=== PATIENT | female | born 1965 | race Caucasian/White ===

== ENCOUNTER 2024-10-13 14:02 | Outpatient (CLI) | payer MEDICARE, SELFPAY ==
--- NOTE | 2024-10-13 15:31 | ECG_ITS ---
Test Date: 2024-10-13 15:43:57 Measurements Intervals [place] Rate: 62 P: -90 DE: 76 QRS: 189 QRSD: 94 T: 144 QT: 391 QTc: 398 Interpretive Statements SINUS RHYTHM LIMB LEAD REVERSAL DELAYED PRECORDIAL R/S TRANSITION BASELINE ARTIFACT- I, II, III, AVR, AVL, AVF, V1-V6 BORDERLINE ECG No previous ECG available for comparison Electronically Signed On 10-13-2024 15:47:51 CDT by Stan Hansen D.O.
[2024-10-13 15:48] LABS: Hemoglobin 13.6 g/dL (12.0-15.0); Mean Corpuscular HGB Conc 30.9 g/dl (32-36); Mean Corpuscular Volume 90.7 fl (80-100); Mean Platelet Volume 12.5 fl (7.4-10.4); Platelet Count Result 242 k/mm3 (150-375); Red Blood Count 4.85 M/mm3 (4.2-5.4); Red Cell Distribution Width 13.2 % (11.5-14.5); White Blood Count 7.7 K/mm3 (4.5-10.0)
[2024-10-13 15:51] LABS: Add Urine Microscopic? NO; Appearance Urine Clear (Clear); Bilirubin Urine Negative (Negative); Blood Urine Negative (Negative); Color Urine Yellow (Yellow); Glucose Urine UA Negative (Negative); Ketones Urine Trace mg/dL (Negative); Leukocyte Esterase Ur Negative LEU/UL (Negative); Nitrate Urine Negative (Negative); Protein Urine Negative (Negative); Specific Grav Ur 1.034 (1.001-1.035); pH Urine 5.5 (5.0-9.0)
[2024-10-13 16:00] LABS: INR 0.9; Prothrombin Time 12.4 Seconds (11.1-14.7)
[2024-10-13 16:01] LABS: Partial Thromboplastin Time 26.3 Seconds (22.3-36.8)
[2024-10-13 16:03] LABS: Anion Gap 10 mmol/L (4-12); Blood Urea Nitrogen 18 mg/dL (7-17); Calcium 9.9 mg/dL (8.4-10.2); Carbon Dioxide 25 mmol/L (22-30); Chloride 105 mmol/L (98-107); Estimated Glomerular Filt Rate > 60; Glucose 108 mg/dL (65-110); Potassium 4.4 mmol/L (3.4-5.0); Sodium 140 mmol/L (137-145)
[2024-10-13 16:05] LABS: Hemoglobin A1C 6.9 % (<5.7)
== END 2024-10-13 14:03 | disposition home or self-care (01) ==
LOC: ANHSURGERY 14:11
PROVIDERS: Visit Provider Neurological Surgery
DX: M79.606 Pain in leg, unspecified (principal); M54.9 Dorsalgia, unspecified; I10 Essential (primary) hypertension; Z01.818 Encounter for other preprocedural examination
CPT/HCPCS: 36415; 80048; 81003; 83036; 85027; 85610; 85730; 93005

== ENCOUNTER 2024-10-25 02:51 | Day surgery (SDC) | payer MEDICARE, SELFPAY ==
[2024-10-13 14:35] VITALS: BP 102/67; PULSE 74; RESP 16; TEMP 36.6; O2SAT 99; BMI 27.6
--- NOTE | 2024-10-13 14:58 | PC.NURSE ---
Addendum entered by Lucina Bourne RN 10/13/24 15:27: PATIENT TO TAKE PAROXETINE NIGHT BEFORE USUAL, INSTEAD OF MORNING OF SURGERY. PT RELAYS UNDERSTANDING. Original Note: Report to the Outpatient Waiting Room, entrance under the green pavilion located off [facility], at time __8:30AM on date ___10/25/24____. Planned Procedure Time: __10:30AM .? Time changes happen often and if your time is changed the preop area will call you the afternoon before. - You and your visitor will be asked to self-screen and do not enter if you have any COVID symptoms. Please call surgeon if you need to reschedule. - A mask is optional within the hospital at this time. Patients may have clear liquids (water, carbonated beverages, clear teas, apple juice) until 3 hours prior to surgery (7:30AM) with a maximum of 20 ounces. - No food from midnight until time of surgery and no smoking, or chewing tobacco (or any form of nicotine). No chewing gum, candy or mints. Take only the following medications with a SIP of water on the morning of surgery: ___BUPROPION, BUSPIRONE, PAROXETINE, PREGABALIN. MAY TAKE LORAZEPAM NEEDED FOR ANXIETY.____INSULIN PUMP ON BASAL RATE. DO NOT STOP ANY OF YOUR OTHER PRESCRIPTION MEDICATIONS PRIOR TO SURGERY EXCEPT THE FOLLOWING Hold all vitamins and supplements for 3 days per anesthesiologist.- LAST DOSE 10/21/24. Please no make-up, nail british, hairspray, perfume, deodorant, or body powder the day of surgery.? No jewelry (including any body piercings) or valuables the day of surgery, leave them at home.? Please take a shower or bath the night before, or the morning of, surgery with an antibacterial soap.? Wear comfortable, loose fitting clothing.? - Jewelry must be removed prior to entering the operating room.? Rings and piercings that are not removed may be cut off. - The hospital will not accept responsibility for valuables.? - Please leave all valuables, including medications, at home the day of surgery. If you are going home after surgery, a licensed tractor trailer driver must drive you home.? - NO public transportation without another adult if you receive anesthesia. - We recommend that an adult stay with you for 24 hours following discharge. - We also recommend that you do not drive, make important decision, drink alcoholic beverages, or take any drugs that were not prescribed by your health care provider for at least 24 hours after your discharge time. Follow any additional instructions given to you from your surgeon. Telephone instructions given to ___PATIENT and asked if any additional questions and then verbalized understanding. Patient advised to call surgeon office or pre surgery nurse liaison [phone] if any additional questions.
[2024-10-25] VITALS (9 sets, daily range): BP systolic 104–140; BP diastolic 58–85; PULSE 64–78; RESP 16–21; TEMP 36.4–36.9; O2SAT 98–100
--- OUTSIDE RECORDS SUMMARY | 2024-10-25 02:57 | XMS_ITS | Patient Health Record ---
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 Name Role Phone Asher CLEARY, Antonio Primary Care Provider Unavail able Everton Dia Unavailable [phone] ALLERGIES Allergen (clinical drug ingredient) Drug/Non Drug Allergy documented on EMR Reaction Allergy Type Onset Date Status Septra DS Unknown Drug Allergy Active insulin detemir Levemir Unknown Drug Allergy A ctive Ceftin Unknown Drug Allergy Active Biaxin Unknown Drug Allergy Active REASON FOR REFERRAL No Information MEDICATIONS Medication SIG (Take, Route, Frequency, Duration) Notes Start Date End Date Status Vitamin D-3 1000 UNIT 5000 units Orally Once a day Active Crestor 40 MG 1 tablet Orally Once a day Active Zantac 150 MG 1 tablet at bedtime Orally Once a day Active hydroCHLOROthiazide 25 MG 1 tablet Orall y Once a day Active Aspirin Adult Low Dose 81 MG 1 tablet Or ally Once a day Active Strang 7.5-325 MG 1 tablet as needed Orally every 6 hrs Active Lisinopril 5 MG 1 tablet Orally Once a day for 30 day(s) 01/30/2016 Active Super B Complex Acti ve Montelukast Sodium 10 MG 1 tablet in the evening Orally Once a day Active NovoLOG FlexPen 100 UNIT/ML Subcutaneous Active PARoxetine HCl ER 25 MG 1 tablet in the morning Orally Once a day Active Cetirizine HCl 5 MG 1 tablet Orally Once a day Active Levothyroxine Sodium 25 MCG 1 tablet Ora lly Once a day Active Lyrica 150 MG 1 capsule Orally Twi ce a day Active metFORMIN HCl 850 MG 1 tablet with a anibal l Orally Once a day Active Potassium Chloride ER 20 MEQ 1 tablet wi th food Orally Twice a day Active Zohydro ER 30 MG 1 capsule Orally One at Bedtime Active CeleBREX 200 MG 1 capsule Orally Onc e a day Active Victoza 18 MG/3ML 1.8 mg Subcutaneous Once a day Active Baclofen 10 MG 1 tablet with food o r milk Orally 2 times a day Active Lisinopril 5 TAKE 1 TABLET BY FAUSTINO TH EVERY DAY for 30 Active Cranberry Plus Vitamin C 4200-20-3 MG-MG-UNIT Orally Active NovoLOG 100 UNIT/ML 15 units Subcutaneous Active Diflucan 150 MG 1 tablet Orally once a week Active Flonase Allergy Relief 50 MCG/ACT 1 spray in each nostril Nasally Once a day Active Amitiza 24 MCG 1 capsule with food Orally prn Active PROBLEMS Problem Type ICD Code Onset Dates Problem Status W/U Status Risk SNOMED Code Notes Problem Essential (primary) hypertension (I10) Active confirmed Essential hypertension (03396875) Problem Chronic kidney disease, stage 3 (moderate) (N18.3) Active confirmed Chronic kidney disease stage 3 (239585419) Problem Type 2 diabetes mellitus without complications (E11.9) Active confirmed Type II diabetes mellitus without complication (963925150) Problem Type 2 diabetes mellitus with diabetic chronic kidney disease (E11.22) Active confirmed Diabetic renal disease (297306218) PLAN OF TREATMENT Pending Test Test Name Order Date Ultrasound : Kidneys, bilateral 11/28/19 16 Future Test Test Name Order Date PTH, Intact 01/09/2016 RENAL PANEL 01/09/2016 Urinalysis with Microscopic/WITH Reflex Culture 01/09/2016 CBC without Differential 01/09/2016 RENAL PANEL 05/01/2016 Vitamin D, 25-Hydroxy 05/01/2016 URINE PROTEIN W/CREAT RATIO 05/01/2016 Insurance Providers Payer Name Payer Address Payer Phone Subscriber Number Group Number Insured Name Patient Relationship to Insured Coverage Start Date Coverage End Date [facility] [address] [place], [place] [id number] Noa Campos Self - patient is the insured [facility] [place] [address] [id number] Noa Campos Self - patient is the insured MEDICAL (GENERAL) HISTORY Medical History History ICD Code CKD Stage III Hypertension Hypothyroidism Diabets Mellitus Type II Chronic Pain 12/20/2015: US Renal; Impression: Unremark able Surgical History Surgery Date(Month/Year) back surgeries x3 laparoscopy for endometriosis
--- OUTSIDE RECORDS SUMMARY | 2024-10-25 02:57 | XMS_ITS ---
Author Organization Unknown Address [address] [place] [phone] Phone Care Team Providers Care Portfolio Management Marketing Name Role Phone ROSITA ROSADO Attending Unavailable Immunization Immunization Date Status Additional Notes Code Code System pneumococcal polysaccharide PPV23 12/15/2019 Completed 33 CVX influenza, unspecified formulation 12/20/2022 Completed 88 CVX COVID-19, mRNA, LNP-S, PF, aung-sucrose, 30 mcg/0.3 mL 03/10/2024 Completed 309 CVX RSV, bivalent, protein subun it RSVpreF, diluent reconstituted, 0.5 mL, PF 02/11/2024 Completed 305 CV X COVID-19, mRNA, LNP-S, bivalent, PF, 50 mcg/0.5 mL or 25mcg/0.25 mL dose 12/21/2021 Completed 229 CVX COVID-19, mRNA, LNP-S, PF, 3 0 mcg/0.3 mL dose, aung-sucrose 09/23/2021 Completed 217 CVX COVID-19, mRNA, LNP-S, PF, 3 0 mcg/0.3 mL dose 01/18/2021 Completed 208 CVX COVID-19, mRNA, LNP-S, PF, 3 0 mcg/0.3 mL dose 07/19/2020 Completed 208 CVX COVID-19, mRNA, LNP-S, PF, 3 0 mcg/0.3 mL dose 07/03/2020 Completed 208 CVX zoster recombinant 06/21/2020 Completed 187 CVX zoster recombinant 03/09/2020 Completed 187 CVX Influenza, MDCK, quadrivalen t, preservative 04/18/2018 Completed 186 CVX Influenza, MDCK, quadrivalen t, PF 03/05/2017 Completed 171 CVX Influenza, split virus, quadrivalent, preservative 01/14/2019 Completed 158 C VX Influenza, split virus, quadrivalent, preservative 04/08/2018 Completed 158 C VX Influenza, split virus, quadrivalent, preservative 01/15/2015 Completed 158 C VX Influenza, split virus, quadrivalent, preservative 12/19/2014 Completed 158 C VX Influenza, MDCK, trivalent, PF 01/13/2024 Completed 153 CVX Influenza, split virus, quadrivalent, PF 12/19/2022 Completed 150 CVX Influenza, split virus, quadrivalent, PF 12/21/2021 Completed 150 CVX Influenza, split virus, quadrivalent, PF 12/18/2020 Completed 150 CVX Influenza, split virus, trivalent, preservative 02/15/2016 Completed 141 CVX Influenza, split virus, trivalent, preservative 12/19/2013 Completed 141 CVX Pneumococcal conjugate PCV 13 03/28/2016 Completed 133 CVX zoster live 03/28/2016 Completed 121 CVX COVID-19, mRNA, LNP-S, PF, 5 0 mcg/0.5 mL 01/28/2023 Completed 312 CVX Social History Type Status Start Date End Date Code Code Syst em Smoking History Never smoker (Never Smoked) 498204840 SNOMED CT Smoking History Unknown if ever smoked [id number] SNOMED CT Sex Female Sexual Orientation Straight or Heterosexual 66681637 SNOMED CT Gender Identity Female [id number] Medications Medication Start Date End Date Route Frequency Dose Code Code System Medication Instructions Home Meds Lyrica 150MG Oral Capsule 08/30/2018 Unknown By Mouth Twice a day 1 CAPSULE 245492 RxNorm 1 CAPSULE By Mouth Twice a day Xyzal Allergy 24HR 5MG Oral Tablet 08/30/2018 Unknown By Mouth Daily 1 TABLET 857592 RxNorm 1 TABLE T By Mouth Daily CeleBREX 100MG Oral Capsule 03/15/2019 12/31/19 23 By Mouth Twice a day 1 CAPSULE 908049 RxNorm 1 CAPSULE By Mouth Twice a day Pepcid AC 20MG Oral Tablet 03/15/2019 Unknown By Mouth Daily 1 TABLET 430983 RxNorm 1 TABLET By Mouth Daily medical marijuana 07/27/2019 04/22/19 24 By Mouth As Directed 1 edible RxNorm 1 edible By Mouth As Directed Fiasp 100U/1ML Injection Solution 02/23/2020 Unknown Subcutane ous 9124435 RxNorm Subcutaneou s VIA INSULIN PUMP Victoza 6MG/1ML Subcutaneou s Solution 02/23/2020 04/22/19 24 Subcutane ous Daily 1.8 MILLIGRAMS 881314 RxNorm 1.8 MILLIGRAMS Subcutaneou s Daily Singulair 10MG Oral Tablet 04/03/2021 10/04/19 22 By Mouth Daily 1 TABLET 735364 RxNorm TAKE 1 TABLET BY MOUTH ONCE A DAY Prinivil 5MG Oral Tablet 04/03/2021 10/04/19 22 By Mouth Daily 1 TABLET 632544 RxNorm TAKE 1 TABLET BY MOUTH ONCE A DAY Crestor 40MG Oral Tablet 04/03/2021 10/04/19 22 By Mouth Daily 1 TABLET 234383 RxNorm TAKE 1 TABLET BY MOUTH ONCE A DAY Paxil 40MG Oral Tablet 04/09/2021 10/04/19 22 By Mouth Daily 1 TABLET 950561 RxNorm TAKE 1 TABLET BY MOUTH ONCE A DAY -TAKE WITH 10MG TAB busPIRone 15MG Oral Tablet 06/27/2021 10/04/19 22 By Mouth Twice a day 1 TABLET 134904 RxNorm 1 TABLET BY MOUTH TWICE A DAY Augmentin 875MG-125MG Oral Tablet 07/11/2021 10/04/19 22 By mouth Twice a day 1 TABLET 222065 RxNorm 1 TABLET By mouth Twice a day x10 days Potassium Chloride 20MEQ Oral Tablet, Extended Release 08/01/2021 10/04/19 22 By Mouth Twice a day 2 TABLET 0758970 RxNorm TAKE 2 TABLETS BY MOUTH TWO TIMES A DAY Paxil 10MG Oral Tablet 08/22/2021 04/29/19 23 By Mouth Daily 1 TABLET 512574 RxNorm TAKE 1 TABLET BY MOUTH ONCE A DAY -TAKE WITH 40MG TAB Singulair 10MG Oral Tablet 10/03/2021 12/07/19 22 By Mouth Daily 1 TABLET 306491 RxNorm TAKE 1 TABLET BY MOUTH ONCE A DAY Prinivil 5MG Oral Tablet 10/03/2021 11/08/19 22 By Mouth Daily 1 TABLET 945794 RxNorm TAKE 1 TABLET BY MOUTH ONCE A DAY Potassium Chloride 20MEQ Oral Tablet, Extended Release 10/03/2021 11/05/19 22 By Mouth Twice a day 2 TABLET 3002977 RxNorm TAKE 2 TABLETS BY MOUTH TWO TIMES A DAY Crestor 40MG Oral Tablet 10/03/2021 01/10/20 22 By Mouth Daily 1 TABLET 122311 RxNorm TAKE 1 TABLET BY MOUTH ONCE A DAY Paxil 40MG Oral Tablet 10/03/2021 11/05/19 22 By Mouth Daily 1 TABLET 189768 RxNorm TAKE 1 TABLET BY MOUTH ONCE A DAY -TAKE WITH 10MG TAB busPIRone 15MG Oral Tablet 10/03/2021 12/07/19 22 By Mouth Twice a day 1 TABLET 438953 RxNorm 1 TABLET BY MOUTH TWICE A DAY Potassium Chloride 20MEQ Oral Tablet, Extended Release 11/04/2021 12/07/19 22 By Mouth Twice a day 2 TABLET 0338632 RxNorm TAKE 2 TABLETS BY MOUTH TWO TIMES A DAY Paxil 40MG Oral Tablet 11/04/2021 12/07/19 22 By Mouth Daily 1 TABLET 487517 RxNorm TAKE 1 TABLET BY MOUTH ONCE A DAY -TAKE WITH 10MG TAB Prinivil 5MG Oral Tablet 11/06/2021 04/29/19 23 By Mouth Daily 1 TABLET 601872 RxNorm TAKE 1 TABLET BY MOUTH ONCE A DAY Prinivil 5MG Oral Tablet 11/07/2021 04/08/20 22 By Mouth Daily 1 TABLET 009577 RxNorm TAKE 1 TABLET BY MOUTH ONCE A DAY Paxil 40MG Oral Tablet 12/06/2021 01/10/20 22 By Mouth Daily 1 TABLET 193222 RxNorm TAKE 1 TABLET BY MOUTH ONCE A DAY -TAKE WITH 10MG TAB Singulair 10MG Oral Tablet 12/06/2021 02/08/20 22 By Mouth Daily 1 TABLET 608087 RxNorm TAKE 1 TABLET BY MOUTH ONCE A DAY busPIRone 15MG Oral Tablet 12/06/2021 01/10/20 22 By Mouth Twice a day 1 TABLET 738930 RxNorm TAKE 1 TABLET BY MOUTH TWO TIMES A DAY Potassium Chloride 20MEQ Oral Tablet, Extended Release 12/06/2021 01/10/20 22 By Mouth Twice a day 2 TABLET 3743444 RxNorm TAKE 2 TABLETS BY MOUTH TWO TIMES A DAY Potassium Chloride 20MEQ Oral Tablet, Extended Release 01/09/2022 03/11/20 22 By Mouth Twice a day 2 TABLET 5163444 RxNorm TAKE 2 TABLETS BY MOUTH TWO TIMES A DAY Paxil 40MG Oral Tablet 01/09/2022 03/11/20 22 By Mouth Daily 1 TABLET 783062 RxNorm TAKE 1 TABLET BY MOUTH ONCE A DAY -TAKE WITH 10MG TAB Crestor 40MG Oral Tablet 01/09/2022 03/11/20 22 By Mouth Daily 1 TABLET 840253 RxNorm TAKE 1 TABLET BY MOUTH ONCE A DAY busPIRone 15MG Oral Tablet 01/09/2022 03/11/20 22 By Mouth Twice a day 1 TABLET 424665 RxNorm TAKE 1 TABLET BY MOUTH TWO TIMES A DAY Singulair 10MG Oral Tablet 02/07/2022 04/29/19 23 By Mouth Daily 1 TABLET 912886 RxNorm TAKE 1 TABLET BY MOUTH ONCE A DAY Singulair 10MG Oral Tablet 02/07/2022 04/29/19 23 By Mouth Daily 1 TABLET 819639 RxNorm TAKE 1 TABLET BY MOUTH ONCE A DAY Crestor 40MG Oral Tablet 03/11/2022 04/08/20 22 By Mouth Daily 1 TABLET 029611 RxNorm TAKE 1 TABLET BY MOUTH ONCE A DAY busPIRone 15MG Oral Tablet 03/11/2022 04/08/20 22 By Mouth Twice a day 1 TABLET 637931 RxNorm TAKE 1 TABLET BY MOUTH TWO TIMES A DAY Paxil 40MG Oral Tablet 03/11/2022 04/08/20 22 By Mouth Daily 1 TABLET 262996 RxNorm TAKE 1 TABLET BY MOUTH ONCE A DAY -TAKE WITH 10MG TAB Potassium Chloride 20MEQ Oral Tablet, Extended Release 03/11/2022 04/08/20 22 By Mouth Twice a day 2 TABLET 9961294 RxNorm TAKE 2 TABLETS BY MOUTH TWO TIMES A DAY Doxycycline 100MG Oral Capsule 03/20/2022 04/29/19 23 By Mouth Twice a day 1 CAPSULE 7919084 RxNorm 1 CAPSULE By Mouth Twice a day x10 days Paxil 40MG Oral Tablet 04/08/2022 04/29/19 23 By Mouth Daily 1 TABLET 336608 RxNorm TAKE 1 TABLET BY MOUTH ONCE A DAY -TAKE WITH 10MG TAB busPIRone 15MG Oral Tablet 04/08/2022 04/29/19 23 By Mouth Twice a day 1 TABLET 186379 RxNorm TAKE 1 TABLET BY MOUTH TWO TIMES A DAY Prinivil 5MG Oral Tablet 04/08/2022 04/29/19 23 By Mouth Daily 1 TABLET 729606 RxNorm TAKE 1 TABLET BY MOUTH ONCE A DAY Crestor 40MG Oral Tablet 04/08/2022 06/05/19 23 By Mouth Daily 1 TABLET 563690 RxNorm TAKE 1 TABLET BY MOUTH ONCE A DAY Potassium Chloride 20MEQ Oral Tablet, Extended Release 04/08/2022 04/29/19 23 By Mouth Twice a day 2 TABLET 5601021 RxNorm TAKE 2 TABLETS BY MOUTH TWO TIMES A DAY Naltrexone HCl Powder 04/29/2022 06/06/19 25 By Mouth At bedtime 3 MILLIGRAMS RxNorm 3 MILLIGRAMS By Mouth At bedtime Paxil 40MG Oral Tablet 04/29/2022 02/05/20 23 By Mouth Daily 1 TABLET 893496 RxNorm TAKE 1 TABLET BY MOUTH ONCE A DAY busPIRone 15MG Oral Tablet 04/29/2022 02/05/20 23 By Mouth Twice a day 1 TABLET 197477 RxNorm TAKE 1 TABLET BY MOUTH TWO TIMES A DAY Prinivil 5MG Oral Tablet 04/29/2022 06/19/19 24 By Mouth Daily 1 TABLET 801836 RxNorm TAKE 1 TABLET BY MOUTH ONCE A DAY Potassium Chloride 20MEQ Oral Tablet, Extended Release 04/29/2022 12/31/19 23 By Mouth Twice a day 2 TABLET 5497838 RxNorm TAKE 2 TABLETS BY MOUTH TWO TIMES A DAY Singulair 10MG Oral Tablet 04/29/2022 05/07/19 24 By Mouth Daily 1 TABLET 799818 RxNorm TAKE 1 TABLET BY MOUTH ONCE A DAY Crestor 40MG Oral Tablet 06/05/2022 08/20/19 23 By Mouth Daily 1 TABLET 504388 RxNorm TAKE 1 TABLET BY MOUTH ONCE A DAY Crestor 40MG Oral Tablet 08/19/2022 12/20/19 23 By Mouth Daily 1 TABLET 971362 RxNorm TAKE 1 TABLET BY MOUTH ONCE A DAY Crestor 40MG Oral Tablet 12/19/2022 12/31/19 23 By Mouth Daily 1 TABLET 495033 RxNorm TAKE 1 TABLET BY MOUTH ONCE A DAY Ozempic 0.25 MG or 0.5 MG Doses 2 MG/3 ML Subcutaneou s Solution 12/30/2022 01/05/20 24 Subcutane ous Once a week 0.25 UNIT 9308761 RxNorm 0.25 UNIT Subcutaneou s Once a week Crestor 40MG Oral Tablet 12/30/2022 12/31/19 23 By Mouth Daily 1 TABLET 393652 RxNorm TAKE 1 TABLET BY MOUTH ONCE A DAY Crestor 40MG Oral Tablet 12/30/2022 01/05/20 24 By Mouth Daily 1 TABLET 353364 RxNorm TAKE 1 TABLET BY MOUTH ONCE A DAY Paxil 40MG Oral Tablet 02/04/2023 07/07/19 24 By Mouth Daily 1 TABLET 094661 RxNorm TAKE 1 TABLET BY MOUTH ONCE A DAY busPIRone 15MG Oral Tablet 02/04/2023 07/07/19 24 By Mouth Twice a day 1 TABLET 369044 RxNorm TAKE 1 TABLET BY MOUTH TWO TIMES A DAY Levothyroxi ne 50MCG Oral Tablet 02/20/2023 Unknown By Mouth 1 TABLET 924713 RxNorm 1 TABLE T By Mouth in the morning on an empty stomach- PRESCRIBED BY DR DURAN Victoza 6MG/1ML Subcutaneou s Solution 02/20/2023 06/21/19 25 Subcutane ous Daily 1.8 UNIT 842532 RxNorm 1.8 UNIT Subcutaneou s Daily- *PRESCRIBED BY DR DURAN NovoLOG FlexPen 100U/1ML Subcutaneou s Solution 02/20/2023 04/07/20 23 Subcutane ous 3020599 RxNorm Inject up to 100 Units SUBQ daily in DMDED doses--- * PRESCRIBED BY DR DURAN Baclofen 10MG Oral Tablet 02/20/2023 Unknown By Mouth Three times a day 1 TABLET 131035 RxNorm 1 TABLET By Mouth Three times a day With food Aspirin 81MG Oral Tablet, Enteric Coated 02/20/2023 04/07/20 23 By Mouth Daily 1 TABLET 889403 RxNorm 1 TABLET By Mouth Daily Vitamin D 1000IU Oral Tablet 02/20/2023 04/07/20 23 By Mouth Daily 1 TABLET 135092 RxNorm 1 TABLET By Mouth Daily Augmentin 875MG-125MG Oral Tablet 04/22/2023 05/28/19 24 By Mouth Every 12 hours 1 TABLET 365920 RxNorm 1 TABLET By Mouth Every 12 hours x 10 days. Take with food. Diflucan 150MG Oral Tablet 04/22/2023 05/28/19 24 By Mouth x1 NOW 1 TABLET 190837 RxNorm 1 TABLET By Mouth x1 NOW. May repeat in 72 hours as needed. Singulair 10MG Oral Tablet 05/07/2023 07/07/19 24 By Mouth Daily 1 TABLET 288194 RxNorm TAKE 1 TABLET BY MOUTH ONCE A DAY Prinivil 5MG Oral Tablet 06/19/2023 06/22/19 24 By Mouth Daily 1 TABLET 257840 RxNorm TAKE 1 TABLET BY MOUTH ONCE A DAY Prinivil 5MG Oral Tablet 06/22/2023 07/07/19 24 By Mouth Daily 1 TABLET 722462 RxNorm TAKE 1 TABLET BY MOUTH ONCE A DAY Prinivil 5MG Oral Tablet 07/07/2023 01/05/20 24 By Mouth Daily 1 TABLET 704349 RxNorm TAKE 1 TABLET BY MOUTH ONCE A DAY Singulair 10MG Oral Tablet 07/07/2023 01/05/20 24 By Mouth Daily 1 TABLET 563627 RxNorm TAKE 1 TABLET BY MOUTH ONCE A DAY Paxil 40MG Oral Tablet 07/07/2023 10/02/19 24 By Mouth Daily 1 TABLET 176598 RxNorm TAKE 1 TABLET BY MOUTH ONCE A DAY busPIRone 15MG Oral Tablet 07/07/2023 01/05/20 24 By Mouth Twice a day 1 TABLET 821654 RxNorm TAKE 1 TABLET BY MOUTH TWO TIMES A DAY Ativan 0.5MG Oral Tablet 09/02/2023 09/28/19 25 By Mouth Twice a day 1 TABLET 476081 RxNorm 1 TABLET By Mouth Twice a day PRN Paxil 30MG Oral Tablet 10/02/2023 10/30/19 24 By Mouth Daily 2 TABLET 340235 RxNorm 2 TABLET By Mouth Daily Paxil 30MG Oral Tablet 10/30/2023 08/17/19 25 By Mouth Daily 2 TABLET 680448 RxNorm 2 TABLET By Mouth Daily Ambien 5MG Oral Tablet 12/11/2023 01/05/20 24 By Mouth At bedtime 245131 RxNorm 1-2 TABLET By Mouth At bedtime As needed Ozempic 0.25 MG or 0.5 MG Doses 2 MG/3 ML Subcutaneou s Solution 01/05/2024 06/21/19 25 Subcutane ous Once a week 0.5 UNIT 8311773 RxNorm 0.5 UNIT Subcutaneou s Once a week Crestor 40MG Oral Tablet 01/05/2024 09/27/19 25 By Mouth Daily 1 TABLET 778272 RxNorm TAKE 1 TABLET BY MOUTH ONCE A DAY busPIRone 15MG Oral Tablet 01/05/2024 08/06/19 25 By Mouth Twice a day 1 TABLET 537806 RxNorm TAKE 1 TABLET BY MOUTH TWO TIMES A DAY Singulair 10MG Oral Tablet 01/05/2024 09/27/19 25 By Mouth Daily 1 TABLET 161389 RxNorm TAKE 1 TABLET BY MOUTH ONCE A DAY Ambien 5MG Oral Tablet 01/05/2024 09/28/19 25 By Mouth At bedtime 496105 RxNorm 1-2 TABLET By Mouth At bedtime As needed Prinivil 5MG Oral Tablet 01/05/2024 07/06/19 25 By Mouth Daily 1 TABLET 800902 RxNorm TAKE 1 TABLET BY MOUTH ONCE A DAY Promethazin e DM 6.25MG/5ML- 15MG/5ML Oral Syrup 01/25/2024 06/06/19 25 ORAL As needed every 4 hr 5 mL 432565 RxNorm 5 mL ORAL As needed every 4 hr-do not take within 2 hours of Paxil or Buspirone Augmentin 875MG-125MG Oral Tablet 01/25/2024 06/06/19 25 By Mouth Twice a day 1 TABLET 389875 RxNorm 1 TABLET By Mouth Twice a day x 10 days Airsupra 90 MCG/1 Actuation-8 0 MCG/1 Actuation Inhalation Aerosol Powder 01/25/2024 06/06/19 25 Inhale As needed every 4 hr 2 Puff 1449622 RxNorm 2 Puff Inhale As needed every 4 hr Victoza 6MG/1ML Subcutaneou s Solution 06/20/2024 Unknown Subcutane ous Daily 1.8 MILLIGRAMS 026350 RxNorm 1.8 MILLIGRAMS Subcutaneou s Daily Ozempic 0.25 MG or 0.5 MG Doses 2 MG/3 ML Subcutaneou s Solution 06/20/2024 Unknown Subcutane ous Once a week 1.5 MILLILITER 4798193 RxNorm 1.5 MILLILITER Subcutaneou s Once a week Lisinopril 5MG Oral Tablet 07/05/2024 09/27/19 25 By Mouth Daily 1 TABLET 040915 RxNorm 1 TABLET By Mouth Daily busPIRone 15MG Oral Tablet 08/05/2024 Unknown By Mouth Twice a day 1 TABLET 351695 RxNorm TAKE 1 TABLET BY MOUTH TWO TIMES A DAY Paxil 20MG Oral Tablet 08/16/2024 09/27/19 25 By Mouth Daily 1 TABLET 831048 RxNorm 1 TABLET By Mouth Daily Wellbutrin XL 150MG Oral Tablet, Extended Release, 24 HR 08/16/2024 09/27/19 25 By Mouth Daily 1 TABLET 534970 RxNorm 1 TABLET By Mouth Daily. Wellbutrin XL 150MG Oral Tablet, Extended Release, 24 HR 09/26/2024 Unknown By Mouth Daily 1 TABLET 568419 RxNorm 1 TABLET By Mouth Daily. Paxil 20MG Oral Tablet 09/26/2024 Unknown By Mouth Daily 1 TABLET 852223 RxNorm 1 TABLE T By Mouth Daily Lisinopril 5MG Oral Tablet 09/26/2024 Unknown By Mouth Daily 1 TABLET 989340 RxNorm 1 TABLET By Mouth Daily Singulair 10MG Oral Tablet 09/26/2024 Unknown By Mouth Daily 1 TABLET 561774 RxNorm TAKE 1 TABLET BY MOUTH ONCE A DAY Crestor 40MG Oral Tablet 09/26/2024 Unknown By Mouth Daily 1 TABLET 623119 RxNorm TAKE 1 TABLET BY MOUTH ONCE A DAY Ativan 0.5MG Oral Tablet 09/27/2024 Unknown By Mouth As needed daily 1 TABLET 099022 RxNorm 1 TABLET By Mouth As needed daily Ambien 5MG Oral Tablet 09/27/2024 10/05/19 25 By Mouth At bedtime 483951 RxNorm 1-2 TABLET By Mouth At bedtime As needed Ambien 5MG Oral Tablet 10/04/2024 Unknown By Mouth At bedtime 1 TABLET 350096 RxNorm 1 TABLET By Mouth At bedtime As needed Assessment You had the following problems:TYPE I DIABETES MELLITUS WITH HYPERGLYCEMIAHYPERTENSIONHYPERCHOLESTEROLEMIAHYPOTHYROIDISMLUMBAR RADICULOPATHYLOW POTASSIUMGERDALLERGIC RHINITISDEPRESSIONANXIETYASTHMACHRONIC KIDNEY DISEASE STAGE 3OBESITYENDOMETRIOSISSLEEP APNEANEOPLASM OF UNCERTAIN BEHAVIOR OF RIGHT ADRENAL GLANDDEFICIENCY OF OTHER SPECIFIED B GROUP VITAMINSHYPERCALCEMIAENCOUNTER FOR FITTING AND ADJUSTMENT OF INSULIN PUMPABNORMAL LEVELS OF OTHER SERUM ENZYMES Hospital Discharge Instructions Should you have any questions prior to discharge, please contact a member of your healthcare team. If you have left the hospital and have any questions, please contact your primary care physician. Reason For Referral No Data Found Problems Problem Start Date Resolved Date Status Code Code System TYPE I DIABETES MELLITUS WITH HYPERGLYCEMIA active [id number] SNOMED -CT HYPERTENSION active 60366962 SNOMED- CT HYPERCHOLESTEROLEMIA active 37615378 SNOMED-CT HYPOTHYROIDISM active 83959323 SNOME D-CT LUMBAR RADICULOPATHY active 921701739 SNOMED-CT LOW POTASSIUM active 25082038 SNOMED -CT GERD active 503575084 SNOMED-CT ALLERGIC RHINITIS active 98369362 SN OMED-CT DEPRESSION active 05820783 SNOMED-CT ANXIETY active 02064829 SNOMED-CT ASTHMA active 207412335 SNOMED-CT CHRONIC KIDNEY DISEASE STAGE 3 active 400693605 SNOMED-CT OBESITY active 937426946 SNOMED-CT ENDOMETRIOSIS active 579129742 SNOMED -CT SLEEP APNEA active 74601870 SNOMED-C 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 158669360591615 SNOMED-CT 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 64156947 S NOMED-CT HYPERCALCEMIA active 73398597 SNOMED -CT ENCOUNTER FOR FITTING AND ADJUSTMENT OF INSULIN PUMP active 858632252 S NOMED-CT ABNORMAL LEVELS OF OTHER SERUM ENZYMES active 175318784 SNOMED-CT HISTORY OF GASTRIC BYPASS 06/26/2022 05/30/2024 resolved 69 0031443 SNOMED-CT SINUSITIS 04/30/2022 resolved 66783706 SNOMED-CT DIABETES 2 01/19/2024 resolved 91334500 SNOMED-C T Allergies and Adverse Reactions Allergy Substance Reaction Severity Start Date Concern Status Co de Code System CEFUROXIME Rash (SNOMED-CT: 290912942) Mild Active 2194 RxNorm KETOROLAC Hives (SNOMED-CT: 367310161) Mild Active 72245 RxNorm BIAXIN Hives (SNOMED-CT: 049993879) Severe Active LANTUS Hives (SNOMED-CT: 315054803) Mild Active 940069 RxNorm TAMIFLU Rash (SNOMED-CT: 471372485) Active 561357 RxNorm SEPTRA Rash (SNOMED-CT: 429476712) Mild Active LEVEMIR Hives (SNOMED-CT: 463785807) Mild Active 946166 RxNorm Plan of Treatment MA Screening Bilateral 07/25/2025 Established Patient 30 01/03/2025 Description Due Date Details Instructions Pap 08/18/2025 Performed 09/06 20 normal, repeat in 5 yrs per [place] - RR 5.20.21 Sdoh 01/04/2025 Annual Labs 11/10/2024 cbc, cmp, tsh, free t4, lipids Mammogram 08/12/2025 08/12/24- WNL Depression 06/06/2025 Anxiety 06/06/2025 Personal Care Team Section Performer Name Performer Role Active Date Inactive Da te
--- OUTSIDE RECORDS SUMMARY | 2024-10-25 02:57 | XMS_ITS ---
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 Name Role Phone ROSITA ROSADO Attending Unavailable [...] em Smoking History Never smoker (Never Smoked) [id number] SNOMED CT Smoking History Unknown if ever smoked [id number] SNOMED CT Sex Female Sexual Orientation Straight or Heterosexual 11340682 SNOMED CT Gender Identity Female [id number] Medications Medication Start Date End Date Route Frequency Dose Code Code System Medication Instructions Home Meds Lyrica 150MG Oral Capsule 08/30/2018 Unknown By Mouth Twice a day 1 CAPSULE 468095 RxNorm 1 CAPSULE By Mouth Twice a day Xyzal Allergy 24HR 5MG Oral Tablet 08/30/2018 Unknown By Mouth Daily 1 TABLET 950030 RxNorm 1 TABLE T By Mouth Daily CeleBREX 100MG Oral Capsule 03/15/2019 12/31/19 23 By Mouth Twice a day 1 CAPSULE 743814 RxNorm 1 CAPSULE By Mouth Twice a day Pepcid AC 20MG Oral Tablet 03/15/2019 Unknown By Mouth Daily 1 TABLET 997143 RxNorm 1 TABLET By Mouth Daily medical marijuana 07/27/2019 04/22/19 24 By Mouth As Directed 1 edible RxNorm 1 edible By Mouth As Directed Fiasp 100U/1ML Injection Solution 02/23/2020 Unknown Subcutane ous 6623857 RxNorm Subcutaneou s VIA INSULIN PUMP Victoza 6MG/1ML Subcutaneou s Solution 02/23/2020 04/22/19 24 Subcutane ous Daily 1.8 MILLIGRAMS 438750 RxNorm 1.8 MILLIGRAMS Subcutaneou s Daily Paxil 10MG Oral Tablet 08/22/2021 04/29/19 23 By Mouth Daily 1 TABLET 507143 RxNorm TAKE 1 TABLET BY MOUTH ONCE A DAY -TAKE WITH 40MG TAB Singulair 10MG Oral Tablet 10/03/2021 12/07/19 22 By Mouth Daily 1 TABLET 556995 RxNorm TAKE 1 TABLET BY MOUTH ONCE A DAY Prinivil 5MG Oral Tablet 10/03/2021 11/08/19 22 By Mouth Daily 1 TABLET 714406 RxNorm TAKE 1 TABLET BY MOUTH ONCE A DAY Crestor 40MG Oral Tablet 10/03/2021 01/10/20 22 By Mouth Daily 1 TABLET 049927 RxNorm TAKE 1 TABLET BY MOUTH ONCE A DAY busPIRone 15MG Oral Tablet 10/03/2021 12/07/19 22 By Mouth Twice a day 1 TABLET 663850 RxNorm 1 TABLET BY MOUTH TWICE A DAY Potassium Chloride 20MEQ Oral Tablet, Extended Release 11/04/2021 12/07/19 22 By Mouth Twice a day 2 TABLET 5854977 RxNorm TAKE 2 TABLETS BY MOUTH TWO TIMES A DAY Paxil 40MG Oral Tablet 11/04/2021 12/07/19 22 By Mouth Daily 1 TABLET 019878 RxNorm TAKE 1 TABLET BY MOUTH ONCE A DAY -TAKE WITH 10MG TAB Prinivil 5MG Oral Tablet 11/06/2021 04/29/19 23 By Mouth Daily 1 TABLET 544533 RxNorm TAKE 1 TABLET BY MOUTH ONCE A DAY Prinivil 5MG Oral Tablet 11/07/2021 04/08/20 22 By Mouth Daily 1 TABLET 751298 RxNorm TAKE 1 TABLET BY MOUTH ONCE A DAY Paxil 40MG Oral Tablet 12/06/2021 01/10/20 22 By Mouth Daily 1 TABLET 105235 RxNorm TAKE 1 TABLET BY MOUTH ONCE A DAY -TAKE WITH 10MG TAB Singulair 10MG Oral Tablet 12/06/2021 02/08/20 22 By Mouth Daily 1 TABLET 844606 RxNorm TAKE 1 TABLET BY MOUTH ONCE A DAY busPIRone 15MG Oral Tablet 12/06/2021 01/10/20 22 By Mouth Twice a day 1 TABLET 820408 RxNorm TAKE 1 TABLET BY MOUTH TWO TIMES A DAY Potassium Chloride 20MEQ Oral Tablet, Extended Release 12/06/2021 01/10/20 22 By Mouth Twice a day 2 TABLET 5833923 RxNorm TAKE 2 TABLETS BY MOUTH TWO TIMES A DAY Potassium Chloride 20MEQ Oral Tablet, Extended Release 01/09/2022 03/11/20 22 By Mouth Twice a day 2 TABLET 7690208 RxNorm TAKE 2 TABLETS BY MOUTH TWO TIMES A DAY Paxil 40MG Oral Tablet 01/09/2022 03/11/20 By Mouth Daily 1 TABLET 333297 RxNorm TAKE 1 TABLET BY MOUTH ONCE A DAY -TAKE WITH 10MG TAB Crestor 40MG Oral Tablet 01/09/2022 03/11/20 22 By Mouth Daily 1 TABLET 585993 RxNorm TAKE 1 TABLET BY MOUTH ONCE A DAY busPIRone 15MG Oral Tablet 01/09/2022 03/11/20 22 By Mouth Twice a day 1 TABLET 133511 RxNorm TAKE 1 TABLET BY MOUTH TWO TIMES A DAY Singulair 10MG Oral Tablet 02/07/2022 04/29/19 23 By Mouth Daily 1 TABLET 136942 RxNorm TAKE 1 TABLET BY MOUTH ONCE A DAY Singulair 10MG Oral Tablet 02/07/2022 04/29/19 23 By Mouth Daily 1 TABLET 401319 RxNorm TAKE 1 TABLET BY MOUTH ONCE A DAY Crestor 40MG Oral Tablet 03/11/2022 04/08/20 22 By Mouth Daily 1 TABLET 491276 RxNorm TAKE 1 TABLET BY MOUTH ONCE A DAY busPIRone 15MG Oral Tablet 03/11/2022 04/08/20 22 By Mouth Twice a day 1 TABLET 836858 RxNorm TAKE 1 TABLET BY MOUTH TWO TIMES A DAY Paxil 40MG Oral Tablet 03/11/2022 04/08/20 22 By Mouth Daily 1 TABLET 355415 RxNorm TAKE 1 TABLET BY MOUTH ONCE A DAY -TAKE WITH 10MG TAB Potassium Chloride 20MEQ Oral Tablet, Extended Release 03/11/2022 04/08/20 22 By Mouth Twice a day 2 TABLET 4458272 RxNorm TAKE 2 TABLETS BY MOUTH TWO TIMES A DAY Doxycycline 100MG Oral Capsule 03/20/2022 04/29/19 23 By Mouth Twice a day 1 CAPSULE 7258398 RxNorm 1 CAPSULE By Mouth Twice a day x10 days Paxil 40MG Oral Tablet 04/08/2022 04/29/19 23 By Mouth Daily 1 TABLET 596848 RxNorm TAKE 1 TABLET BY MOUTH ONCE A DAY -TAKE WITH 10MG TAB busPIRone 15MG Oral Tablet 04/08/2022 04/29/19 23 By Mouth Twice a day 1 TABLET 349756 RxNorm TAKE 1 TABLET BY MOUTH TWO TIMES A DAY Prinivil 5MG Oral Tablet 04/08/2022 04/29/19 23 By Mouth Daily 1 TABLET 734828 RxNorm TAKE 1 TABLET BY MOUTH ONCE A DAY Crestor 40MG Oral Tablet 04/08/2022 06/05/19 23 By Mouth Daily 1 TABLET 675729 RxNorm TAKE 1 TABLET BY MOUTH ONCE A DAY Potassium Chloride 20MEQ Oral Tablet, Extended Release 04/08/2022 04/29/19 23 By Mouth Twice a day 2 TABLET 8806641 RxNorm TAKE 2 TABLETS BY MOUTH TWO TIMES A DAY Naltrexone HCl Powder 04/29/2022 06/06/19 25 By Mouth At bedtime 3 MILLIGRAMS RxNorm 3 MILLIGRAMS By Mouth At bedtime Paxil 40MG Oral Tablet 04/29/2022 02/05/20 23 By Mouth Daily 1 TABLET 201893 RxNorm TAKE 1 TABLET BY MOUTH ONCE A DAY busPIRone 15MG Oral Tablet 04/29/2022 02/05/20 23 By Mouth Twice a day 1 TABLET 867120 RxNorm TAKE 1 TABLET BY MOUTH TWO TIMES A DAY Prinivil 5MG Oral Tablet 04/29/2022 06/19/19 24 By Mouth Daily 1 TABLET 774970 RxNorm TAKE 1 TABLET BY MOUTH ONCE A DAY Potassium Chloride 20MEQ Oral Tablet, Extended Release 04/29/2022 12/31/19 23 By Mouth Twice a day 2 TABLET 4447456 RxNorm TAKE 2 TABLETS BY MOUTH TWO TIMES A DAY Singulair 10MG Oral Tablet 04/29/2022 05/07/19 24 By Mouth Daily 1 TABLET 475405 RxNorm TAKE 1 TABLET BY MOUTH ONCE A DAY Crestor 40MG Oral Tablet 06/05/2022 08/20/19 23 By Mouth Daily 1 TABLET 809949 RxNorm TAKE 1 TABLET BY MOUTH ONCE A DAY Crestor 40MG Oral Tablet 08/19/2022 12/20/19 23 By Mouth Daily 1 TABLET 658944 RxNorm TAKE 1 TABLET BY MOUTH ONCE A DAY Crestor 40MG Oral Tablet 12/19/2022 12/31/19 23 By Mouth Daily 1 TABLET 702838 RxNorm TAKE 1 TABLET BY MOUTH ONCE A DAY Ozempic 0.25 MG or 0.5 MG Doses 2 MG/3 ML Subcutaneou s Solution 12/30/2022 01/05/20 24 Subcutane ous Once a week 0.25 UNIT 9246102 RxNorm 0.25 UNIT Subcutaneou s Once a week Crestor 40MG Oral Tablet 12/30/2022 12/31/19 23 By Mouth Daily 1 TABLET 049151 RxNorm TAKE 1 TABLET BY MOUTH ONCE A DAY Crestor 40MG Oral Tablet 12/30/2022 01/05/20 24 By Mouth Daily 1 TABLET 653272 RxNorm TAKE 1 TABLET BY MOUTH ONCE A DAY Paxil 40MG Oral Tablet 02/04/2023 07/07/19 24 By Mouth Daily 1 TABLET 707796 RxNorm TAKE 1 TABLET BY MOUTH ONCE A DAY busPIRone 15MG Oral Tablet 02/04/2023 07/07/19 24 By Mouth Twice a day 1 TABLET 236827 RxNorm TAKE 1 TABLET BY MOUTH TWO TIMES A DAY Levothyroxi ne 50MCG Oral Tablet 02/20/2023 Unknown By Mouth 1 TABLET 291729 RxNorm 1 TABLE T By Mouth in the morning on an empty stomach- PRESCRIBED BY DR DURAN Victoza 6MG/1ML Subcutaneou s Solution 02/20/2023 06/21/19 25 Subcutane ous Daily 1.8 UNIT 248340 RxNorm 1.8 UNIT Subcutaneou s Daily- *PRESCRIBED BY DR DURAN NovoLOG FlexPen 100U/1ML Subcutaneou s Solution 02/20/2023 04/07/20 23 Subcutane ous 7968609 RxNorm Inject up to 100 Units SUBQ daily in DMDED doses--- * PRESCRIBED BY DR DURAN Baclofen 10MG Oral Tablet 02/20/2023 Unknown By Mouth Three times a day 1 TABLET 247809 RxNorm 1 TABLET By Mouth Three times a day With food Aspirin 81MG Oral Tablet, Enteric Coated 02/20/2023 04/07/20 23 By Mouth Daily 1 TABLET 466590 RxNorm 1 TABLET By Mouth Daily Vitamin D 1000IU Oral Tablet 02/20/2023 04/07/20 23 By Mouth Daily 1 TABLET 742854 RxNorm 1 TABLET By Mouth Daily Augmentin 875MG-125MG Oral Tablet 04/22/2023 05/28/19 24 By Mouth Every 12 hours 1 TABLET 991706 RxNorm 1 TABLET By Mouth Every 12 hours x 10 days. Take with food. Diflucan 150MG Oral Tablet 04/22/2023 05/28/19 24 By Mouth x1 NOW 1 TABLET 143860 RxNorm 1 TABLET By Mouth x1 NOW. May repeat in 72 hours as needed. Singulair 10MG Oral Tablet 05/07/2023 07/07/19 24 By Mouth Daily 1 TABLET 506938 RxNorm TAKE 1 TABLET BY MOUTH ONCE A DAY Prinivil 5MG Oral Tablet 06/19/2023 06/22/19 24 By Mouth Daily 1 TABLET 847952 RxNorm TAKE 1 TABLET BY MOUTH ONCE A DAY Prinivil 5MG Oral Tablet 06/22/2023 07/07/19 24 By Mouth Daily 1 TABLET 109700 RxNorm TAKE 1 TABLET BY MOUTH ONCE A DAY Prinivil 5MG Oral Tablet 07/07/2023 01/05/20 24 By Mouth Daily 1 TABLET 718170 RxNorm TAKE 1 TABLET BY MOUTH ONCE A DAY Singulair 10MG Oral Tablet 07/07/2023 01/05/20 24 By Mouth Daily 1 TABLET 887300 RxNorm TAKE 1 TABLET BY MOUTH ONCE A DAY Paxil 40MG Oral Tablet 07/07/2023 10/02/19 24 By Mouth Daily 1 TABLET 569193 RxNorm TAKE 1 TABLET BY MOUTH ONCE A DAY busPIRone 15MG Oral Tablet 07/07/2023 01/05/20 24 By Mouth Twice a day 1 TABLET 724460 RxNorm TAKE 1 TABLET BY MOUTH TWO TIMES A DAY Ativan 0.5MG Oral Tablet 09/02/2023 09/28/19 25 By Mouth Twice a day 1 TABLET 168220 RxNorm 1 TABLET By Mouth Twice a day PRN Paxil 30MG Oral Tablet 10/02/2023 10/30/19 24 By Mouth Daily 2 TABLET 132051 RxNorm 2 TABLET By Mouth Daily Paxil 30MG Oral Tablet 10/30/2023 08/17/19 25 By Mouth Daily 2 TABLET 114398 RxNorm 2 TABLET By Mouth Daily Ambien 5MG Oral Tablet 12/11/2023 01/05/20 24 By Mouth At bedtime 750251 RxNorm 1-2 TABLET By Mouth At bedtime As needed Ozempic 0.25 MG or 0.5 MG Doses 2 MG/3 ML Subcutaneou s Solution 01/05/2024 06/21/19 25 Subcutane ous Once a week 0.5 UNIT 6623125 RxNorm 0.5 UNIT Subcutaneou s Once a week Crestor 40MG Oral Tablet 01/05/2024 09/27/19 25 By Mouth Daily 1 TABLET 834551 RxNorm TAKE 1 TABLET BY MOUTH ONCE A DAY busPIRone 15MG Oral Tablet 01/05/2024 08/06/19 25 By Mouth Twice a day 1 TABLET 574956 RxNorm TAKE 1 TABLET BY MOUTH TWO TIMES A DAY Singulair 10MG Oral Tablet 01/05/2024 09/27/19 25 By Mouth Daily 1 TABLET 517990 RxNorm TAKE 1 TABLET BY MOUTH ONCE A DAY Ambien 5MG Oral Tablet 01/05/2024 09/28/19 25 By Mouth At bedtime 412867 RxNorm 1-2 TABLET By Mouth At bedtime As needed Prinivil 5MG Oral Tablet 01/05/2024 07/06/19 25 By Mouth Daily 1 TABLET 475691 RxNorm TAKE 1 TABLET BY MOUTH ONCE A DAY Promethazin e DM 6.25MG/5ML- 15MG/5ML Oral Syrup 01/25/2024 06/06/19 25 ORAL As needed every 4 hr 5 mL 802610 RxNorm 5 mL ORAL As needed every 4 hr-do not take within 2 hours of Paxil or Buspirone Augmentin 875MG-125MG Oral Tablet 01/25/2024 06/06/19 25 By Mouth Twice a day 1 TABLET 958753 RxNorm 1 TABLET By Mouth Twice a day x 10 days Airsupra 90 MCG/1 Actuation-8 0 MCG/1 Actuation Inhalation Aerosol Powder 01/25/2024 06/06/19 25 Inhale As needed every 4 hr 2 Puff 5035194 RxNorm 2 Puff Inhale As needed every 4 hr Victoza 6MG/1ML Subcutaneou s Solution 06/20/2024 Unknown Subcutane ous Daily 1.8 MILLIGRAMS 956670 RxNorm 1.8 MILLIGRAMS Subcutaneou s Daily Ozempic 0.25 MG or 0.5 MG Doses 2 MG/3 ML Subcutaneou s Solution 06/20/2024 Unknown Subcutane ous Once a week 1.5 MILLILITER 5453200 RxNorm 1.5 MILLILITER Subcutaneou s Once a week Lisinopril 5MG Oral Tablet 07/05/2024 09/27/19 25 By Mouth Daily 1 TABLET 583085 RxNorm 1 TABLET By Mouth Daily busPIRone 15MG Oral Tablet 08/05/2024 Unknown By Mouth Twice a day 1 TABLET 303575 RxNorm TAKE 1 TABLET BY MOUTH TWO TIMES A DAY Paxil 20MG Oral Tablet 08/16/2024 09/27/19 25 By Mouth Daily 1 TABLET 649577 RxNorm 1 TABLET By Mouth Daily Wellbutrin XL 150MG Oral Tablet, Extended Release, 24 HR 08/16/2024 09/27/19 25 By Mouth Daily 1 TABLET 514340 RxNorm 1 TABLET By Mouth Daily. Wellbutrin XL 150MG Oral Tablet, Extended Release, 24 HR 09/26/2024 Unknown By Mouth Daily 1 TABLET 569498 RxNorm 1 TABLET By Mouth Daily. Paxil 20MG Oral Tablet 09/26/2024 Unknown By Mouth Daily 1 TABLET 983327 RxNorm 1 TABLE T By Mouth Daily Lisinopril 5MG Oral Tablet 09/26/2024 Unknown By Mouth Daily 1 TABLET 649022 RxNorm 1 TABLET By Mouth Daily Singulair 10MG Oral Tablet 09/26/2024 Unknown By Mouth Daily 1 TABLET 919584 RxNorm TAKE 1 TABLET BY MOUTH ONCE A DAY Crestor 40MG Oral Tablet 09/26/2024 Unknown By Mouth Daily 1 TABLET 622595 RxNorm TAKE 1 TABLET BY MOUTH ONCE A DAY Ativan 0.5MG Oral Tablet 09/27/2024 Unknown By Mouth As needed daily 1 TABLET 012199 RxNorm 1 TABLET By Mouth As needed daily Ambien 5MG Oral Tablet 09/27/2024 10/05/19 25 By Mouth At bedtime 333745 RxNorm 1-2 TABLET By Mouth At bedtime As needed Ambien 5MG Oral Tablet 10/04/2024 Unknown By Mouth At bedtime 1 TABLET 518836 RxNorm 1 TABLET By Mouth At bedtime [...] TYPE I DIABETES MELLITUS WITH HYPERGLYCEMIA active [id number] SNOMED -CT HYPERTENSION active 17335682 SNOMED- CT HYPERCHOLESTEROLEMIA active 89300275 SNOMED-CT HYPOTHYROIDISM active 85044126 SNOME D-CT LUMBAR RADICULOPATHY active 058618167 SNOMED-CT LOW POTASSIUM active 08995339 SNOMED -CT GERD active 402142356 SNOMED-CT ALLERGIC RHINITIS active 89972819 SN OMED-CT DEPRESSION active 11477454 SNOMED-CT ANXIETY active 24560334 SNOMED-CT ASTHMA active 504624335 SNOMED-CT CHRONIC KIDNEY DISEASE STAGE 3 active 096474344 SNOMED-CT OBESITY active 079265917 SNOMED-CT ENDOMETRIOSIS active 949634742 SNOMED -CT SLEEP APNEA active 92441036 SNOMED-C 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 070315194883790 SNOMED-CT 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 08704290 S NOMED-CT HYPERCALCEMIA active 14996789 SNOMED -CT ENCOUNTER FOR FITTING AND ADJUSTMENT OF INSULIN PUMP active 425435154 S NOMED-CT ABNORMAL LEVELS OF OTHER SERUM ENZYMES active 334860406 SNOMED-CT HISTORY OF GASTRIC BYPASS 06/26/2022 05/30/2024 resolved 69 4448825 SNOMED-CT SINUSITIS 04/30/2022 resolved 87456235 SNOMED-CT DIABETES 2 01/19/2024 resolved 22240102 SNOMED-C T Allergies and Adverse Reactions Allergy Substance Reaction Severity Start Date Concern Status Co de Code System CEFUROXIME Rash (SNOMED-CT: 524507091) Mild Active 2194 RxNorm KETOROLAC Hives (SNOMED-CT: 875540379) Mild Active 60209 RxNorm BIAXIN Hives (SNOMED-CT: 447132322) Severe Active LANTUS Hives (SNOMED-CT: 787650720) Mild Active 964558 RxNorm TAMIFLU Rash (SNOMED-CT: 376280646) Active 116211 RxNorm SEPTRA Rash (SNOMED-CT: 234921253) Mild Active LEVEMIR Hives (SNOMED-CT: 795099218) Mild Active 857943 RxNorm Plan of Treatment MA Screening Bilateral 07/25/2025 Established Patient 30 01/03/2025 Description Due Date Details Instructions Pap 08/18/2025 Performed 09/06 20 normal, repeat in 5 yrs per [place] - RR 5.20.21 Sdoh 01/04/2025 Annual Labs 11/10/2024 cbc, cmp, tsh, free t4, lipids Mammogram 08/12/2025 08/12/24- WNL Depression 06/06/2025 Anxiety 06/06/2025 Encounters Encounter Diagnosis Start Date Code Code Sys tem Type 2 diabetes mellitus without complication 11/08/19 22 [id number] SNOMED-CT Personal Care Team Section Performer Name Performer Role Active Date Inactive Da te
--- OUTSIDE RECORDS SUMMARY | 2024-10-25 02:57 | XMS_ITS ---
Author Organization Unknown Address [address] [place] [address] [phone] Phone Care Team Providers Care Business Support Professional Name Role Phone ROSITA ROSADO Attending Unavailable [...] 0 mcg/0.5 mL 01/28/2023 Completed 312 CVX Results HEMOGLOBIN A1C PERFORMED AT OUTSIDE LAB - Collect Date/Time: 04/29/2021 11:47 [facility] ID: [id number] [address] [place] [address], [phone] LOINC: 4548-4 Test Value Unit Reference Range Code Code System Flag HEMOGLO A1C 7.6 % L=4.8 H=5.9 H DATE TEST PERFORMED: 04/29/2021 PERFORMING LAB: Jason Duran MD Social History Type Status Start Date End Date Code Code Syst em Smoking History Never smoker (Never Smoked) 359010679 SNOMED CT Smoking History Unknown if ever smoked 511025280 SNOMED CT Sex Female Sexual Orientation Straight or Heterosexual 41487713 SNOMED CT Gender Identity Female [id number] Vital Signs Vital Sign Value Unit Christoval Value Christoval Unit Date/Time Recent/Initial? Code Code System Body Mass Index 36.06 kg/m2 10/10/2021 11:33 Initial 57759 -5 LO[facility] Systolic Blood Pressure 112 mm[Hg] 10/10/2021 11:33 Initial 8480- 6 [facility] Diastolic Blood Pressure 82 mm[Hg] 10/10/2021 11:33 Initial 8462- 4 LOINC Body Surface Area 2.17 m2 10/10/2021 11:33 Initial 3140- 1 LOINC Height 167.640 0 cm 66.00 in 10/10/2021 11:33 Initial 8302- 2 [facility] O2 Saturation 98 % 2021 11:33 Initial 54466 -5 [facility] Pulse 94.0 /min 10/10/2021 11:33 Initial 8867- 4 [facility] Temperature 37.0 Lisa 98.6 F 10/11/19 11:33 Initial 8310- 5 [facility] Weight 101.33 kg 223.40 lbs 10/10/2021 11:33 Initial 37081 -7 [facility] Medications Medication Start Date End Date Route Frequency Dose Code Code System Medication Instructions Home Meds Lyrica 150MG Oral Capsule 08/30/2018 Unknown By Mouth Twice a day 1 CAPSULE 496654 RxNorm 1 CAPSULE By Mouth Twice a day Xyzal Allergy 24HR 5MG Oral Tablet 08/30/2018 Unknown By Mouth Daily 1 TABLET 054364 RxNorm 1 TABLE T By Mouth Daily CeleBREX 100MG Oral Capsule 03/15/2019 12/31/19 23 By Mouth Twice a day 1 CAPSULE 324065 RxNorm 1 CAPSULE By Mouth Twice a day Pepcid AC 20MG Oral Tablet 03/15/2019 Unknown By Mouth Daily 1 TABLET 809178 RxNorm 1 TABLET By Mouth Daily medical marijuana 07/27/2019 04/22/19 24 By Mouth As Directed 1 edible RxNorm 1 edible By Mouth As Directed Fiasp 100U/1ML Injection Solution 02/23/2020 Unknown Subcutane ous 2394472 RxNorm Subcutaneou s VIA INSULIN PUMP Victoza 6MG/1ML Subcutaneou s Solution 02/23/2020 04/22/19 24 Subcutane ous Daily 1.8 MILLIGRAMS 993879 RxNorm 1.8 MILLIGRAMS Subcutaneou s Daily Paxil 10MG Oral Tablet 08/22/2021 04/29/19 23 By Mouth Daily 1 TABLET 254974 RxNorm TAKE 1 TABLET BY MOUTH ONCE A DAY -TAKE WITH 40MG TAB Singulair 10MG Oral Tablet 10/03/2021 12/07/19 22 By Mouth Daily 1 TABLET 083021 RxNorm TAKE 1 TABLET BY MOUTH ONCE A DAY Prinivil 5MG Oral Tablet 10/03/2021 11/08/19 22 By Mouth Daily 1 TABLET 926068 RxNorm TAKE 1 TABLET BY MOUTH ONCE A DAY Potassium Chloride 20MEQ Oral Tablet, Extended Release 10/03/2021 11/05/19 22 By Mouth Twice a day 2 TABLET 0400232 RxNorm TAKE 2 TABLETS BY MOUTH TWO TIMES A DAY Crestor 40MG Oral Tablet 10/03/2021 01/10/20 22 By Mouth Daily 1 TABLET 366868 RxNorm TAKE 1 TABLET BY MOUTH ONCE A DAY Paxil 40MG Oral Tablet 10/03/2021 11/05/19 22 By Mouth Daily 1 TABLET 285273 RxNorm TAKE 1 TABLET BY MOUTH ONCE A DAY -TAKE WITH 10MG TAB busPIRone 15MG Oral Tablet 10/03/2021 12/07/19 22 By Mouth Twice a day 1 TABLET 841230 RxNorm 1 TABLET BY MOUTH TWICE A DAY Potassium Chloride 20MEQ Oral Tablet, Extended Release 11/04/2021 12/07/19 22 By Mouth Twice a day 2 TABLET 6645268 RxNorm TAKE 2 TABLETS BY MOUTH TWO TIMES A DAY Paxil 40MG Oral Tablet 11/04/2021 12/07/19 22 By Mouth Daily 1 TABLET 482213 RxNorm TAKE 1 TABLET BY MOUTH ONCE A DAY -TAKE WITH 10MG TAB Prinivil 5MG Oral Tablet 11/06/2021 04/29/19 23 By Mouth Daily 1 TABLET 615715 RxNorm TAKE 1 TABLET BY MOUTH ONCE A DAY Prinivil 5MG Oral Tablet 11/07/2021 04/08/20 22 By Mouth Daily 1 TABLET 373664 RxNorm TAKE 1 TABLET BY MOUTH ONCE A DAY Paxil 40MG Oral Tablet 12/06/2021 01/10/20 22 By Mouth Daily 1 TABLET 434077 RxNorm TAKE 1 TABLET BY MOUTH ONCE A DAY -TAKE WITH 10MG TAB Singulair 10MG Oral Tablet 12/06/2021 02/08/20 22 By Mouth Daily 1 TABLET 339621 RxNorm TAKE 1 TABLET BY MOUTH ONCE A DAY busPIRone 15MG Oral Tablet 12/06/2021 01/10/20 22 By Mouth Twice a day 1 TABLET 275566 RxNorm TAKE 1 TABLET BY MOUTH TWO TIMES A DAY Potassium Chloride 20MEQ Oral Tablet, Extended Release 12/06/2021 01/10/20 By Mouth Twice a day 2 TABLET 5856785 RxNorm TAKE 2 TABLETS BY MOUTH TWO TIMES A DAY Potassium Chloride 20MEQ Oral Tablet, Extended Release 01/09/2022 03/11/20 22 By Mouth Twice a day 2 TABLET 2697619 RxNorm TAKE 2 TABLETS BY MOUTH TWO TIMES A DAY Paxil 40MG Oral Tablet 01/09/2022 03/11/20 22 By Mouth Daily 1 TABLET 521532 RxNorm TAKE 1 TABLET BY MOUTH ONCE A DAY -TAKE WITH 10MG TAB Crestor 40MG Oral Tablet 01/09/2022 03/11/20 By Mouth Daily 1 TABLET 168195 RxNorm TAKE 1 TABLET BY MOUTH ONCE A DAY busPIRone 15MG Oral Tablet 01/09/2022 03/11/20 22 By Mouth Twice a day 1 TABLET 049837 RxNorm TAKE 1 TABLET BY MOUTH TWO TIMES A DAY Singulair 10MG Oral Tablet 02/07/2022 04/29/19 23 By Mouth Daily 1 TABLET 097110 RxNorm TAKE 1 TABLET BY MOUTH ONCE A DAY Singulair 10MG Oral Tablet 02/07/2022 04/29/19 23 By Mouth Daily 1 TABLET 216968 RxNorm TAKE 1 TABLET BY MOUTH ONCE A DAY Crestor 40MG Oral Tablet 03/11/2022 04/08/20 22 By Mouth Daily 1 TABLET 780031 RxNorm TAKE 1 TABLET BY MOUTH ONCE A DAY busPIRone 15MG Oral Tablet 03/11/2022 04/08/20 22 By Mouth Twice a day 1 TABLET 821747 RxNorm TAKE 1 TABLET BY MOUTH TWO TIMES A DAY Paxil 40MG Oral Tablet 03/11/2022 04/08/20 22 By Mouth Daily 1 TABLET 594568 RxNorm TAKE 1 TABLET BY MOUTH ONCE A DAY -TAKE WITH 10MG TAB Potassium Chloride 20MEQ Oral Tablet, Extended Release 03/11/2022 04/08/20 22 By Mouth Twice a day 2 TABLET 4219378 RxNorm TAKE 2 TABLETS BY MOUTH TWO TIMES A DAY Doxycycline 100MG Oral Capsule 03/20/2022 04/29/19 23 By Mouth Twice a day 1 CAPSULE 5128414 RxNorm 1 CAPSULE By Mouth Twice a day x10 days Paxil 40MG Oral Tablet 04/08/2022 04/29/19 23 By Mouth Daily 1 TABLET 962774 RxNorm TAKE 1 TABLET BY MOUTH ONCE A DAY -TAKE WITH 10MG TAB busPIRone 15MG Oral Tablet 04/08/2022 04/29/19 23 By Mouth Twice a day 1 TABLET 176986 RxNorm TAKE 1 TABLET BY MOUTH TWO TIMES A DAY Prinivil 5MG Oral Tablet 04/08/2022 04/29/19 23 By Mouth Daily 1 TABLET 678057 RxNorm TAKE 1 TABLET BY MOUTH ONCE A DAY Crestor 40MG Oral Tablet 04/08/2022 06/05/19 23 By Mouth Daily 1 TABLET 071668 RxNorm TAKE 1 TABLET BY MOUTH ONCE A DAY Potassium Chloride 20MEQ Oral Tablet, Extended Release 04/08/2022 04/29/19 23 By Mouth Twice a day 2 TABLET 2637674 RxNorm TAKE 2 TABLETS BY MOUTH TWO TIMES A DAY Naltrexone HCl Powder 04/29/2022 06/06/19 25 By Mouth At bedtime 3 MILLIGRAMS RxNorm 3 MILLIGRAMS By Mouth At bedtime Paxil 40MG Oral Tablet 04/29/2022 02/05/20 23 By Mouth Daily 1 TABLET 213927 RxNorm TAKE 1 TABLET BY MOUTH ONCE A DAY busPIRone 15MG Oral Tablet 04/29/2022 02/05/20 23 By Mouth Twice a day 1 TABLET 602413 RxNorm TAKE 1 TABLET BY MOUTH TWO TIMES A DAY Prinivil 5MG Oral Tablet 04/29/2022 06/19/19 24 By Mouth Daily 1 TABLET 530111 RxNorm TAKE 1 TABLET BY MOUTH ONCE A DAY Potassium Chloride 20MEQ Oral Tablet, Extended Release 04/29/2022 12/31/19 23 By Mouth Twice a day 2 TABLET 1094275 RxNorm TAKE 2 TABLETS BY MOUTH TWO TIMES A DAY Singulair 10MG Oral Tablet 04/29/2022 05/07/19 24 By Mouth Daily 1 TABLET 184764 RxNorm TAKE 1 TABLET BY MOUTH ONCE A DAY Crestor 40MG Oral Tablet 06/05/2022 08/20/19 23 By Mouth Daily 1 TABLET 155975 RxNorm TAKE 1 TABLET BY MOUTH ONCE A DAY Crestor 40MG Oral Tablet 08/19/2022 12/20/19 23 By Mouth Daily 1 TABLET 208129 RxNorm TAKE 1 TABLET BY MOUTH ONCE A DAY Crestor 40MG Oral Tablet 12/19/2022 12/31/19 23 By Mouth Daily 1 TABLET 388899 RxNorm TAKE 1 TABLET BY MOUTH ONCE A DAY Ozempic 0.25 MG or 0.5 MG Doses 2 MG/3 ML Subcutaneou s Solution 12/30/2022 01/05/20 24 Subcutane ous Once a week 0.25 UNIT 3965771 RxNorm 0.25 UNIT Subcutaneou s Once a week Crestor 40MG Oral Tablet 12/30/2022 12/31/19 23 By Mouth Daily 1 TABLET 876080 RxNorm TAKE 1 TABLET BY MOUTH ONCE A DAY Crestor 40MG Oral Tablet 12/30/2022 01/05/20 24 By Mouth Daily 1 TABLET 038602 RxNorm TAKE 1 TABLET BY MOUTH ONCE A DAY Paxil 40MG Oral Tablet 02/04/2023 07/07/19 24 By Mouth Daily 1 TABLET 248890 RxNorm TAKE 1 TABLET BY MOUTH ONCE A DAY busPIRone 15MG Oral Tablet 02/04/2023 07/07/19 24 By Mouth Twice a day 1 TABLET 529411 RxNorm TAKE 1 TABLET BY MOUTH TWO TIMES A DAY Levothyroxi ne 50MCG Oral Tablet 02/20/2023 Unknown By Mouth 1 TABLET 017654 RxNorm 1 TABLE T By Mouth in the morning on an empty stomach- PRESCRIBED BY DR DURAN Victoza 6MG/1ML Subcutaneou s Solution 02/20/2023 06/21/19 25 Subcutane ous Daily 1.8 UNIT 916054 RxNorm 1.8 UNIT Subcutaneou s Daily- *PRESCRIBED BY DR DURAN NovoLOG FlexPen 100U/1ML Subcutaneou s Solution 02/20/2023 04/07/20 23 Subcutane ous 0111838 RxNorm Inject up to 100 Units SUBQ daily in DMDED doses--- * PRESCRIBED BY DR DURAN Baclofen 10MG Oral Tablet 02/20/2023 Unknown By Mouth Three times a day 1 TABLET 874568 RxNorm 1 TABLET By Mouth Three times a day With food Aspirin 81MG Oral Tablet, Enteric Coated 02/20/2023 04/07/20 23 By Mouth Daily 1 TABLET 666454 RxNorm 1 TABLET By Mouth Daily Vitamin D 1000IU Oral Tablet 02/20/2023 04/07/20 23 By Mouth Daily 1 TABLET 142182 RxNorm 1 TABLET By Mouth Daily Augmentin 875MG-125MG Oral Tablet 04/22/2023 05/28/19 24 By Mouth Every 12 hours 1 TABLET 727612 RxNorm 1 TABLET By Mouth Every 12 hours x 10 days. Take with food. Diflucan 150MG Oral Tablet 04/22/2023 05/28/19 24 By Mouth x1 NOW 1 TABLET 465502 RxNorm 1 TABLET By Mouth x1 NOW. May repeat in 72 hours as needed. Singulair 10MG Oral Tablet 05/07/2023 07/07/19 24 By Mouth Daily 1 TABLET 079072 RxNorm TAKE 1 TABLET BY MOUTH ONCE A DAY Prinivil 5MG Oral Tablet 06/19/2023 06/22/19 24 By Mouth Daily 1 TABLET 155880 RxNorm TAKE 1 TABLET BY MOUTH ONCE A DAY Prinivil 5MG Oral Tablet 06/22/2023 07/07/19 24 By Mouth Daily 1 TABLET 748911 RxNorm TAKE 1 TABLET BY MOUTH ONCE A DAY Prinivil 5MG Oral Tablet 07/07/2023 01/05/20 24 By Mouth Daily 1 TABLET 120502 RxNorm TAKE 1 TABLET BY MOUTH ONCE A DAY Singulair 10MG Oral Tablet 07/07/2023 01/05/20 24 By Mouth Daily 1 TABLET 499753 RxNorm TAKE 1 TABLET BY MOUTH ONCE A DAY Paxil 40MG Oral Tablet 07/07/2023 10/02/19 24 By Mouth Daily 1 TABLET 448931 RxNorm TAKE 1 TABLET BY MOUTH ONCE A DAY busPIRone 15MG Oral Tablet 07/07/2023 01/05/20 24 By Mouth Twice a day 1 TABLET 855662 RxNorm TAKE 1 TABLET BY MOUTH TWO TIMES A DAY Ativan 0.5MG Oral Tablet 09/02/2023 09/28/19 25 By Mouth Twice a day 1 TABLET 913577 RxNorm 1 TABLET By Mouth Twice a day PRN Paxil 30MG Oral Tablet 10/02/2023 10/30/19 24 By Mouth Daily 2 TABLET 171080 RxNorm 2 TABLET By Mouth Daily Paxil 30MG Oral Tablet 10/30/2023 08/17/19 25 By Mouth Daily 2 TABLET 865521 RxNorm 2 TABLET By Mouth Daily Ambien 5MG Oral Tablet 12/11/2023 01/05/20 24 By Mouth At bedtime 863950 RxNorm 1-2 TABLET By Mouth At bedtime As needed Ozempic 0.25 MG or 0.5 MG Doses 2 MG/3 ML Subcutaneou s Solution 01/05/2024 06/21/19 25 Subcutane ous Once a week 0.5 UNIT 9049752 RxNorm 0.5 UNIT Subcutaneou s Once a week Crestor 40MG Oral Tablet 01/05/2024 09/27/19 25 By Mouth Daily 1 TABLET 674462 RxNorm TAKE 1 TABLET BY MOUTH ONCE A DAY busPIRone 15MG Oral Tablet 01/05/2024 08/06/19 25 By Mouth Twice a day 1 TABLET 147551 RxNorm TAKE 1 TABLET BY MOUTH TWO TIMES A DAY Singulair 10MG Oral Tablet 01/05/2024 09/27/19 25 By Mouth Daily 1 TABLET 173071 RxNorm TAKE 1 TABLET BY MOUTH ONCE A DAY Ambien 5MG Oral Tablet 01/05/2024 09/28/19 25 By Mouth At bedtime 210443 RxNorm 1-2 TABLET By Mouth At bedtime As needed Prinivil 5MG Oral Tablet 01/05/2024 07/06/19 25 By Mouth Daily 1 TABLET 159453 RxNorm TAKE 1 TABLET BY MOUTH ONCE A DAY Promethazin e DM 6.25MG/5ML- 15MG/5ML Oral Syrup 01/25/2024 06/06/19 25 ORAL As needed every 4 hr 5 mL 325484 RxNorm 5 mL ORAL As needed every 4 hr-do not take within 2 hours of Paxil or Buspirone Augmentin 875MG-125MG Oral Tablet 01/25/2024 06/06/19 25 By Mouth Twice a day 1 TABLET 005998 RxNorm 1 TABLET By Mouth Twice a day x 10 days Airsupra 90 MCG/1 Actuation-8 0 MCG/1 Actuation Inhalation Aerosol Powder 01/25/2024 06/06/19 25 Inhale As needed every 4 hr 2 Puff 6029490 RxNorm 2 Puff Inhale As needed every 4 hr Victoza 6MG/1ML Subcutaneou s Solution 06/20/2024 Unknown Subcutane ous Daily 1.8 MILLIGRAMS 981397 RxNorm 1.8 MILLIGRAMS Subcutaneou s Daily Ozempic 0.25 MG or 0.5 MG Doses 2 MG/3 ML Subcutaneou s Solution 06/20/2024 Unknown Subcutane ous Once a week 1.5 MILLILITER 1327053 RxNorm 1.5 MILLILITER Subcutaneou s Once a week Lisinopril 5MG Oral Tablet 07/05/2024 09/27/19 25 By Mouth Daily 1 TABLET 666571 RxNorm 1 TABLET By Mouth Daily busPIRone 15MG Oral Tablet 08/05/2024 Unknown By Mouth Twice a day 1 TABLET 424826 RxNorm TAKE 1 TABLET BY MOUTH TWO TIMES A DAY Paxil 20MG Oral Tablet 08/16/2024 09/27/19 25 By Mouth Daily 1 TABLET 032962 RxNorm 1 TABLET By Mouth Daily Wellbutrin XL 150MG Oral Tablet, Extended Release, 24 HR 08/16/2024 09/27/19 25 By Mouth Daily 1 TABLET 788917 RxNorm 1 TABLET By Mouth Daily. Wellbutrin XL 150MG Oral Tablet, Extended Release, 24 HR 09/26/2024 Unknown By Mouth Daily 1 TABLET 324777 RxNorm 1 TABLET By Mouth Daily. Paxil 20MG Oral Tablet 09/26/2024 Unknown By Mouth Daily 1 TABLET 654526 RxNorm 1 TABLE T By Mouth Daily Lisinopril 5MG Oral Tablet 09/26/2024 Unknown By Mouth Daily 1 TABLET 529342 RxNorm 1 TABLET By Mouth Daily Singulair 10MG Oral Tablet 09/26/2024 Unknown By Mouth Daily 1 TABLET 335399 RxNorm TAKE 1 TABLET BY MOUTH ONCE A DAY Crestor 40MG Oral Tablet 09/26/2024 Unknown By Mouth Daily 1 TABLET 672823 RxNorm TAKE 1 TABLET BY MOUTH ONCE A DAY Ativan 0.5MG Oral Tablet 09/27/2024 Unknown By Mouth As needed daily 1 TABLET 796847 RxNorm 1 TABLET By Mouth As needed daily Ambien 5MG Oral Tablet 09/27/2024 10/05/19 25 By Mouth At bedtime 494541 RxNorm 1-2 TABLET By Mouth At bedtime As needed Ambien 5MG Oral Tablet 10/04/2024 Unknown By Mouth At bedtime 1 TABLET 880821 RxNorm 1 TABLET By Mouth At bedtime As needed Assessment You had the following problems:TYPE I DIABETES MELLITUS WITH HYPERGLYCEMIAHYPERTENSIONHYPERCHOLESTEROLEMIAHYPOTHYROIDISMLUMBAR RADICULOPATHYLOW POTASSIUMGERDALLERGIC RHINITISDEPRESSIONANXIETYASTHMACHRONIC KIDNEY DISEASE STAGE 3OBESITYENDOMETRIOSISSLEEP APNEANEOPLASM OF UNCERTAIN BEHAVIOR OF RIGHT ADRENAL GLANDDEFICIENCY OF OTHER SPECIFIED B GROUP VITAMINSHYPERCALCEMIAENCOUNTER FOR FITTING AND ADJUSTMENT OF INSULIN PUMPABNORMAL LEVELS OF OTHER SERUM ENZYMES Assessment/Plan: 1. MDD/ERIKA- Cont. current meds 2. Hyperlipidemia- Cont. Crestor 3. HTN- Cont. Prinvil 4. Right breast mass- Order given for diagnostic mammogram of the right breast, and US of right breast to patient. Order faxed to [facility] as well. Return to clinic in 6 months or sooner if symptoms worsen or persist. Hospital Discharge Instructions Should you have any questions prior to discharge, please contact a member of your healthcare team. If you have left the hospital and have any questions, please contact your primary care physician. Reason For Referral No Data Found Problems Problem Start Date Resolved Date Status Code Code System TYPE I DIABETES MELLITUS WITH HYPERGLYCEMIA active [id number] SNOMED -CT HYPERTENSION active 56991266 SNOMED- CT HYPERCHOLESTEROLEMIA active 97192084 SNOMED-CT HYPOTHYROIDISM active 88831808 SNOME D-CT LUMBAR RADICULOPATHY active 421438718 SNOMED-CT LOW POTASSIUM active 51381981 SNOMED -CT GERD active 115814456 SNOMED-CT ALLERGIC RHINITIS active 45949251 SN OMED-CT DEPRESSION active 37824861 SNOMED-CT ANXIETY active 45781755 SNOMED-CT ASTHMA active 698903333 SNOMED-CT CHRONIC KIDNEY DISEASE STAGE 3 active 557677303 SNOMED-CT OBESITY active 908030252 SNOMED-CT ENDOMETRIOSIS active 188293433 SNOMED -CT SLEEP APNEA active 11453101 SNOMED-C 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 877635346410643 SNOMED-CT 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 82820429 S NOMED-CT HYPERCALCEMIA active 78078402 SNOMED -CT ENCOUNTER FOR FITTING AND ADJUSTMENT OF INSULIN PUMP active 825052747 S NOMED-CT ABNORMAL LEVELS OF OTHER SERUM ENZYMES active 359428478 SNOMED-CT HISTORY OF GASTRIC BYPASS 06/26/2022 05/30/2024 resolved 69 8433823 SNOMED-CT SINUSITIS 04/30/2022 resolved 08505812 SNOMED-CT DIABETES 2 01/19/2024 resolved 77763948 SNOMED-C T Allergies and Adverse Reactions Allergy Substance Reaction Severity Start Date Concern Status Co de Code System CEFUROXIME Rash (SNOMED-CT: 883177280) Mild Active 2194 RxNorm KETOROLAC Hives (SNOMED-CT: 538254289) Mild Active 33103 RxNorm BIAXIN Hives (SNOMED-CT: 170220753) Severe Active LANTUS Hives (SNOMED-CT: 414717483) Mild Active 198411 RxNorm TAMIFLU Rash (SNOMED-CT: 383647500) Active 576360 RxNorm SEPTRA Rash (SNOMED-CT: 507138067) Mild Active LEVEMIR Hives (SNOMED-CT: 669842890) Mild Active 220015 RxNorm Plan of Treatment MA Screening Bilateral 07/25/2025 Established Patient 30 01/03/2025 Description Due Date Details Instructions Pap 08/18/2025 Performed 09/06 20 normal, repeat in 5 yrs per [place] [facility] 5.20.21 Sdoh 01/04/2025 Annual Labs 11/10/2024 cbc, cmp, tsh, free t4, lipids Mammogram 08/12/2025 08/12/24- WNL Depression 06/06/2025 Anxiety 06/06/2025 Encounters Encounter Diagnosis Start Date Code Code Sys tem Anxiety 10/10/2021 37000424 SNOMED-CT Personal Care Team Section Performer Name Performer Role Active Date Inactive Da te Progress Notes [facility] 10/10/2021 14:06 Admission Date/Time: 10/10/2021 11:52 ANA [facility] Visit Note Chief Complaint: 6 MONTH F/U Has the patient received a COVID Vaccine? yes History of Present Illness: Patient is a 56 year old female who presents in office today for a 6 month follow up DM II, HTN, hyperlipidemia, and MDD/ERIKA. She takes medications as prescribed without ASE. 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 Patient states that she is needing an order to have her mammogram and ultrasound of one breast redone. Patient states they found a spot in January and they wanted to repeat in 6 months. Patient states that she would like to have that completed at [facility] again. Patient states that she is not wanting any changes at this time to her Paxil 50mg or Buspar 15mg BID as she reports a stable mood without SI/HI. Patient states that she is feeling good and losing weight so she is feeling healthy as well. Patient states no other concerns at this time. HABITS Does Not Current Use History of Quantity Duration Smoking x Marijuana x occasional ( edibles) Alcohol x Narcotics x Illicit Drugs x Allergy Table Allergen Type Reaction CEFUROXIME medication KETOROLAC medication Hives BIAXIN medication TAMIFLU medication SEPTRA medication LEVEMIR medication Hives Vital Signs: This Visit HtWt Date/Time BP (mm/Hg) BP Position/Site Heart Rate Resp Temp (?F) SPO2% Pain Score Height (in) Weight (lbs/ozs) BMI Head Cir (cm) 10/10/2021 11:33 112/82 Sitting/Left Arm 94 98.6 Temporal Scanning 98 % 5 66 in 223.4 lbs 36.06 PHYSICAL EXAM: GENERAL: Alert, well-appearing in no acute distress HEENT: Atraumatic. Eyes - pupils round, reactive to light. Ears - ear canals normal bilaterally. TMs normal bilaterally. Nose - Nares normal. No sinus tenderness. Oropharynx normal. NECK: Supple, no adenopathy/mass. RESPIRATORY: Lungs were clear to auscultation. Normal respiratory effort. Normal respiratory rate. CARDIOVASCULAR: Normal cardiac exam. Heart regular rate and rhythm. SKIN: Normal color/turgor. MUSCULOSKELETAL: Normal gait for age. PSYCHIATRIC: Alert, oriented and cooperative. Conversant, normal affect. Lab Results: This Visit Test Results Units Reference Range Ordered Collected Status HEMOGLO A1C 7.6 H % L=4.8 H=5.9 10/10/2021 11:46 04/29/2021 11:47 final DATE TEST PERFORMED: 04/29/2021 10/10/2021 11:46 04/29/2021 11:47 final PERFORMING LAB: Jason Duran MD 10/10/2021 11:46 04/29/2021 11:47 final Assessment/Plan: 1. MDD/ERIKA- Cont. current meds 2. Hyperlipidemia- Cont. Crestor 3. HTN- Cont. Prinvil 4. Right breast mass- Order given for diagnostic mammogram of the right breast, and US of right breast to patient. Order faxed to [facility] as well. Return to clinic in 6 months or sooner if symptoms worsen or persist. Ordered & Completed Meds Table: No Current Medications Available Discharge Med List: Discharge Medications Medication Special Instructions Start Date Prescribing busPIRone 15MG Oral Tablet 1 TABLET BY MOUTH TWICE A DAY 10/03/2021 ROSITA ROSAOD Paxil 40MG Oral Tablet TAKE 1 TABLET BY MOUTH ONCE A DAY -TAKE WITH 10MG TAB 10/03/2021 ROSITA ROSADO Crestor 40MG Oral Tablet TAKE 1 TABLET BY MOUTH ONCE A DAY 10/03/2021 ROSITA ROSADO Potassium Chloride 20MEQ Oral Tablet, Extended Release TAKE 2 TABLETS BY MOUTH TWO TIMES A DAY 10/03/2021 ROSITA ROSADO Prinivil 5MG Oral Tablet TAKE 1 TABLET BY MOUTH ONCE A DAY 10/03/2021 ROSITA ROSADO Singulair 10MG Oral Tablet TAKE 1 TABLET BY MOUTH ONCE A DAY 10/03/2021 ROSITA ROSADO Paxil 10MG Oral Tablet TAKE 1 TABLET BY MOUTH ONCE A DAY -TAKE WITH 40MG TAB 08/22/2021 ROSITA ROSADO Victoza 6MG/1ML Subcutaneous Solution 1.8 MILLIGRAMS Subcutaneous Daily 02/23/2020 Fiasp 100U/1ML Injection Solution Subcutaneous VIA INSULIN PUMP 02/23/2020 medical marijuana 1 edible By Mouth As Directed 07/27/2019 Pepcid AC 20MG Oral Tablet 1 TABLET By Mouth Daily 03/15/2019 CeleBREX 100MG Oral Capsule 1 CAPSULE By Mouth Twice a day 03/15/2019 Xyzal Allergy 24HR 5MG Oral Tablet 1 TABLET By Mouth Daily 08/30/2018 Lyrica 150MG Oral Capsule 1 CAPSULE By Mouth Twice a day 08/30/2018
--- OUTSIDE RECORDS SUMMARY | 2024-10-25 02:58 | XMS_ITS ---
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 Name Role Phone ROSITA ROSADO Attending Unavailable [...] em Smoking History Never smoker (Never Smoked) [id number] SNOMED CT Smoking History Unknown if ever smoked [id number] SNOMED CT Sex Female Sexual Orientation Straight or Heterosexual [id number] SNOMED CT Gender Identity Female [id number] Medications Medication Start Date End Date Route Frequency Dose Code Code System Medication Instructions Home Meds Lyrica 150MG Oral Capsule 08/30/2018 Unknown By Mouth Twice a day 1 CAPSULE 176427 RxNorm 1 CAPSULE By Mouth Twice a day Xyzal Allergy 24HR 5MG Oral Tablet 08/30/2018 Unknown By Mouth Daily 1 TABLET 958812 RxNorm 1 TABLE T By Mouth Daily CeleBREX 100MG Oral Capsule 03/15/2019 12/31/19 23 By Mouth Twice a day 1 CAPSULE 902955 RxNorm 1 CAPSULE By Mouth Twice a day Pepcid AC 20MG Oral Tablet 03/15/2019 Unknown By Mouth Daily 1 TABLET 270376 RxNorm 1 TABLET By Mouth Daily medical marijuana 07/27/2019 04/22/19 24 By Mouth As Directed 1 edible RxNorm 1 edible By Mouth As Directed Fiasp 100U/1ML Injection Solution 02/23/2020 Unknown Subcutane ous 2526938 RxNorm Subcutaneou s VIA INSULIN PUMP Victoza 6MG/1ML Subcutaneou s Solution 02/23/2020 04/22/19 24 Subcutane ous Daily 1.8 MILLIGRAMS 660002 RxNorm 1.8 MILLIGRAMS Subcutaneou s Daily Paxil 10MG Oral Tablet 08/22/2021 04/29/19 23 By Mouth Daily 1 TABLET 889115 RxNorm TAKE 1 TABLET BY MOUTH ONCE A DAY -TAKE WITH 40MG TAB Prinivil 5MG Oral Tablet 11/06/2021 04/29/19 23 By Mouth Daily 1 TABLET 946581 RxNorm TAKE 1 TABLET BY MOUTH ONCE A DAY Prinivil 5MG Oral Tablet 11/07/2021 04/08/20 22 By Mouth Daily 1 TABLET 149676 RxNorm TAKE 1 TABLET BY MOUTH ONCE A DAY Potassium Chloride 20MEQ Oral Tablet, Extended Release 01/09/2022 03/11/20 22 By Mouth Twice a day 2 TABLET 3405861 RxNorm TAKE 2 TABLETS BY MOUTH TWO TIMES A DAY Paxil 40MG Oral Tablet 01/09/2022 03/11/20 22 By Mouth Daily 1 TABLET 674556 RxNorm TAKE 1 TABLET BY MOUTH ONCE A DAY -TAKE WITH 10MG TAB Crestor 40MG Oral Tablet 01/09/2022 03/11/20 22 By Mouth Daily 1 TABLET 131854 RxNorm TAKE 1 TABLET BY MOUTH ONCE A DAY busPIRone 15MG Oral Tablet 01/09/2022 03/11/20 22 By Mouth Twice a day 1 TABLET 268944 RxNorm TAKE 1 TABLET BY MOUTH TWO TIMES A DAY Singulair 10MG Oral Tablet 02/07/2022 04/29/19 23 By Mouth Daily 1 TABLET 552286 RxNorm TAKE 1 TABLET BY MOUTH ONCE A DAY Singulair 10MG Oral Tablet 02/07/2022 04/29/19 23 By Mouth Daily 1 TABLET 024656 RxNorm TAKE 1 TABLET BY MOUTH ONCE A DAY Crestor 40MG Oral Tablet 03/11/2022 04/08/20 22 By Mouth Daily 1 TABLET 751522 RxNorm TAKE 1 TABLET BY MOUTH ONCE A DAY busPIRone 15MG Oral Tablet 03/11/2022 04/08/20 22 By Mouth Twice a day 1 TABLET 660530 RxNorm TAKE 1 TABLET BY MOUTH TWO TIMES A DAY Paxil 40MG Oral Tablet 03/11/2022 04/08/20 22 By Mouth Daily 1 TABLET 066546 RxNorm TAKE 1 TABLET BY MOUTH ONCE A DAY -TAKE WITH 10MG TAB Potassium Chloride 20MEQ Oral Tablet, Extended Release 03/11/2022 04/08/20 22 By Mouth Twice a day 2 TABLET 9808126 RxNorm TAKE 2 TABLETS BY MOUTH TWO TIMES A DAY Doxycycline 100MG Oral Capsule 03/20/2022 04/29/19 23 By Mouth Twice a day 1 CAPSULE 5198594 RxNorm 1 CAPSULE By Mouth Twice a day x10 days Paxil 40MG Oral Tablet 04/08/2022 04/29/19 23 By Mouth Daily 1 TABLET 665330 RxNorm TAKE 1 TABLET BY MOUTH ONCE A DAY -TAKE WITH 10MG TAB busPIRone 15MG Oral Tablet 04/08/2022 04/29/19 23 By Mouth Twice a day 1 TABLET 491803 RxNorm TAKE 1 TABLET BY MOUTH TWO TIMES A DAY Prinivil 5MG Oral Tablet 04/08/2022 04/29/19 23 By Mouth Daily 1 TABLET 816746 RxNorm TAKE 1 TABLET BY MOUTH ONCE A DAY Crestor 40MG Oral Tablet 04/08/2022 06/05/19 23 By Mouth Daily 1 TABLET 901040 RxNorm TAKE 1 TABLET BY MOUTH ONCE A DAY Potassium Chloride 20MEQ Oral Tablet, Extended Release 04/08/2022 04/29/19 23 By Mouth Twice a day 2 TABLET 9712193 RxNorm TAKE 2 TABLETS BY MOUTH TWO TIMES A DAY Naltrexone HCl Powder 04/29/2022 06/06/19 25 By Mouth At bedtime 3 MILLIGRAMS RxNorm 3 MILLIGRAMS By Mouth At bedtime Paxil 40MG Oral Tablet 04/29/2022 02/05/20 23 By Mouth Daily 1 TABLET 165127 RxNorm TAKE 1 TABLET BY MOUTH ONCE A DAY busPIRone 15MG Oral Tablet 04/29/2022 02/05/20 23 By Mouth Twice a day 1 TABLET 196805 RxNorm TAKE 1 TABLET BY MOUTH TWO TIMES A DAY Prinivil 5MG Oral Tablet 04/29/2022 06/19/19 24 By Mouth Daily 1 TABLET 672218 RxNorm TAKE 1 TABLET BY MOUTH ONCE A DAY Potassium Chloride 20MEQ Oral Tablet, Extended Release 04/29/2022 12/31/19 23 By Mouth Twice a day 2 TABLET 3479836 RxNorm TAKE 2 TABLETS BY MOUTH TWO TIMES A DAY Singulair 10MG Oral Tablet 04/29/2022 05/07/19 24 By Mouth Daily 1 TABLET 840967 RxNorm TAKE 1 TABLET BY MOUTH ONCE A DAY Crestor 40MG Oral Tablet 06/05/2022 08/20/19 23 By Mouth Daily 1 TABLET 885981 RxNorm TAKE 1 TABLET BY MOUTH ONCE A DAY Crestor 40MG Oral Tablet 08/19/2022 12/20/19 23 By Mouth Daily 1 TABLET 475459 RxNorm TAKE 1 TABLET BY MOUTH ONCE A DAY Crestor 40MG Oral Tablet 12/19/2022 12/31/19 23 By Mouth Daily 1 TABLET 538657 RxNorm TAKE 1 TABLET BY MOUTH ONCE A DAY Ozempic 0.25 MG or 0.5 MG Doses 2 MG/3 ML Subcutaneou s Solution 12/30/2022 01/05/20 24 Subcutane ous Once a week 0.25 UNIT 4479444 RxNorm 0.25 UNIT Subcutaneou s Once a week Crestor 40MG Oral Tablet 12/30/2022 12/31/19 23 By Mouth Daily 1 TABLET 887656 RxNorm TAKE 1 TABLET BY MOUTH ONCE A DAY Crestor 40MG Oral Tablet 12/30/2022 01/05/20 24 By Mouth Daily 1 TABLET 242189 RxNorm TAKE 1 TABLET BY MOUTH ONCE A DAY Paxil 40MG Oral Tablet 02/04/2023 07/07/19 24 By Mouth Daily 1 TABLET 428149 RxNorm TAKE 1 TABLET BY MOUTH ONCE A DAY busPIRone 15MG Oral Tablet 02/04/2023 07/07/19 24 By Mouth Twice a day 1 TABLET 254859 RxNorm TAKE 1 TABLET BY MOUTH TWO TIMES A DAY Levothyroxi ne 50MCG Oral Tablet 02/20/2023 Unknown By Mouth 1 TABLET 861733 RxNorm 1 TABLE T By Mouth in the morning on an empty stomach- PRESCRIBED BY DR ROGER Whitfield 6MG/1ML Subcutaneou s Solution 02/20/2023 06/21/19 25 Subcutane ous Daily 1.8 UNIT 217746 RxNorm 1.8 UNIT Subcutaneou s Daily- *PRESCRIBED BY DR DURAN NovoLOG FlexPen 100U/1ML Subcutaneou s Solution 02/20/2023 04/07/20 23 Subcutane ous 5182726 RxNorm Inject up to 100 Units SUBQ daily in DMDED doses--- * PRESCRIBED BY DR DURAN Baclofen 10MG Oral Tablet 02/20/2023 Unknown By Mouth Three times a day 1 TABLET 706792 RxNorm 1 TABLET By Mouth Three times a day With food Aspirin 81MG Oral Tablet, Enteric Coated 02/20/2023 04/07/20 23 By Mouth Daily 1 TABLET 393934 RxNorm 1 TABLET By Mouth Daily Vitamin D 1000IU Oral Tablet 02/20/2023 04/07/20 23 By Mouth Daily 1 TABLET 051948 RxNorm 1 TABLET By Mouth Daily Augmentin 875MG-125MG Oral Tablet 04/22/2023 05/28/19 24 By Mouth Every 12 hours 1 TABLET 114982 RxNorm 1 TABLET By Mouth Every 12 hours x 10 days. Take with food. Diflucan 150MG Oral Tablet 04/22/2023 05/28/19 24 By Mouth x1 NOW 1 TABLET 159227 RxNorm 1 TABLET By Mouth x1 NOW. May repeat in 72 hours as needed. Singulair 10MG Oral Tablet 05/07/2023 07/07/19 24 By Mouth Daily 1 TABLET 066733 RxNorm TAKE 1 TABLET BY MOUTH ONCE A DAY Prinivil 5MG Oral Tablet 06/19/2023 06/22/19 24 By Mouth Daily 1 TABLET 759869 RxNorm TAKE 1 TABLET BY MOUTH ONCE A DAY Prinivil 5MG Oral Tablet 06/22/2023 07/07/19 24 By Mouth Daily 1 TABLET 087715 RxNorm TAKE 1 TABLET BY MOUTH ONCE A DAY Prinivil 5MG Oral Tablet 07/07/2023 01/05/20 24 By Mouth Daily 1 TABLET 842441 RxNorm TAKE 1 TABLET BY MOUTH ONCE A DAY Singulair 10MG Oral Tablet 07/07/2023 01/05/20 24 By Mouth Daily 1 TABLET 939827 RxNorm TAKE 1 TABLET BY MOUTH ONCE A DAY Paxil 40MG Oral Tablet 07/07/2023 10/02/19 24 By Mouth Daily 1 TABLET 641540 RxNorm TAKE 1 TABLET BY MOUTH ONCE A DAY busPIRone 15MG Oral Tablet 07/07/2023 01/05/20 24 By Mouth Twice a day 1 TABLET 845332 RxNorm TAKE 1 TABLET BY MOUTH TWO TIMES A DAY Ativan 0.5MG Oral Tablet 09/02/2023 09/28/19 25 By Mouth Twice a day 1 TABLET 296405 RxNorm 1 TABLET By Mouth Twice a day PRN Paxil 30MG Oral Tablet 10/02/2023 10/30/19 24 By Mouth Daily 2 TABLET 835779 RxNorm 2 TABLET By Mouth Daily Paxil 30MG Oral Tablet 10/30/2023 08/17/19 25 By Mouth Daily 2 TABLET 911922 RxNorm 2 TABLET By Mouth Daily Ambien 5MG Oral Tablet 12/11/2023 01/05/20 24 By Mouth At bedtime 864294 RxNorm 1-2 TABLET By Mouth At bedtime As needed Ozempic 0.25 MG or 0.5 MG Doses 2 MG/3 ML Subcutaneou s Solution 01/05/2024 06/21/19 25 Subcutane ous Once a week 0.5 UNIT 6275081 RxNorm 0.5 UNIT Subcutaneou s Once a week Crestor 40MG Oral Tablet 01/05/2024 09/27/19 25 By Mouth Daily 1 TABLET 808640 RxNorm TAKE 1 TABLET BY MOUTH ONCE A DAY busPIRone 15MG Oral Tablet 01/05/2024 08/06/19 25 By Mouth Twice a day 1 TABLET 004881 RxNorm TAKE 1 TABLET BY MOUTH TWO TIMES A DAY Singulair 10MG Oral Tablet 01/05/2024 09/27/19 25 By Mouth Daily 1 TABLET 923030 RxNorm TAKE 1 TABLET BY MOUTH ONCE A DAY Ambien 5MG Oral Tablet 01/05/2024 09/28/19 25 By Mouth At bedtime 790140 RxNorm 1-2 TABLET By Mouth At bedtime As needed Prinivil 5MG Oral Tablet 01/05/2024 07/06/19 25 By Mouth Daily 1 TABLET 074510 RxNorm TAKE 1 TABLET BY MOUTH ONCE A DAY Promethazin e DM 6.25MG/5ML- 15MG/5ML Oral Syrup 01/25/2024 06/06/19 25 ORAL As needed every 4 hr 5 mL 087403 RxNorm 5 mL ORAL As needed every 4 hr-do not take within 2 hours of Paxil or Buspirone Augmentin 875MG-125MG Oral Tablet 01/25/2024 06/06/19 25 By Mouth Twice a day 1 TABLET 942437 RxNorm 1 TABLET By Mouth Twice a day x 10 days Airsupra 90 MCG/1 Actuation-8 0 MCG/1 Actuation Inhalation Aerosol Powder 01/25/2024 06/06/19 25 Inhale As needed every 4 hr 2 Puff 3036706 RxNorm 2 Puff Inhale As needed every 4 hr Victoza 6MG/1ML Subcutaneou s Solution 06/20/2024 Unknown Subcutane ous Daily 1.8 MILLIGRAMS 029974 RxNorm 1.8 MILLIGRAMS Subcutaneou s Daily Ozempic 0.25 MG or 0.5 MG Doses 2 MG/3 ML Subcutaneou s Solution 06/20/2024 Unknown Subcutane ous Once a week 1.5 MILLILITER 7706859 RxNorm 1.5 MILLILITER Subcutaneou s Once a week Lisinopril 5MG Oral Tablet 07/05/2024 09/27/19 25 By Mouth Daily 1 TABLET 204394 RxNorm 1 TABLET By Mouth Daily busPIRone 15MG Oral Tablet 08/05/2024 Unknown By Mouth Twice a day 1 TABLET 213154 RxNorm TAKE 1 TABLET BY MOUTH TWO TIMES A DAY Paxil 20MG Oral Tablet 08/16/2024 09/27/19 25 By Mouth Daily 1 TABLET 787950 RxNorm 1 TABLET By Mouth Daily Wellbutrin XL 150MG Oral Tablet, Extended Release, 24 HR 08/16/2024 09/27/19 25 By Mouth Daily 1 TABLET 124407 RxNorm 1 TABLET By Mouth Daily. Wellbutrin XL 150MG Oral Tablet, Extended Release, 24 HR 09/26/2024 Unknown By Mouth Daily 1 TABLET 817799 RxNorm 1 TABLET By Mouth Daily. Paxil 20MG Oral Tablet 09/26/2024 Unknown By Mouth Daily 1 TABLET 871568 RxNorm 1 TABLE T By Mouth Daily Lisinopril 5MG Oral Tablet 09/26/2024 Unknown By Mouth Daily 1 TABLET 020452 RxNorm 1 TABLET By Mouth Daily Singulair 10MG Oral Tablet 09/26/2024 Unknown By Mouth Daily 1 TABLET 209670 RxNorm TAKE 1 TABLET BY MOUTH ONCE A DAY Crestor 40MG Oral Tablet 09/26/2024 Unknown By Mouth Daily 1 TABLET 312858 RxNorm TAKE 1 TABLET BY MOUTH ONCE A DAY Ativan 0.5MG Oral Tablet 09/27/2024 Unknown By Mouth As needed daily 1 TABLET 655159 RxNorm 1 TABLET By Mouth As needed daily Ambien 5MG Oral Tablet 09/27/2024 10/05/19 25 By Mouth At bedtime 938200 RxNorm 1-2 TABLET By Mouth At bedtime As needed Ambien 5MG Oral Tablet 10/04/2024 Unknown By Mouth At bedtime 1 TABLET 270098 RxNorm 1 TABLET By Mouth At bedtime [...] TYPE I DIABETES MELLITUS WITH HYPERGLYCEMIA active [id number] SNOMED -CT HYPERTENSION active 37825780 SNOMED- CT HYPERCHOLESTEROLEMIA active 47206891 SNOMED-CT HYPOTHYROIDISM active 48939175 SNOME D-CT LUMBAR RADICULOPATHY active 959205964 SNOMED-CT LOW POTASSIUM active 90614200 SNOMED -CT GERD active 225131499 SNOMED-CT ALLERGIC RHINITIS active 11996453 SN OMED-CT DEPRESSION active 74848270 SNOMED-CT ANXIETY active 06168770 SNOMED-CT ASTHMA active 956673616 SNOMED-CT CHRONIC KIDNEY DISEASE STAGE 3 active 789580490 SNOMED-CT OBESITY active 505579170 SNOMED-CT ENDOMETRIOSIS active 920714877 SNOMED -CT SLEEP APNEA active 76162501 SNOMED-C 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 662879849249731 SNOMED-CT 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 57207950 S NOMED-CT HYPERCALCEMIA active 00211819 SNOMED -CT ENCOUNTER FOR FITTING AND ADJUSTMENT OF INSULIN PUMP active 203380061 S NOMED-CT ABNORMAL LEVELS OF OTHER SERUM ENZYMES active 539876798 SNOMED-CT HISTORY OF GASTRIC BYPASS 06/26/2022 05/30/2024 resolved 69 9527739 SNOMED-CT SINUSITIS 04/30/2022 resolved 90976724 SNOMED-CT DIABETES 2 01/19/2024 resolved 42922396 SNOMED-C T Allergies and Adverse Reactions Allergy Substance Reaction Severity Start Date Concern Status Co de Code System CEFUROXIME Rash (SNOMED-CT: 298627074) Mild Active 2194 RxNorm KETOROLAC Hives (SNOMED-CT: 859221750) Mild Active 53000 RxNorm BIAXIN Hives (SNOMED-CT: 440583017) Severe Active LANTUS Hives (SNOMED-CT: 223856670) Mild Active 413924 RxNorm TAMIFLU Rash (SNOMED-CT: 166921588) Active 681968 RxNorm SEPTRA Rash (SNOMED-CT: 270059508) Mild Active LEVEMIR Hives (SNOMED-CT: 145963590) Mild Active 262561 RxNorm Plan of Treatment MA Screening Bilateral 07/25/2025 Established Patient 30 01/03/2025 Description Due Date Details Instructions Pap 08/18/2025 Performed 09/06 21 normal, repeat in 5 yrs per [place] - RR 5.20.21 Sdoh 01/04/2025 Annual Labs 11/10/2024 cbc, cmp, tsh, free t4, lipids Mammogram 08/12/2025 08/12/24- WNL Depression 06/06/2025 Anxiety 06/06/2025 Encounters Encounter Diagnosis Start Date Code Code Sys tem Type 2 diabetes mellitus without complication 03/04/20 22 [id number] SNOMED-CT Personal Care Team Section Performer Name Performer Role Active Date Inactive Da te
--- OUTSIDE RECORDS SUMMARY | 2024-10-25 02:58 | XMS_ITS | Clinical Summary ---
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 Gender Identity Not on file Sexual Orientation Not on file Plan of Treatment Health Maintenance Due Date Last Done Comments Cervical Cancer Screening Pa p Smear (Age 30 to 64) Every 3 Years 1964 Colorectal Cancer Screening Colonoscopy (10 Years) 1964 Annual Physical 01/31/1967 Hepatitis C 01/31/1982 DTaP, Tdap and Td Vaccines ( 1 - Tdap) 01/31/1983 Cervical Cancer Screening Pa p with HPV Testing (Age 30 to 64) Every 5 Years 01/31/1994 Cervical Cancer Screening with HPV 01/31/1994 Mammogram Screening 2004 Pneumococcal Vaccine: 50+ Ye ars (1 of 1 - PCV) 01/31/2014 Zoster Vaccines (1 of 2) 01/31/2014 COVID-19 Vaccine (2023-2 5 season) 2023 RSV Immunization or 60+ Years (1 - 1-dose 75+ series) 01/31/2039 Meningococcal B Vaccine Aged Out No l onger eligible based on patient's age to complete this topic Meningococcal Vaccine Aged Out No arslan noble eligible based on patient's age to complete this topic RSV Immunizations Under 20 Months Aged Out No longer eligible based on patient's age to complete this topic Insurance [employer] Care Teams Model Maker Scale Relationship Specialty Start Date End Date None, Provider, MD PCP - General UNKNOWN PHYSICIAN SPECIALTY 02/02/24
--- OUTSIDE RECORDS SUMMARY | 2024-10-25 02:58 | XMS_ITS ---
Author Organization Unknown Address [address] [place] [address] [phone] Phone Care Team Providers Care Combat Control Name Role Phone DM VAZQUEZ Attending Unavailable ROSITA ROSADO Primary Unavailable Immunization Immunization Date Status Additional Notes [...] em Smoking History Never smoker (Never Smoked) [id number] SNOMED CT Smoking History Unknown if ever smoked [id number] SNOMED CT Sex Female Sexual Orientation Straight or Heterosexual 77600727 SNOMED CT Gender Identity Female [id number] Vital Signs Vital Sign Value Unit [place] [facility] [place] [facility] Date/Time Recent/Initial? Code Code System Body Mass Index 37.93 kg/m2 02/26/2021 11:41 Initial 77803 -5 [facility] Systolic Blood Pressure 116 mm[Hg] 02/26/2021 11:41 Initial 8480- 6 [facility] Diastolic Blood Pressure 84 mm[Hg] 02/26/2021 11:41 Initial 8462- 4 [facility] Body Surface Area 2.23 m2 02/26/2021 11:41 Initial 3140- 1 [facility] Height 167.640 0 cm 66.00 in 02/26/2021 11:41 Initial 8302- 2 [facility] O2 Saturation 98 % 2020 11:41 Initial 39260 -5 [facility] Pulse 113.0 /min 02/26/2021 11:41 Initial 8867- 4 [facility] Respiration 18 /min 02/27/20 11:41 Initial 9279- 1 [facility] Temperature 36.3 Lisa 97.3 F 02/27/20 11:41 Initial 8310- 5 [facility] Weight 106.59 kg 235.00 lbs 02/26/2021 11:41 Initial 79151 -7 [facility] Medications Medication Start Date End Date Route Frequency Dose Code Code System Medication Instructions Home Meds Lyrica 150MG Oral Capsule 08/30/2018 Unknown By Mouth Twice a day 1 CAPSULE 148151 RxNorm 1 CAPSULE By Mouth Twice a day Xyzal Allergy 24HR 5MG Oral Tablet 08/30/2018 Unknown By Mouth Daily 1 TABLET 489742 RxNorm 1 TABLE T By Mouth Daily CeleBREX 100MG Oral Capsule 03/15/2019 12/31/19 23 By Mouth Twice a day 1 CAPSULE 255563 RxNorm 1 CAPSULE By Mouth Twice a day Pepcid AC 20MG Oral Tablet 03/15/2019 Unknown By Mouth Daily 1 TABLET 698479 RxNorm 1 TABLET By Mouth Daily medical marijuana 07/27/2019 04/22/19 24 By Mouth As Directed 1 edible RxNorm 1 edible By Mouth As Directed Fiasp 100U/1ML Injection Solution 02/23/2020 Unknown Subcutane ous 1104108 RxNorm Subcutaneou s VIA INSULIN PUMP Victoza 6MG/1ML Subcutaneou s Solution 02/23/2020 04/22/19 24 Subcutane ous Daily 1.8 MILLIGRAMS 803435 RxNorm 1.8 MILLIGRAMS Subcutaneou s Daily Prinivil 5MG Oral Tablet 09/06/2020 04/03/20 21 By Mouth Daily 1 TABLET 352654 RxNorm TAKE 1 TABLET BY MOUTH ONCE A DAY Potassium Chloride 20MEQ Oral Tablet, Extended Release 09/06/2020 04/22/19 22 By Mouth Twice a day 2 TABLET 4189587 RxNorm TAKE 2 TABLETS BY MOUTH TWO TIMES A DAY Crestor 40MG Oral Tablet 09/06/2020 04/03/20 21 By Mouth Daily 1 TABLET 602160 RxNorm TAKE 1 TABLET BY MOUTH ONCE A DAY Paxil 40MG Oral Tablet 09/06/2020 04/09/20 21 By Mouth Daily 1 TABLET 136857 RxNorm TAKE 1 TABLET BY MOUTH ONCE A DAY -TAKE WITH 10MG TAB Singulair 10MG Oral Tablet 09/06/2020 04/03/20 21 By Mouth Daily 1 TABLET 509387 RxNorm TAKE 1 TABLET BY MOUTH ONCE A DAY Paxil 10MG Oral Tablet 10/09/2020 04/03/20 21 By Mouth Daily 1 TABLET 665981 RxNorm TAKE 1 TABLET BY MOUTH ONCE A DAY -TAKE WITH 40MG TAB busPIRone 15MG Oral Tablet 01/11/2021 04/11/20 21 By Mouth Twice a day 1 TABLET 259625 RxNorm 1 TABLET BY MOUTH TWICE A DAY Augmentin 875MG-125MG Oral Tablet 02/26/2021 03/07/20 21 By Mouth Twice a day 1 TABLET 617470 RxNorm 1 TABLET By Mouth Twice a day x10 days Promethazin e DM 6.25MG/5ML- 15MG/5ML Oral Syrup 02/26/2021 03/07/20 21 By Mouth As needed every 4-6 hrs 5 mL 701332 RxNorm 5 mL By Mouth As needed every 4-6 hrs As needed Singulair 10MG Oral Tablet 04/03/2021 10/04/19 22 By Mouth Daily 1 TABLET 131845 RxNorm TAKE 1 TABLET BY MOUTH ONCE A DAY Paxil 10MG Oral Tablet 04/03/2021 04/09/20 21 By Mouth Daily 1 TABLET 332885 RxNorm TAKE 1 TABLET BY MOUTH ONCE A DAY -TAKE WITH 40MG TAB Prinivil 5MG Oral Tablet 04/03/2021 10/04/19 22 By Mouth Daily 1 TABLET 722799 RxNorm TAKE 1 TABLET BY MOUTH ONCE A DAY Crestor 40MG Oral Tablet 04/03/2021 10/04/19 22 By Mouth Daily 1 TABLET 345078 RxNorm TAKE 1 TABLET BY MOUTH ONCE A DAY Paxil 10MG Oral Tablet 04/09/2021 08/23/19 22 By Mouth Daily 1 TABLET 032441 RxNorm TAKE 1 TABLET BY MOUTH ONCE A DAY -TAKE WITH 40MG TAB Paxil 40MG Oral Tablet 04/09/2021 10/04/19 22 By Mouth Daily 1 TABLET 309117 RxNorm TAKE 1 TABLET BY MOUTH ONCE A DAY -TAKE WITH 10MG TAB busPIRone 15MG Oral Tablet 04/11/2021 05/02/19 22 By Mouth Twice a day 1 TABLET 288191 RxNorm 1 TABLET BY MOUTH TWICE A DAY Potassium Chloride 20MEQ Oral Tablet, Extended Release 04/22/2021 06/28/19 22 By Mouth Twice a day 2 TABLET 2001626 RxNorm TAKE 2 TABLETS BY MOUTH TWO TIMES A DAY busPIRone 15MG Oral Tablet 05/02/2021 06/28/19 22 By Mouth Twice a day 1 TABLET 866868 RxNorm 1 TABLET BY MOUTH TWICE A DAY Potassium Chloride 20MEQ Oral Tablet, Extended Release 06/27/2021 08/02/19 22 By Mouth Twice a day 2 TABLET 6659276 RxNorm TAKE 2 TABLETS BY MOUTH TWO TIMES A DAY busPIRone 15MG Oral Tablet 06/27/2021 10/04/19 22 By Mouth Twice a day 1 TABLET 887243 RxNorm 1 TABLET BY MOUTH TWICE A DAY Augmentin 875MG-125MG Oral Tablet 07/11/2021 10/04/19 22 By mouth Twice a day 1 TABLET 304182 RxNorm 1 TABLET By mouth Twice a day x10 days Potassium Chloride 20MEQ Oral Tablet, Extended Release 08/01/2021 10/04/19 22 By Mouth Twice a day 2 TABLET 8095464 RxNorm TAKE 2 TABLETS BY MOUTH TWO TIMES A DAY Paxil 10MG Oral Tablet 08/22/2021 04/29/19 23 By Mouth Daily 1 TABLET 653257 RxNorm TAKE 1 TABLET BY MOUTH ONCE A DAY -TAKE WITH 40MG TAB Singulair 10MG Oral Tablet 10/03/2021 12/07/19 22 By Mouth Daily 1 TABLET 529756 RxNorm TAKE 1 TABLET BY MOUTH ONCE A DAY Prinivil 5MG Oral Tablet 10/03/2021 11/08/19 22 By Mouth Daily 1 TABLET 666021 RxNorm TAKE 1 TABLET BY MOUTH ONCE A DAY Potassium Chloride 20MEQ Oral Tablet, Extended Release 10/03/2021 11/05/19 22 By Mouth Twice a day 2 TABLET 7469118 RxNorm TAKE 2 TABLETS BY MOUTH TWO TIMES A DAY Crestor 40MG Oral Tablet 10/03/2021 01/10/20 22 By Mouth Daily 1 TABLET 202498 RxNorm TAKE 1 TABLET BY MOUTH ONCE A DAY Paxil 40MG Oral Tablet 10/03/2021 11/05/19 22 By Mouth Daily 1 TABLET 459801 RxNorm TAKE 1 TABLET BY MOUTH ONCE A DAY -TAKE WITH 10MG TAB busPIRone 15MG Oral Tablet 10/03/2021 12/07/19 22 By Mouth Twice a day 1 TABLET 303621 RxNorm 1 TABLET BY MOUTH TWICE A DAY Potassium Chloride 20MEQ Oral Tablet, Extended Release 11/04/2021 12/07/19 22 By Mouth Twice a day 2 TABLET 5679804 RxNorm TAKE 2 TABLETS BY MOUTH TWO TIMES A DAY Paxil 40MG Oral Tablet 11/04/2021 12/07/19 22 By Mouth Daily 1 TABLET 392132 RxNorm TAKE 1 TABLET BY MOUTH ONCE A DAY -TAKE WITH 10MG TAB Prinivil 5MG Oral Tablet 11/06/2021 04/29/19 23 By Mouth Daily 1 TABLET 324595 RxNorm TAKE 1 TABLET BY MOUTH ONCE A DAY Prinivil 5MG Oral Tablet 11/07/2021 04/08/20 22 By Mouth Daily 1 TABLET 261141 RxNorm TAKE 1 TABLET BY MOUTH ONCE A DAY Paxil 40MG Oral Tablet 12/06/2021 01/10/20 22 By Mouth Daily 1 TABLET 105934 RxNorm TAKE 1 TABLET BY MOUTH ONCE A DAY -TAKE WITH 10MG TAB Singulair 10MG Oral Tablet 12/06/2021 02/08/20 By Mouth Daily 1 TABLET 791502 RxNorm TAKE 1 TABLET BY MOUTH ONCE A DAY busPIRone 15MG Oral Tablet 12/06/2021 01/10/20 22 By Mouth Twice a day 1 TABLET 849553 RxNorm TAKE 1 TABLET BY MOUTH TWO TIMES A DAY Potassium Chloride 20MEQ Oral Tablet, Extended Release 12/06/2021 01/10/20 22 By Mouth Twice a day 2 TABLET 2253048 RxNorm TAKE 2 TABLETS BY MOUTH TWO TIMES A DAY Potassium Chloride 20MEQ Oral Tablet, Extended Release 01/09/2022 03/11/20 22 By Mouth Twice a day 2 TABLET 5839515 RxNorm TAKE 2 TABLETS BY MOUTH TWO TIMES A DAY Paxil 40MG Oral Tablet 01/09/2022 03/11/20 22 By Mouth Daily 1 TABLET 677132 RxNorm TAKE 1 TABLET BY MOUTH ONCE A DAY -TAKE WITH 10MG TAB Crestor 40MG Oral Tablet 01/09/2022 11/22/20 22 By Mouth Daily 1 TABLET 045065 RxNorm TAKE 1 TABLET BY MOUTH ONCE A DAY busPIRone 15MG Oral Tablet 01/09/2022 03/11/20 22 By Mouth Twice a day 1 TABLET 618746 RxNorm TAKE 1 TABLET BY MOUTH TWO TIMES A DAY Singulair 10MG Oral Tablet 02/07/2022 04/29/19 23 By Mouth Daily 1 TABLET 509391 RxNorm TAKE 1 TABLET BY MOUTH ONCE A DAY Singulair 10MG Oral Tablet 02/07/2022 04/29/19 23 By Mouth Daily 1 TABLET 528398 RxNorm TAKE 1 TABLET BY MOUTH ONCE A DAY Crestor 40MG Oral Tablet 03/11/2022 04/08/20 22 By Mouth Daily 1 TABLET 945922 RxNorm TAKE 1 TABLET BY MOUTH ONCE A DAY busPIRone 15MG Oral Tablet 03/11/2022 04/08/20 22 By Mouth Twice a day 1 TABLET 492774 RxNorm TAKE 1 TABLET BY MOUTH TWO TIMES A DAY Paxil 40MG Oral Tablet 03/11/2022 04/08/20 22 By Mouth Daily 1 TABLET 233103 RxNorm TAKE 1 TABLET BY MOUTH ONCE A DAY -TAKE WITH 10MG TAB Potassium Chloride 20MEQ Oral Tablet, Extended Release 03/11/2022 04/08/20 22 By Mouth Twice a day 2 TABLET 5618022 RxNorm TAKE 2 TABLETS BY MOUTH TWO TIMES A DAY Doxycycline 100MG Oral Capsule 03/20/2022 04/29/19 23 By Mouth Twice a day 1 CAPSULE 5365986 RxNorm 1 CAPSULE By Mouth Twice a day x10 days Paxil 40MG Oral Tablet 04/08/2022 04/29/19 23 By Mouth Daily 1 TABLET 488331 RxNorm TAKE 1 TABLET BY MOUTH ONCE A DAY -TAKE WITH 10MG TAB busPIRone 15MG Oral Tablet 04/08/2022 04/29/19 23 By Mouth Twice a day 1 TABLET 964027 RxNorm TAKE 1 TABLET BY MOUTH TWO TIMES A DAY Prinivil 5MG Oral Tablet 04/08/2022 04/29/19 23 By Mouth Daily 1 TABLET 775675 RxNorm TAKE 1 TABLET BY MOUTH ONCE A DAY Crestor 40MG Oral Tablet 04/08/2022 06/05/19 23 By Mouth Daily 1 TABLET 887423 RxNorm TAKE 1 TABLET BY MOUTH ONCE A DAY Potassium Chloride 20MEQ Oral Tablet, Extended Release 04/08/2022 04/29/19 23 By Mouth Twice a day 2 TABLET 1652820 RxNorm TAKE 2 TABLETS BY MOUTH TWO TIMES A DAY Naltrexone HCl Powder 04/29/2022 06/06/19 25 By Mouth At bedtime 3 MILLIGRAMS RxNorm 3 MILLIGRAMS By Mouth At bedtime Paxil 40MG Oral Tablet 04/29/2022 02/05/20 23 By Mouth Daily 1 TABLET 869332 RxNorm TAKE 1 TABLET BY MOUTH ONCE A DAY busPIRone 15MG Oral Tablet 04/29/2022 02/05/20 23 By Mouth Twice a day 1 TABLET 114900 RxNorm TAKE 1 TABLET BY MOUTH TWO TIMES A DAY Prinivil 5MG Oral Tablet 04/29/2022 06/19/19 24 By Mouth Daily 1 TABLET 055773 RxNorm TAKE 1 TABLET BY MOUTH ONCE A DAY Potassium Chloride 20MEQ Oral Tablet, Extended Release 04/29/2022 12/31/19 23 By Mouth Twice a day 2 TABLET 1808126 RxNorm TAKE 2 TABLETS BY MOUTH TWO TIMES A DAY Singulair 10MG Oral Tablet 04/29/2022 05/07/19 24 By Mouth Daily 1 TABLET 909747 RxNorm TAKE 1 TABLET BY MOUTH ONCE A DAY Crestor 40MG Oral Tablet 06/05/2022 08/20/19 23 By Mouth Daily 1 TABLET 897759 RxNorm TAKE 1 TABLET BY MOUTH ONCE A DAY Crestor 40MG Oral Tablet 08/19/2022 12/20/19 23 By Mouth Daily 1 TABLET 210626 RxNorm TAKE 1 TABLET BY MOUTH ONCE A DAY Crestor 40MG Oral Tablet 12/19/2022 12/31/19 23 By Mouth Daily 1 TABLET 015587 RxNorm TAKE 1 TABLET BY MOUTH ONCE A DAY Ozempic 0.25 MG or 0.5 MG Doses 2 MG/3 ML Subcutaneou s Solution 12/30/2022 01/05/20 24 Subcutane ous Once a week 0.25 UNIT 9448746 RxNorm 0.25 UNIT Subcutaneou s Once a week Crestor 40MG Oral Tablet 12/30/2022 12/31/19 23 By Mouth Daily 1 TABLET 550056 RxNorm TAKE 1 TABLET BY MOUTH ONCE A DAY Crestor 40MG Oral Tablet 12/30/2022 01/05/20 24 By Mouth Daily 1 TABLET 336659 RxNorm TAKE 1 TABLET BY MOUTH ONCE A DAY Paxil 40MG Oral Tablet 02/04/2023 07/07/19 24 By Mouth Daily 1 TABLET 716622 RxNorm TAKE 1 TABLET BY MOUTH ONCE A DAY busPIRone 15MG Oral Tablet 02/04/2023 07/07/19 24 By Mouth Twice a day 1 TABLET 518448 RxNorm TAKE 1 TABLET BY MOUTH TWO TIMES A DAY Levothyroxi ne 50MCG Oral Tablet 02/20/2023 Unknown By Mouth 1 TABLET 008486 RxNorm 1 TABLE T By Mouth in the morning on an empty stomach- PRESCRIBED BY DR DURAN Victoza 6MG/1ML Subcutaneou s Solution 02/20/2023 06/21/19 25 Subcutane ous Daily 1.8 UNIT 034193 RxNorm 1.8 UNIT Subcutaneou s Daily- *PRESCRIBED BY DR DURAN NovoLOG FlexPen 100U/1ML Subcutaneou s Solution 02/20/2023 04/07/20 23 Subcutane ous 0301182 RxNorm Inject up to 100 Units SUBQ daily in DMDED doses--- * PRESCRIBED BY DR DURAN Baclofen 10MG Oral Tablet 02/20/2023 Unknown By Mouth Three times a day 1 TABLET 295339 RxNorm 1 TABLET By Mouth Three times a day With food Aspirin 81MG Oral Tablet, Enteric Coated 02/20/2023 04/07/20 23 By Mouth Daily 1 TABLET 433339 RxNorm 1 TABLET By Mouth Daily Vitamin D 1000IU Oral Tablet 02/20/2023 04/07/20 23 By Mouth Daily 1 TABLET 812539 RxNorm 1 TABLET By Mouth Daily Augmentin 875MG-125MG Oral Tablet 04/22/2023 05/28/19 24 By Mouth Every 12 hours 1 TABLET 678767 RxNorm 1 TABLET By Mouth Every 12 hours x 10 days. Take with food. Diflucan 150MG Oral Tablet 04/22/2023 05/28/19 24 By Mouth x1 NOW 1 TABLET 077397 RxNorm 1 TABLET By Mouth x1 NOW. May repeat in 72 hours as needed. Singulair 10MG Oral Tablet 05/07/2023 07/07/19 24 By Mouth Daily 1 TABLET 971555 RxNorm TAKE 1 TABLET BY MOUTH ONCE A DAY Prinivil 5MG Oral Tablet 06/19/2023 06/22/19 24 By Mouth Daily 1 TABLET 053041 RxNorm TAKE 1 TABLET BY MOUTH ONCE A DAY Prinivil 5MG Oral Tablet 06/22/2023 07/07/19 24 By Mouth Daily 1 TABLET 542083 RxNorm TAKE 1 TABLET BY MOUTH ONCE A DAY Prinivil 5MG Oral Tablet 07/07/2023 01/05/20 24 By Mouth Daily 1 TABLET 146251 RxNorm TAKE 1 TABLET BY MOUTH ONCE A DAY Singulair 10MG Oral Tablet 07/07/2023 01/05/20 24 By Mouth Daily 1 TABLET 069084 RxNorm TAKE 1 TABLET BY MOUTH ONCE A DAY Paxil 40MG Oral Tablet 07/07/2023 10/02/19 24 By Mouth Daily 1 TABLET 149882 RxNorm TAKE 1 TABLET BY MOUTH ONCE A DAY busPIRone 15MG Oral Tablet 07/07/2023 01/05/20 24 By Mouth Twice a day 1 TABLET 226255 RxNorm TAKE 1 TABLET BY MOUTH TWO TIMES A DAY Ativan 0.5MG Oral Tablet 09/02/2023 09/28/19 25 By Mouth Twice a day 1 TABLET 586594 RxNorm 1 TABLET By Mouth Twice a day PRN Paxil 30MG Oral Tablet 10/02/2023 10/30/19 24 By Mouth Daily 2 TABLET 178255 RxNorm 2 TABLET By Mouth Daily Paxil 30MG Oral Tablet 10/30/2023 08/17/19 25 By Mouth Daily 2 TABLET 802108 RxNorm 2 TABLET By Mouth Daily Ambien 5MG Oral Tablet 12/11/2023 01/05/20 24 By Mouth At bedtime 167140 RxNorm 1-2 TABLET By Mouth At bedtime As needed Ozempic 0.25 MG or 0.5 MG Doses 2 MG/3 ML Subcutaneou s Solution 01/05/2024 06/21/19 25 Subcutane ous Once a week 0.5 UNIT 5345574 RxNorm 0.5 UNIT Subcutaneou s Once a week Crestor 40MG Oral Tablet 01/05/2024 09/27/19 25 By Mouth Daily 1 TABLET 965834 RxNorm TAKE 1 TABLET BY MOUTH ONCE A DAY busPIRone 15MG Oral Tablet 01/05/2024 08/06/19 25 By Mouth Twice a day 1 TABLET 368543 RxNorm TAKE 1 TABLET BY MOUTH TWO TIMES A DAY Singulair 10MG Oral Tablet 01/05/2024 09/27/19 25 By Mouth Daily 1 TABLET 131041 RxNorm TAKE 1 TABLET BY MOUTH ONCE A DAY Ambien 5MG Oral Tablet 01/05/2024 09/28/19 25 By Mouth At bedtime 513906 RxNorm 1-2 TABLET By Mouth At bedtime As needed Prinivil 5MG Oral Tablet 01/05/2024 07/06/19 25 By Mouth Daily 1 TABLET 618919 RxNorm TAKE 1 TABLET BY MOUTH ONCE A DAY Promethazin e DM 6.25MG/5ML- 15MG/5ML Oral Syrup 01/25/2024 06/06/19 25 ORAL As needed every 4 hr 5 mL 620615 RxNorm 5 mL ORAL As needed every 4 hr-do not take within 2 hours of Paxil or Buspirone Augmentin 875MG-125MG Oral Tablet 01/25/2024 06/06/19 25 By Mouth Twice a day 1 TABLET 547635 RxNorm 1 TABLET By Mouth Twice a day x 10 days Airsupra 90 MCG/1 Actuation-8 0 MCG/1 Actuation Inhalation Aerosol Powder 01/25/2024 06/06/19 25 Inhale As needed every 4 hr 2 Puff 0112581 RxNorm 2 Puff Inhale As needed every 4 hr Victoza 6MG/1ML Subcutaneou s Solution 06/20/2024 Unknown Subcutane ous Daily 1.8 MILLIGRAMS 042419 RxNorm 1.8 MILLIGRAMS Subcutaneou s Daily Ozempic 0.25 MG or 0.5 MG Doses 2 MG/3 ML Subcutaneou s Solution 06/20/2024 Unknown Subcutane ous Once a week 1.5 MILLILITER 8681749 RxNorm 1.5 MILLILITER Subcutaneou s Once a week Lisinopril 5MG Oral Tablet 07/05/2024 09/27/19 25 By Mouth Daily 1 TABLET 975321 RxNorm 1 TABLET By Mouth Daily busPIRone 15MG Oral Tablet 08/05/2024 Unknown By Mouth Twice a day 1 TABLET 042848 RxNorm TAKE 1 TABLET BY MOUTH TWO TIMES A DAY Paxil 20MG Oral Tablet 08/16/2024 09/27/19 25 By Mouth Daily 1 TABLET 306017 RxNorm 1 TABLET By Mouth Daily Wellbutrin XL 150MG Oral Tablet, Extended Release, 24 HR 08/16/2024 09/27/19 25 By Mouth Daily 1 TABLET 479331 RxNorm 1 TABLET By Mouth Daily. Wellbutrin XL 150MG Oral Tablet, Extended Release, 24 HR 09/26/2024 Unknown By Mouth Daily 1 TABLET 507225 RxNorm 1 TABLET By Mouth Daily. Paxil 20MG Oral Tablet 09/26/2024 Unknown By Mouth Daily 1 TABLET 217009 RxNorm 1 TABLE T By Mouth Daily Lisinopril 5MG Oral Tablet 09/26/2024 Unknown By Mouth Daily 1 TABLET 844873 RxNorm 1 TABLET By Mouth Daily Singulair 10MG Oral Tablet 09/26/2024 Unknown By Mouth Daily 1 TABLET 317374 RxNorm TAKE 1 TABLET BY MOUTH ONCE A DAY Crestor 40MG Oral Tablet 09/26/2024 Unknown By Mouth Daily 1 TABLET 204019 RxNorm TAKE 1 TABLET BY MOUTH ONCE A DAY Ativan 0.5MG Oral Tablet 09/27/2024 Unknown By Mouth As needed daily 1 TABLET 464316 RxNorm 1 TABLET By Mouth As needed daily Ambien 5MG Oral Tablet 09/27/2024 10/05/19 25 By Mouth At bedtime 747736 RxNorm 1-2 TABLET By Mouth At bedtime As needed Ambien 5MG Oral Tablet 10/04/2024 Unknown By Mouth At bedtime 1 TABLET 299145 RxNorm 1 TABLET By Mouth At bedtime As needed Assessment You had the following problems:TYPE I DIABETES MELLITUS WITH HYPERGLYCEMIAHYPERTENSIONHYPERCHOLESTEROLEMIAHYPOTHYROIDISMLUMBAR RADICULOPATHYLOW POTASSIUMGERDALLERGIC RHINITISDEPRESSIONANXIETYASTHMACHRONIC KIDNEY DISEASE STAGE 3OBESITYENDOMETRIOSISSLEEP APNEANEOPLASM OF UNCERTAIN BEHAVIOR OF RIGHT ADRENAL GLANDDEFICIENCY OF OTHER SPECIFIED B GROUP VITAMINSHYPERCALCEMIAENCOUNTER FOR FITTING AND ADJUSTMENT OF INSULIN PUMPABNORMAL LEVELS OF OTHER SERUM ENZYMES Assessment/Plan: 1. Otitis Media / Sinusinits- Augmentin 875 mg BID x 10 days with food, increase oral fluids/ juice. Promethazine DM 5 mL every 4-6 hours as needed. Dispense 8 ounces. Return to clinic if symptoms worsen or persist and PRN. Hospital Discharge Instructions Should you have any questions prior to discharge, please contact a member of your healthcare team. If you have left the hospital and have any questions, please contact your primary care physician. Reason For Referral No Data Found Problems Problem Start Date Resolved Date Status Code Code System TYPE I DIABETES MELLITUS WITH HYPERGLYCEMIA active 468377272052099 SNOMED -CT HYPERTENSION active 60629464 SNOMED- CT HYPERCHOLESTEROLEMIA active 61348068 SNOMED-CT HYPOTHYROIDISM active 47575467 SNOME D-CT LUMBAR RADICULOPATHY active 546735284 SNOMED-CT LOW POTASSIUM active 10767186 SNOMED -CT GERD active 931472415 SNOMED-CT ALLERGIC RHINITIS active 41887651 SN OMED-CT DEPRESSION active 88302104 SNOMED-CT ANXIETY active 57273856 SNOMED-CT ASTHMA active 351065553 SNOMED-CT CHRONIC KIDNEY DISEASE STAGE 3 active 639093828 SNOMED-CT OBESITY active 246112077 SNOMED-CT ENDOMETRIOSIS active 456627753 SNOMED -CT SLEEP APNEA active 81517835 SNOMED-C 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 558352288731982 SNOMED-CT 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 71369728 S NOMED-CT HYPERCALCEMIA active 44275764 SNOMED -CT ENCOUNTER FOR FITTING AND ADJUSTMENT OF INSULIN PUMP active 012342400 S NOMED-CT ABNORMAL LEVELS OF OTHER SERUM ENZYMES active 926830206 SNOMED-CT HISTORY OF GASTRIC BYPASS 06/26/2022 05/30/2024 resolved 69 1075933 SNOMED-CT SINUSITIS 04/30/2022 resolved 59722043 SNOMED-CT DIABETES 2 01/19/2024 resolved 03922243 SNOMED-C T Allergies and Adverse Reactions Allergy Substance Reaction Severity Start Date Concern Status Co de Code System CEFUROXIME Rash (SNOMED-CT: 857111388) Mild Active 2194 RxNorm KETOROLAC Hives (SNOMED-CT: 901794942) Mild Active 45943 RxNorm BIAXIN Hives (SNOMED-CT: 862356115) Severe Active LANTUS Hives (SNOMED-CT: 413322281) Mild Active 617464 RxNorm TAMIFLU Rash (SNOMED-CT: 252430794) Active 202538 RxNorm SEPTRA Rash (SNOMED-CT: 457828883) Mild Active LEVEMIR Hives (SNOMED-CT: 844498371) Mild Active 649306 RxNorm Plan of Treatment MA Screening Bilateral 07/25/2025 Established Patient 30 01/03/2025 Description Due Date Details Instructions Pap 08/18/2025 Performed 09/06 20 normal, repeat in 5 yrs per [place] - RR 5.20.21 Sdoh 01/04/2025 Annual Labs 11/10/2024 cbc, cmp, tsh, free t4, lipids Mammogram 08/12/2025 08/12/24- WNL Depression 06/06/2025 Anxiety 06/06/2025 Encounters Encounter Diagnosis Start Date Code Code Sys tem Otitis media 02/26/2021 [id number] Stealz[facility]ED-CT Personal Care Team Section Performer Name Performer Role Active Date Inactive Da te Progress Notes
--- OUTSIDE RECORDS SUMMARY | 2024-10-25 02:58 | XMS_ITS ---
Author Organization Unknown Address [address] [place] [phone] Phone Care Team Providers Care Call Center Associate Name Role Phone ROSITA ROSADO Attending Unavailable [...] em Smoking History Never smoker (Never Smoked) [id number] SNOMED CT Smoking History Unknown if ever smoked [id number] SNOMED CT Sex Female Sexual Orientation Straight or Heterosexual [id number] SNOMED CT Gender Identity Female [id number] Medications Medication Start Date End Date Route Frequency Dose Code Code System Medication Instructions Home Meds Lyrica 150MG Oral Capsule 08/30/2018 Unknown By Mouth Twice a day 1 CAPSULE 065909 RxNorm 1 CAPSULE By Mouth Twice a day Xyzal Allergy 24HR 5MG Oral Tablet 08/30/2018 Unknown By Mouth Daily 1 TABLET 035762 RxNorm 1 TABLE T By Mouth Daily CeleBREX 100MG Oral Capsule 03/15/2019 12/31/19 23 By Mouth Twice a day 1 CAPSULE 058361 RxNorm 1 CAPSULE By Mouth Twice a day Pepcid AC 20MG Oral Tablet 03/15/2019 Unknown By Mouth Daily 1 TABLET 022087 RxNorm 1 TABLET By Mouth Daily medical marijuana 07/27/2019 04/22/19 24 By Mouth As Directed 1 edible RxNorm 1 edible By Mouth As Directed Fiasp 100U/1ML Injection Solution 02/23/2020 Unknown Subcutane ous 5636269 RxNorm Subcutaneou s VIA INSULIN PUMP Victoza 6MG/1ML Subcutaneou s Solution 02/23/2020 04/22/19 24 Subcutane ous Daily 1.8 MILLIGRAMS 437085 RxNorm 1.8 MILLIGRAMS Subcutaneou s Daily Paxil 10MG Oral Tablet 08/22/2021 04/29/19 23 By Mouth Daily 1 TABLET 590540 RxNorm TAKE 1 TABLET BY MOUTH ONCE A DAY -TAKE WITH 40MG TAB Prinivil 5MG Oral Tablet 11/06/2021 04/29/19 23 By Mouth Daily 1 TABLET 480690 RxNorm TAKE 1 TABLET BY MOUTH ONCE A DAY Prinivil 5MG Oral Tablet 11/07/2021 04/08/20 22 By Mouth Daily 1 TABLET 913044 RxNorm TAKE 1 TABLET BY MOUTH ONCE A DAY Singulair 10MG Oral Tablet 12/06/2021 02/08/20 22 By Mouth Daily 1 TABLET 941197 RxNorm TAKE 1 TABLET BY MOUTH ONCE A DAY Potassium Chloride 20MEQ Oral Tablet, Extended Release 01/09/2022 03/11/20 22 By Mouth Twice a day 2 TABLET 0388661 RxNorm TAKE 2 TABLETS BY MOUTH TWO TIMES A DAY Paxil 40MG Oral Tablet 01/09/2022 03/11/20 22 By Mouth Daily 1 TABLET 271071 RxNorm TAKE 1 TABLET BY MOUTH ONCE A DAY -TAKE WITH 10MG TAB Crestor 40MG Oral Tablet 01/09/2022 03/11/20 22 By Mouth Daily 1 TABLET 097255 RxNorm TAKE 1 TABLET BY MOUTH ONCE A DAY busPIRone 15MG Oral Tablet 01/09/2022 03/11/20 22 By Mouth Twice a day 1 TABLET 178908 RxNorm TAKE 1 TABLET BY MOUTH TWO TIMES A DAY Singulair 10MG Oral Tablet 02/07/2022 04/29/19 23 By Mouth Daily 1 TABLET 842266 RxNorm TAKE 1 TABLET BY MOUTH ONCE A DAY Singulair 10MG Oral Tablet 02/07/2022 04/29/19 23 By Mouth Daily 1 TABLET 376078 RxNorm TAKE 1 TABLET BY MOUTH ONCE A DAY Crestor 40MG Oral Tablet 03/11/2022 04/08/20 22 By Mouth Daily 1 TABLET 330778 RxNorm TAKE 1 TABLET BY MOUTH ONCE A DAY busPIRone 15MG Oral Tablet 03/11/2022 04/08/20 22 By Mouth Twice a day 1 TABLET 504769 RxNorm TAKE 1 TABLET BY MOUTH TWO TIMES A DAY Paxil 40MG Oral Tablet 03/11/2022 04/08/20 22 By Mouth Daily 1 TABLET 060674 RxNorm TAKE 1 TABLET BY MOUTH ONCE A DAY -TAKE WITH 10MG TAB Potassium Chloride 20MEQ Oral Tablet, Extended Release 03/11/2022 04/08/20 22 By Mouth Twice a day 2 TABLET 0124314 RxNorm TAKE 2 TABLETS BY MOUTH TWO TIMES A DAY Doxycycline 100MG Oral Capsule 03/20/2022 04/29/19 23 By Mouth Twice a day 1 CAPSULE 2415639 RxNorm 1 CAPSULE By Mouth Twice a day x10 days Paxil 40MG Oral Tablet 04/08/2022 04/29/19 23 By Mouth Daily 1 TABLET 467821 RxNorm TAKE 1 TABLET BY MOUTH ONCE A DAY -TAKE WITH 10MG TAB busPIRone 15MG Oral Tablet 04/08/2022 04/29/19 23 By Mouth Twice a day 1 TABLET 734492 RxNorm TAKE 1 TABLET BY MOUTH TWO TIMES A DAY Prinivil 5MG Oral Tablet 04/08/2022 04/29/19 23 By Mouth Daily 1 TABLET 789365 RxNorm TAKE 1 TABLET BY MOUTH ONCE A DAY Crestor 40MG Oral Tablet 04/08/2022 06/05/19 23 By Mouth Daily 1 TABLET 637000 RxNorm TAKE 1 TABLET BY MOUTH ONCE A DAY Potassium Chloride 20MEQ Oral Tablet, Extended Release 04/08/2022 04/29/19 23 By Mouth Twice a day 2 TABLET 0603371 RxNorm TAKE 2 TABLETS BY MOUTH TWO TIMES A DAY Naltrexone HCl Powder 04/29/2022 06/06/19 25 By Mouth At bedtime 3 MILLIGRAMS RxNorm 3 MILLIGRAMS By Mouth At bedtime Paxil 40MG Oral Tablet 04/29/2022 02/05/20 23 By Mouth Daily 1 TABLET 290414 RxNorm TAKE 1 TABLET BY MOUTH ONCE A DAY busPIRone 15MG Oral Tablet 04/29/2022 02/05/20 23 By Mouth Twice a day 1 TABLET 962893 RxNorm TAKE 1 TABLET BY MOUTH TWO TIMES A DAY Prinivil 5MG Oral Tablet 04/29/2022 06/19/19 24 By Mouth Daily 1 TABLET 479577 RxNorm TAKE 1 TABLET BY MOUTH ONCE A DAY Potassium Chloride 20MEQ Oral Tablet, Extended Release 04/29/2022 12/31/19 23 By Mouth Twice a day 2 TABLET 9952975 RxNorm TAKE 2 TABLETS BY MOUTH TWO TIMES A DAY Singulair 10MG Oral Tablet 04/29/2022 05/07/19 24 By Mouth Daily 1 TABLET 886604 RxNorm TAKE 1 TABLET BY MOUTH ONCE A DAY Crestor 40MG Oral Tablet 06/05/2022 08/20/19 23 By Mouth Daily 1 TABLET 653700 RxNorm TAKE 1 TABLET BY MOUTH ONCE A DAY Crestor 40MG Oral Tablet 08/19/2022 12/20/19 23 By Mouth Daily 1 TABLET 719322 RxNorm TAKE 1 TABLET BY MOUTH ONCE A DAY Crestor 40MG Oral Tablet 12/19/2022 12/31/19 23 By Mouth Daily 1 TABLET 707889 RxNorm TAKE 1 TABLET BY MOUTH ONCE A DAY Ozempic 0.25 MG or 0.5 MG Doses 2 MG/3 ML Subcutaneou s Solution 12/30/2022 01/05/20 24 Subcutane ous Once a week 0.25 UNIT 0353610 RxNorm 0.25 UNIT Subcutaneou s Once a week Crestor 40MG Oral Tablet 12/30/2022 12/31/19 23 By Mouth Daily 1 TABLET 726468 RxNorm TAKE 1 TABLET BY MOUTH ONCE A DAY Crestor 40MG Oral Tablet 12/30/2022 01/05/20 24 By Mouth Daily 1 TABLET 937301 RxNorm TAKE 1 TABLET BY MOUTH ONCE A DAY Paxil 40MG Oral Tablet 02/04/2023 07/07/19 24 By Mouth Daily 1 TABLET 375392 RxNorm TAKE 1 TABLET BY MOUTH ONCE A DAY busPIRone 15MG Oral Tablet 02/04/2023 07/07/19 24 By Mouth Twice a day 1 TABLET 865403 RxNorm TAKE 1 TABLET BY MOUTH TWO TIMES A DAY Levothyroxi ne 50MCG Oral Tablet 02/20/2023 Unknown By Mouth 1 TABLET 712837 RxNorm 1 TABLE T By Mouth in the morning on an empty stomach- PRESCRIBED BY DR DURAN Victoza 6MG/1ML Subcutaneou s Solution 02/20/2023 06/21/19 25 Subcutane ous Daily 1.8 UNIT 804065 RxNorm 1.8 UNIT Subcutaneou s Daily- *PRESCRIBED BY DR DURAN NovoLOG FlexPen 100U/1ML Subcutaneou s Solution 02/20/2023 04/07/20 23 Subcutane ous 9185232 RxNorm Inject up to 100 Units SUBQ daily in DMDED doses--- * PRESCRIBED BY DR DURAN Baclofen 10MG Oral Tablet 02/20/2023 Unknown By Mouth Three times a day 1 TABLET 442152 RxNorm 1 TABLET By Mouth Three times a day With food Aspirin 81MG Oral Tablet, Enteric Coated 02/20/2023 04/07/20 23 By Mouth Daily 1 TABLET 706511 RxNorm 1 TABLET By Mouth Daily Vitamin D 1000IU Oral Tablet 02/20/2023 04/07/20 23 By Mouth Daily 1 TABLET 326488 RxNorm 1 TABLET By Mouth Daily Augmentin 875MG-125MG Oral Tablet 04/22/2023 05/28/19 24 By Mouth Every 12 hours 1 TABLET 488587 RxNorm 1 TABLET By Mouth Every 12 hours x 10 days. Take with food. Diflucan 150MG Oral Tablet 04/22/2023 05/28/19 24 By Mouth x1 NOW 1 TABLET 916292 RxNorm 1 TABLET By Mouth x1 NOW. May repeat in 72 hours as needed. Singulair 10MG Oral Tablet 05/07/2023 07/07/19 24 By Mouth Daily 1 TABLET 542867 RxNorm TAKE 1 TABLET BY MOUTH ONCE A DAY Prinivil 5MG Oral Tablet 06/19/2023 06/22/19 24 By Mouth Daily 1 TABLET 592803 RxNorm TAKE 1 TABLET BY MOUTH ONCE A DAY Prinivil 5MG Oral Tablet 06/22/2023 07/07/19 24 By Mouth Daily 1 TABLET 567430 RxNorm TAKE 1 TABLET BY MOUTH ONCE A DAY Prinivil 5MG Oral Tablet 07/07/2023 01/05/20 24 By Mouth Daily 1 TABLET 522292 RxNorm TAKE 1 TABLET BY MOUTH ONCE A DAY Singulair 10MG Oral Tablet 07/07/2023 01/05/20 24 By Mouth Daily 1 TABLET 519476 RxNorm TAKE 1 TABLET BY MOUTH ONCE A DAY Paxil 40MG Oral Tablet 07/07/2023 10/02/19 24 By Mouth Daily 1 TABLET 598039 RxNorm TAKE 1 TABLET BY MOUTH ONCE A DAY busPIRone 15MG Oral Tablet 07/07/2023 01/05/20 24 By Mouth Twice a day 1 TABLET 137443 RxNorm TAKE 1 TABLET BY MOUTH TWO TIMES A DAY Ativan 0.5MG Oral Tablet 09/02/2023 09/28/19 25 By Mouth Twice a day 1 TABLET 535195 RxNorm 1 TABLET By Mouth Twice a day PRN Paxil 30MG Oral Tablet 10/02/2023 10/30/19 24 By Mouth Daily 2 TABLET 984840 RxNorm 2 TABLET By Mouth Daily Paxil 30MG Oral Tablet 10/30/2023 08/17/19 25 By Mouth Daily 2 TABLET 729774 RxNorm 2 TABLET By Mouth Daily Ambien 5MG Oral Tablet 12/11/2023 01/05/20 24 By Mouth At bedtime 765730 RxNorm 1-2 TABLET By Mouth At bedtime As needed Ozempic 0.25 MG or 0.5 MG Doses 2 MG/3 ML Subcutaneou s Solution 01/05/2024 06/21/19 25 Subcutane ous Once a week 0.5 UNIT 0391948 RxNorm 0.5 UNIT Subcutaneou s Once a week Crestor 40MG Oral Tablet 01/05/2024 09/27/19 25 By Mouth Daily 1 TABLET 412479 RxNorm TAKE 1 TABLET BY MOUTH ONCE A DAY busPIRone 15MG Oral Tablet 01/05/2024 08/06/19 25 By Mouth Twice a day 1 TABLET 230933 RxNorm TAKE 1 TABLET BY MOUTH TWO TIMES A DAY Singulair 10MG Oral Tablet 01/05/2024 09/27/19 25 By Mouth Daily 1 TABLET 504317 RxNorm TAKE 1 TABLET BY MOUTH ONCE A DAY Ambien 5MG Oral Tablet 01/05/2024 09/28/19 25 By Mouth At bedtime 820481 RxNorm 1-2 TABLET By Mouth At bedtime As needed Prinivil 5MG Oral Tablet 01/05/2024 07/06/19 25 By Mouth Daily 1 TABLET 642053 RxNorm TAKE 1 TABLET BY MOUTH ONCE A DAY Promethazin e DM 6.25MG/5ML- 15MG/5ML Oral Syrup 01/25/2024 06/06/19 25 ORAL As needed every 4 hr 5 mL 564440 RxNorm 5 mL ORAL As needed every 4 hr-do not take within 2 hours of Paxil or Buspirone Augmentin 875MG-125MG Oral Tablet 01/25/2024 06/06/19 25 By Mouth Twice a day 1 TABLET 274872 RxNorm 1 TABLET By Mouth Twice a day x 10 days Airsupra 90 MCG/1 Actuation-8 0 MCG/1 Actuation Inhalation Aerosol Powder 01/25/2024 06/06/19 25 Inhale As needed every 4 hr 2 Puff 1580619 RxNorm 2 Puff Inhale As needed every 4 hr Victoza 6MG/1ML Subcutaneou s Solution 06/20/2024 Unknown Subcutane ous Daily 1.8 MILLIGRAMS 015715 RxNorm 1.8 MILLIGRAMS Subcutaneou s Daily Ozempic 0.25 MG or 0.5 MG Doses 2 MG/3 ML Subcutaneou s Solution 06/20/2024 Unknown Subcutane ous Once a week 1.5 MILLILITER 3586405 RxNorm 1.5 MILLILITER Subcutaneou s Once a week Lisinopril 5MG Oral Tablet 07/05/2024 09/27/19 25 By Mouth Daily 1 TABLET 117842 RxNorm 1 TABLET By Mouth Daily busPIRone 15MG Oral Tablet 08/05/2024 Unknown By Mouth Twice a day 1 TABLET 778993 RxNorm TAKE 1 TABLET BY MOUTH TWO TIMES A DAY Paxil 20MG Oral Tablet 08/16/2024 09/27/19 25 By Mouth Daily 1 TABLET 599451 RxNorm 1 TABLET By Mouth Daily Wellbutrin XL 150MG Oral Tablet, Extended Release, 24 HR 08/16/2024 09/27/19 25 By Mouth Daily 1 TABLET 337797 RxNorm 1 TABLET By Mouth Daily. Wellbutrin XL 150MG Oral Tablet, Extended Release, 24 HR 09/26/2024 Unknown By Mouth Daily 1 TABLET 949662 RxNorm 1 TABLET By Mouth Daily. Paxil 20MG Oral Tablet 09/26/2024 Unknown By Mouth Daily 1 TABLET 850131 RxNorm 1 TABLE T By Mouth Daily Lisinopril 5MG Oral Tablet 09/26/2024 Unknown By Mouth Daily 1 TABLET 212545 RxNorm 1 TABLET By Mouth Daily Singulair 10MG Oral Tablet 09/26/2024 Unknown By Mouth Daily 1 TABLET 026014 RxNorm TAKE 1 TABLET BY MOUTH ONCE A DAY Crestor 40MG Oral Tablet 09/26/2024 Unknown By Mouth Daily 1 TABLET 222267 RxNorm TAKE 1 TABLET BY MOUTH ONCE A DAY Ativan 0.5MG Oral Tablet 09/27/2024 Unknown By Mouth As needed daily 1 TABLET 280793 RxNorm 1 TABLET By Mouth As needed daily Ambien 5MG Oral Tablet 09/27/2024 10/05/19 25 By Mouth At bedtime 777430 RxNorm 1-2 TABLET By Mouth At bedtime As needed Ambien 5MG Oral Tablet 10/04/2024 Unknown By Mouth At bedtime 1 TABLET 749184 RxNorm 1 TABLET By Mouth At bedtime [...] TYPE I DIABETES MELLITUS WITH HYPERGLYCEMIA active [id number] SNOMED -CT HYPERTENSION active 44948557 SNOMED- CT HYPERCHOLESTEROLEMIA active 28080638 SNOMED-CT HYPOTHYROIDISM active 48609352 SNOME D-CT LUMBAR RADICULOPATHY active 489487017 SNOMED-CT LOW POTASSIUM active 98632334 SNOMED -CT GERD active 935093859 SNOMED-CT ALLERGIC RHINITIS active 73545164 SN OMED-CT DEPRESSION active 11427823 SNOMED-CT ANXIETY active 36066721 SNOMED-CT ASTHMA active 440953047 SNOMED-CT CHRONIC KIDNEY DISEASE STAGE 3 active 857516941 SNOMED-CT OBESITY active 172310160 SNOMED-CT ENDOMETRIOSIS active 942936554 SNOMED -CT SLEEP APNEA active 11613278 SNOMED-C 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 [id number] SNOMED-CT 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 62226027 S NOMED-CT HYPERCALCEMIA active 13634062 SNOMED -CT ENCOUNTER FOR FITTING AND ADJUSTMENT OF INSULIN PUMP active 725049985 S NOMED-CT ABNORMAL LEVELS OF OTHER SERUM ENZYMES active 309726938 SNOMED-CT HISTORY OF GASTRIC BYPASS 06/26/2022 05/30/2024 resolved 69 9629136 SNOMED-CT SINUSITIS 04/30/2022 resolved 14464971 SNOMED-CT DIABETES 2 01/19/2024 resolved 16661551 SNOMED-C T Allergies and Adverse Reactions Allergy Substance Reaction Severity Start Date Concern Status Co de Code System CEFUROXIME Rash (SNOMED-CT: 060396540) Mild Active 2194 RxNorm KETOROLAC Hives (SNOMED-CT: 966073480) Mild Active 53987 RxNorm BIAXIN Hives (SNOMED-CT: 085553406) Severe Active LANTUS Hives (SNOMED-CT: 087169274) Mild Active 351554 RxNorm TAMIFLU Rash (SNOMED-CT: 927516648) Active 987501 RxNorm SEPTRA Rash (SNOMED-CT: 029473807) Mild Active LEVEMIR Hives (SNOMED-CT: 510075165) Mild Active 557752 RxNorm Plan of Treatment [place] Screening Bilateral [...] tem Type 2 diabetes mellitus without complication 01/16/20 22 [id number] SNOMED-CT Personal Care Team Section Performer Name Performer Role Active Date Inactive Da te
--- OUTSIDE RECORDS SUMMARY | 2024-10-25 02:58 | XMS_ITS ---
Author Organization Unknown Address [address], [place] [id number] Phone Care Team Providers Care Right Of Way Manager Name Role Phone KYATISHA CHANA MAI Attending Unavailab le Results SCREENING DIGITAL BREAST ISIDRA O *BI* - Completed: 05/12/2022 10:23 LOINC: Procedure(s): SCREENING DIGI LUIGI BREAST ERIC *BI*Date of service: 05/12/2022 9:24 AMProvided clinical information: 57 years, Female, screening.Procedure and materials: Standard bilateral full-field mammograms were obtained. Images were analyzed by a CAD system. Digital tomosynthesis images were also acquired and reviewed.Comparison studies: October 2021, January 2021, December 2020, December 2017.Observations:Breast composition: b. There are scattered areas of fibroglandular density.Mass: No suspicious masses.Calcifications: No suspicious calcifications.Architectural Distortion: No significant architectural distortion.Asymmetries: No suspicious asymmetries.Other pertinent findings: None.IMPRESSION: Negative. No significant interval change.BI-RADS Assessment: Category 1: Negative. No mammographic evidence of malignancy.Management Recommendation: Routine annual screening mammography. Created and Electronically Signed by:Tomasz Blair MD05/13/2022 15:13 Social History Type Status Start Date End Date Code Code Syst em Smoking History Unknown if ever smoked [id number] SNOMED CT Smoking History Never smoker (Never Smoked) 040659886 SNOMED CT Sex Female Sexual Orientation Straight or Heterosexual 85566581 SNOMED CT Gender Identity Female [id number] Medications Medication Start Date End Date Route Frequency Dose Code Code System Medication Instructions Home Meds Lyrica 150MG Oral Capsule 08/30/2018 Unknown By Mouth Twice a day 1 CAPSULE 603694 RxNorm 1 CAPSULE By Mouth Twice a day Xyzal Allergy 24HR 5MG Oral Tablet 08/30/2018 Unknown By Mouth Daily 1 TABLET 682652 RxNorm 1 TABLE T By Mouth Daily CeleBREX 100MG Oral Capsule 03/15/2019 12/31/19 23 By Mouth Twice a day 1 CAPSULE 333289 RxNorm 1 CAPSULE By Mouth Twice a day Pepcid AC 20MG Oral Tablet 03/15/2019 Unknown By Mouth Daily 1 TABLET 852830 RxNorm 1 TABLET By Mouth Daily medical marijuana 07/27/2019 04/22/19 24 By Mouth As Directed 1 edible RxNorm 1 edible By Mouth As Directed Fiasp 100U/1ML Injection Solution 02/23/2020 Unknown Subcutane ous 5662432 RxNorm Subcutaneou s VIA INSULIN PUMP Victoza 6MG/1ML Subcutaneou s Solution 02/23/2020 04/22/19 24 Subcutane ous Daily 1.8 MILLIGRAMS 765453 RxNorm 1.8 MILLIGRAMS Subcutaneou s Daily Crestor 40MG Oral Tablet 04/08/2022 06/05/19 23 By Mouth Daily 1 TABLET 720030 RxNorm TAKE 1 TABLET BY MOUTH ONCE A DAY Naltrexone HCl Powder 04/29/2022 06/06/19 25 By Mouth At bedtime 3 MILLIGRAMS RxNorm 3 MILLIGRAMS By Mouth At bedtime Paxil 40MG Oral Tablet 04/29/2022 02/05/20 23 By Mouth Daily 1 TABLET 623174 RxNorm TAKE 1 TABLET BY MOUTH ONCE A DAY busPIRone 15MG Oral Tablet 04/29/2022 02/05/20 23 By Mouth Twice a day 1 TABLET 889418 RxNorm TAKE 1 TABLET BY MOUTH TWO TIMES A DAY Prinivil 5MG Oral Tablet 04/29/2022 06/19/19 24 By Mouth Daily 1 TABLET 784629 RxNorm TAKE 1 TABLET BY MOUTH ONCE A DAY Potassium Chloride 20MEQ Oral Tablet, Extended Release 04/29/2022 12/31/19 23 By Mouth Twice a day 2 TABLET 0695019 RxNorm TAKE 2 TABLETS BY MOUTH TWO TIMES A DAY Singulair 10MG Oral Tablet 04/29/2022 05/07/19 24 By Mouth Daily 1 TABLET 737362 RxNorm TAKE 1 TABLET BY MOUTH ONCE A DAY Crestor 40MG Oral Tablet 06/05/2022 08/20/19 23 By Mouth Daily 1 TABLET 897281 RxNorm TAKE 1 TABLET BY MOUTH ONCE A DAY Crestor 40MG Oral Tablet 08/19/2022 12/20/19 23 By Mouth Daily 1 TABLET 103418 RxNorm TAKE 1 TABLET BY MOUTH ONCE A DAY Crestor 40MG Oral Tablet 12/19/2022 12/31/19 23 By Mouth Daily 1 TABLET 860859 RxNorm TAKE 1 TABLET BY MOUTH ONCE A DAY Ozempic 0.25 MG or 0.5 MG Doses 2 MG/3 ML Subcutaneou s Solution 12/30/2022 01/05/20 24 Subcutane ous Once a week 0.25 UNIT 1140732 RxNorm 0.25 UNIT Subcutaneou s Once a week Crestor 40MG Oral Tablet 12/30/2022 12/31/19 23 By Mouth Daily 1 TABLET 424180 RxNorm TAKE 1 TABLET BY MOUTH ONCE A DAY Crestor 40MG Oral Tablet 12/30/2022 01/05/20 24 By Mouth Daily 1 TABLET 468903 RxNorm TAKE 1 TABLET BY MOUTH ONCE A DAY Paxil 40MG Oral Tablet 02/04/2023 07/07/19 24 By Mouth Daily 1 TABLET 226439 RxNorm TAKE 1 TABLET BY MOUTH ONCE A DAY busPIRone 15MG Oral Tablet 02/04/2023 07/07/19 24 By Mouth Twice a day 1 TABLET 413869 RxNorm TAKE 1 TABLET BY MOUTH TWO TIMES A DAY Levothyroxi ne 50MCG Oral Tablet 02/20/2023 Unknown By Mouth 1 TABLET 097390 RxNorm 1 TABLE T By Mouth in the morning on an empty stomach- PRESCRIBED BY DR DURAN Victoza 6MG/1ML Subcutaneou s Solution 02/20/2023 06/21/19 25 Subcutane ous Daily 1.8 UNIT 661865 RxNorm 1.8 UNIT Subcutaneou s Daily- *PRESCRIBED BY DR DURAN NovoLOG FlexPen 100U/1ML Subcutaneou s Solution 02/20/2023 04/07/20 23 Subcutane ous 6020162 RxNorm Inject up to 100 Units SUBQ daily in DMDED doses--- * PRESCRIBED BY DR DURAN Baclofen 10MG Oral Tablet 02/20/2023 Unknown By Mouth Three times a day 1 TABLET 370092 RxNorm 1 TABLET By Mouth Three times a day With food Aspirin 81MG Oral Tablet, Enteric Coated 02/20/2023 04/07/20 23 By Mouth Daily 1 TABLET 378685 RxNorm 1 TABLET By Mouth Daily Vitamin D 1000IU Oral Tablet 02/20/2023 04/07/20 23 By Mouth Daily 1 TABLET 768335 RxNorm 1 TABLET By Mouth Daily Augmentin 875MG-125MG Oral Tablet 04/22/2023 05/28/19 24 By Mouth Every 12 hours 1 TABLET 393068 RxNorm 1 TABLET By Mouth Every 12 hours x 10 days. Take with food. Diflucan 150MG Oral Tablet 04/22/2023 05/28/19 24 By Mouth x1 NOW 1 TABLET 527197 RxNorm 1 TABLET By Mouth x1 NOW. May repeat in 72 hours as needed. Singulair 10MG Oral Tablet 05/07/2023 07/07/19 24 By Mouth Daily 1 TABLET 799093 RxNorm TAKE 1 TABLET BY MOUTH ONCE A DAY Prinivil 5MG Oral Tablet 06/19/2023 06/22/19 24 By Mouth Daily 1 TABLET 774760 RxNorm TAKE 1 TABLET BY MOUTH ONCE A DAY Prinivil 5MG Oral Tablet 06/22/2023 07/07/19 24 By Mouth Daily 1 TABLET 085351 RxNorm TAKE 1 TABLET BY MOUTH ONCE A DAY Prinivil 5MG Oral Tablet 07/07/2023 01/05/20 24 By Mouth Daily 1 TABLET 764094 RxNorm TAKE 1 TABLET BY MOUTH ONCE A DAY Singulair 10MG Oral Tablet 07/07/2023 01/05/20 24 By Mouth Daily 1 TABLET 975700 RxNorm TAKE 1 TABLET BY MOUTH ONCE A DAY Paxil 40MG Oral Tablet 07/07/2023 10/02/19 24 By Mouth Daily 1 TABLET 475062 RxNorm TAKE 1 TABLET BY MOUTH ONCE A DAY busPIRone 15MG Oral Tablet 07/07/2023 01/05/20 24 By Mouth Twice a day 1 TABLET 613849 RxNorm TAKE 1 TABLET BY MOUTH TWO TIMES A DAY Ativan 0.5MG Oral Tablet 09/02/2023 09/28/19 25 By Mouth Twice a day 1 TABLET 260164 RxNorm 1 TABLET By Mouth Twice a day PRN Paxil 30MG Oral Tablet 10/02/2023 10/30/19 24 By Mouth Daily 2 TABLET 566689 RxNorm 2 TABLET By Mouth Daily Paxil 30MG Oral Tablet 10/30/2023 08/17/19 25 By Mouth Daily 2 TABLET 332111 RxNorm 2 TABLET By Mouth Daily Ambien 5MG Oral Tablet 12/11/2023 01/05/20 24 By Mouth At bedtime 242072 RxNorm 1-2 TABLET By Mouth At bedtime As needed Ozempic 0.25 MG or 0.5 MG Doses 2 MG/3 ML Subcutaneou s Solution 01/05/2024 06/21/19 25 Subcutane ous Once a week 0.5 UNIT 1072240 RxNorm 0.5 UNIT Subcutaneou s Once a week Crestor 40MG Oral Tablet 01/05/2024 09/27/19 25 By Mouth Daily 1 TABLET 072659 RxNorm TAKE 1 TABLET BY MOUTH ONCE A DAY busPIRone 15MG Oral Tablet 01/05/2024 08/06/19 25 By Mouth Twice a day 1 TABLET 701715 RxNorm TAKE 1 TABLET BY MOUTH TWO TIMES A DAY Singulair 10MG Oral Tablet 01/05/2024 09/27/19 25 By Mouth Daily 1 TABLET 391203 RxNorm TAKE 1 TABLET BY MOUTH ONCE A DAY Ambien 5MG Oral Tablet 01/05/2024 09/28/19 25 By Mouth At bedtime 825774 RxNorm 1-2 TABLET By Mouth At bedtime As needed Prinivil 5MG Oral Tablet 01/05/2024 07/06/19 25 By Mouth Daily 1 TABLET 457008 RxNorm TAKE 1 TABLET BY MOUTH ONCE A DAY Promethazin e DM 6.25MG/5ML- 15MG/5ML Oral Syrup 01/25/2024 06/06/19 25 ORAL As needed every 4 hr 5 mL 788463 RxNorm 5 mL ORAL As needed every 4 hr-do not take within 2 hours of Paxil or Buspirone Augmentin 875MG-125MG Oral Tablet 01/25/2024 06/06/19 25 By Mouth Twice a day 1 TABLET 592962 RxNorm 1 TABLET By Mouth Twice a day x 10 days Airsupra 90 MCG/1 Actuation-8 0 MCG/1 Actuation Inhalation Aerosol Powder 01/25/2024 06/06/19 25 Inhale As needed every 4 hr 2 Puff 1494162 RxNorm 2 Puff Inhale As needed every 4 hr Victoza 6MG/1ML Subcutaneou s Solution 06/20/2024 Unknown Subcutane ous Daily 1.8 MILLIGRAMS 085238 RxNorm 1.8 MILLIGRAMS Subcutaneou s Daily Ozempic 0.25 MG or 0.5 MG Doses 2 MG/3 ML Subcutaneou s Solution 06/20/2024 Unknown Subcutane ous Once a week 1.5 MILLILITER 9267791 RxNorm 1.5 MILLILITER Subcutaneou s Once a week Lisinopril 5MG Oral Tablet 07/05/2024 09/27/19 25 By Mouth Daily 1 TABLET 397266 RxNorm 1 TABLET By Mouth Daily busPIRone 15MG Oral Tablet 08/05/2024 Unknown By Mouth Twice a day 1 TABLET 652752 RxNorm TAKE 1 TABLET BY MOUTH TWO TIMES A DAY Paxil 20MG Oral Tablet 08/16/2024 09/27/19 25 By Mouth Daily 1 TABLET 328715 RxNorm 1 TABLET By Mouth Daily Wellbutrin XL 150MG Oral Tablet, Extended Release, 24 HR 08/16/2024 09/27/19 25 By Mouth Daily 1 TABLET 491249 RxNorm 1 TABLET By Mouth Daily. Wellbutrin XL 150MG Oral Tablet, Extended Release, 24 HR 09/26/2024 Unknown By Mouth Daily 1 TABLET 769027 RxNorm 1 TABLET By Mouth Daily. Paxil 20MG Oral Tablet 09/26/2024 Unknown By Mouth Daily 1 TABLET 550251 RxNorm 1 TABLE T By Mouth Daily Lisinopril 5MG Oral Tablet 09/26/2024 Unknown By Mouth Daily 1 TABLET 505338 RxNorm 1 TABLET By Mouth Daily Singulair 10MG Oral Tablet 09/26/2024 Unknown By Mouth Daily 1 TABLET 325856 RxNorm TAKE 1 TABLET BY MOUTH ONCE A DAY Crestor 40MG Oral Tablet 09/26/2024 Unknown By Mouth Daily 1 TABLET 775997 RxNorm TAKE 1 TABLET BY MOUTH ONCE A DAY Ativan 0.5MG Oral Tablet 09/27/2024 Unknown By Mouth As needed daily 1 TABLET 216280 RxNorm 1 TABLET By Mouth As needed daily Ambien 5MG Oral Tablet 09/27/2024 10/05/19 25 By Mouth At bedtime 214638 RxNorm 1-2 TABLET By Mouth At bedtime As needed Ambien 5MG Oral Tablet 10/04/2024 Unknown By Mouth At bedtime 1 TABLET 190106 RxNorm 1 TABLET By Mouth At bedtime [...] TYPE I DIABETES MELLITUS WITH HYPERGLYCEMIA active [id number] SNOMED -CT HYPERTENSION active 03834961 SNOMED- CT HYPERCHOLESTEROLEMIA active 74366313 SNOMED-CT HYPOTHYROIDISM active 49204771 SNOME D-CT LUMBAR RADICULOPATHY active 938595617 SNOMED-CT LOW POTASSIUM active 76710651 SNOMED -CT GERD active 035228412 SNOMED-CT ALLERGIC RHINITIS active 32824065 SN OMED-CT DEPRESSION active 54116840 SNOMED-CT ANXIETY active 02818226 SNOMED-CT ASTHMA active 435261605 SNOMED-CT CHRONIC KIDNEY DISEASE STAGE 3 active 273010815 SNOMED-CT OBESITY active 046686998 SNOMED-CT ENDOMETRIOSIS active 635378126 SNOMED -CT SLEEP APNEA active 18342916 SNOMED-C 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 416348525384897 SNOMED-CT 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 13320721 S NOMED-CT HYPERCALCEMIA active 26560607 SNOMED -CT ENCOUNTER FOR FITTING AND ADJUSTMENT OF INSULIN PUMP active 847639646 S NOMED-CT ABNORMAL LEVELS OF OTHER SERUM ENZYMES active 775718886 SNOMED-CT HISTORY OF GASTRIC BYPASS 06/26/2022 05/30/2024 resolved 69 5339387 SNOMED-CT SINUSITIS 04/30/2022 resolved 66048938 SNOMED-CT DIABETES 2 01/19/2024 resolved 35375178 SNOMED-C T Allergies and Adverse Reactions Allergy Substance Reaction Severity Start Date Concern Status Co de Code System CEFUROXIME Rash (SNOMED-CT: 205804967) Mild Active 2194 RxNorm KETOROLAC Hives (SNOMED-CT: 649955327) Mild Active 51534 RxNorm BIAXIN Hives (SNOMED-CT: 846273125) Severe Active LANTUS Hives (SNOMED-CT: 665130170) Mild Active 941379 RxNorm TAMIFLU Rash (SNOMED-CT: 121270562) Active 009340 RxNorm SEPTRA Rash (SNOMED-CT: 273583560) Mild Active LEVEMIR Hives (SNOMED-CT: 837982788) Mild Active 978874 RxNorm Plan of Treatment MA Screening Bilateral 07/25/2025 Established Patient 30 01/03/2025 Description Due Date Details Instructions Pap 08/18/2025 Performed 09/06 20 normal, repeat in 5 yrs per [place] - RR 5.20.21 Sdoh 01/04/2025 Annual Labs 11/10/2024 cbc, cmp, tsh, free t4, lipids Mammogram 08/12/2025 08/12/24- WNL Depression 06/06/2025 Anxiety 06/06/2025 Encounters Encounter Diagnosis Start Date Code Code Sys tem Screening mammography 05/12/2022 [id number] SNOMED -CT Personal Care Team Section Performer Name Performer Role Active Date Inactive Da te Imaging Narrative Notes
--- OUTSIDE RECORDS SUMMARY | 2024-10-25 02:58 | XMS_ITS ---
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 Name Role Phone ROSITA ROSADO Attending Unavailable [...] em Smoking History Never smoker (Never Smoked) [id number] SNOMED CT Smoking History Unknown if ever smoked [id number] SNOMED CT Sex Female Sexual Orientation Straight or Heterosexual [id number] SNOMED CT Gender Identity Female [id number] Medications Medication Start Date End Date Route Frequency Dose Code Code System Medication Instructions Home Meds Lyrica 150MG Oral Capsule 08/30/2018 Unknown By Mouth Twice a day 1 CAPSULE 573934 RxNorm 1 CAPSULE By Mouth Twice a day Xyzal Allergy 24HR 5MG Oral Tablet 08/30/2018 Unknown By Mouth Daily 1 TABLET 092064 RxNorm 1 TABLE T By Mouth Daily CeleBREX 100MG Oral Capsule 03/15/2019 12/31/19 23 By Mouth Twice a day 1 CAPSULE 071930 RxNorm 1 CAPSULE By Mouth Twice a day Pepcid AC 20MG Oral Tablet 03/15/2019 Unknown By Mouth Daily 1 TABLET 659935 RxNorm 1 TABLET By Mouth Daily medical marijuana 07/27/2019 04/22/19 24 By Mouth As Directed 1 edible RxNorm 1 edible By Mouth As Directed Fiasp 100U/1ML Injection Solution 02/23/2020 Unknown Subcutane ous 2475456 RxNorm Subcutaneou s VIA INSULIN PUMP Victoza 6MG/1ML Subcutaneou s Solution 02/23/2020 04/22/19 24 Subcutane ous Daily 1.8 MILLIGRAMS 935915 RxNorm 1.8 MILLIGRAMS Subcutaneou s Daily Paxil 10MG Oral Tablet 08/22/2021 04/29/19 23 By Mouth Daily 1 TABLET 973397 RxNorm TAKE 1 TABLET BY MOUTH ONCE A DAY -TAKE WITH 40MG TAB Prinivil 5MG Oral Tablet 11/06/2021 04/29/19 23 By Mouth Daily 1 TABLET 176810 RxNorm TAKE 1 TABLET BY MOUTH ONCE A DAY Prinivil 5MG Oral Tablet 11/07/2021 04/08/20 22 By Mouth Daily 1 TABLET 873481 RxNorm TAKE 1 TABLET BY MOUTH ONCE A DAY Singulair 10MG Oral Tablet 12/06/2021 02/08/20 22 By Mouth Daily 1 TABLET 222567 RxNorm TAKE 1 TABLET BY MOUTH ONCE A DAY Potassium Chloride 20MEQ Oral Tablet, Extended Release 01/09/2022 03/11/20 22 By Mouth Twice a day 2 TABLET 5787856 RxNorm TAKE 2 TABLETS BY MOUTH TWO TIMES A DAY Paxil 40MG Oral Tablet 01/09/2022 03/11/20 22 By Mouth Daily 1 TABLET 465104 RxNorm TAKE 1 TABLET BY MOUTH ONCE A DAY -TAKE WITH 10MG TAB Crestor 40MG Oral Tablet 01/09/2022 03/11/20 22 By Mouth Daily 1 TABLET 466620 RxNorm TAKE 1 TABLET BY MOUTH ONCE A DAY busPIRone 15MG Oral Tablet 01/09/2022 03/11/20 22 By Mouth Twice a day 1 TABLET 987243 RxNorm TAKE 1 TABLET BY MOUTH TWO TIMES A DAY Singulair 10MG Oral Tablet 02/07/2022 04/29/19 23 By Mouth Daily 1 TABLET 844200 RxNorm TAKE 1 TABLET BY MOUTH ONCE A DAY Singulair 10MG Oral Tablet 02/07/2022 04/29/19 23 By Mouth Daily 1 TABLET 761981 RxNorm TAKE 1 TABLET BY MOUTH ONCE A DAY Crestor 40MG Oral Tablet 03/11/2022 04/08/20 22 By Mouth Daily 1 TABLET 589612 RxNorm TAKE 1 TABLET BY MOUTH ONCE A DAY busPIRone 15MG Oral Tablet 03/11/2022 04/08/20 22 By Mouth Twice a day 1 TABLET 238921 RxNorm TAKE 1 TABLET BY MOUTH TWO TIMES A DAY Paxil 40MG Oral Tablet 03/11/2022 04/08/20 22 By Mouth Daily 1 TABLET 351177 RxNorm TAKE 1 TABLET BY MOUTH ONCE A DAY -TAKE WITH 10MG TAB Potassium Chloride 20MEQ Oral Tablet, Extended Release 03/11/2022 04/08/20 22 By Mouth Twice a day 2 TABLET 3827752 RxNorm TAKE 2 TABLETS BY MOUTH TWO TIMES A DAY Doxycycline 100MG Oral Capsule 03/20/2022 04/29/19 23 By Mouth Twice a day 1 CAPSULE 4580453 RxNorm 1 CAPSULE By Mouth Twice a day x10 days Paxil 40MG Oral Tablet 04/08/2022 04/29/19 23 By Mouth Daily 1 TABLET 035714 RxNorm TAKE 1 TABLET BY MOUTH ONCE A DAY -TAKE WITH 10MG TAB busPIRone 15MG Oral Tablet 04/08/2022 04/29/19 23 By Mouth Twice a day 1 TABLET 993896 RxNorm TAKE 1 TABLET BY MOUTH TWO TIMES A DAY Prinivil 5MG Oral Tablet 04/08/2022 04/29/19 23 By Mouth Daily 1 TABLET 514546 RxNorm TAKE 1 TABLET BY MOUTH ONCE A DAY Crestor 40MG Oral Tablet 04/08/2022 06/05/19 23 By Mouth Daily 1 TABLET 322210 RxNorm TAKE 1 TABLET BY MOUTH ONCE A DAY Potassium Chloride 20MEQ Oral Tablet, Extended Release 04/08/2022 04/29/19 23 By Mouth Twice a day 2 TABLET 0458820 RxNorm TAKE 2 TABLETS BY MOUTH TWO TIMES A DAY Naltrexone HCl Powder 04/29/2022 06/06/19 25 By Mouth At bedtime 3 MILLIGRAMS RxNorm 3 MILLIGRAMS By Mouth At bedtime Paxil 40MG Oral Tablet 04/29/2022 02/05/20 23 By Mouth Daily 1 TABLET 823417 RxNorm TAKE 1 TABLET BY MOUTH ONCE A DAY busPIRone 15MG Oral Tablet 04/29/2022 02/05/20 23 By Mouth Twice a day 1 TABLET 762798 RxNorm TAKE 1 TABLET BY MOUTH TWO TIMES A DAY Prinivil 5MG Oral Tablet 04/29/2022 06/19/19 24 By Mouth Daily 1 TABLET 404974 RxNorm TAKE 1 TABLET BY MOUTH ONCE A DAY Potassium Chloride 20MEQ Oral Tablet, Extended Release 04/29/2022 12/31/19 23 By Mouth Twice a day 2 TABLET 9108341 RxNorm TAKE 2 TABLETS BY MOUTH TWO TIMES A DAY Singulair 10MG Oral Tablet 04/29/2022 05/07/19 24 By Mouth Daily 1 TABLET 336180 RxNorm TAKE 1 TABLET BY MOUTH ONCE A DAY Crestor 40MG Oral Tablet 06/05/2022 08/20/19 23 By Mouth Daily 1 TABLET 287106 RxNorm TAKE 1 TABLET BY MOUTH ONCE A DAY Crestor 40MG Oral Tablet 08/19/2022 12/20/19 23 By Mouth Daily 1 TABLET 368144 RxNorm TAKE 1 TABLET BY MOUTH ONCE A DAY Crestor 40MG Oral Tablet 12/19/2022 12/31/19 23 By Mouth Daily 1 TABLET 894477 RxNorm TAKE 1 TABLET BY MOUTH ONCE A DAY Ozempic 0.25 MG or 0.5 MG Doses 2 MG/3 ML Subcutaneou s Solution 12/30/2022 01/05/20 24 Subcutane ous Once a week 0.25 UNIT 1649307 RxNorm 0.25 UNIT Subcutaneou s Once a week Crestor 40MG Oral Tablet 12/30/2022 12/31/19 23 By Mouth Daily 1 TABLET 964973 RxNorm TAKE 1 TABLET BY MOUTH ONCE A DAY Crestor 40MG Oral Tablet 12/30/2022 01/05/20 24 By Mouth Daily 1 TABLET 588814 RxNorm TAKE 1 TABLET BY MOUTH ONCE A DAY Paxil 40MG Oral Tablet 02/04/2023 07/07/19 24 By Mouth Daily 1 TABLET 123675 RxNorm TAKE 1 TABLET BY MOUTH ONCE A DAY busPIRone 15MG Oral Tablet 02/04/2023 07/07/19 24 By Mouth Twice a day 1 TABLET 622755 RxNorm TAKE 1 TABLET BY MOUTH TWO TIMES A DAY Levothyroxi ne 50MCG Oral Tablet 02/20/2023 Unknown By Mouth 1 TABLET 988959 RxNorm 1 TABLE T By Mouth in the morning on an empty stomach- PRESCRIBED BY DR DURAN Victoza 6MG/1ML Subcutaneou s Solution 02/20/2023 06/21/19 25 Subcutane ous Daily 1.8 UNIT 459250 RxNorm 1.8 UNIT Subcutaneou s Daily- *PRESCRIBED BY DR DURAN NovoLOG FlexPen 100U/1ML Subcutaneou s Solution 02/20/2023 04/07/20 23 Subcutane ous 9667732 RxNorm Inject up to 100 Units SUBQ daily in DMDED doses--- * PRESCRIBED BY DR DURAN Baclofen 10MG Oral Tablet 02/20/2023 Unknown By Mouth Three times a day 1 TABLET 161515 RxNorm 1 TABLET By Mouth Three times a day With food Aspirin 81MG Oral Tablet, Enteric Coated 02/20/2023 04/07/20 23 By Mouth Daily 1 TABLET 568305 RxNorm 1 TABLET By Mouth Daily Vitamin D 1000IU Oral Tablet 02/20/2023 04/07/20 23 By Mouth Daily 1 TABLET 734666 RxNorm 1 TABLET By Mouth Daily Augmentin 875MG-125MG Oral Tablet 04/22/2023 05/28/19 24 By Mouth Every 12 hours 1 TABLET 382351 RxNorm 1 TABLET By Mouth Every 12 hours x 10 days. Take with food. Diflucan 150MG Oral Tablet 04/22/2023 05/28/19 24 By Mouth x1 NOW 1 TABLET 392551 RxNorm 1 TABLET By Mouth x1 NOW. May repeat in 72 hours as needed. Singulair 10MG Oral Tablet 05/07/2023 07/07/19 24 By Mouth Daily 1 TABLET 265119 RxNorm TAKE 1 TABLET BY MOUTH ONCE A DAY Prinivil 5MG Oral Tablet 06/19/2023 06/22/19 24 By Mouth Daily 1 TABLET 038944 RxNorm TAKE 1 TABLET BY MOUTH ONCE A DAY Prinivil 5MG Oral Tablet 06/22/2023 07/07/19 24 By Mouth Daily 1 TABLET 354399 RxNorm TAKE 1 TABLET BY MOUTH ONCE A DAY Prinivil 5MG Oral Tablet 07/07/2023 01/05/20 24 By Mouth Daily 1 TABLET 675372 RxNorm TAKE 1 TABLET BY MOUTH ONCE A DAY Singulair 10MG Oral Tablet 07/07/2023 01/05/20 24 By Mouth Daily 1 TABLET 246286 RxNorm TAKE 1 TABLET BY MOUTH ONCE A DAY Paxil 40MG Oral Tablet 07/07/2023 10/02/19 24 By Mouth Daily 1 TABLET 272409 RxNorm TAKE 1 TABLET BY MOUTH ONCE A DAY busPIRone 15MG Oral Tablet 07/07/2023 01/05/20 24 By Mouth Twice a day 1 TABLET 713741 RxNorm TAKE 1 TABLET BY MOUTH TWO TIMES A DAY Ativan 0.5MG Oral Tablet 09/02/2023 09/28/19 25 By Mouth Twice a day 1 TABLET 953032 RxNorm 1 TABLET By Mouth Twice a day PRN Paxil 30MG Oral Tablet 10/02/2023 10/30/19 24 By Mouth Daily 2 TABLET 846984 RxNorm 2 TABLET By Mouth Daily Paxil 30MG Oral Tablet 10/30/2023 08/17/19 25 By Mouth Daily 2 TABLET 898616 RxNorm 2 TABLET By Mouth Daily Ambien 5MG Oral Tablet 12/11/2023 01/05/20 24 By Mouth At bedtime 828558 RxNorm 1-2 TABLET By Mouth At bedtime As needed Ozempic 0.25 MG or 0.5 MG Doses 2 MG/3 ML Subcutaneou s Solution 01/05/2024 06/21/19 25 Subcutane ous Once a week 0.5 UNIT 0777129 RxNorm 0.5 UNIT Subcutaneou s Once a week Crestor 40MG Oral Tablet 01/05/2024 09/27/19 25 By Mouth Daily 1 TABLET 192649 RxNorm TAKE 1 TABLET BY MOUTH ONCE A DAY busPIRone 15MG Oral Tablet 01/05/2024 08/06/19 25 By Mouth Twice a day 1 TABLET 501650 RxNorm TAKE 1 TABLET BY MOUTH TWO TIMES A DAY Singulair 10MG Oral Tablet 01/05/2024 09/27/19 25 By Mouth Daily 1 TABLET 449447 RxNorm TAKE 1 TABLET BY MOUTH ONCE A DAY Ambien 5MG Oral Tablet 01/05/2024 09/28/19 25 By Mouth At bedtime 834809 RxNorm 1-2 TABLET By Mouth At bedtime As needed Prinivil 5MG Oral Tablet 01/05/2024 07/06/19 25 By Mouth Daily 1 TABLET 791598 RxNorm TAKE 1 TABLET BY MOUTH ONCE A DAY Promethazin e DM 6.25MG/5ML- 15MG/5ML Oral Syrup 01/25/2024 06/06/19 25 ORAL As needed every 4 hr 5 mL 442025 RxNorm 5 mL ORAL As needed every 4 hr-do not take within 2 hours of Paxil or Buspirone Augmentin 875MG-125MG Oral Tablet 01/25/2024 06/06/19 25 By Mouth Twice a day 1 TABLET 024811 RxNorm 1 TABLET By Mouth Twice a day x 10 days Airsupra 90 MCG/1 Actuation-8 0 MCG/1 Actuation Inhalation Aerosol Powder 01/25/2024 06/06/19 25 Inhale As needed every 4 hr 2 Puff 3897815 RxNorm 2 Puff Inhale As needed every 4 hr Victoza 6MG/1ML Subcutaneou s Solution 06/20/2024 Unknown Subcutane ous Daily 1.8 MILLIGRAMS 707999 RxNorm 1.8 MILLIGRAMS Subcutaneou s Daily Ozempic 0.25 MG or 0.5 MG Doses 2 MG/3 ML Subcutaneou s Solution 06/20/2024 Unknown Subcutane ous Once a week 1.5 MILLILITER 7762495 RxNorm 1.5 MILLILITER Subcutaneou s Once a week Lisinopril 5MG Oral Tablet 07/05/2024 09/27/19 25 By Mouth Daily 1 TABLET 735672 RxNorm 1 TABLET By Mouth Daily busPIRone 15MG Oral Tablet 08/05/2024 Unknown By Mouth Twice a day 1 TABLET 791004 RxNorm TAKE 1 TABLET BY MOUTH TWO TIMES A DAY Paxil 20MG Oral Tablet 08/16/2024 09/27/19 25 By Mouth Daily 1 TABLET 851897 RxNorm 1 TABLET By Mouth Daily Wellbutrin XL 150MG Oral Tablet, Extended Release, 24 HR 08/16/2024 09/27/19 25 By Mouth Daily 1 TABLET 445279 RxNorm 1 TABLET By Mouth Daily. Wellbutrin XL 150MG Oral Tablet, Extended Release, 24 HR 09/26/2024 Unknown By Mouth Daily 1 TABLET 492734 RxNorm 1 TABLET By Mouth Daily. Paxil 20MG Oral Tablet 09/26/2024 Unknown By Mouth Daily 1 TABLET 404871 RxNorm 1 TABLE T By Mouth Daily Lisinopril 5MG Oral Tablet 09/26/2024 Unknown By Mouth Daily 1 TABLET 191348 RxNorm 1 TABLET By Mouth Daily Singulair 10MG Oral Tablet 09/26/2024 Unknown By Mouth Daily 1 TABLET 545006 RxNorm TAKE 1 TABLET BY MOUTH ONCE A DAY Crestor 40MG Oral Tablet 09/26/2024 Unknown By Mouth Daily 1 TABLET 308816 RxNorm TAKE 1 TABLET BY MOUTH ONCE A DAY Ativan 0.5MG Oral Tablet 09/27/2024 Unknown By Mouth As needed daily 1 TABLET 127211 RxNorm 1 TABLET By Mouth As needed daily Ambien 5MG Oral Tablet 09/27/2024 10/05/19 25 By Mouth At bedtime 535010 RxNorm 1-2 TABLET By Mouth At bedtime As needed Ambien 5MG Oral Tablet 10/04/2024 Unknown By Mouth At bedtime 1 TABLET 730744 RxNorm 1 TABLET By Mouth At bedtime [...] TYPE I DIABETES MELLITUS WITH HYPERGLYCEMIA active [id number] SNOMED -CT HYPERTENSION active 68005388 SNOMED- CT HYPERCHOLESTEROLEMIA active 91549414 SNOMED-CT HYPOTHYROIDISM active 25732400 SNOME D-CT LUMBAR RADICULOPATHY active 053575892 SNOMED-CT LOW POTASSIUM active 58153484 SNOMED -CT GERD active 803107509 SNOMED-CT ALLERGIC RHINITIS active 74239342 SN OMED-CT DEPRESSION active 39527016 SNOMED-CT ANXIETY active 33683779 SNOMED-CT ASTHMA active 090753480 SNOMED-CT CHRONIC KIDNEY DISEASE STAGE 3 active 335481455 SNOMED-CT OBESITY active 321470970 SNOMED-CT ENDOMETRIOSIS active 648234466 SNOMED -CT SLEEP APNEA active 46457065 SNOMED-C 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 620409201986783 SNOMED-CT 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 57383701 S NOMED-CT HYPERCALCEMIA active 05618890 SNOMED -CT ENCOUNTER FOR FITTING AND ADJUSTMENT OF INSULIN PUMP active 240833865 S NOMED-CT ABNORMAL LEVELS OF OTHER SERUM ENZYMES active 159031589 SNOMED-CT HISTORY OF GASTRIC BYPASS 06/26/2022 05/30/2024 resolved 69 5729491 SNOMED-CT SINUSITIS 04/30/2022 resolved 53678942 SNOMED-CT DIABETES 2 01/19/2024 resolved 70349183 SNOMED-C T Allergies and Adverse Reactions Allergy Substance Reaction Severity Start Date Concern Status Co de Code System CEFUROXIME Rash (SNOMED-CT: 533118720) Mild Active 2194 RxNorm KETOROLAC Hives (SNOMED-CT: 642286864) Mild Active 54578 RxNorm BIAXIN Hives (SNOMED-CT: 599651302) Severe Active LANTUS Hives (SNOMED-CT: 467535259) Mild Active 997061 RxNorm TAMIFLU Rash (SNOMED-CT: 539063879) Active 670876 RxNorm SEPTRA Rash (SNOMED-CT: 284549192) Mild Active LEVEMIR Hives (SNOMED-CT: 361871809) Mild Active 189418 RxNorm Plan of Treatment MA Screening Bilateral 07/25/2025 Established Patient 30 01/03/2025 Description Due Date Details Instructions Pap 08/18/2025 Performed 09/06 20 normal, repeat in 5 yrs per [place] - RR 5.20.21 Sdoh 01/04/2025 Annual Labs 11/10/2024 cbc, cmp, tsh, free t4, lipids Mammogram 08/12/2025 08/12/24- WNL Depression 06/06/2025 Anxiety 06/06/2025 Encounters Encounter Diagnosis Start Date Code Code Sys tem Hyperlipidemia 02/05/2022 [id number] SNOMED-CT Personal Care Team Section Performer Name Performer Role Active Date Inactive Da te
--- OUTSIDE RECORDS SUMMARY | 2024-10-25 02:58 | XMS_ITS ---
Author Organization Unknown Address [address] [place] [address] [phone] Phone Care Team Providers Care Director Of Compensation Name Role Phone SCARLET ZAYAS Attending Unavailable Immunization Immunization Date Status Additional [...] em Smoking History Never smoker (Never Smoked) [id number] SNOMED CT Smoking History Unknown if ever smoked [id number] SNOMED CT Sex Female Sexual Orientation Straight or Heterosexual [id number] SNOMED CT Gender Identity Female [id number] Medications Medication Start Date End Date Route Frequency Dose Code Code System Medication Instructions Home Meds Lyrica 150MG Oral Capsule 08/30/2018 Unknown By Mouth Twice a day 1 CAPSULE 307687 RxNorm 1 CAPSULE By Mouth Twice a day Xyzal Allergy 24HR 5MG Oral Tablet 08/30/2018 Unknown By Mouth Daily 1 TABLET 262087 RxNorm 1 TABLE T By Mouth Daily CeleBREX 100MG Oral Capsule 03/15/2019 12/31/19 23 By Mouth Twice a day 1 CAPSULE 618797 RxNorm 1 CAPSULE By Mouth Twice a day Pepcid AC 20MG Oral Tablet 03/15/2019 Unknown By Mouth Daily 1 TABLET 944435 RxNorm 1 TABLET By Mouth Daily medical marijuana 07/27/2019 04/22/19 24 By Mouth As Directed 1 edible RxNorm 1 edible By Mouth As Directed Fiasp 100U/1ML Injection Solution 02/23/2020 Unknown Subcutane ous 4849118 RxNorm Subcutaneou s VIA INSULIN PUMP Victoza 6MG/1ML Subcutaneou s Solution 02/23/2020 04/22/19 24 Subcutane ous Daily 1.8 MILLIGRAMS 704115 RxNorm 1.8 MILLIGRAMS Subcutaneou s Daily Naltrexone HCl Powder 04/29/2022 06/06/19 25 By Mouth At bedtime 3 MILLIGRAMS RxNorm 3 MILLIGRAMS By Mouth At bedtime Paxil 40MG Oral Tablet 04/29/2022 02/05/20 23 By Mouth Daily 1 TABLET 345885 RxNorm TAKE 1 TABLET BY MOUTH ONCE A DAY busPIRone 15MG Oral Tablet 04/29/2022 02/05/20 23 By Mouth Twice a day 1 TABLET 681685 RxNorm TAKE 1 TABLET BY MOUTH TWO TIMES A DAY Prinivil 5MG Oral Tablet 04/29/2022 06/19/19 24 By Mouth Daily 1 TABLET 649735 RxNorm TAKE 1 TABLET BY MOUTH ONCE A DAY Potassium Chloride 20MEQ Oral Tablet, Extended Release 04/29/2022 12/31/19 23 By Mouth Twice a day 2 TABLET 7025921 RxNorm TAKE 2 TABLETS BY MOUTH TWO TIMES A DAY Singulair 10MG Oral Tablet 04/29/2022 05/07/19 24 By Mouth Daily 1 TABLET 688731 RxNorm TAKE 1 TABLET BY MOUTH ONCE A DAY Crestor 40MG Oral Tablet 08/19/2022 12/20/19 23 By Mouth Daily 1 TABLET 533243 RxNorm TAKE 1 TABLET BY MOUTH ONCE A DAY Crestor 40MG Oral Tablet 12/19/2022 12/31/19 23 By Mouth Daily 1 TABLET 837232 RxNorm TAKE 1 TABLET BY MOUTH ONCE A DAY Ozempic 0.25 MG or 0.5 MG Doses 2 MG/3 ML Subcutaneou s Solution 12/30/2022 01/05/20 24 Subcutane ous Once a week 0.25 UNIT 7469888 RxNorm 0.25 UNIT Subcutaneou s Once a week Crestor 40MG Oral Tablet 12/30/2022 12/31/19 23 By Mouth Daily 1 TABLET 768863 RxNorm TAKE 1 TABLET BY MOUTH ONCE A DAY Crestor 40MG Oral Tablet 12/30/2022 01/05/20 24 By Mouth Daily 1 TABLET 171580 RxNorm TAKE 1 TABLET BY MOUTH ONCE A DAY Paxil 40MG Oral Tablet 02/04/2023 07/07/19 24 By Mouth Daily 1 TABLET 210838 RxNorm TAKE 1 TABLET BY MOUTH ONCE A DAY busPIRone 15MG Oral Tablet 02/04/2023 07/07/19 24 By Mouth Twice a day 1 TABLET 418760 RxNorm TAKE 1 TABLET BY MOUTH TWO TIMES A DAY Levothyroxi ne 50MCG Oral Tablet 02/20/2023 Unknown By Mouth 1 TABLET 198444 RxNorm 1 TABLE T By Mouth in the morning on an empty stomach- PRESCRIBED BY DR DURAN Victoza 6MG/1ML Subcutaneou s Solution 02/20/2023 06/21/19 25 Subcutane ous Daily 1.8 UNIT 973834 RxNorm 1.8 UNIT Subcutaneou s Daily- *PRESCRIBED BY DR DURAN NovoLOG FlexPen 100U/1ML Subcutaneou s Solution 02/20/2023 04/07/20 23 Subcutane ous 1856826 RxNorm Inject up to 100 Units SUBQ daily in DMDED doses--- * PRESCRIBED BY DR DURAN Baclofen 10MG Oral Tablet 02/20/2023 Unknown By Mouth Three times a day 1 TABLET 989120 RxNorm 1 TABLET By Mouth Three times a day With food Aspirin 81MG Oral Tablet, Enteric Coated 02/20/2023 04/07/20 23 By Mouth Daily 1 TABLET 583761 RxNorm 1 TABLET By Mouth Daily Vitamin D 1000IU Oral Tablet 02/20/2023 04/07/20 23 By Mouth Daily 1 TABLET 907762 RxNorm 1 TABLET By Mouth Daily Augmentin 875MG-125MG Oral Tablet 04/22/2023 05/28/19 24 By Mouth Every 12 hours 1 TABLET 369775 RxNorm 1 TABLET By Mouth Every 12 hours x 10 days. Take with food. Diflucan 150MG Oral Tablet 04/22/2023 05/28/19 24 By Mouth x1 NOW 1 TABLET 873712 RxNorm 1 TABLET By Mouth x1 NOW. May repeat in 72 hours as needed. Singulair 10MG Oral Tablet 05/07/2023 07/07/19 24 By Mouth Daily 1 TABLET 812774 RxNorm TAKE 1 TABLET BY MOUTH ONCE A DAY Prinivil 5MG Oral Tablet 06/19/2023 06/22/19 24 By Mouth Daily 1 TABLET 428313 RxNorm TAKE 1 TABLET BY MOUTH ONCE A DAY Prinivil 5MG Oral Tablet 06/22/2023 07/07/19 24 By Mouth Daily 1 TABLET 449874 RxNorm TAKE 1 TABLET BY MOUTH ONCE A DAY Prinivil 5MG Oral Tablet 07/07/2023 01/05/20 24 By Mouth Daily 1 TABLET 500164 RxNorm TAKE 1 TABLET BY MOUTH ONCE A DAY Singulair 10MG Oral Tablet 07/07/2023 01/05/20 24 By Mouth Daily 1 TABLET 768047 RxNorm TAKE 1 TABLET BY MOUTH ONCE A DAY Paxil 40MG Oral Tablet 07/07/2023 10/02/19 24 By Mouth Daily 1 TABLET 992494 RxNorm TAKE 1 TABLET BY MOUTH ONCE A DAY busPIRone 15MG Oral Tablet 07/07/2023 01/05/20 24 By Mouth Twice a day 1 TABLET 858173 RxNorm TAKE 1 TABLET BY MOUTH TWO TIMES A DAY Ativan 0.5MG Oral Tablet 09/02/2023 09/28/19 25 By Mouth Twice a day 1 TABLET 355404 RxNorm 1 TABLET By Mouth Twice a day PRN Paxil 30MG Oral Tablet 10/02/2023 10/30/19 24 By Mouth Daily 2 TABLET 832319 RxNorm 2 TABLET By Mouth Daily Paxil 30MG Oral Tablet 10/30/2023 08/17/19 25 By Mouth Daily 2 TABLET 803614 RxNorm 2 TABLET By Mouth Daily Ambien 5MG Oral Tablet 12/11/2023 01/05/20 24 By Mouth At bedtime 190513 RxNorm 1-2 TABLET By Mouth At bedtime As needed Ozempic 0.25 MG or 0.5 MG Doses 2 MG/3 ML Subcutaneou s Solution 01/05/2024 06/21/19 25 Subcutane ous Once a week 0.5 UNIT 3927137 RxNorm 0.5 UNIT Subcutaneou s Once a week Crestor 40MG Oral Tablet 01/05/2024 09/27/19 25 By Mouth Daily 1 TABLET 591315 RxNorm TAKE 1 TABLET BY MOUTH ONCE A DAY busPIRone 15MG Oral Tablet 01/05/2024 08/06/19 25 By Mouth Twice a day 1 TABLET 414608 RxNorm TAKE 1 TABLET BY MOUTH TWO TIMES A DAY Singulair 10MG Oral Tablet 01/05/2024 09/27/19 25 By Mouth Daily 1 TABLET 614035 RxNorm TAKE 1 TABLET BY MOUTH ONCE A DAY Ambien 5MG Oral Tablet 01/05/2024 09/28/19 25 By Mouth At bedtime 531683 RxNorm 1-2 TABLET By Mouth At bedtime As needed Prinivil 5MG Oral Tablet 01/05/2024 07/06/19 25 By Mouth Daily 1 TABLET 404641 RxNorm TAKE 1 TABLET BY MOUTH ONCE A DAY Promethazin e DM 6.25MG/5ML- 15MG/5ML Oral Syrup 01/25/2024 06/06/19 25 ORAL As needed every 4 hr 5 mL 651941 RxNorm 5 mL ORAL As needed every 4 hr-do not take within 2 hours of Paxil or Buspirone Augmentin 875MG-125MG Oral Tablet 01/25/2024 06/06/19 25 By Mouth Twice a day 1 TABLET 267161 RxNorm 1 TABLET By Mouth Twice a day x 10 days Airsupra 90 MCG/1 Actuation-8 0 MCG/1 Actuation Inhalation Aerosol Powder 01/25/2024 06/06/19 25 Inhale As needed every 4 hr 2 Puff 5948162 RxNorm 2 Puff Inhale As needed every 4 hr Victoza 6MG/1ML Subcutaneou s Solution 06/20/2024 Unknown Subcutane ous Daily 1.8 MILLIGRAMS 674276 RxNorm 1.8 MILLIGRAMS Subcutaneou s Daily Ozempic 0.25 MG or 0.5 MG Doses 2 MG/3 ML Subcutaneou s Solution 06/20/2024 Unknown Subcutane ous Once a week 1.5 MILLILITER 0325440 RxNorm 1.5 MILLILITER Subcutaneou s Once a week Lisinopril 5MG Oral Tablet 07/05/2024 09/27/19 25 By Mouth Daily 1 TABLET 782750 RxNorm 1 TABLET By Mouth Daily busPIRone 15MG Oral Tablet 08/05/2024 Unknown By Mouth Twice a day 1 TABLET 932517 RxNorm TAKE 1 TABLET BY MOUTH TWO TIMES A DAY Paxil 20MG Oral Tablet 08/16/2024 09/27/19 25 By Mouth Daily 1 TABLET 656019 RxNorm 1 TABLET By Mouth Daily Wellbutrin XL 150MG Oral Tablet, Extended Release, 24 HR 08/16/2024 09/27/19 25 By Mouth Daily 1 TABLET 108352 RxNorm 1 TABLET By Mouth Daily. Wellbutrin XL 150MG Oral Tablet, Extended Release, 24 HR 09/26/2024 Unknown By Mouth Daily 1 TABLET 559909 RxNorm 1 TABLET By Mouth Daily. Paxil 20MG Oral Tablet 09/26/2024 Unknown By Mouth Daily 1 TABLET 019654 RxNorm 1 TABLE T By Mouth Daily Lisinopril 5MG Oral Tablet 09/26/2024 Unknown By Mouth Daily 1 TABLET 489345 RxNorm 1 TABLET By Mouth Daily Singulair 10MG Oral Tablet 09/26/2024 Unknown By Mouth Daily 1 TABLET 634067 RxNorm TAKE 1 TABLET BY MOUTH ONCE A DAY Crestor 40MG Oral Tablet 09/26/2024 Unknown By Mouth Daily 1 TABLET 334926 RxNorm TAKE 1 TABLET BY MOUTH ONCE A DAY Ativan 0.5MG Oral Tablet 09/27/2024 Unknown By Mouth As needed daily 1 TABLET 552878 RxNorm 1 TABLET By Mouth As needed daily Ambien 5MG Oral Tablet 09/27/2024 10/05/19 25 By Mouth At bedtime 363416 RxNorm 1-2 TABLET By Mouth At bedtime As needed Ambien 5MG Oral Tablet 10/04/2024 Unknown By Mouth At bedtime 1 TABLET 863581 RxNorm 1 TABLET By Mouth At bedtime [...] TYPE I DIABETES MELLITUS WITH HYPERGLYCEMIA active [id number] SNOMED -CT HYPERTENSION active 38171269 SNOMED- CT HYPERCHOLESTEROLEMIA active 21500235 SNOMED-CT HYPOTHYROIDISM active 80439107 SNOME D-CT LUMBAR RADICULOPATHY active 289281786 SNOMED-CT LOW POTASSIUM active 25121157 SNOMED -CT GERD active 372634706 SNOMED-CT ALLERGIC RHINITIS active 94298024 SN OMED-CT DEPRESSION active 56024329 SNOMED-CT ANXIETY active 94354772 SNOMED-CT ASTHMA active 993685123 SNOMED-CT CHRONIC KIDNEY DISEASE STAGE 3 active 057503238 SNOMED-CT OBESITY active 451963480 SNOMED-CT ENDOMETRIOSIS active 827052102 SNOMED -CT SLEEP APNEA active 55438678 SNOMED-C 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 835828220038070 SNOMED-CT 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 73018815 S NOMED-CT HYPERCALCEMIA active 11655947 SNOMED -CT ENCOUNTER FOR FITTING AND ADJUSTMENT OF INSULIN PUMP active 960377920 S NOMED-CT ABNORMAL LEVELS OF OTHER SERUM ENZYMES active 661542289 SNOMED-CT HISTORY OF GASTRIC BYPASS 06/26/2022 05/30/2024 resolved 69 2164495 SNOMED-CT SINUSITIS 04/30/2022 resolved 91072794 SNOMED-CT DIABETES 2 01/19/2024 resolved 81081078 SNOMED-C T Allergies and Adverse Reactions Allergy Substance Reaction Severity Start Date Concern Status Co de Code System CEFUROXIME Rash (SNOMED-CT: 103877458) Mild Active 2194 RxNorm KETOROLAC Hives (SNOMED-CT: 490942306) Mild Active 58216 RxNorm BIAXIN Hives (SNOMED-CT: 476988127) Severe Active LANTUS Hives (SNOMED-CT: 637543453) Mild Active 878915 RxNorm TAMIFLU Rash (SNOMED-CT: 106378013) Active 356972 RxNorm SEPTRA Rash (SNOMED-CT: 946048727) Mild Active LEVEMIR Hives (SNOMED-CT: 948176764) Mild Active 107174 RxNorm Plan of Treatment MA Screening Bilateral [...] tem Type 2 diabetes mellitus without complication 10/15/19 23 [id number] SNOMED-CT Personal Care Team Section Performer Name Performer Role Active Date Inactive Da te Progress Notes [facility] 11/05/2022 12:57 Date of Service: 10/14/2022 Primary Care Physician: CHANA NOVAK Chronic Care Management Visit Note Med Reconciliation & Dissemination Encounter (Phone Communication) September Monthly Update The Primary Care Management visit had a cumulative time of 00:21:17 involving: review of patient information, phone call to the patient, documentation, practice information review, and mailing to the patient. The review of patient information included the patient's medical history, active problem list, allergies, current medications, all pertinent lab results, surgical history, social history, upcoming appointments, and last provider note. Medical necessity determined by chronic conditions of: E11.9 ; which place the patient at significant risk of , acute exacerbation/decompensation, or functional decline. Patient has consented to PCM services on September 17, 2021 prior to this encounter, acknowledging that service may be terminated at-will, only one provider may deliver services during a calendar month, and that cost-sharing applies. Heather Ashraf LPN, Nurse Care Manager THE PATIENT REPORTS THAT THE FOLLOWING MEDICATIONS NEED TO BE ADDED TO THEIR MEDICATION LIST IN YOUR EMR: Ozempic 0.25mg dose, one injection subcutaneous once weekly - Added per patient No immediate concerns for provider. Patient Call Summary: Reviewed medications and allergies with patient. She reports she was taken off of lisinopril, potassium, and Celebrex. She also reports she was placed on Ozempic 0.25mg dose once weekly. No new issues or concerns. The nurse collaborated with the patient to update the patient's medication and allergy list during the Chronic Care Management call this month. The patient was provided additional medication education, if requested, during the Chronic Care Management call. An updated medication list has been provided to the caregiver. Included here are any changes that need to occur in your EHR and requested action items from the patient: Updated Allergy List: Biaxin - hives Ceftin - rash - Added per patient ketorolac - hives Levemir - hives septra- rash Tamiflu - rash - Updated Medication List: buspirone 15mg tablet, one tablet by mouth twice daily Crestor 40mg tablet, one tablet by mouth daily Fiasp 100U/1mL injection, subcutaneous via insulin pump Lyrica 150mg cap, one capsule by mouth twice daily Medical marijuana, one edible by mouth as directed Naltrexone 3mg tablet; one at bedtime Ozempic 0.25mg dose, one injection subcutaneous once weekly - Added per patient Paxil 40mg tablet, one tablet by mouth daily Pepcid AC 20mg tablet, one tablet by mouth daily Prinivil 5mg tablet, one tablet daily Singulair 10mg tablet, one tablet by mouth daily Victoza subcutaneous solution 6mg/1mL, 1.8mg subcutaneous daily Xyzal Allergy 24hr 5mg tablet, one tablet by mouth daily The following communication was mailed to the patient after the phone visit this month: Thank you for taking the time to update your medications and allergies with the nurse on your Chronic Care Management call this month. Having an accurate and up-to-date medication list is important. We recommend taking this updated list to all your upcoming medical appointments. Below you will find your updated medication list and any medication assistance resources that were requested by you on the phone: Updated Allergy List: Biaxin - hives Ceftin - rash - Added per patient ketorolac - hives Levemir - hives septra- rash Tamiflu - rash Updated Medication List: buspirone 15mg tablet, one tablet by mouth twice daily Crestor 40mg tablet, one tablet by mouth daily Fiasp 100U/1mL injection, subcutaneous via insulin pump Lyrica 150mg cap, one capsule by mouth twice daily Medical marijuana, one edible by mouth as directed Naltrexone 3mg tablet; one at bedtime Ozempic 0.25mg dose, one injection subcutaneous once weekly - Added per patient Paxil 40mg tablet, one tablet by mouth daily Pepcid AC 20mg tablet, one tablet by mouth daily Prinivil 5mg tablet, one tablet daily Singulair 10mg tablet, one tablet by mouth daily Victoza subcutaneous solution 6mg/1mL, 1.8mg subcutaneous daily Xyzal Allergy 24hr 5mg tablet, one tablet by mouth daily If you have a medication question or concern, please contact your pharmacist or the provider who prescribed the medication. Upcoming Appointments: Your chart indicates that you have the following appointments: 10/28/22 at 11 am with ANA LILIA Mack I hope all is well! Heather Ashraf LPN [phone] ICD10 Description E11.9 Type 2 diabetes mellitus without complications
--- OUTSIDE RECORDS SUMMARY | 2024-10-25 02:59 | XMS_ITS ---
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 Comparison: NoneFindings: No acute fracture or dislocation. Small marginal osteophytes diffusely. No significant joint space narrowing. Chondrocalcinosis primarily within the meniscal tissues. Ossicle along the superior margin of the patella may represent an old spur fracture or loose body. No joint effusion. Small ossicles at the fibular head may represent loose bodies within the popliteus tendon sheath. Question tiny loose body near the tibial eminence. No suspicious sclerotic or lytic bone lesions. Patellofemoral alignment is normal.=====IMPRESSION:===== 1. Mild tricompartmental osteoarthritis.2. Chondrocalcinosis compatible with CPPD deposition disease.3. Suspected multiple small loose bodies. Created and Electronically Signed by:Vince Mann MD05/28/2023 17:24 Social History Type Status Start Date End Date Code Code Syst em Smoking History Unknown if ever smoked [id number] SNOMED CT Smoking History Never smoker (Never Smoked) 709985264 SNOMED CT Sex Female Sexual Orientation Straight or Heterosexual 25544057 SNOMED CT Gender Identity Female [id number] [address] Medications Medication Start Date End Date Route Frequency Dose Code Code System Medication Instructions Home Meds Lyrica 150MG Oral Capsule 08/30/2018 Unknown By Mouth Twice a day 1 CAPSULE 624862 RxNorm 1 CAPSULE By Mouth Twice a day Xyzal Allergy 24HR 5MG Oral Tablet 08/30/2018 Unknown By Mouth Daily 1 TABLET 932724 RxNorm 1 TABLET By Mouth Daily Pepcid AC 20MG Oral Tablet 03/15/2019 Unknown By Mouth Daily 1 TABLET 569793 RxNorm 1 TABLET By Mouth Daily Fiasp 100U/1ML Injection Solution 02/23/2020 Unknown Subcutane ous 8937674 RxNorm Subcutaneou s VIA INSULIN PUMP Naltrexone HCl Powder 04/29/2022 06/06/19 25 By Mouth At bedtime 3 MILLIGRAMS RxNorm 3 MILLIGRAMS By Mouth At bedtime Prinivil 5MG Oral Tablet 04/29/2022 06/19/19 24 By Mouth Daily 1 TABLET 949107 RxNorm TAKE 1 TABLET BY MOUTH ONCE A DAY Ozempic 0.25 MG or 0.5 MG Doses 2 MG/3 ML Subcutaneous Solution 12/30/2022 01/05/20 24 Subcutane ous Once a week 0.25 UNIT 3278228 RxNorm 0.25 UNIT Subcutaneou s Once a week Crestor 40MG Oral Tablet 12/30/2022 01/05/20 24 By Mouth Daily 1 TABLET 260213 RxNorm TAKE 1 TABLET BY MOUTH ONCE A DAY Paxil 40MG Oral Tablet 02/04/2023 07/07/19 24 By Mouth Daily 1 TABLET 427475 RxNorm TAKE 1 TABLET BY MOUTH ONCE A DAY busPIRone 15MG Oral Tablet 02/04/2023 07/07/19 24 By Mouth Twice a day 1 TABLET 606707 RxNorm TAKE 1 TABLET BY MOUTH TWO TIMES A DAY Levothyroxin e 50MCG Oral Tablet 02/20/2023 Unknown By Mouth 1 TABLET 233391 RxNorm 1 TABLET By Mouth in the morning on an empty stomach- PRESCRIBED BY DR DURAN Vicyenny 6MG/1ML Subcutaneous Solution 02/20/2023 06/21/19 25 Subcutane ous Daily 1.8 UNIT 097732 RxNorm 1.8 UNIT Subcutaneou s Daily- *PRESCRIBED BY DR DURAN Baclofen 10MG Oral Tablet 02/20/2023 Unknown By Mouth Three times a day 1 TABLET 827744 RxNorm 1 TABLET By Mouth Three times a day With food Singulair 10MG Oral Tablet 05/07/2023 07/07/19 24 By Mouth Daily 1 TABLET 034224 RxNorm TAKE 1 TABLET BY MOUTH ONCE A DAY Prinivil 5MG Oral Tablet 06/19/2023 06/22/19 24 By Mouth Daily 1 TABLET 697781 RxNorm TAKE 1 TABLET BY MOUTH ONCE A DAY Prinivil 5MG Oral Tablet 06/22/2023 07/07/19 24 By Mouth Daily 1 TABLET 723342 RxNorm TAKE 1 TABLET BY MOUTH ONCE A DAY Prinivil 5MG Oral Tablet 07/07/2023 01/05/20 24 By Mouth Daily 1 TABLET 200013 RxNorm TAKE 1 TABLET BY MOUTH ONCE A DAY Singulair 10MG Oral Tablet 07/07/2023 01/05/20 24 By Mouth Daily 1 TABLET 205624 RxNorm TAKE 1 TABLET BY MOUTH ONCE A DAY Paxil 40MG Oral Tablet 07/07/2023 10/02/19 24 By Mouth Daily 1 TABLET 227799 RxNorm TAKE 1 TABLET BY MOUTH ONCE A DAY busPIRone 15MG Oral Tablet 07/07/2023 01/05/20 24 By Mouth Twice a day 1 TABLET 490379 RxNorm TAKE 1 TABLET BY MOUTH TWO TIMES A DAY Ativan 0.5MG Oral Tablet 09/02/2023 09/28/19 25 By Mouth Twice a day 1 TABLET 537589 RxNorm 1 TABLET By Mouth Twice a day PRN Paxil 30MG Oral Tablet 10/02/2023 10/30/19 24 By Mouth Daily 2 TABLET 302248 RxNorm 2 TABLET By Mouth Daily Paxil 30MG Oral Tablet 10/30/2023 08/17/19 25 By Mouth Daily 2 TABLET 799878 RxNorm 2 TABLET By Mouth Daily Ambien 5MG Oral Tablet 12/11/2023 01/05/20 24 By Mouth At bedtime 876247 RxNorm 1-2 TABLET By Mouth At bedtime As needed Ozempic 0.25 MG or 0.5 MG Doses 2 MG/3 ML Subcutaneous Solution 01/05/2024 06/21/19 25 Subcutane ous Once a week 0.5 UNIT 1004363 RxNorm 0.5 UNIT Subcutaneou s Once a week Crestor 40MG Oral Tablet 01/05/2024 09/27/19 25 By Mouth Daily 1 TABLET 452010 RxNorm TAKE 1 TABLET BY MOUTH ONCE A DAY busPIRone 15MG Oral Tablet 01/05/2024 08/06/19 25 By Mouth Twice a day 1 TABLET 115826 RxNorm TAKE 1 TABLET BY MOUTH TWO TIMES A DAY Singulair 10MG Oral Tablet 01/05/2024 09/27/19 25 By Mouth Daily 1 TABLET 279793 RxNorm TAKE 1 TABLET BY MOUTH ONCE A DAY Ambien 5MG Oral Tablet 01/05/2024 09/28/19 25 By Mouth At bedtime 282183 RxNorm 1-2 TABLET By Mouth At bedtime As needed Prinivil 5MG Oral Tablet 01/05/2024 07/06/19 25 By Mouth Daily 1 TABLET 981615 RxNorm TAKE 1 TABLET BY MOUTH ONCE A DAY Promethazine DM 6.25MG/5ML-1 5MG/5ML Oral Syrup 01/25/2024 06/06/19 25 ORAL As needed every 4 hr 5 mL 477311 RxNorm 5 mL ORAL As needed every 4 hr-do not take within 2 hours of Paxil or Buspirone Augmentin 875MG-125MG Oral Tablet 01/25/2024 06/06/19 25 By Mouth Twice a day 1 TABLET 261306 RxNorm 1 TABLET By Mouth Twice a day x 10 days Airsupra 90 MCG/1 Actuation-80 MCG/1 Actuation Inhalation Aerosol Powder 01/25/2024 06/06/19 25 Inhale As needed every 4 hr 2 Puff 5157649 RxNorm 2 Puff Inhale As needed every 4 hr Victoza 6MG/1ML Subcutaneous Solution 06/20/2024 Unknown Subcutane ous Daily 1.8 MILLIGRAMS 021630 RxNorm 1.8 MILLIGRAMS Subcutaneou s Daily Ozempic 0.25 MG or 0.5 MG Doses 2 MG/3 ML Subcutaneous Solution 06/20/2024 Unknown Subcutane ous Once a week 1.5 MILLILITER 5336746 RxNorm 1.5 MILLILITER Subcutaneou s Once a week Lisinopril 5MG Oral Tablet 07/05/2024 09/27/19 25 By Mouth Daily 1 TABLET 826955 RxNorm 1 TABLET By Mouth Daily busPIRone 15MG Oral Tablet 08/05/2024 Unknown By Mouth Twice a day 1 TABLET 198548 RxNorm TAKE 1 TABLET BY MOUTH TWO TIMES A DAY Paxil 20MG Oral Tablet 08/16/2024 09/27/19 25 By Mouth Daily 1 TABLET 469691 RxNorm 1 TABLET By Mouth Daily Wellbutrin XL 150MG Oral Tablet, Extended Release, 24 HR 08/16/2024 09/27/19 25 By Mouth Daily 1 TABLET 224107 RxNorm 1 TABLET By Mouth Daily. Wellbutrin XL 150MG Oral Tablet, Extended Release, 24 HR 09/26/2024 Unknown By Mouth Daily 1 TABLET 309115 RxNorm 1 TABLET By Mouth Daily. Paxil 20MG Oral Tablet 09/26/2024 Unknown By Mouth Daily 1 TABLET 989925 RxNorm 1 TABLE T By Mouth Daily Lisinopril 5MG Oral Tablet 09/26/2024 Unknown By Mouth Daily 1 TABLET 834868 RxNorm 1 TABLET By Mouth Daily Singulair 10MG Oral Tablet 09/26/2024 Unknown By Mouth Daily 1 TABLET 720046 RxNorm TAKE 1 TABLET BY MOUTH ONCE A DAY Crestor 40MG Oral Tablet 09/26/2024 Unknown By Mouth Daily 1 TABLET 144794 RxNorm TAKE 1 TABLET BY MOUTH ONCE A DAY Ativan 0.5MG Oral Tablet 09/27/2024 Unknown By Mouth As needed daily 1 TABLET 730159 RxNorm 1 TABLET By Mouth As needed daily Ambien 5MG Oral Tablet 09/27/2024 10/05/19 25 By Mouth At bedtime 303794 RxNorm 1-2 TABLET By Mouth At bedtime As needed Ambien 5MG Oral Tablet 10/04/2024 Unknown By Mouth At bedtime 1 TABLET 610497 RxNorm 1 TABLET By Mouth At bedtime [...] your primary care physician. Reason For Referral Reason for Referral: Left Knee Pain Receiving Provider: Yury Esparza MD ([facility]) [place] [address] Appointment Date: 07/08/2023 Additional Information: TDF Problems Problem Start Date Resolved Date Status Code Code System TYPE I DIABETES MELLITUS WITH HYPERGLYCEMIA active 109458061369435 SNOMED -CT HYPERTENSION active 04851460 SNOMED- CT HYPERCHOLESTEROLEMIA active 50302693 SNOMED-CT HYPOTHYROIDISM active 14967732 SNOME D-CT LUMBAR RADICULOPATHY active 110729085 SNOMED-CT LOW POTASSIUM active 68263479 SNOMED -CT GERD active 846693510 SNOMED-CT ALLERGIC RHINITIS active 14136779 SN OMED-CT DEPRESSION active 60934480 SNOMED-CT ANXIETY active 88197264 SNOMED-CT ASTHMA active 026962417 SNOMED-CT CHRONIC KIDNEY DISEASE STAGE 3 active 988000516 SNOMED-CT OBESITY active 284873233 SNOMED-CT ENDOMETRIOSIS active 462539467 SNOMED -CT SLEEP APNEA active 31909043 SNOMED-C 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 660977570656813 SNOMED-CT 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 20861929 S NOMED-CT HYPERCALCEMIA active 15390382 SNOMED -CT ENCOUNTER FOR FITTING AND ADJUSTMENT OF INSULIN PUMP active 579557348 S NOMED-CT ABNORMAL LEVELS OF OTHER SERUM ENZYMES active 739664937 SNOMED-CT HISTORY OF GASTRIC BYPASS 06/26/2022 05/30/2024 resolved 69 3573488 SNOMED-CT SINUSITIS 04/30/2022 resolved 12159981 SNOMED-CT DIABETES 2 01/19/2024 resolved 93059578 SNOMED-C T Allergies and Adverse Reactions Allergy Substance Reaction Severity Start Date Concern Status Co de Code System CEFUROXIME Rash (SNOMED-CT: 248276868) Mild Active 2194 RxNorm KETOROLAC Hives (SNOMED-CT: 404057300) Mild Active 92287 RxNorm BIAXIN Hives (SNOMED-CT: 888561228) Severe Active LANTUS Hives (SNOMED-CT: 692237065) Mild Active 431942 RxNorm TAMIFLU Rash (SNOMED-CT: 647228421) Active 996789 RxNorm SEPTRA Rash (SNOMED-CT: 980711530) Mild Active LEVEMIR Hives (SNOMED-CT: 420195153) Mild Active 687288 RxNorm Plan of Treatment MA Screening Bilateral 07/25/2025 Established Patient 30 01/03/2025 Yury Esparza MD ([facility]) 07/08/2023 Description Due Date Details Instructions Pap 08/18/2025 Performed 09/06 20 normal, repeat in 5 yrs per [place] - RR 5.20.21 Sdoh 01/04/2025 Annual Labs 11/10/2024 cbc, cmp, tsh, free t4, lipids Mammogram 08/12/2025 08/12/24- WNL Depression 06/06/2025 Anxiety 06/06/2025 Encounters Encounter Diagnosis Start Date Code Code Sys tem 05/28/2023 [id number] SNOMED-CT Personal Care Team Section Performer Name Performer Role Active Date Inactive Da te Imaging Narrative Notes
--- OUTSIDE RECORDS SUMMARY | 2024-10-25 02:59 | XMS_ITS | Encounter Summary ---
Author Organization [facility] Address [address] [place] [address] Care Team Providers Care High Speed Operator Name Role Phone Unavailable Primary Care Provider Unavailabl e Prior Encounters Date Type Department Care Team Description 04/07/2022 11:00 AM FINANCIAL REPORTING ANALYST Office Visit [facility] [address] [phone] Gustavo Arredondo DDS 03/26/2022 2:00 PM FINANCIAL REPORTING ANALYST Consult [facility] [address] [phone] Gustavo Arredondo DDS Plan of Treatment Not on file Procedures Procedure Name Priority Date/Time Associated Diagnosis Comments UL PRIMARY CLOSURE OF A SINUS PERFORATION Routine 04/07/2022 11:00 AM FINANCIAL REPORTING ANALYST 14 GUIDED TISSUE REGENERATION, NATURAL TEETH - RESORBABLE BARRIER, PER SITE Routine 04/07/2022 11:00 AM FINANCIAL REPORTING ANALYST 14 (PERIO) BIOLOGIC MATERIAL TO AID IN SOFT AND OSSEOUS TISSUE REGENERATION Routine 04/07/2022 11:00 AM FINANCIAL REPORTING ANALYST 14 EXTRACTION, ERUPTED TOOTH REQUIRING REMOVAL OF BONE AND/OR SECTIONING OF TOOTH Routine 04/07/2022 11:00 AM FINANCIAL REPORTING ANALYST 14 BONE REPLACEMENT GRAFT FOR RIDGE PRESERVATION - PER SITE - MAXILLARY Routine 04/07/2022 11:00 AM FINANCIAL REPORTING ANALYST PERIO CONSULT Routine 03/26/2022 2:00 PM FINANCIAL REPORTING ANALYST Visit Diagnoses Not on file [place] [address] [id number] [facility] PPO [facility] PPO
--- OUTSIDE RECORDS SUMMARY | 2024-10-25 02:59 | XMS_ITS ---
Author Organization Unknown Address [address], [place] [id number] Phone Care Team Providers Care Tannery Worker Name Role Phone JERRODMIRNA VAZQUEZ SERGEI Attending Unavailable Results COVID, FLU A AND B & RSV NICCI - Collect Date/Time: 01/25/2024 18:06 [facility] ID: [id number] [address], [place], [id number] LOINC: 46367-9 Test Value Unit Reference Range Code Code System Flag SARS CoV-2 NOT DETECTED INFLUENZA A PCR NOT DETECTED 69009-0 LOINC INFLUENZA B PCR NOT DETECTED 41329-3 LOINC RSV PCR NOT DETECTED NORMAL: NOT DETECTED 82018-6 LOINC COMPREHENSIVE METABOLIC PANE L - Collect Date/Time: 01/25/2024 15:59 [facility] ID: [id number] [address], [place], [phone] LOINC: 03659-5 Test Value Unit Reference Range Code Code System Flag IS PATIENT FASTING? GLUCOSE 148 mg/dl L=70 H=100 2345-7 LOINC H BUN 19 mg/dl L=6 H=20 50367-8 LOINC CREATININE 0.89 mg/dl L=0.60 H=1.10 61219-7 LOINC AGE 58 yrs eGFR 65 09499-4 LOINC SODIUM 142 mmol/L L=133 H=145 2951-2 LOINC POTASSIUM 3.9 mmol/L L=3.3 H=5.1 2823-3 LOINC CHLORIDE 103 mmol/L L=96 H=108 97367-3 LOINC ALK PHOS 92 U/L L=39 H=117 SGOT 128 U/L L=5 H=37 H TOTAL BILI 0.7 mg/dl L=0.1 H=1.0 TOTAL PROTEIN 7.1 g/dl L=6.0 H=8.0 ALBUMIN 4.6 g/dl L=3.2 H=5.2 CALCIUM 9.7 mg/dl L=8.4 H=10.2 96168-2 LOINC CO2 28.0 mmol/L L=20.0 H=33.0 95156-3 LOINC ANION GAP 15 mmol/L L=8 H=16 SGPT 236 U/L L=5 H=30 H CBC W DIFF - Collect Date/Ti me: 01/25/2024 15:59 [facility] ID: [id number] [address] [place], [place], [id number] LOINC: 10572-3 Test Value Unit Reference Range Code Code System Flag WBC 7.8 10^3/uL L=3.7 H=10.9 6690-2 LOINC RBC 5.04 10^6/uL L=3.50 H=5.30 789-8 LOINC HEMOGLOBIN 14.5 g/dL L=10.8 H=15.8 718-7 LOINC HEMATOCRIT 45.3 % L=31.5 H=46.1 4544-3 LOINC MCV 90 fl L=81 H=95 787-2 LOINC MCH 28.8 pg L=28.5 H=32.5 785-6 LOINC MCHC 32.0 g/dl L=28.0 H=40.0 786-4 LOINC RDW 45 fl L=36 H=52 PLT COUNT 242 10^3/uL L=140 H=450 LY% 24 % L=12 H=42 MO% 8 % L=1 H=13 NE% 67 % L=48 H=75 IG% 0 % L=0 H=1 EO% 1 % L=0 H=5 BA% 1 % L=0 H=2 LY# 1.83 10^3/uL L=0.40 H=3.40 MO# 0.63 10^3/uL L=0.15 H=1.20 NE# 5.18 10^3/ul L=1.10 H=7.90 IG# 0.01 10^3/uL L=0.00 H=0.10 EO# 0.08 10^3/uL L=0.00 H=0.50 BA# 0.05 10^3/uL L=0.00 H=0.10 MANUAL DIFF NOT INDICATED MORPHOLOGY IRON, TIBC,FERRITIN PROFILE - Collect Date/Time: 01/25/2024 15:59 [facility] ID: [id number] [address] [place], [place], [phone] LOINC: 2498-4 Test Value Unit Reference Range Code Code System Flag IRON, TOTAL 80 45-160 IRON BINDING CAPACITY 478 250-450 H % SATURATION 17 16-45 FERRITIN 9 ng/mL 16-232 L VITAMIN D 25 HYDROXYVITAMIN D2 D3 - Collect Date/Time: 01/25/2024 15:59 [facility] ID: [id number] [address], [place], [phone] LOINC: 68019-9 Test Value Unit Reference Range Code Code System Flag VITAMIN D, 25-OH, TOTAL 37 30-100 VITAMIN D, 25-OH, D3 37 ng/mL VITAMIN D, 25-OH, D2 < 4.0 ng/mL CHEST 2 ROUTINE - Completed: 01/25/2024 16:33 LOINC: CLINICAL INDICATION:58-year- old female.Reason for examination: Bronchitis.01/25/2024 4:31 PM, Jules Ac : COUGH, CHEST TIGHTNESS, SOB X 6 DAYSTECHNIQUE:Upright PA and lateral views of the chest COMPARISON:There is no previous chest imagingFINDINGS:Normal heart size and pulmonary vascular distribution.Perihilar regions unremarkable. The lungs are clear of parenchymal opacities that would suggest pneumonia. No consolidation or pleural effusionBony thorax unremarkable.Superior most electrode of spinal stimulator at the T8-9 interspace.Minimal degenerative change in the mid and lower thoracic spine.IMPRESSION:1. No radiographic evidence of active disease in the chest.2. No radiographic findings that would suggest bronchitis or viral or reactive airway disease.3. Normal expected position of spinal similar electrodes. Created and Electronically Signed by:Aissatou Pollack DO01/25/2024 22:10 Social History Type Status Start Date End Date Code Code Syst em Smoking History Unknown if ever smoked 568428433 SNOMED CT Smoking History Never smoker (Never Smoked) 530787370 SNOMED CT Sex Female Sexual Orientation Straight or Heterosexual 65203664 SNOMED CT Gender Identity Female 08920416119807 [address] Medications Medication Start Date End Date Route Frequency Dose Code Code System Medication Instructions Home Meds Lyrica 150MG Oral Capsule 08/30/2018 Unknown By Mouth Twice a day 1 CAPSULE 476889 RxNorm 1 CAPSULE By Mouth Twice a day Xyzal Allergy 24HR 5MG Oral Tablet 08/30/2018 Unknown By Mouth Daily 1 TABLET 845015 RxNorm 1 TABLET By Mouth Daily Pepcid AC 20MG Oral Tablet 03/15/2019 Unknown By Mouth Daily 1 TABLET 313052 RxNorm 1 TABLET By Mouth Daily Fiasp 100U/1ML Injection Solution 02/23/2020 Unknown Subcutane ous 5156071 RxNorm Subcutaneou s VIA INSULIN PUMP Naltrexone HCl Powder 04/29/2022 06/06/19 25 By Mouth At bedtime 3 MILLIGRAMS RxNorm 3 MILLIGRAMS By Mouth At bedtime Levothyroxin e 50MCG Oral Tablet 02/20/2023 Unknown By Mouth 1 TABLET 396635 RxNorm 1 TABLET By Mouth in the morning on an empty stomach- PRESCRIBED BY DR DURAN Victoza 6MG/1ML Subcutaneous Solution 02/20/2023 06/21/19 25 Subcutane ous Daily 1.8 UNIT 005376 RxNorm 1.8 UNIT Subcutaneou s Daily- *PRESCRIBED BY DR DURAN Baclofen 10MG Oral Tablet 02/20/2023 Unknown By Mouth Three times a day 1 TABLET 642946 RxNorm 1 TABLET By Mouth Three times a day With food Ativan 0.5MG Oral Tablet 09/02/2023 09/28/19 25 By Mouth Twice a day 1 TABLET 287823 RxNorm 1 TABLET By Mouth Twice a day PRN Paxil 30MG Oral Tablet 10/30/2023 08/17/19 25 By Mouth Daily 2 TABLET 283540 RxNorm 2 TABLET By Mouth Daily Ozempic 0.25 MG or 0.5 MG Doses 2 MG/3 ML Subcutaneous Solution 01/05/2024 06/21/19 25 Subcutane ous Once a week 0.5 UNIT 3104886 RxNorm 0.5 UNIT Subcutaneou s Once a week Crestor 40MG Oral Tablet 01/05/2024 09/27/19 25 By Mouth Daily 1 TABLET 454507 RxNorm TAKE 1 TABLET BY MOUTH ONCE A DAY busPIRone 15MG Oral Tablet 01/05/2024 08/06/19 25 By Mouth Twice a day 1 TABLET 291160 RxNorm TAKE 1 TABLET BY MOUTH TWO TIMES A DAY Singulair 10MG Oral Tablet 01/05/2024 09/27/19 25 By Mouth Daily 1 TABLET 150380 RxNorm TAKE 1 TABLET BY MOUTH ONCE A DAY Ambien 5MG Oral Tablet 01/05/2024 09/28/19 25 By Mouth At bedtime 047163 RxNorm 1-2 TABLET By Mouth At bedtime As needed Prinivil 5MG Oral Tablet 01/05/2024 07/06/19 25 By Mouth Daily 1 TABLET 830021 RxNorm TAKE 1 TABLET BY MOUTH ONCE A DAY Promethazine DM 6.25MG/5ML-1 5MG/5ML Oral Syrup 01/25/2024 06/06/19 25 ORAL As needed every 4 hr 5 mL 553898 RxNorm 5 mL ORAL As needed every 4 hr-do not take within 2 hours of Paxil or Buspirone Augmentin 875MG-125MG Oral Tablet 01/25/2024 06/06/19 25 By Mouth Twice a day 1 TABLET 092711 RxNorm 1 TABLET By Mouth Twice a day x 10 days Airsupra 90 MCG/1 Actuation-80 MCG/1 Actuation Inhalation Aerosol Powder 01/25/2024 06/06/19 25 Inhale As needed every 4 hr 2 Puff 4319331 RxNorm 2 Puff Inhale As needed every 4 hr Victoza 6MG/1ML Subcutaneous Solution 06/20/2024 Unknown Subcutane ous Daily 1.8 MILLIGRAMS 855662 RxNorm 1.8 MILLIGRAMS Subcutaneou s Daily Ozempic 0.25 MG or 0.5 MG Doses 2 MG/3 ML Subcutaneous Solution 06/20/2024 Unknown Subcutane ous Once a week 1.5 MILLILITER 3646192 RxNorm 1.5 MILLILITER Subcutaneou s Once a week Lisinopril 5MG Oral Tablet 07/05/2024 09/27/19 25 By Mouth Daily 1 TABLET 703315 RxNorm 1 TABLET By Mouth Daily busPIRone 15MG Oral Tablet 08/05/2024 Unknown By Mouth Twice a day 1 TABLET 374683 RxNorm TAKE 1 TABLET BY MOUTH TWO TIMES A DAY Paxil 20MG Oral Tablet 08/16/2024 09/27/19 25 By Mouth Daily 1 TABLET 910012 RxNorm 1 TABLET By Mouth Daily Wellbutrin XL 150MG Oral Tablet, Extended Release, 24 HR 08/16/2024 09/27/19 25 By Mouth Daily 1 TABLET 573539 RxNorm 1 TABLET By Mouth Daily. Wellbutrin XL 150MG Oral Tablet, Extended Release, 24 HR 09/26/2024 Unknown By Mouth Daily 1 TABLET 919006 RxNorm 1 TABLET By Mouth Daily. Paxil 20MG Oral Tablet 09/26/2024 Unknown By Mouth Daily 1 TABLET 407258 RxNorm 1 TABLE T By Mouth Daily Lisinopril 5MG Oral Tablet 09/26/2024 Unknown By Mouth Daily 1 TABLET 675142 RxNorm 1 TABLET By Mouth Daily Singulair 10MG Oral Tablet 09/26/2024 Unknown By Mouth Daily 1 TABLET 190110 RxNorm TAKE 1 TABLET BY MOUTH ONCE A DAY Crestor 40MG Oral Tablet 09/26/2024 Unknown By Mouth Daily 1 TABLET 565323 RxNorm TAKE 1 TABLET BY MOUTH ONCE A DAY Ativan 0.5MG Oral Tablet 09/27/2024 Unknown By Mouth As needed daily 1 TABLET 143296 RxNorm 1 TABLET By Mouth As needed daily Ambien 5MG Oral Tablet 09/27/2024 10/05/19 25 By Mouth At bedtime 571126 RxNorm 1-2 TABLET By Mouth At bedtime As needed Ambien 5MG Oral Tablet 10/04/2024 Unknown By Mouth At bedtime 1 TABLET 546737 RxNorm 1 TABLET By Mouth At bedtime [...] TYPE I DIABETES MELLITUS WITH HYPERGLYCEMIA active 215576605098582 SNOMED -CT HYPERTENSION active 22166265 SNOMED- CT HYPERCHOLESTEROLEMIA active 69890352 SNOMED-CT HYPOTHYROIDISM active 66888726 SNOME D-CT LUMBAR RADICULOPATHY active 223699050 SNOMED-CT LOW POTASSIUM active 22050001 SNOMED -CT GERD active 606333585 SNOMED-CT ALLERGIC RHINITIS active 58336653 SN OMED-CT DEPRESSION active 43665365 SNOMED-CT ANXIETY active 52253953 SNOMED-CT ASTHMA active 781186792 SNOMED-CT CHRONIC KIDNEY DISEASE STAGE 3 active 075091177 SNOMED-CT OBESITY active 373130024 SNOMED-CT ENDOMETRIOSIS active 696589668 SNOMED -CT SLEEP APNEA active 72735672 SNOMED-C 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 171571156943269 SNOMED-CT 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 25889825 S NOMED-CT HYPERCALCEMIA active 72386473 SNOMED -CT ENCOUNTER FOR FITTING AND ADJUSTMENT OF INSULIN PUMP active 964379105 S NOMED-CT ABNORMAL LEVELS OF OTHER SERUM ENZYMES active 569609796 SNOMED-CT HISTORY OF GASTRIC BYPASS 06/26/2022 05/30/2024 resolved 69 5788906 SNOMED-CT SINUSITIS 04/30/2022 resolved 42485333 SNOMED-CT DIABETES 2 01/19/2024 resolved 78012044 SNOMED-C T Allergies and Adverse Reactions Allergy Substance Reaction Severity Start Date Concern Status Co de Code System CEFUROXIME Rash (SNOMED-CT: 492949640) Mild Active 2194 RxNorm KETOROLAC Hives (SNOMED-CT: 375553680) Mild Active 66056 RxNorm BIAXIN Hives (SNOMED-CT: 491743231) Severe Active LANTUS Hives (SNOMED-CT: 999848444) Mild Active 549209 RxNorm TAMIFLU Rash (SNOMED-CT: 293808156) Active 763974 RxNorm SEPTRA Rash (SNOMED-CT: 123797290) Mild Active LEVEMIR Hives (SNOMED-CT: 231488883) Mild Active 203777 RxNorm Plan of Treatment MA Screening Bilateral 07/25/2025 Established Patient 30 01/03/2025 Description Due Date Details Instructions Pap 08/18/2025 Performed 09/06 20 normal, repeat in 5 yrs per [place] - RR 5.20.21 Sdoh 01/04/2025 Annual Labs 11/10/2024 cbc, cmp, tsh, free t4, lipids Mammogram 08/12/2025 08/12/24- WNL Depression 06/06/2025 Anxiety 06/06/2025 Encounters Encounter Diagnosis Start Date Code Code Sys tem Bronchitis 01/25/2024 71888939 SNOMED-CT Personal Care Team Section Performer Name Performer Role Active Date Inactive Da te Imaging Narrative Notes Laboratory Narrative Notes [facility] ORDER RESULTS EKG Final Scanned image
--- OUTSIDE RECORDS SUMMARY | 2024-10-25 02:59 | XMS_ITS | Clinical Summary ---
Author Organization [facility] Health Address [address] [place] [address] Care Team Providers Care Concrete Grinder Operator Name Role Phone Unavailable Primary Care Provider Unavailabl e Medications amoxicillin-pot clavulanate (AUGMENTIN) 875-125 mg tablet Take 1 tablet by mouth in the morning and 1 tablet in the evening. 14 tablet 04/07/2022 Active chlorhexidine (PERIDEX) 0.12 % solution Swish 15 mL for one minute twice daily. Spit out. 480 mL 04/07/2022 Active HYDROcodone-acet aminophen (NORCO) 5-325 mg tablet Take 1 tablet by mouth every 4 (four) hours if needed for severe pain. 16 tablet 04/07/2022 Active Social History Tobacco Use Types Packs/Day Years Used Date Smoking Tobacco: Never Assessed Comments Unknown Sex and Gender Information Value Date Recorded Sex Assigned at Not on file Legal Sex Female 1:41 PM PDT Gender Identity Not on file Sexual Orientation Not on file Plan of Treatment Health Maintenance Due Date Last Done Comments Dental Oral Exam 1964 Dental Prophylaxis 1964 Dental X-Ray: Bitewings 1964 Dental X-Ray: Full Mouth 1964 Dental X-Ray: Panoramic 03/28/2025 03/27/[address] [place] [id number] [facility]
--- OUTSIDE RECORDS SUMMARY | 2024-10-25 02:59 | XMS_ITS | Data Portability ---
Author Organization [place] - [facility] [employer], [facility] Address [address] [place] [address] Care Team Providers Care Mice Raiser Name Role Phone CHANA RIOS Primary Care Provider YAMILA SANDERSON Glass Or Mirror Inspector Assessment Encounter Date Assessment Date Assessment LastModified by Organization Details LastModified Time 03/20/2023 03/20/2023 patient is a 58-year-old female with obesity. my differential diagnosis include fat redistribution versus lipoma. I will order ultrasound to Rule out organized adipose tissue which may suggest lipoma kalie Not available 03/20/2023 15:42:47 03/11/2024 03/11/2024 59-year-old female with soft tissue mass in the left hip area clinically consistent with lipoma. I offered excisional biopsy the patient explained risks and benefits alternatives including but not limited to bleeding, infection, need for additional procedures and informed consent was obtained. Patient voiced understanding and wished to proceed. All questions were answered. kalie Not available 03/11/2024 13:37:47 Plan of Treatment Reminders Order Date Submit Date Provider Last Modified By Organization Details Last Modified Time Details Appointments None record ed. Lab None record ed. Referral None record ed. Procedures None record ed. Surgeries None record ed. Imaging None record ed. Medication Orders None record ed. Patient TargetsNo targets recorded. Patient InstructionsNo instructions recorded. Reason for Referral None Reported. Results Created Date Observation Date Name Description Value Unit Range Abnormal Flag Note LastModifiedBy Organization Detail LastModifiedTime 08/28/19 17 08/27/2016 rapid strep group A, throa t strep A positi ve negati ve Not Available In-House Results For Internal Use Only, Do Not Delete/merge, [id number] 08/27/2016 14:43:12 09/08/19 19 09/07/2018 XR, thora cic spine , 3 view [facility] [address] [address] IMAGIN G REPORT ____ NAME: NOA DURON ROOM #: : 1964 ACCOUN T #: [id number] BED #: AGE: 53 PATIEN T TYPE: RAD ORDER Date/T mayo: 019 12:02: 00 PM SEX: F ORDER #: ACCESS ION #: EXAM DESCRI PTION: [id number] SP-THO RACIC SPINE 3V Dictat ed By: Lico Shields Orderi ng Physic roger: HIDALG O, HARDIK Attend ing Physic roger: HIDALG O HARDIK Primar y Care Physic roger: HIDALG O, HARDIK ____ EXAMIN ATION: Thorac ic Spine 3 views ACCESS ION: [id number] EXAM DATE/T MAYO: 019 12:41 PM REASON FOR EXAM: acute pain due to injury COMPAR MARITO: 09/26/19 16 TECHNI QUE: AP, latera l, and swimme r's views of the thorac ic spine were obtain ed. FINDIN GS: Spinal stimul ator seen in place. The superi or margin is seen at the T8 level. Spurri ng in the thorac ic spine is noted. No defini te compre ssion deform ity is seen. No spondy lolist hesis is seen. Incide ntal note of severe osteoa rthrit is of cervic al spine is mainta ined. ===== IMPRES JOSE JUAN:= ==== 1. Spinal stimul ator seen with wires termin ating in the thorac ic spine. 2. Osteoa rthrit is of the thorac ic spine is noted. Electr onical ly Signed By: Lico Shields MD on 019 2:18 PM Page 1 of 1 [id number] [facility] [address] [place] [address], [address], 08/06/2022 00:36:25 09/08/19 19 09/07/2018 XR, lumbo sacra l spine , 2 or 3 view [facility] [address] [facility] [place] [address] IMAGIN G REPORT ____ NAME: NOA DURON ROOM #: : 1964 ACCOUN T #: [id number] BED #: AGE: 53 PATIEN T TYPE: RAD ORDER Date/T mayo: 019 12:02: 00 PM SEX: F ORDER #: ACCESS ION #: EXAM DESCRI PTION: [id number] SP-LS SPINE 2/3V Dictat ed By: Lico Shields ng Physic roger: HIDALG O, HARDIK Attend ing Physic roger: HIDALG O HARDIK Primar y Care Physic roger: HIDALG O, HARDIK ____ EXAMIN ATION: 3 views lumbar spine ACCESS ION: [id number] EXAM DATE/T MAYO: 019 12:41 PM REASON FOR EXAM: acute pain due to injury COMPAR MARITO: 2017 TECHNI QUE: AP, latera l, and spot lumbos acral latera l views of the lumbar spine are obtain ed. FINDIN GS: Postop erativ e change s lumbar spine is seen. Anteri or fixati on plate is seen spanni ng the L5 L6 level. Trabec ular bony fusion in this area is suspec tommy. Fusion of L6 and S1 is also suspec tommy with likely interb nancy fusion device . Spurri ng in the lumbar spine is seen partic ularly at the L2-3 level. There is no spondy lolist hesis presen t. Neuros timula tor wires are seen enteri ng the spinal canal at the L1-2 level. ===== IMPRES JOSE JUAN:= ==== 1. Postop erativ e change s in the spine, grossl y stable in appear ance to prior study. 6 nonrib bearin g lumbar verteb ral bodies are seen. 2. Osteoa rthrit is of spine is also noted. Electr onical ly Signed By: Lico Shields MD on 019 2:17 PM Page 1 of 1 [id number] [facility] [address] [place] [address], [address], 08/06/2022 00:36:25 09/08/19 19 09/07/2018 XR, lumbo sacra l spine , 2 or 3 view [facility] [address] [place] [address] IMAGIN G REPORT ____ NAME: NOA DURON ROOM #: : 1964 ACCOUN T #: [id number] BED #: AGE: 53 PATIEN T TYPE: RAD ORDER Date/T mayo: 019 12:02: 00 PM SEX: F ORDER #: ACCESS ION #: EXAM DESCRI PTION: [id number] SP-LS SPINE 2/3V Dictat ed By: Lico Shields Physic roger: HIDALG O, HARDIK Attend ing Physic roger: HIDALG O HARDIK Primar y Care Physic roger: HIDALG O, HARDIK ____ EXAMIN ATION: 3 views lumbar spine ACCESS ION: [id number] EXAM DATE/T MAYO: 019 12:41 PM REASON FOR EXAM: acute pain due to injury COMPAR MARITO: 2017 TECHNI QUE: AP, latera l, and spot lumbos acral latera l views of the lumbar spine are obtain ed. FINDIN GS: Postop erativ e change s lumbar spine is seen. Anteri or fixati on plate is seen spanni ng the L5 L6 level. Trabec ular bony fusion in this area is suspec tommy. Fusion of L6 and S1 is also suspec tommy with likely interb nancy fusion device . Spurri ng in the lumbar spine is seen partic ularly at the L2-3 level. There is no spondy lolist hesis presen t. Neuros timula tor wires are seen enteri ng the spinal canal at the L1-2 level. ===== IMPRES JOSE JUAN:= ==== 1. Postop erativ e change s in the spine, grossl y stable in appear ance to prior study. 6 nonrib bearin g lumbar verteb ral bodies are seen. 2. Osteoa rthrit is of spine is also noted. Electr onical ly Signed By: Lico Shields MD on 019 2:17 PM Page 1 of 1 [id number] [facility] [address] [place] [address], [address], 08/06/2022 00:36:25 09/08/19 19 09/07/2018 XR, thora cic spine , 3 view [facility] [address] [place] [address] ALEJANDRA Jung REPORT ____ NAME: NOA DURON ROOM #: : 1964 ACCOUN T #: [id number] BED #: AGE: 53 PATIEN T TYPE: RAD ORDER Date/T mayo: 019 12:02: 00 PM SEX: F ORDER #: ACCESS ION #: EXAM DESCRI PTION: [id number] SP-THO RACIC SPINE 3V Dictat ed By: Lico Shields Orderi ng Physic roger: HIDALG O, HARDIK Attend ing Physic roger: HIDALG O HARDIK Primar y Care Physic roger: HIDALG O, HARDIK ____ EXAMIN ATION: Thorac ic Spine 3 views ACCESS ION: [id number] EXAM DATE/T MAYO: 019 12:41 PM REASON FOR EXAM: acute pain due to injury COMPAR MARITO: 09/26/19 16 TECHNI QUE: AP, latera l, and swimme r's views of the thorac ic spine were obtain ed. FINDIN GS: Spinal stimul ator seen in place. The superi or margin is seen at the T8 level. Spurri ng in the thorac ic spine is noted. No defini te compre ssion deform ity is seen. No spondy lolist hesis is seen. Incide ntal note of severe osteoa rthrit is of cervic al spine is mainta ined. ===== IMPRES JOSE JUAN:= ==== 1. Spinal stimul ator seen with wires termin ating in the thorac ic spine. 2. Osteoa rthrit is of the thorac ic spine is noted. Electr onical ly Signed By: Lico Shields MD on 2:18 PM Page 1 of 1 [id number] [facility] [address] [place] [address], [address], 08/06/2022 00:36:25 09/08/19 19 09/07/2018 XR, cervi gerald spine , 2 or 3 view [facility] [address] [place] [address]. 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 Compar marito: None Techni que: AP, latera l, and odonto id views of the cervic al spine are obtain ed. Findin gs: Spurri ng of the cervic al spine at C4-5 C5-6 levels . The inferi or portio n of C6 and C7 in additi on to T1 is not well-v isuali zed on presen t study. Compar marito with swimme r's view shows better visual izatio n of this region . Some spurri ng at C6-7 is also seen on that image. No spondy lolist hesis is noted. ===== Impres jose juan: ===== 1. Osteoa rthrit is of the cervic al spine noted. Degene rative disc diseas e is suspec tommy. ====== ====== ====== == Electr onical ly Signed By: Lico Shields MD on 019 2:20 PM Page 1 of 1 MIGRATION.[id number] [facility] [address] [place] [address], [address], 08/06/2022 00:36:25 09/08/19 19 09/07/2018 XR, cervi gerald spine , 2 or 3 view [facility] [address] [place] [address]. 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 Compar marito: None Techni que: AP, latera l, and odonto id views of the cervic al spine are obtain ed. Findin gs: Spurri ng of the cervic al spine at C4-5 C5-6 levels . The inferi or portio n of C6 and C7 in additi on to T1 is not well-v isuali zed on presen t study. Compar marito with swimme r's view shows better visual izatio n of this region . Some spurri ng at C6-7 is also seen on that image. No spondy lolist hesis is noted. ===== Impres jose juan: ===== 1. Osteoa rthrit is of the cervic al spine noted. Degene rative disc diseas e is suspec tommy. ====== ====== ====== == Electr onical ly Signed By: Lico Shields MD on 019 2:20 PM Page 1 of 1 MIGRATION.[id number] [facility] [address] [place] [address], [address], 08/06/2022 00:36:25 10/01/19 19 09/30/2018 CT L-spi ne wo [facility] [address] [place] [address]. [place] [address] IMAGIN G REPORT ____ NAME: NOA DURON ROOM #: : 1964 ACCOUN T #: [id number] BED #: AGE: 53 PATIEN T TYPE: RAD ORDER Date/T mayo: 019 12:13: 00 PM SEX: F ORDER #: ACCESS ION #: EXAM DESCRI PTION: [id number]-LUM BAR SPINE Dictat ed By: Kamari Diasi ng Physic roger: HIDALG O, HARDIK Attend ing Physic roger: HIDALG O HARDIK Primar y Care Physic rgoer: HIDALG O, HARDIK ____ EXAMIN ATION: CT LUMBAR SPINE WITHOU T CONTRA ST ACCESS ION: [id number] EXAM DATE: 019 12:17 PM REASON FOR EXAM: M54.5 low back pain Lower back pain COMPAR MARITO: None TECHNI QUE: Axial images throug h the lumbar spine withou t intrav enous contra st. Dose loweri ng techni que was used for this study which may includ e, but is not limite d to, dose reduct ion techni ques, automa tommy exposu re contro l, use of iterat sabra recons tructi on and ALARA (As low As Reason ably Achiev able)/ Image Gently techni ques. FINDIN GS: Limite d evalua tion of the parave rtebra l soft tissue s is unrema rkable . 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 5 lumbar -type verteb lloyd are identi fied. Verteb ral body height and alignm ent normal at all levels . No eviden ce of fractu re. Anteri or fusion of L4-L5. Patishala t is status post right hemila minect armida at L4, L5, S1. No eviden ce of fractu re. Page 1 of 2 IMAGIN G REPORT ____ NAME: NOA DURON ROOM #: : 1964 ACCOUN T #: [id number] BED #: AGE: 53 PATISHALA Rodríguez TYPE: RAD ORDER Date/T mayo: 019 12:13: 00 PM SEX: F ORDER #: ACCESS ION #: EXAM DESCRI PTION: [id number]-LUM BAR SPINE ____ Scatte red degene rative disc diseas e, facet arthro gabriela, ligame ntous thicke gabriel. L1-L2: No canal or forami nal stenos is. L2-L3: No canal or forami nal stenos is. L3-L4: Disc bulge with facet arthro gabriela and ligame ntous thicke gabriel. Modera te bilate ral latera l recess stenos is. No canal or forami nal stenos is. L4-L5: There has been remova l of the interv ertebr al disc. Bone spurs cause mild bilate ral latera l recess stenos is. No forami nal stenos is. L5-S1: No canal or forami nal stenos is. IMPRES JOSE JUAN: 1. For the purpos es of this examin ation, the fused disc level is referr ed to as L4-L5. There is sacral izatio n of L5 verteb ra. 2. 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 3. No CT eviden ce of canal or forami nal stenos is, althou gh CT is not optima l for canal/ forami nal soft tissue s evalua tion. Scatte red degene rative diseas e withou t malali gnment . 4. Modera te bilate ral latera l recess stenos is at L3-L4, mild bilate ral latera l recess stenos is at L4-L5. This affect s descen ding nerve roots. Electr onical ly Signed By: Kamari Dias MD on 019 1:40 PM Page 2 of 2 MIGRATION.[id number] [facility] [address] [place] [address], [address], 08/06/2022 00:36:25 04/09/20 23 04/09/2023 US, ray walden r, limit ed [facility] al [address] [place] [address] [phone] TOMASZIN G REPORT Name: NOA DURON Room #: : 1964 Accoun t #: [id number] Bed #: Age: 58 Years Patien t Type: Outpat ient Order Date/T mayo: 2022 10:09: 16 AM Sex: F Access ion#: Exam Descri ption: Exam Reason : [id number] US EXT NON-VA SC LIMITE [id number] Dictat ed By: Artur Bansal Physic roger: JESU DONIS Attend ing Physic roger: JESU DONIS Primnadressa y Care Physic roger: TOLUDOLYLCHANA EDWARDS EXAMIN ATION: Focuse d sonogr aphic evalua tion of the left hip CLINIC AL HISTOR Y: 58 years Female ,palpa ble left hip mass COMPAR MARITO: There is no prior simila r study availa ble for correl ation. TECHNI QUE: Focuse d high-r esolut ion real-t mayo sonogr aphic evalua tion of the left hip was perfor med with wilhelm scale and color Dopple r interr ogated techni que FINDIN GS: Below the palpab le abnorm ality, there is a 5.8 x 3.0 x 10.8 cm isoech oic avascu lar fatty mass. IMPRES JOSE JUAN: 10.8 cm lipoma . Given this size, contra st enhanc ed MRI is recomm ended Electr onical ly signed by: Artur Goodwin [facility] 2022 02:41 PM [employer] Workst ation: [id number] PAGE 1 OF [address] [facility] [address] [place] [address], [address], 05/01/2023 14:24:12 03/01/20 24 03/01/2024 US, ray walden r, limit ed [address] [id number] [phone] IMAGIN G REPORT Name: NOA DURON Room #: : 1964 Accoun t #: [id number] Bed #: Age: 59 Years Patien t Type: Outpat ient Order Date/T mayo: 2023 03:15: 00 PM Sex: F Access ion#: Exam Descri ption: Exam Reason : [id number] US EXT NON-VA SC LIMITE [id number] Dictat ed By: Artur Bansal Physic roger: DAVID TAVERAS Attend ing Physic roger: DAVID TAVERAS S Primar y Care Physic roger: CHANA HERRERA EXAMIN ATION: Focuse d sonogr aphic evalua tion of the left hip CLINIC AL HISTOR Y: 59 years Female ,palpa ble lump of the left hip, histor y of lipoma COMPAR MARITO: Decemb er 2022 TECHNI QUE: Focuse d high-r esolut ion real-t mayo sonogr aphic evalua tion of the left probab le hip mass was perfor med with wilhelm scale and color Dopple r interr ogated techni que FINDIN GS: Patien t has lost consid erable weight since the previo us examin ation. The previo usly descri bed ill-de fined hypere choic nodule demons trates no intrin sic hypere heath and appear s simila r to lobula tommy fat in the surrou nding area. This area measur es 5.3 x 2.2 x 3.3 cm IMPRES JOSE JUAN: 5.3 x 2.2 x 3.3 cm ill-de fined lipoma versus asymme tric fatty PAGE 1 OF 2 IMAGIN G REPORT Name: NOA DURON Room #: : 1964 Accoun t #: [id number] Bed #: Age: 59 Years Patien t Type: Outpat ient Order Date/T mayo: 2023 03:15: 00 PM Sex: F deposi tion which appear s to have decrea sed in size since the previo us exam. Contra st-enh anced MRI is recomm ended for furthe r evalua tion to evalua te for any subtle contra st enhanc ed solid transf ormati on. Electr onical ly signed by: Artur Goodwin [facility] DO 2023 04:22 PM [employer] RP Workst ation: [id number] PAGE 2 OF [address] [facility] [address] [place] [address], [address], 03/03/2024 15:30:25 03/01/20 24 03/01/2024 US, lower extre ray bazzi r No observ ation record ed. [address] - Lab [address] [place] [address], [address], 03/03/2024 15:30:26 03/02/20 24 03/02/[address] US [address] needl e place ment [address] [phone] ALEJANDRA Jung REPORT Name: NOA DURON Room #: : 1964 Accoun t #: [id number] Bed #: Age: 59 Years Patien t Type: Outpat ient Order Date/T mayo: 2023 10:02: 07 AM Sex: F Access ion#: Exam Descri ption: Exam Reason : [id number] US GUIDE NEEDLE PLACEM [id number] Dictat ed By: Demar Doyle Physic roger: DAVID TAVERAS Attend ing Physic roger: DAVID TAVERAS S Primar y Care Physic roger: CHANA HERRERA CLINIC AL HISTOR Y: r2242. 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 TECHNI QUE: Real-t mayo graysc elsa arnav elizondo was utiliz ed, 3 images of the left hip were obtain ed. DISCUS JOSE JUAN: This dictat ion is to docume nt that arnav adam was provid ed to Dr. Korina sainz for left hip core biopsy x3. Images are availa ble for review . IMPRES JOSE JUAN: Arnav adam was provid ed for left hip core biopsy x3. Electr onical ly signed by: Demar Doyle MD 2023 11:59 AM [employer] RP Workst ation: [id number] PAGE 1 OF 1 [email or web address] [facility] [address] [place] [address], [address], 03/03/2024 14:38:36 03/02/20 24 03/02/2024 US, lower extre mity, nonva scula r No observ ation record ed. [email or web address] [facility] [address] [place], [address], 03/03/2024 15:30:26 03/07/20 24 US, hip No observ ation record ed. [email or web address] [facility] ([facility]) [address] [place], [address], 03/14/2024 09:30:01 Result Notes None recorded. Problems Name Problem SNOMED Code Status Onset Date Resolution Date Notes Provider Name and Address Organization Details Recorded Time Lumbar radiculop athy 047438826 Active Adelita nunez, [facility] 3 09:25:58 Hypokalem ia 64827682 Active Adelita nunez, [facility] 3 09:26:12 Gastroeso phageal reflux disease 837813646 Active Adelita nunez, [facility] 3 09:26:22 Depressiv e disorder 00194395 Active Adelita nunez, [facility] 3 09:26:31 Allergic rhinitis 03967381 Active Adelita nunez, [facility] 3 09:26:45 Endometri osis of uterus 43726343 Active Adelita nunez, [facility] 3 09:29:04 History of bypass of stomach 553622173 Active 2022 Adelita nunez, [facility] 3 09:29:30 Mass of hip region 69140892629 50083 Active 2022 Adelita nunez, [facility] 3 12:41:35 Mass of lower limb 351953403 Active 2023 Adelita nunez, [facility] 4 11:24:38 Lipoma 13535010 Active 2023 Nayana Bob MD [address] [place], [address] , [place] [facility] 4 11:19:15 Localized swelling of left lower leg 11785531139 359328 Active 2023 Allison Virk mayra, [facility] 4 15:15:09 Lumbar disc prolapse with radiculop athy 604162897 Active Not Available [facility] 3 15:57:02 Type 2 diabetes mellitus without complicat ion 008889160 Active Not Available [facility] 3 15:57:02 Chronic back pain 795411820 Active Not Available [facility] 3 21:25:03 Asthma 130723327 Active Not Available [facility] 3 21:25:03 Steatotic liver disease 457005974 Active 2018 Not Available [facility] 3 21:25:03 Generaliz ed anxiety disorder 91025249 Active Not Available [facility] 3 21:25:03 Adrenal adenoma 589168416 Active Not Available [facility] 3 21:25:03 Acute asthma 964664824 Completed Not Available [facility] 3 21:25:04 Chronic sinusitis 29411090 Completed Not Available [facility] 3 21:25:04 Hypothyro idism 97163421 Active Not Available [facility] 3 21:25:04 Obesity 779709264 Active Not Available [facility] 3 21:25:04 Upper respirato ry infection 44316347 Completed Not Available [facility] 3 21:25:04 Hyperlipi demia 87346528 Active Not Available [facility] 3 21:25:04 Essential hypertens ion 14855663 Active Not Available [facility] 3 21:25:04 Chronic kidney disease 242393538 Active 2016 Stage 3 Adelita nunez, [facility] 3 09:24:23 Obstructi ve sleep apnea syndrome 14485379 Active Not Available [facility] 3 21:25:05 Chronic pain 04610832 Active Not Available [facility] 3 21:25:05 Notes:03/04: Left adrenal ad enoma, stable on repeat CT abd 12/16 MÓNICA, CPAP 10cm H2O Problem Notes None recorded. Procedures Surgical History Date Name Laterality Status Provider Name and Address Organization Details Recorded Time 03/02/20 24 BIOPSY, SUPERFICIAL, SOFT TISSUE, THIGH OR KNEE (SURG) completed Allison Bakero [facility] 03/03/2024 14:39:54 06/27/19 23 laparoscopic sleeve gastrectomy completed Adelita [facility] 03/19/2023 09:17:08 10/28/19 19 Other completed Not Available [facility] 3 21:26:32 02/04/20 18 colonoscopy completed Adelita [facility] 03/19/2023 09:20:02 12/20/19 15 Other completed Not Available [facility] 3 21:26:32 07/11/19 14 Other completed Not Available [facility] 3 21:26:32 primary lumbar discectomy completed Adelita [facility] 03/19/2023 09:20:58 lumbar spinal fusion completed [facility] 03/19/2023 09:21:21 Imaging Results None recorded. Procedure Notes None recorded. Medical Equipment None Reported. Allergies Allergen ID Allergen Name Allergen Category Reaction Reaction Severity Criticality Documentation Date Start Date Code Code System Note Provider Name and Address Organization Details Recorded Time 386173 sulfameth oxazole / trimethop rim medicatio n Not available Not available Not available 04/27/2022 61434 RxNorm Not Available [facility] 3 15:59:01 176622 Lantus medicatio n other Not available Not available 04/27/2022 20919 1 RxNorm swell ing Not Available [facility] 3 15:59:02 036814 Ceftin medicatio n Not available Not available Not available 04/27/2022 13935 6 RxNorm Not Available [facility] 3 15:59:02 [id number] Biaxin medicatio n Not available Not available Not available 04/27/2022 68096 9 RxNorm Not Available [facility] 3 15:59:02 [id number] Toradol medicatio n hives Not available Not available 04/27/20222015 78909 RxNorm Not Available [facility] 3 21:26:32 [id number] Tamiflu medicatio n Not available Not available Not available 04/27/2022 [id number] 7 RxNorm Not Available [facility] 3 21:26:32 [id number] Levemir medicatio n rash Not available Not available 04/27/2022 24169 0 RxNorm Not Available [facility] 3 21:26:32 Medications Name Sig Start Date Stop Date Status Note LastModified by Organization Details LastModified Time healthwis e micron pen needles/3 2g x 5/32 32g x 4 mm misc 03/19 completed Not Available Not Available Not Available celecoxib 200 mg capsule TAKE 1 CAPSULE BY MOUTH TWO TIMES A DAY 03/19 completed Not Available Not Available Not Available amoxicill in 500 mg capsule TK 1 C PO TID TAT 03/19 completed Not Available Not Available Not Available desonide 0.05 % topical cream 03/19 completed Not Available Not Available Not Available metformin 500 mg tablet Take 1 tablet twice a day by oral route. 2012 active Not Available Not Available Not Avai lable prednison e 10 mg tablet 03/19 completed Not Available Not Available Not Available doxycycli ne hyclate 100 mg capsule Take 1 capsule twice a day by oral route for 10 days. 03/19 completed Not Available Not Available Not Available paroxetin e 10 mg tablet 03/19 completed Not Available Not Available Not Available clindamyc in HCl 300 mg capsule active Not Available Not Available Not Available pravastat in 40 mg tablet TAKE ONE TABLET BY MOUTH EVERY EVENING active Not Available Not Available No t Available fluconazo le 150 mg tablet TK 1 T PO D FOR 1 DOSE. MAY REPEAT DOSE IN 72 H IF STILL SYMPTOMA TIC 03/19 completed Not Available Not Available Not Available benzonata te 200 mg capsule active Not Available Not Available Not Available hydrocodo ne 5 mg-acetam inophen 325 mg tablet 03/19 completed Not Available Not Available Not Available glipizide ER 10 mg tablet, extended release 24 hr Take 1 tablet every day by oral route. active Not Available Not Available No t Available lisinopri l 20 mg tablet Take 1 tablet every day by oral route. active Not Available Not Available No t Available prednison e 20 mg tablet Take 2 tabs po daily x 5 days 08/27 completed Not Available Not Available Not Available alclometa sone 0.05 % topical cream 03/19 completed Not Available Not Available Not Available metformin 850 mg tablet TK 1 T PO D 03/19 completed Not Available Not Available Not Available naproxen 250 mg tablet Take 1 tablet twice a day by oral route. 01/15 completed Not Available Not Available Not Available Accu-Chek Softclix Lancets USE TO TEST BLOOD SUGAR DAILY 03/19 completed Not Available Not Available Not Available Zyrtec 10 mg tablet Take 1 tablet every day by oral route. 09/17 completed Not Available Not Available Not Available morphine ER 30 mg tablet,ex tended release TAKE 1 TABLET BY MOUTH EVERY 12 HOURS 03/19 completed Not Available Not Available Not Available hydrocodo ne 10 mg-acetam inophen 325 mg tablet Take 1 tablet 3 times a day by oral route. 03/19 completed rx given by pain manageme nt Not Available Not Available Not Available doxycycli ne monohydra te 100 mg tablet 03/19 completed Not Available Not Available Not Available tramadol 50 mg tablet Take 1 tablet every 6 hours by oral route. active Not Available Not Available No t Available levothyro xine 25 mcg tablet Take 1 tablet every day by oral route in the morning. 03/19 completed Not Available Not Available Not Available baclofen 20 mg tablet 03/19 completed Not Available Not Available Not Available Kenalog 40 mg/mL suspensio n for injection Take 1 mL by injectio n route. 08/18 completed Not Available Not Available Not Available Guaiatuss in AC 10 mg-100 mg/5 mL oral liquid TAKE 10 TO 1 5 ML BY MOUTH EVERY 8 HOURS NEEDED FOR COUGH 03/19 completed Not Available Not Available Not Available amoxicill in 875 mg tablet TK 1 T PO Q 12 H FOR 7 DAYS 03/19 completed Not Available Not Available Not Available potassium chloride ER 20 mEq tablet,ex tended release(p art/cryst ) TAKE 2 TABLETS BY MOUTH TWO TIMES A DAY 03/19 completed Not Available Not Available Not Available imiquimod 5 % topical cream packet Apply 1 packet every other day by topical route at bedtime. active Not Available Not Available No t Available Klor-Con 8 mEq tablet,ex tended release TAKE ONE TABLET BY MOUTH TWICE A DAY active Not Available Not Available No t Available baclofen 10 mg tablet TAKE 1 TABLET BY MOUTH EVERY MORNING THEN TAKE 2 TABLETS BY MOUTH EVERY EVENING active Not Available Not Available No t Available amlodipin e 10 mg tablet Take 1 tablet every day by oral route. active Not Available Not Available No t Available levothyro xine 50 mcg tablet TAKES ONCE DAILY active Not Available Not Available No t Available hydrocodo ne 7.5 mg-acetam inophen 325 mg tablet TK 1 T PO Q 12 H 03/19 completed Not Available Not Available Not Available paroxetin e 30 mg tablet take one daily 11/18 completed Not Available Not Available Not Available paroxetin e 20 mg tablet take one tablet daily 11/18 completed Not Available Not Available Not Available oseltamiv ir 75 mg capsule TK 1 C PO QD FOR 10 DAYS 03/19 completed Not Available Not Available Not Available triamcino lone acetonide 0.1 % topical ointment active Not Available Not Available Not Available ranitidin e 150 mg tablet Take 1 tablet twice a day by oral route. 2012 active Not Available Not Available Not Avai labtierra clotrimaz ole-betam ethasone 1 %-0.05 % topical cream Apply 0.5 g 3 times a day by topical route as needed. 03/19 completed Not Available Not Available Not Available olopatadi ne 0.1 % eye drops 03/19 completed Not Available Not Available Not Available lisinopri l 10 mg tablet 03/19 completed Not Available Not Available Not Available gabapenti n 300 mg capsule Take 1 capsule 3 times a day by oral route. active Not Available Not Available No t Available aspirin 81 mg chewable tablet Chew 1 tablet every day by oral route. 10/29 completed Not Available Not Available Not Available monteluka st 10 mg tablet TAKE 1 TABLET BY MOUTH ONCE DAILY active Not Available Not Available No t Available hydroxyzi ne HCl 25 mg tablet 03/19 completed Not Available Not Available Not Available hydrocodo ne 5 mg-acetam inophen 500 mg tablet Take 2 tablets as needed by oral route. 2012 active Not Available Not Available Not Avai lable lisinopri l 5 mg tablet TAKE 1 TABLET BY MOUTH ONCE A DAY active Not Available Not Available No t Available hydrochlo rothiazid e 25 mg tablet TAKE ONE TABLET BY MOUTH DAILY 03/19 completed Not Available Not Available Not Available mupirocin 2 % topical ointment active Not Available Not Available Not Available Levaquin 500 mg tablet Take 1 tablet every 24 hours by oral route. active Not Available Not Available No t Available Nasonex 50 mcg/actua tion [place] INHALE 2 SPRAYS IN EACH NOSTRIL EVERY DAY 01/01 completed Not Available Not Available Not Available scopolami ne 1 mg over 3 days transderm al patch 03/19 completed Not Available Not Available Not Available methylpre dnisolone 4 mg tablets in a dose pack use as directed 03/19 completed Not Available Not Available Not Available paroxetin e 40 mg tablet TAKE ONE TABLET DAILY active Not Available Not Available No t Available celecoxib 100 mg capsule 03/19 completed Not Available Not Available Not Available ondansetr on 4 mg disintegr ating tablet 03/19 completed Not Available Not Available Not Available fluticaso ne propionat e 50 mcg/actua tion nasal spray,tobin [place] 1 spray twice a day by intranas al route. 01/01 completed Not Available Not Available Not Available metformin ER 500 mg tablet,ex tended release 24 hr TAKE 2 TABLETS BY MOUTH TWICE DAILY 03/19 completed Not Available Not Available Not Available doxycycli ne hyclate 100 mg tablet Take 1 tablet twice a day by oral route for 7 days. 03/19 completed Not Available Not Available Not Available glipizide 5 mg tablet active Not Available Not Available Not Available amoxicill in 875 mg-potass ium clavulana te 125 mg tablet Take 1 tablet every 12 hours by oral route for 10 days. 03/19 completed Not Available Not Available Not Available amoxicill in 500 mg-[place] ium clavulana te 125 mg tablet active Not Available Not Available Not Available buspirone 15 mg tablet TAKE TWICE DAILY active Not Available Not Available No t Available paroxetin e ER 25 mg tablet,ex tended release 24 hr TAKE 2 TABLETS BY MOUTH ONCE A DAY 03/19 completed Not Available Not Available Not Available Novolog FlexPen U-100 Insulin aspart 100 unit/mL (3 mL) subcutane ous INJECT UP TO 100 UNITS UNDER THE SKIN PER DAY IN DIVIDED DOSES UTD 03/19 completed Not Available Not Available Not Available rosuvasta tin 40 mg tablet TAKE 1 TABLET BY MOUTH AT BEDTIME active Not Available Not Available No t Available Pepcid AC 20 mg tablet Take 1 tablet every day by oral route. active Not Available Not Available No t Available pregabali n 150 mg capsule ONE CAPSULE EVERY 12 HOURS active Not Available Not Available No t Available Lyrica 100 mg capsule Take 1 capsule 3 times a day by oral route. 03/19 completed Not Available Not Available Not Available chlorhexi dine gluconate 0.12 % mouthwash 03/19 completed Not Available Not Available Not Available Amitiza 24 mcg capsule 03/19 completed Not Available Not Available Not Available ProAir HFA 90 mcg/actua tion aerosol inhaler Inhale 2 puff(s) every 4 hours by inhalati on route as needed for shortnes s of breath 03/19 completed Not Available Not Available Not Available Januvia 50 mg tablet active Not Available Not Available Not Available Januvia 100 mg tablet active Not Available Not Available Not Available Pataday 0.2 % eye drops 03/19 completed Not Available Not Available Not Available Lantus Solostar U-100 Insulin 100 unit/mL (3 mL) subcutane ous pen Inject 100 units twice a day by subcutan eous route for 30 days. 03/19 completed Not Available Not Available Not Available levocetir izine 5 mg tablet TK 1 T PO D 03/20 completed Not Available Not Available Not Available Humalog KwikPen (U-100) Insulin 100 unit/mL subcutane ous 03/19 completed Not Available Not Available Not Available naltrexon e HCl (bulk) 100 % powder 3 mg at bedtime 03/20 completed Not Available Not Available Not Available levothyro xine 25 mcg capsule Take 1 capsule every day by oral route. 2012 active Not Available Not Available Not Avai lable Suprep Bowel Prep Kit 17.5 gram-3.13 gram-1.6 gram oral solution 03/19 completed Not Available Not Available Not Available Kombiglyz e XR 2.5 mg-1,000 mg tablet,ex tended release Take 1 tab po BID active Not Available Not Available No t Available loratadin e 10 mg capsule 2012 active Not Available Not Available Not Avai lable Vitamin D3 50 mcg (2,000 unit) capsule Take 1 capsule every day by oral route. 03/19 completed Not Available Not Available Not Available Gralise 600 mg tablet,ex tended release active Not Available Not Available Not Available Accu-Chek FastClix Lancing Device kit 03/19 completed Not Available Not Available Not Available Accu-Chek FastClix Lancing Device TEST QID UTD 03/19 completed Not Available Not Available Not Available Contour Next Test Strips USE 1 STRIP TO CHECK GLUCOSE 5 TIMES DAILY 03/19 completed Not Available Not Available Not Available Victoza 3-Aubrey 0.6 mg/0.1 mL (18 mg/3 mL) subcutane ous pen injector Inject 1.8 mL every day by subcutan eous route. active Not Available Not Available No t Available Zohydro ER 15 mg capsule,e xtended release active Not Available Not Available Not Available Zohydro ER 30 mg capsule,e xtended release active Not Available Not Available Not Available Zohydro ER 40 mg capsule,e xtended release active Not Available Not Available Not Available Levemir FlexTouch U-100 Insulin 100 unit/mL (3 mL) subcutane ous pen Inject 17 units every day by subcutan eous route at bedtime. 03/19 completed Not Available Not Available Not Available Embeda 100 mg-4 mg capsule, extend release, oral only Take 1 capsule every day by oral route. 01/01 completed Not Available Not Available Not Available Zohydro ER 10 mg capsule, oral only,exte nded release Take 1 capsule every day by oral route in the morning. 09/07 completed Not Available Not Available Not Available Zohydro ER 30 mg capsule, oral only,exte nded release Take 1 capsule every day by oral route. 01/15 completed Not Available Not Available Not Available Zohydro ER 40 mg capsule, oral only,exte nded release Take 1 capsule every day by oral route at bedtime. 09/07 completed Not Available Not Available Not Available Tresiba FlexTouch U-200 insulin 200 unit/mL (3 mL) subcutane ous pen 03/19 completed Not Available Not Available Not Available Tresiba FlexTouch U-100 insulin 100 unit/mL (3 mL) subcutane ous pen Inject 60 units every day by subcutan eous route. 03/19 completed Not Available Not Available Not Available Viberzi 100 mg tablet Take 1 tablet twice a day by oral route for 30 days. 03/19 completed Not Available Not Available Not Available TRUEplus Pen Needle 32 gauge x 5/32 USE TO INJECT 5 TIMES DAILY 03/19 completed Not Available Not Available Not Available Flucelvax Quad (PF) 60 mcg (15 mcg x 4)/0.5 mL IM syringe ADM 0.5ML IM UTD 03/19 completed Not Available Not Available Not Available Fiasp U-100 Insulin 100 unit/mL subcutane ous solution active Not Available Not Available Not Available Flucelvax Quad 60 mcg (15 mcg x 4)/0.5 mL IM suspensio n ADM 0.5ML IM UTD 03/19 completed Not Available Not Available Not Available Afluria Qd 2018- (36 mos up)(PF)60 mcg (15 mcg x4)/0.5 mL IM syringe ADM 0.5ML IM UTD 03/19 completed Not Available Not Available Not Available Ozempic 0.25 mg or 0.5 mg (2 mg/3 mL) subcutane ous pen injector Inject 0.25 mg every week by subcutan eous route. active Not Available Not Available No t Available Vitals Date Recorded Body mass index (BMI) Body height Oxygen saturation Oxygen saturation in Arterial blood by Pulse oximetry Heart rate Body temperature Body weight Systolic And Diastolic Provider Name and Address Organization Details Last Updated DateTime 9 41.4 kg/m2 167.64 cm 98 % 98 % 88 /min 98.4 [degF] 738747. 05 g 120/68 mm[Hg] Not Available [facility] 3 21:24:40 Date Recorded Body height Body mass index (BMI) Body weight Heart rate Oxygen saturation Oxygen saturation in Arterial blood by Pulse oximetry Body temperature Systolic And Diastolic Provider Name and Address Organization Details Last Updated DateTime 4 167.64 cm 28.6 kg/m2 49760.8 5 g 112 /min 98 % 98 % 97.8 [degF] 124/72 mm[Hg[facility] 11:[facility]11 Date Recorded Body height Body mass index (BMI) Body weight Systolic And Diastolic Provider Name and Address Organization Details Last Updated DateTime 03/07/2024 167.64 cm 28.9 kg/m2 40443.32 g 122/74 mm[Hg] [facility] 03/07/2024 11:29:03 Date Recorded Body height Body mass index (BMI) Body weight Body temperature Heart rate Respiratory rate Oxygen saturation Oxygen saturation in Arterial blood by Pulse oximetry Systolic And Diastolic Provider Name and Address Organization Details Last Updated DateTime 4 167.64 cm 29 kg/m2 42704.1 9 g 96.1 [degF] 93 /min 21 /min 99 % 99 % 130/78 mm[Hg] [facility] 4 11:52:58 Date Recorded Body weight Body mass index (BMI) Body height Heart rate Oxygen saturation Oxygen saturation in Arterial blood by Pulse oximetry Body temperature Systolic And Diastolic Provider Name and Address Organization Details Last Updated DateTime 3 92593.8 1 g 31 kg/m2 167.64 cm 94 /min 97 % 97 % 97.8 [degF] 128/78 mm[Hg] [facility] 12:18:48 Social History Question Answer Notes LastModified by Organizat ion Details LastModified Time Tobacco Smoking Status Never Smoker Not Available [facility] 04/27/2022 21:22:58 Do You Have An Advance Directive? No [id number] Information not available 04/27/2022 What Is Your Level Of Caffeine Consumption? Moderate Unsweeten Tea Information not available 02/29/2024 How Much Tobacco Do You Chew? None [id number] Information not available 04/27/2022 What Type Of Diet Are You Following? REGULAR [id number] Information not available 04/27/2022 Which Illicit Or Recreational Drugs Have You Used? None [id number] Information not available 04/27/2022 Are There Any Guns Present In Your Home? Yes [id number] Information not available 04/27/2022 Are You In An Abusive/frighten ing Relationship? No [id number] Information not available 04/27/2022 Do You Feel Safe At Home Yes Information not available 03/20/2023 Do You Feel Hopeless Or Helpless No Information not available 03/20/2023 Have You Had Thoughts Of Suicide? No Information not available 03/20/2023 Are You Having Any Suicidal Thoughts Now? No Information not available 03/20/2023 Have You Previously Attempted Suicide? No Information not available 03/20/2023 Have You Fallen In The Last 3 Months? No [id number] Information not available 04/27/2022 What Was The Date Of Your Most Recent Tobacco Screening? 02/29/2024 Information not available 02/29/2024 What Is Your Relationship Status? Single Information not available 03/20/2023 Do You Use Sunscreen Routinely? Yes [id number] Information not available 04/27/2022 Has Tobacco Cessation Counseling Been Provided? No [email or web address] Information not available 03/19/2023 Do You Have Difficulty Walking Or Climbing Stairs? Yes Lower Back Pain Due To Nerve Damage [id number] Information not available 04/27/2022 Sex: Female Functional Status Question Answer Note LastModified by Organizat ion Details LastModified Time Do you use any illicit or recreational drugs? medical marijuana [id number] Information not available 03/19/2023 Do you or have you ever used any other forms of tobacco or nicotine? No [id number] Information not available 03/19/2023 What is your level of alcohol consumption? 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 Occasional [id number] Information not available 04/27/2022 Mental Status Question Answer Note LastModified by Organizat ion Details LastModified Time Do you have difficulty concentrating, remembering or making decisions? Yes sometimes [id number] Information not available 04/27/2022 Family History Relationship Description Onset Age of this Age Resolved Age Notes LastModified by Organization Details LastModified Time Father Diabetes mellitus [id number] Not available 04/27/2022 21:21:56 Father Coronary arterioscler osis [id number] Not available 04/27/2022 21:21:56 Mother Hypertensive disorder [id number] Not available 04/27/2022 21:21:56 Mother Osteoporosis [id number].0 [id number] Not available 04/27/2022 21:21:56 Brother Malignant tumor of kidney [email or web address] Not available 09:11:54 Brother Hypercholest erolemia [id number] Not available 09:12:11 Brother Hypertensive disorder [id number] Not available 09:12:21 Brother Diabetes mellitus Not available 09:12:32 Paternal Grandmother Diabetes mellitus [id number] Not available 09:12:45 Father Hypercholest erolemia [id number] Not available 09:13:15 Mother Family history of Cardiomyopat hy Not available 09:13:44 Mother Anxiety disorder [id number] Not available 09:14:29 Mother Depressive disorder [id number] Not available 09:15:36 Medical History Condition Response HIGH CHOLESTEROL / HYPERLIPIDEMIA Y DEPRESSION (INCLUDING POST ) Y BACK / NECK PROBLEMS Y THYROID DISEASE Y OBESITY Y GERD/NAUSEA Y ARTHRITIS Y DIABETES, TYPE Y SKIN PROBLEMS Y HEARTBURN / REFLUX Y ASTHMA Y SLEEP DISORDER Y KIDNEY DISEASE Y HYPERTENSION Y ANXIETY DISORDER Y BRONCHITIS Y Gynecological History Statement/Question Response If Post Menopausal, Age at Menopause 47 Date of Last Mammogram 04/15/2018 Date of Last Colonoscopy 01/2018 Obstetrics History GPAL:G 0 P 0 0 0 0 Immunizations Vaccine Type Date Status Note Provider Nam e and Address Organization Details Recorded Time Influenza, split virus, quadrivalent, preservative 4 completed Not Available [facility] 04/27/2022 15:59:00 Influenza, split virus, quadrivalent, preservative 5 completed Not Available [facility] 04/27/2022 15:59:00 Influenza, split virus, quadrivalent, preservative 8 completed Not Available [facility] 04/27/2022 21:26:28 Influenza, split virus, trivalent, preservative 4 completed Not Available [facility] 04/27/2022 21:26:29 zoster live 6 completed Not Available [facility] 04/27/2022 21:26:29 Pneumococcal conjugate PCV 13 6 completed Not Available [facility] 04/27/2022 21:26:29 Influenza, split virus, quadrivalent, preservative 5 completed Not Available [facility] 04/27/2022 21:26:29 Influenza, split virus, trivalent, preservative 6 [email or web address] 14:43:28 Past Encounters Encounter ID Performer Location Encounter Start Date Encounter Closed Date Diagnosis/Indication Diagnosis SNOMED-CT Code Diagnosis ICD10 Code Diagnosis Note [id number] ANA LILIA Elliott [address] [address] 03/30/2014 00:00:00 03/30/2014 10:48:38 [id number] ANA LILIA Elliott [address] [address] 08/04/2014 00:00:00 08/04/2014 10:54:23 [id number] ANA LILIA Elliott [address] [address] 08/28/2014 00:00:00 08/28/2014 13:09:23 [id number] ANA LILIA Elliott [address] [address] 10/11/2014 00:00:00 10/11/2014 12:46:49 [id number] ANA LILIA Elliott [facility] [address] [place] [address], [place] [address] 11/20/2014 00:00:00 11/20/2014 13:05:08 [id number] Jeana Khan 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 [facility] [address] [place] [address], [place] [address] 11/23/2014 00:00:00 11/23/2014 12:34:22 [id number] Jeana Khan 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 [facility] [address] [place] [address], [place] [address] 12/04/2014 00:00:00 12/04/2014 12:30:03 [id number] ANA LILIA Elliott [facility] [address] [place] [address], [place] [address] 12/18/2014 00:00:00 12/18/2014 12:50:44 [id number] Jeana Khan 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 [facility] [address] [place] [address], [place] [address] 12/21/2014 00:00:00 01/09/2015 14:07:24 [id number] Jeana Khan [facility] [address] [place] [address] 01/15/2015 00:00:00 01/15/2015 16:45:12 [id number] Jeana Khan [facility] [address] [place] [address], [place] [address] 01/18/2015 00:00:00 01/31/2015 06:34:42 [id number] Jeana Khan 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 [facility] [address] [place] [address], [place] [address] 02/22/2015 00:00:00 02/22/2015 10:00:02 [id number] ANA LILIA Elliott [facility] [address] [place] [id number] 03/02/2015 00:00:00 03/02/2015 11:48:32 [id number] Jeana Khan 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 [facility] [address] [place] [address] 03/09/2015 00:00:00 03/12/2015 19:09:31 [id number] ANA LILIA Elliott [facility] [address] [place] [address], [place] [address] 03/16/2015 00:00:00 03/16/2015 11:02:27 [id number] Jeana Khan 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 [facility] [address] [place] [address], [place] [address] 03/23/2015 00:00:00 03/23/2015 11:05:42 [id number] ANA LILIA Elliott [facility] [address] [place] [id number] 04/06/2015 00:00:00 04/06/2015 13:03:37 [id number] Jeana Khan 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 [facility] [address] [place] [address], [place] [address] 04/17/2015 00:00:00 04/17/2015 10:06:10 [id number] Jeana Khan 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 [facility] [address] [place] [phone] 5 05/01/2015 00:00:00 05/01/2015 17:38:50 [id number] Jeana Khan 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 [facility] [address] [place] [address]411 5 05/15/2015 00:00:00 05/15/2015 17:47:25 [id number] Jeana Khan 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 [facility] [address] [place] [phone] 5 05/31/2015 00:00:00 05/31/2015 17:49:10 [id number] Jeana Khan 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 [facility] [address] [place] [address]94[address]-772 5 06/11/2015 00:00:00 06/11/2015 10:33:07 [id number] ANA LILIA Elliott [facility] [address] [place] [address], [place] [address] 5 06/29/2015 00:00:00 06/29/2015 09:55:11 [id number] Jeana Khan 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 [facility] [address] [place] [address]224[address]788 5 07/12/2015 00:00:00 07/12/2015 09:39:25 [id number] ANA LILIA Elliott [facility] [address] [place] [address], [place] [address] 5 07/24/2015 00:00:00 10/15/2015 13:10:21 [id number] ANA LILIA Elliott [facility] [address] [place] [address], [place] [address] 5 07/27/2015 00:00:00 07/30/2015 18:41:18 [id number] Jeana Khan 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 [facility] [address] [place] [address], [place] [address] 5 09/06/2015 00:00:00 09/06/2015 10:51:03 [id number] Jeana Khan 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 [facility] [address] [place] [address], [place] [address] 5 09/21/2015 00:00:00 09/21/2015 09:57:53 [id number] ANA LILIA Elliott [facility] [address] [place] [address], [place] [address] 5 09/26/2015 00:00:00 09/26/2015 10:03:08 [id number] Jeana Khan 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 [facility] [address] [place] [address], [place] [address] 5 10/19/2015 00:00:00 10/19/2015 09:57:20 [id number] ANA LILIA Elliott [facility] [address] [place] [address], [place] [address] 5 11/02/2015 00:00:00 11/02/2015 10:51:43 [id number] ANA LILIA Elliott [facility] [address] [place] [address], [place] [address] 5 12/11/2015 00:00:00 12/12/2015 11:21:25 [id number] ANA LILIA Elliott [facility] [address] [place] [address], [place] [address] 5 01/01/2016 00:00:00 01/01/2016 14:36:01 [id number] Jeana Khan 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 [facility] [address] [place] [address], [place] [address] 5 03/27/2016 00:00:00 03/27/2016 11:48:34 [id number] Jeana Khan [facility] [address] [place] [address], [place] [address] 5 08/27/2016 00:00:00 09/01/2016 07:56:22 [id number] Jeana Khan [facility] [address] [place] [address], [place] [address] 5 10/02/2016 00:00:00 10/09/2016 17:07:46 [id number] Jeana Khan [facility] [address] [place] [address], [place] [address] 5 02/17/2017 00:00:00 02/17/2017 14:05:06 [id number] Jeana Khan [facility] [address] [place] [address], [place] [address] 5 04/16/2017 00:00:00 04/21/2017 09:10:59 [id number] Faustian Joseph MD [facility] [address] [place] [address], [place] [address] 5 07/31/2017 00:00:00 07/31/2017 10:37:04 [id number] Jeana Khan [facility] [address] [place] [address], [place] [address] 5 09/17/2017 00:00:00 09/17/2017 14:27:22 [id number] ANA LILIA Elliott [facility] [address] [place] [address], [place] [address] 5 10/29/2017 00:00:00 10/29/2017 18:03:26 [id number] Faustina Joseph MD [facility] [address] [place] [address], [place] [address] 5 01/01/2018 00:00:00 01/06/2018 09:33:23 [id number] Charmaine Griffith MD [facility] [address] [place] [address], [place] [address] 5 01/15/2018 00:00:00 01/15/2018 15:05:10 [id number] ANA LILIA Elliott [facility] [address] [place] [address], [place] [address] 5 02/25/2018 00:00:00 02/25/2018 11:48:22 [id number] Jeana Khan [facility] [address] [place] [address], [place] [address] 5 04/05/2018 00:00:00 04/21/2018 08:20:49 [id number] Jeana Khan 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 [facility] [address] [place] [address], [place] [address] 5 04/27/2018 00:00:00 04/30/2018 09:37:55 [id number] Jeana Khan [facility] [address] [place] [phone] 5 06/03/2018 00:00:00 06/04/2018 09:52:12 [id number] Jeana Khan [facility] [address] [place] [address]40[address]994 5 06/23/2018 00:00:00 09/13/2018 21:21:55 [id number] Faustina Joseph MD [facility] [address] [place] [phone] 5 07/21/2018 00:00:00 07/21/2018 12:06:25 [id number] Jeana Khan 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 [facility] [address] [place] [phone] 5 07/28/2018 00:00:00 07/29/2018 11:12:21 [id number] ANA LILIA Elliott [facility] [address] [place] [address]51[address]517 5 08/11/2018 00:00:00 09/17/2018 01:59:47 [id number] Faustina Joseph MD [facility] [address] [place] [phone] 5 08/18/2018 00:00:00 08/18/2018 11:49:05 [id number] Jeana Khan 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 [facility] [address] [place] [address]50-913 5 09/07/2018 00:00:00 09/14/2018 00:47:41 [id number] Jeana Khan [facility] [address] [address] 5 10/06/2018 00:00:00 10/10/2018 23:46:46 [id number] Jesu Allen MD [address] [address] 5 03/20/2023 12:11:43 03/20/2023 16:11:13 [id number] Nayana Bob MD [address] [address] 02/29/2024 10:44:04 03/01/2024 04:01:18 Lipoma [id number] D17.9 This is a pleasant 59 year old woman with a history of left 3x10.5cm left hip mass per US performed on 04/09/2023 . She had lost a significan t of weight lately and apparently was advised by a provider to seek further evaluation for her left hip mass. 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 I offered an US guided core needle biopsy to evaluate for lipoma vs. liposarcom a and we discussed the risks/bene fits/alter natives of the procedure including but not limited to pain, bleeding, infection, injury to adjacent structures , and the need for further procedures , and she verbalized understand ing. we discussed that pathology reports will likely be available 1-2 weeks after the procedure. Patient made aware of my upcoming maternity leave and subsequent risk of procedure cancellati on. All questions/ concerns. [id number] Nayana Bob MD [address] [address] 5 03/07/2024 11:12:04 03/07/2024 14:29:04 Mass of hip region [id number] R22.42 This is a pleasant 59 year old woman with a left hip mass, s/p US guided CNB. Report purportedl y showed a benign lipoma. I offered excision of the mass under local anesthesia in the right lateral decubitus position and we discussed the risks, benefits, and alternativ es of the procedure including but not limited to pain, bleeding, infection, injury to adjacent structures , and the need for further procedures , and she verbalized understand ing and wishes to proceed. [id number] Jesu Allen MD [facility] [address] 03/11/2024 11:41:10 03/13/2024 23:25:59 Health Concerns Section Related Observation LastModified by Organization Detai ls LastModified Time None Recorded Concern Status LastModified by Organization Details LastModified Time None Recorded Advance Directives Directive N: Payers Insurance Date Sequence Insurance Name Policy Number Policy Blake Covered Member ID Blake Member ID Guarantor Name 04/05/2024 1 [facility] [id number] Noa Camposrbrough [id number] Noa Salomon Debi 04/05/2024 1 [employer] (MEDICARE REPLACEMENT/ ADVANTAGE - PPO) [id number] Noa Camposrbrough [id number] Noa Salomon Debi Notes Date Note Type Note Provider Name and Address Organization Details Recorded Time 10/06/2018 text/html Back PainReporte d bypatient.Location: pain radiating to the buttocks;pain radiating to the legs;pain radiating to the foot;pain radiating to the ankle Quality:sharp Severity:worsening; moderate (5-7) Duration:chronic Onset/Timing:recurr ent episode Context:trauma; prior back problems; used medications for back pain; had evaluations by back specialist Associated Symptoms:no fever;weak limbs;numbness of the legs/feetNotes:Pt has been off work with temporary disability since the start of back pain exacerbation, no relief with PT and pain treatment modalities per pain mngt specialist. 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 Pt does not believe she is able to return to work and would like to explore possibility of permanent disability Not Available [place] [facility] 10/10/2018 23:46:46 03/20/2023 text/html patient is a 58-year-old female who presents to office to evaluate possible lipoma in left gluteal area. she was seen by myself in [place] in the recent past. 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 Nayana Bob MD [address] [place] [address], [phone], [facility] 02/29/2024 16:24:10 03/07/2024 text/html lipoma L hip f/u Nayana Bob MD [address] [place] [address], [phone], [facility] 03/07/2024 11:45:41 03/11/2024 text/html lipoma L hipPati ent is a 59-year-old female who presents to office with a lipoma in the left hip area. She has lost weight and lipoma has become more obvious. This is associated with some tenderness in the area. Jesu Allen MD [address] [place] [address], [phone], [facility] 03/11/2024 13:38:30 OBGyn Episode No OBEpisode recorded.
--- OUTSIDE RECORDS SUMMARY | 2024-10-25 02:59 | XMS_ITS ---
Author Organization Unknown Address [address] [place] [address] [phone] Phone Care Team Providers Care Building Analyst/Supervisor Name Role Phone ROSITA ROSADO Attending Unavailable [...] em Smoking History Never smoker (Never Smoked) [id number] SNOMED CT Smoking History Unknown if ever smoked [id number] SNOMED CT Sex Female Sexual Orientation Straight or Heterosexual [id number] SNOMED CT Gender Identity Female [id number] Medications Medication Start Date End Date Route Frequency Dose Code Code System Medication Instructions Home Meds Lyrica 150MG Oral Capsule 08/30/2018 Unknown By Mouth Twice a day 1 CAPSULE 810368 RxNorm 1 CAPSULE By Mouth Twice a day Xyzal Allergy 24HR 5MG Oral Tablet 08/30/2018 Unknown By Mouth Daily 1 TABLET 405615 RxNorm 1 TABLE T By Mouth Daily CeleBREX 100MG Oral Capsule 03/15/2019 12/31/19 23 By Mouth Twice a day 1 CAPSULE 553253 RxNorm 1 CAPSULE By Mouth Twice a day Pepcid AC 20MG Oral Tablet 03/15/2019 Unknown By Mouth Daily 1 TABLET 496557 RxNorm 1 TABLET By Mouth Daily medical marijuana 07/27/2019 04/22/19 24 By Mouth As Directed 1 edible RxNorm 1 edible By Mouth As Directed Fiasp 100U/1ML Injection Solution 02/23/2020 Unknown Subcutane ous 7872972 RxNorm Subcutaneou s VIA INSULIN PUMP Victoza 6MG/1ML Subcutaneou s Solution 02/23/2020 04/22/19 24 Subcutane ous Daily 1.8 MILLIGRAMS 143946 RxNorm 1.8 MILLIGRAMS Subcutaneou s Daily Singulair 10MG Oral Tablet 04/03/2021 10/04/19 22 By Mouth Daily 1 TABLET 653485 RxNorm TAKE 1 TABLET BY MOUTH ONCE A DAY Prinivil 5MG Oral Tablet 04/03/2021 10/04/19 22 By Mouth Daily 1 TABLET 034525 RxNorm TAKE 1 TABLET BY MOUTH ONCE A DAY Crestor 40MG Oral Tablet 04/03/2021 10/04/19 22 By Mouth Daily 1 TABLET 292099 RxNorm TAKE 1 TABLET BY MOUTH ONCE A DAY Paxil 10MG Oral Tablet 04/09/2021 08/23/19 22 By Mouth Daily 1 TABLET 444668 RxNorm TAKE 1 TABLET BY MOUTH ONCE A DAY -TAKE WITH 40MG TAB Paxil 40MG Oral Tablet 04/09/2021 10/04/19 22 By Mouth Daily 1 TABLET 952792 RxNorm TAKE 1 TABLET BY MOUTH ONCE A DAY -TAKE WITH 10MG TAB Potassium Chloride 20MEQ Oral Tablet, Extended Release 06/27/2021 08/02/19 22 By Mouth Twice a day 2 TABLET 7799813 RxNorm TAKE 2 TABLETS BY MOUTH TWO TIMES A DAY busPIRone 15MG Oral Tablet 06/27/2021 10/04/19 22 By Mouth Twice a day 1 TABLET 479717 RxNorm 1 TABLET BY MOUTH TWICE A DAY Augmentin 875MG-125MG Oral Tablet 07/11/2021 10/04/19 22 By mouth Twice a day 1 TABLET 754121 RxNorm 1 TABLET By mouth Twice a day x10 days Potassium Chloride 20MEQ Oral Tablet, Extended Release 08/01/2021 10/04/19 22 By Mouth Twice a day 2 TABLET 7241919 RxNorm TAKE 2 TABLETS BY MOUTH TWO TIMES A DAY Paxil 10MG Oral Tablet 08/22/2021 04/29/19 23 By Mouth Daily 1 TABLET 402434 RxNorm TAKE 1 TABLET BY MOUTH ONCE A DAY -TAKE WITH 40MG TAB Singulair 10MG Oral Tablet 10/03/2021 12/07/19 22 By Mouth Daily 1 TABLET 722876 RxNorm TAKE 1 TABLET BY MOUTH ONCE A DAY Prinivil 5MG Oral Tablet 10/03/2021 11/08/19 22 By Mouth Daily 1 TABLET 159875 RxNorm TAKE 1 TABLET BY MOUTH ONCE A DAY Potassium Chloride 20MEQ Oral Tablet, Extended Release 10/03/2021 11/05/19 22 By Mouth Twice a day 2 TABLET 2859961 RxNorm TAKE 2 TABLETS BY MOUTH TWO TIMES A DAY Crestor 40MG Oral Tablet 10/03/2021 01/10/20 22 By Mouth Daily 1 TABLET 653867 RxNorm TAKE 1 TABLET BY MOUTH ONCE A DAY Paxil 40MG Oral Tablet 10/03/2021 11/05/19 22 By Mouth Daily 1 TABLET 920292 RxNorm TAKE 1 TABLET BY MOUTH ONCE A DAY -TAKE WITH 10MG TAB busPIRone 15MG Oral Tablet 10/03/2021 12/07/19 22 By Mouth Twice a day 1 TABLET 679495 RxNorm 1 TABLET BY MOUTH TWICE A DAY Potassium Chloride 20MEQ Oral Tablet, Extended Release 11/04/2021 12/07/19 22 By Mouth Twice a day 2 TABLET 6099369 RxNorm TAKE 2 TABLETS BY MOUTH TWO TIMES A DAY Paxil 40MG Oral Tablet 11/04/2021 12/07/19 22 By Mouth Daily 1 TABLET 374762 RxNorm TAKE 1 TABLET BY MOUTH ONCE A DAY -TAKE WITH 10MG TAB Prinivil 5MG Oral Tablet 11/06/2021 04/29/19 23 By Mouth Daily 1 TABLET 652587 RxNorm TAKE 1 TABLET BY MOUTH ONCE A DAY Prinivil 5MG Oral Tablet 11/07/2021 04/08/20 22 By Mouth Daily 1 TABLET 267844 RxNorm TAKE 1 TABLET BY MOUTH ONCE A DAY Paxil 40MG Oral Tablet 12/06/2021 01/10/20 22 By Mouth Daily 1 TABLET 524915 RxNorm TAKE 1 TABLET BY MOUTH ONCE A DAY -TAKE WITH 10MG TAB Singulair 10MG Oral Tablet 12/06/2021 02/08/20 22 By Mouth Daily 1 TABLET 553635 RxNorm TAKE 1 TABLET BY MOUTH ONCE A DAY busPIRone 15MG Oral Tablet 12/06/2021 01/10/20 22 By Mouth Twice a day 1 TABLET 431588 RxNorm TAKE 1 TABLET BY MOUTH TWO TIMES A DAY Potassium Chloride 20MEQ Oral Tablet, Extended Release 12/06/2021 01/10/20 By Mouth Twice a day 2 TABLET 7588958 RxNorm TAKE 2 TABLETS BY MOUTH TWO TIMES A DAY Potassium Chloride 20MEQ Oral Tablet, Extended Release 01/09/2022 03/11/20 22 By Mouth Twice a day 2 TABLET 0416148 RxNorm TAKE 2 TABLETS BY MOUTH TWO TIMES A DAY Paxil 40MG Oral Tablet 01/09/2022 03/11/20 22 By Mouth Daily 1 TABLET 664496 RxNorm TAKE 1 TABLET BY MOUTH ONCE A DAY -TAKE WITH 10MG TAB Crestor 40MG Oral Tablet 01/09/2022 03/11/20 By Mouth Daily 1 TABLET 261594 RxNorm TAKE 1 TABLET BY MOUTH ONCE A DAY busPIRone 15MG Oral Tablet 01/09/2022 03/11/20 22 By Mouth Twice a day 1 TABLET 806347 RxNorm TAKE 1 TABLET BY MOUTH TWO TIMES A DAY Singulair 10MG Oral Tablet 02/07/2022 04/29/19 23 By Mouth Daily 1 TABLET 972029 RxNorm TAKE 1 TABLET BY MOUTH ONCE A DAY Singulair 10MG Oral Tablet 02/07/2022 04/29/19 23 By Mouth Daily 1 TABLET 526419 RxNorm TAKE 1 TABLET BY MOUTH ONCE A DAY Crestor 40MG Oral Tablet 03/11/2022 04/08/20 22 By Mouth Daily 1 TABLET 031669 RxNorm TAKE 1 TABLET BY MOUTH ONCE A DAY busPIRone 15MG Oral Tablet 03/11/2022 04/08/20 22 By Mouth Twice a day 1 TABLET 248611 RxNorm TAKE 1 TABLET BY MOUTH TWO TIMES A DAY Paxil 40MG Oral Tablet 03/11/2022 04/08/20 22 By Mouth Daily 1 TABLET 153745 RxNorm TAKE 1 TABLET BY MOUTH ONCE A DAY -TAKE WITH 10MG TAB Potassium Chloride 20MEQ Oral Tablet, Extended Release 03/11/2022 04/08/20 22 By Mouth Twice a day 2 TABLET 9370673 RxNorm TAKE 2 TABLETS BY MOUTH TWO TIMES A DAY Doxycycline 100MG Oral Capsule 03/20/2022 04/29/19 23 By Mouth Twice a day 1 CAPSULE 1974414 RxNorm 1 CAPSULE By Mouth Twice a day x10 days Paxil 40MG Oral Tablet 04/08/2022 04/29/19 23 By Mouth Daily 1 TABLET 813243 RxNorm TAKE 1 TABLET BY MOUTH ONCE A DAY -TAKE WITH 10MG TAB busPIRone 15MG Oral Tablet 04/08/2022 04/29/19 23 By Mouth Twice a day 1 TABLET 030224 RxNorm TAKE 1 TABLET BY MOUTH TWO TIMES A DAY Prinivil 5MG Oral Tablet 04/08/2022 04/29/19 23 By Mouth Daily 1 TABLET 558848 RxNorm TAKE 1 TABLET BY MOUTH ONCE A DAY Crestor 40MG Oral Tablet 04/08/2022 06/05/19 23 By Mouth Daily 1 TABLET 731835 RxNorm TAKE 1 TABLET BY MOUTH ONCE A DAY Potassium Chloride 20MEQ Oral Tablet, Extended Release 04/08/2022 04/29/19 23 By Mouth Twice a day 2 TABLET 2148796 RxNorm TAKE 2 TABLETS BY MOUTH TWO TIMES A DAY Naltrexone HCl Powder 04/29/2022 06/06/19 25 By Mouth At bedtime 3 MILLIGRAMS RxNorm 3 MILLIGRAMS By Mouth At bedtime Paxil 40MG Oral Tablet 04/29/2022 02/05/20 23 By Mouth Daily 1 TABLET 120965 RxNorm TAKE 1 TABLET BY MOUTH ONCE A DAY busPIRone 15MG Oral Tablet 04/29/2022 02/05/20 23 By Mouth Twice a day 1 TABLET 984963 RxNorm TAKE 1 TABLET BY MOUTH TWO TIMES A DAY Prinivil 5MG Oral Tablet 04/29/2022 06/19/19 24 By Mouth Daily 1 TABLET 974341 RxNorm TAKE 1 TABLET BY MOUTH ONCE A DAY Potassium Chloride 20MEQ Oral Tablet, Extended Release 04/29/2022 12/31/19 23 By Mouth Twice a day 2 TABLET 6009856 RxNorm TAKE 2 TABLETS BY MOUTH TWO TIMES A DAY Singulair 10MG Oral Tablet 04/29/2022 05/07/19 24 By Mouth Daily 1 TABLET 559206 RxNorm TAKE 1 TABLET BY MOUTH ONCE A DAY Crestor 40MG Oral Tablet 06/05/2022 08/20/19 23 By Mouth Daily 1 TABLET 145543 RxNorm TAKE 1 TABLET BY MOUTH ONCE A DAY Crestor 40MG Oral Tablet 08/19/2022 12/20/19 23 By Mouth Daily 1 TABLET 340976 RxNorm TAKE 1 TABLET BY MOUTH ONCE A DAY Crestor 40MG Oral Tablet 12/19/2022 12/31/19 23 By Mouth Daily 1 TABLET 870149 RxNorm TAKE 1 TABLET BY MOUTH ONCE A DAY Ozempic 0.25 MG or 0.5 MG Doses 2 MG/3 ML Subcutaneou s Solution 12/30/2022 01/05/20 24 Subcutane ous Once a week 0.25 UNIT 0959927 RxNorm 0.25 UNIT Subcutaneou s Once a week Crestor 40MG Oral Tablet 12/30/2022 12/31/19 23 By Mouth Daily 1 TABLET 521277 RxNorm TAKE 1 TABLET BY MOUTH ONCE A DAY Crestor 40MG Oral Tablet 12/30/2022 01/05/20 24 By Mouth Daily 1 TABLET 044822 RxNorm TAKE 1 TABLET BY MOUTH ONCE A DAY Paxil 40MG Oral Tablet 02/04/2023 07/07/19 24 By Mouth Daily 1 TABLET 314058 RxNorm TAKE 1 TABLET BY MOUTH ONCE A DAY busPIRone 15MG Oral Tablet 02/04/2023 07/07/19 24 By Mouth Twice a day 1 TABLET 588061 RxNorm TAKE 1 TABLET BY MOUTH TWO TIMES A DAY Levothyroxi ne 50MCG Oral Tablet 02/20/2023 Unknown By Mouth 1 TABLET 936732 RxNorm 1 TABLE T By Mouth in the morning on an empty stomach- PRESCRIBED BY DR DURAN Victoza 6MG/1ML Subcutaneou s Solution 02/20/2023 06/21/19 25 Subcutane ous Daily 1.8 UNIT 332837 RxNorm 1.8 UNIT Subcutaneou s Daily- *PRESCRIBED BY DR DURAN NovoLOG FlexPen 100U/1ML Subcutaneou s Solution 02/20/2023 04/07/20 23 Subcutane ous 8522408 RxNorm Inject up to 100 Units SUBQ daily in DMDED doses--- * PRESCRIBED BY DR DURAN Baclofen 10MG Oral Tablet 02/20/2023 Unknown By Mouth Three times a day 1 TABLET 752985 RxNorm 1 TABLET By Mouth Three times a day With food Aspirin 81MG Oral Tablet, Enteric Coated 02/20/2023 04/07/20 23 By Mouth Daily 1 TABLET 506915 RxNorm 1 TABLET By Mouth Daily Vitamin D 1000IU Oral Tablet 02/20/2023 04/07/20 23 By Mouth Daily 1 TABLET 450426 RxNorm 1 TABLET By Mouth Daily Augmentin 875MG-125MG Oral Tablet 04/22/2023 05/28/19 24 By Mouth Every 12 hours 1 TABLET 067712 RxNorm 1 TABLET By Mouth Every 12 hours x 10 days. Take with food. Diflucan 150MG Oral Tablet 04/22/2023 05/28/19 24 By Mouth x1 NOW 1 TABLET 185080 RxNorm 1 TABLET By Mouth x1 NOW. May repeat in 72 hours as needed. Singulair 10MG Oral Tablet 05/07/2023 07/07/19 24 By Mouth Daily 1 TABLET 780796 RxNorm TAKE 1 TABLET BY MOUTH ONCE A DAY Prinivil 5MG Oral Tablet 06/19/2023 06/22/19 24 By Mouth Daily 1 TABLET 204452 RxNorm TAKE 1 TABLET BY MOUTH ONCE A DAY Prinivil 5MG Oral Tablet 06/22/2023 07/07/19 24 By Mouth Daily 1 TABLET 094063 RxNorm TAKE 1 TABLET BY MOUTH ONCE A DAY Prinivil 5MG Oral Tablet 07/07/2023 01/05/20 24 By Mouth Daily 1 TABLET 477777 RxNorm TAKE 1 TABLET BY MOUTH ONCE A DAY Singulair 10MG Oral Tablet 07/07/2023 01/05/20 24 By Mouth Daily 1 TABLET 539982 RxNorm TAKE 1 TABLET BY MOUTH ONCE A DAY Paxil 40MG Oral Tablet 07/07/2023 10/02/19 24 By Mouth Daily 1 TABLET 837649 RxNorm TAKE 1 TABLET BY MOUTH ONCE A DAY busPIRone 15MG Oral Tablet 07/07/2023 01/05/20 24 By Mouth Twice a day 1 TABLET 970687 RxNorm TAKE 1 TABLET BY MOUTH TWO TIMES A DAY Ativan 0.5MG Oral Tablet 09/02/2023 09/28/19 25 By Mouth Twice a day 1 TABLET 740938 RxNorm 1 TABLET By Mouth Twice a day PRN Paxil 30MG Oral Tablet 10/02/2023 10/30/19 24 By Mouth Daily 2 TABLET 776348 RxNorm 2 TABLET By Mouth Daily Paxil 30MG Oral Tablet 10/30/2023 08/17/19 25 By Mouth Daily 2 TABLET 182334 RxNorm 2 TABLET By Mouth Daily Ambien 5MG Oral Tablet 12/11/2023 01/05/20 24 By Mouth At bedtime 320017 RxNorm 1-2 TABLET By Mouth At bedtime As needed Ozempic 0.25 MG or 0.5 MG Doses 2 MG/3 ML Subcutaneou s Solution 01/05/2024 06/21/19 25 Subcutane ous Once a week 0.5 UNIT 3188773 RxNorm 0.5 UNIT Subcutaneou s Once a week Crestor 40MG Oral Tablet 01/05/2024 09/27/19 25 By Mouth Daily 1 TABLET 716553 RxNorm TAKE 1 TABLET BY MOUTH ONCE A DAY busPIRone 15MG Oral Tablet 01/05/2024 08/06/19 25 By Mouth Twice a day 1 TABLET 815511 RxNorm TAKE 1 TABLET BY MOUTH TWO TIMES A DAY Singulair 10MG Oral Tablet 01/05/2024 09/27/19 25 By Mouth Daily 1 TABLET 985728 RxNorm TAKE 1 TABLET BY MOUTH ONCE A DAY Ambien 5MG Oral Tablet 01/05/2024 09/28/19 25 By Mouth At bedtime 921878 RxNorm 1-2 TABLET By Mouth At bedtime As needed Prinivil 5MG Oral Tablet 01/05/2024 07/06/19 25 By Mouth Daily 1 TABLET 616216 RxNorm TAKE 1 TABLET BY MOUTH ONCE A DAY Promethazin e DM 6.25MG/5ML- 15MG/5ML Oral Syrup 01/25/2024 06/06/19 25 ORAL As needed every 4 hr 5 mL 215040 RxNorm 5 mL ORAL As needed every 4 hr-do not take within 2 hours of Paxil or Buspirone Augmentin 875MG-125MG Oral Tablet 01/25/2024 06/06/19 25 By Mouth Twice a day 1 TABLET 692199 RxNorm 1 TABLET By Mouth Twice a day x 10 days Airsupra 90 MCG/1 Actuation-8 0 MCG/1 Actuation Inhalation Aerosol Powder 01/25/2024 06/06/19 25 Inhale As needed every 4 hr 2 Puff 8876908 RxNorm 2 Puff Inhale As needed every 4 hr Victoza 6MG/1ML Subcutaneou s Solution 06/20/2024 Unknown Subcutane ous Daily 1.8 MILLIGRAMS 611246 RxNorm 1.8 MILLIGRAMS Subcutaneou s Daily Ozempic 0.25 MG or 0.5 MG Doses 2 MG/3 ML Subcutaneou s Solution 06/20/2024 Unknown Subcutane ous Once a week 1.5 MILLILITER 0949551 RxNorm 1.5 MILLILITER Subcutaneou s Once a week Lisinopril 5MG Oral Tablet 07/05/2024 09/27/19 25 By Mouth Daily 1 TABLET 673455 RxNorm 1 TABLET By Mouth Daily busPIRone 15MG Oral Tablet 08/05/2024 Unknown By Mouth Twice a day 1 TABLET 615590 RxNorm TAKE 1 TABLET BY MOUTH TWO TIMES A DAY Paxil 20MG Oral Tablet 08/16/2024 09/27/19 25 By Mouth Daily 1 TABLET 839107 RxNorm 1 TABLET By Mouth Daily Wellbutrin XL 150MG Oral Tablet, Extended Release, 24 HR 08/16/2024 09/27/19 25 By Mouth Daily 1 TABLET 486164 RxNorm 1 TABLET By Mouth Daily. Wellbutrin XL 150MG Oral Tablet, Extended Release, 24 HR 09/26/2024 Unknown By Mouth Daily 1 TABLET 549160 RxNorm 1 TABLET By Mouth Daily. Paxil 20MG Oral Tablet 09/26/2024 Unknown By Mouth Daily 1 TABLET 322366 RxNorm 1 TABLE T By Mouth Daily Lisinopril 5MG Oral Tablet 09/26/2024 Unknown By Mouth Daily 1 TABLET 277673 RxNorm 1 TABLET By Mouth Daily Singulair 10MG Oral Tablet 09/26/2024 Unknown By Mouth Daily 1 TABLET 951544 RxNorm TAKE 1 TABLET BY MOUTH ONCE A DAY Crestor 40MG Oral Tablet 09/26/2024 Unknown By Mouth Daily 1 TABLET 898130 RxNorm TAKE 1 TABLET BY MOUTH ONCE A DAY Ativan 0.5MG Oral Tablet 09/27/2024 Unknown By Mouth As needed daily 1 TABLET 825200 RxNorm 1 TABLET By Mouth As needed daily Ambien 5MG Oral Tablet 09/27/2024 10/05/19 25 By Mouth At bedtime 140087 RxNorm 1-2 TABLET By Mouth At bedtime As needed Ambien 5MG Oral Tablet 10/04/2024 Unknown By Mouth At bedtime 1 TABLET 540549 RxNorm 1 TABLET By Mouth At bedtime As needed Assessment You had the following problems:TYPE I DIABETES MELLITUS WITH HYPERGLYCEMIAHYPERTENSIONHYPERCHOLESTEROLEMIAHYPOTHYROIDISMLUMBAR RADICULOPATHYLOW POTASSIUMGERDALLERGIC RHINITISDEPRESSIONANXIETYASTHMACHRONIC KIDNEY DISEASE STAGE 3OBESITYENDOMETRIOSISSLEEP APNEANEOPLASM OF UNCERTAIN BEHAVIOR OF RIGHT ADRENAL GLANDDEFICIENCY OF OTHER SPECIFIED B GROUP VITAMINSHYPERCALCEMIAENCOUNTER FOR FITTING AND ADJUSTMENT OF INSULIN PUMPABNORMAL LEVELS OF OTHER SERUM ENZYMES Assessment/Plan: Acute Sinusitis- Augmentin as ordered; Increase fluids; F/U if worsens or persists Hospital Discharge Instructions Should you have any questions prior to discharge, please contact a member of your healthcare team. If you have left the hospital and have any questions, please contact your primary care physician. Reason For Referral No Data Found Problems Problem Start Date Resolved Date Status Code Code System TYPE I DIABETES MELLITUS WITH HYPERGLYCEMIA active [id number] SNOMED -CT HYPERTENSION active 14427964 SNOMED- CT HYPERCHOLESTEROLEMIA active 70941215 SNOMED-CT HYPOTHYROIDISM active 32083566 SNOME D-CT LUMBAR RADICULOPATHY active 414962183 SNOMED-CT LOW POTASSIUM active 56104980 SNOMED -CT GERD active 300425288 SNOMED-CT ALLERGIC RHINITIS active 43464179 SN OMED-CT DEPRESSION active 35504227 SNOMED-CT ANXIETY active 31259173 SNOMED-CT ASTHMA active 727882279 SNOMED-CT CHRONIC KIDNEY DISEASE STAGE 3 active 776867038 SNOMED-CT OBESITY active 822860167 SNOMED-CT ENDOMETRIOSIS active 427289968 SNOMED -CT SLEEP APNEA active 80166369 SNOMED-C 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 789356927902259 SNOMED-CT 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 17875887 S NOMED-CT HYPERCALCEMIA active 59462561 SNOMED -CT ENCOUNTER FOR FITTING AND ADJUSTMENT OF INSULIN PUMP active 357974982 S NOMED-CT ABNORMAL LEVELS OF OTHER SERUM ENZYMES active 140366117 SNOMED-CT HISTORY OF GASTRIC BYPASS 06/26/2022 05/30/2024 resolved 69 0037027 SNOMED-CT SINUSITIS 04/30/2022 resolved 76417978 SNOMED-CT DIABETES 2 01/19/2024 resolved 64999791 SNOMED-C T Allergies and Adverse Reactions Allergy Substance Reaction Severity Start Date Concern Status Co de Code System CEFUROXIME Rash (SNOMED-CT: 643691332) Mild Active 2194 RxNorm KETOROLAC Hives (SNOMED-CT: 712759355) Mild Active 52569 RxNorm BIAXIN Hives (SNOMED-CT: 341000570) Severe Active LANTUS Hives (SNOMED-CT: 749596591) Mild Active 794356 RxNorm TAMIFLU Rash (SNOMED-CT: 193918596) Active 004316 RxNorm SEPTRA Rash (SNOMED-CT: 409253281) Mild Active LEVEMIR Hives (SNOMED-CT: 608790608) Mild Active 608678 RxNorm Plan of Treatment MA Screening Bilateral 07/25/2025 Established Patient 30 01/03/2025 Description Due Date Details Instructions Pap 08/18/2025 Performed 09/06 20 normal, repeat in 5 yrs per [place] - RR 5.20.21 Sdoh 01/04/2025 Annual Labs 11/10/2024 cbc, cmp, tsh, free t4, lipids Mammogram 08/12/2025 08/12/24- WNL Depression 06/06/2025 Anxiety 06/06/2025 Encounters Encounter Diagnosis Start Date Code Code Sys tem Acute sinusitis 07/11/2021 [id number] SNOMED-CT Personal Care Team Section Performer Name Performer Role Active Date Inactive Da te Progress Notes
--- OUTSIDE RECORDS SUMMARY | 2024-10-25 02:59 | XMS_ITS ---
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 Name Role Phone SCARLET ZAYAS Attending Unavailable [...] em Smoking History Never smoker (Never Smoked) [id number] SNOMED CT Smoking History Unknown if ever smoked [id number] SNOMED CT Sex Female Sexual Orientation Straight or Heterosexual 46032182 SNOMED CT Gender Identity Female [id number] Medications Medication Start Date End Date Route Frequency Dose Code Code System Medication Instructions Home Meds Lyrica 150MG Oral Capsule 08/30/2018 Unknown By Mouth Twice a day 1 CAPSULE 099684 RxNorm 1 CAPSULE By Mouth Twice a day Xyzal Allergy 24HR 5MG Oral Tablet 08/30/2018 Unknown By Mouth Daily 1 TABLET 838607 RxNorm 1 TABLE T By Mouth Daily CeleBREX 100MG Oral Capsule 03/15/2019 12/31/19 23 By Mouth Twice a day 1 CAPSULE 999014 RxNorm 1 CAPSULE By Mouth Twice a day Pepcid AC 20MG Oral Tablet 03/15/2019 Unknown By Mouth Daily 1 TABLET 176577 RxNorm 1 TABLET By Mouth Daily medical marijuana 07/27/2019 04/22/19 24 By Mouth As Directed 1 edible RxNorm 1 edible By Mouth As Directed Fiasp 100U/1ML Injection Solution 02/23/2020 Unknown Subcutane ous 4519486 RxNorm Subcutaneou s VIA INSULIN PUMP Victoza 6MG/1ML Subcutaneou s Solution 02/23/2020 04/22/19 24 Subcutane ous Daily 1.8 MILLIGRAMS 002198 RxNorm 1.8 MILLIGRAMS Subcutaneou s Daily Naltrexone HCl Powder 04/29/2022 06/06/19 25 By Mouth At bedtime 3 MILLIGRAMS RxNorm 3 MILLIGRAMS By Mouth At bedtime Paxil 40MG Oral Tablet 04/29/2022 02/05/20 23 By Mouth Daily 1 TABLET 223579 RxNorm TAKE 1 TABLET BY MOUTH ONCE A DAY busPIRone 15MG Oral Tablet 04/29/2022 02/05/20 23 By Mouth Twice a day 1 TABLET 498246 RxNorm TAKE 1 TABLET BY MOUTH TWO TIMES A DAY Prinivil 5MG Oral Tablet 04/29/2022 06/19/19 24 By Mouth Daily 1 TABLET 034842 RxNorm TAKE 1 TABLET BY MOUTH ONCE A DAY Potassium Chloride 20MEQ Oral Tablet, Extended Release 04/29/2022 12/31/19 23 By Mouth Twice a day 2 TABLET 3971432 RxNorm TAKE 2 TABLETS BY MOUTH TWO TIMES A DAY Singulair 10MG Oral Tablet 04/29/2022 05/07/19 24 By Mouth Daily 1 TABLET 300469 RxNorm TAKE 1 TABLET BY MOUTH ONCE A DAY Crestor 40MG Oral Tablet 08/19/2022 12/20/19 23 By Mouth Daily 1 TABLET 255882 RxNorm TAKE 1 TABLET BY MOUTH ONCE A DAY Crestor 40MG Oral Tablet 12/19/2022 12/31/19 23 By Mouth Daily 1 TABLET 992980 RxNorm TAKE 1 TABLET BY MOUTH ONCE A DAY Ozempic 0.25 MG or 0.5 MG Doses 2 MG/3 ML Subcutaneou s Solution 12/30/2022 01/05/20 24 Subcutane ous Once a week 0.25 UNIT 5405636 RxNorm 0.25 UNIT Subcutaneou s Once a week Crestor 40MG Oral Tablet 12/30/2022 12/31/19 23 By Mouth Daily 1 TABLET 797763 RxNorm TAKE 1 TABLET BY MOUTH ONCE A DAY Crestor 40MG Oral Tablet 12/30/2022 01/05/20 24 By Mouth Daily 1 TABLET 661673 RxNorm TAKE 1 TABLET BY MOUTH ONCE A DAY Paxil 40MG Oral Tablet 02/04/2023 07/07/19 24 By Mouth Daily 1 TABLET 081099 RxNorm TAKE 1 TABLET BY MOUTH ONCE A DAY busPIRone 15MG Oral Tablet 02/04/2023 07/07/19 24 By Mouth Twice a day 1 TABLET 323092 RxNorm TAKE 1 TABLET BY MOUTH TWO TIMES A DAY Levothyroxi ne 50MCG Oral Tablet 02/20/2023 Unknown By Mouth 1 TABLET 643525 RxNorm 1 TABLE T By Mouth in the morning on an empty stomach- PRESCRIBED BY DR DURAN Victoza 6MG/1ML Subcutaneou s Solution 02/20/2023 06/21/19 25 Subcutane ous Daily 1.8 UNIT 105986 RxNorm 1.8 UNIT Subcutaneou s Daily- *PRESCRIBED BY DR DURAN NovoLOG FlexPen 100U/1ML Subcutaneou s Solution 02/20/2023 04/07/20 23 Subcutane ous 5984634 RxNorm Inject up to 100 Units SUBQ daily in DMDED doses--- * PRESCRIBED BY DR DURAN Baclofen 10MG Oral Tablet 02/20/2023 Unknown By Mouth Three times a day 1 TABLET 756039 RxNorm 1 TABLET By Mouth Three times a day With food Aspirin 81MG Oral Tablet, Enteric Coated 02/20/2023 04/07/20 23 By Mouth Daily 1 TABLET 130912 RxNorm 1 TABLET By Mouth Daily Vitamin D 1000IU Oral Tablet 02/20/2023 04/07/20 23 By Mouth Daily 1 TABLET 374211 RxNorm 1 TABLET By Mouth Daily Augmentin 875MG-125MG Oral Tablet 04/22/2023 05/28/19 24 By Mouth Every 12 hours 1 TABLET 998595 RxNorm 1 TABLET By Mouth Every 12 hours x 10 days. Take with food. Diflucan 150MG Oral Tablet 04/22/2023 05/28/19 24 By Mouth x1 NOW 1 TABLET 344009 RxNorm 1 TABLET By Mouth x1 NOW. May repeat in 72 hours as needed. Singulair 10MG Oral Tablet 05/07/2023 07/07/19 24 By Mouth Daily 1 TABLET 063406 RxNorm TAKE 1 TABLET BY MOUTH ONCE A DAY Prinivil 5MG Oral Tablet 06/19/2023 06/22/19 24 By Mouth Daily 1 TABLET 832295 RxNorm TAKE 1 TABLET BY MOUTH ONCE A DAY Prinivil 5MG Oral Tablet 06/22/2023 07/07/19 24 By Mouth Daily 1 TABLET 783149 RxNorm TAKE 1 TABLET BY MOUTH ONCE A DAY Prinivil 5MG Oral Tablet 07/07/2023 01/05/20 24 By Mouth Daily 1 TABLET 957791 RxNorm TAKE 1 TABLET BY MOUTH ONCE A DAY Singulair 10MG Oral Tablet 07/07/2023 01/05/20 24 By Mouth Daily 1 TABLET 141077 RxNorm TAKE 1 TABLET BY MOUTH ONCE A DAY Paxil 40MG Oral Tablet 07/07/2023 10/02/19 24 By Mouth Daily 1 TABLET 877997 RxNorm TAKE 1 TABLET BY MOUTH ONCE A DAY busPIRone 15MG Oral Tablet 07/07/2023 01/05/20 24 By Mouth Twice a day 1 TABLET 345199 RxNorm TAKE 1 TABLET BY MOUTH TWO TIMES A DAY Ativan 0.5MG Oral Tablet 09/02/2023 09/28/19 25 By Mouth Twice a day 1 TABLET 575951 RxNorm 1 TABLET By Mouth Twice a day PRN Paxil 30MG Oral Tablet 10/02/2023 10/30/19 24 By Mouth Daily 2 TABLET 869407 RxNorm 2 TABLET By Mouth Daily Paxil 30MG Oral Tablet 10/30/2023 08/17/19 25 By Mouth Daily 2 TABLET 362950 RxNorm 2 TABLET By Mouth Daily Ambien 5MG Oral Tablet 12/11/2023 01/05/20 24 By Mouth At bedtime 199683 RxNorm 1-2 TABLET By Mouth At bedtime As needed Ozempic 0.25 MG or 0.5 MG Doses 2 MG/3 ML Subcutaneou s Solution 01/05/2024 06/21/19 25 Subcutane ous Once a week 0.5 UNIT 1354821 RxNorm 0.5 UNIT Subcutaneou s Once a week Crestor 40MG Oral Tablet 01/05/2024 09/27/19 25 By Mouth Daily 1 TABLET 993401 RxNorm TAKE 1 TABLET BY MOUTH ONCE A DAY busPIRone 15MG Oral Tablet 01/05/2024 08/06/19 25 By Mouth Twice a day 1 TABLET 760973 RxNorm TAKE 1 TABLET BY MOUTH TWO TIMES A DAY Singulair 10MG Oral Tablet 01/05/2024 09/27/19 25 By Mouth Daily 1 TABLET 861987 RxNorm TAKE 1 TABLET BY MOUTH ONCE A DAY Ambien 5MG Oral Tablet 01/05/2024 09/28/19 25 By Mouth At bedtime 834718 RxNorm 1-2 TABLET By Mouth At bedtime As needed Prinivil 5MG Oral Tablet 01/05/2024 07/06/19 25 By Mouth Daily 1 TABLET 250600 RxNorm TAKE 1 TABLET BY MOUTH ONCE A DAY Promethazin e DM 6.25MG/5ML- 15MG/5ML Oral Syrup 01/25/2024 06/06/19 25 ORAL As needed every 4 hr 5 mL 762106 RxNorm 5 mL ORAL As needed every 4 hr-do not take within 2 hours of Paxil or Buspirone Augmentin 875MG-125MG Oral Tablet 01/25/2024 06/06/19 25 By Mouth Twice a day 1 TABLET 628995 RxNorm 1 TABLET By Mouth Twice a day x 10 days Airsupra 90 MCG/1 Actuation-8 0 MCG/1 Actuation Inhalation Aerosol Powder 01/25/2024 06/06/19 25 Inhale As needed every 4 hr 2 Puff 9956774 RxNorm 2 Puff Inhale As needed every 4 hr Victoza 6MG/1ML Subcutaneou s Solution 06/20/2024 Unknown Subcutane ous Daily 1.8 MILLIGRAMS 934210 RxNorm 1.8 MILLIGRAMS Subcutaneou s Daily Ozempic 0.25 MG or 0.5 MG Doses 2 MG/3 ML Subcutaneou s Solution 06/20/2024 Unknown Subcutane ous Once a week 1.5 MILLILITER 7530469 RxNorm 1.5 MILLILITER Subcutaneou s Once a week Lisinopril 5MG Oral Tablet 07/05/2024 09/27/19 25 By Mouth Daily 1 TABLET 182687 RxNorm 1 TABLET By Mouth Daily busPIRone 15MG Oral Tablet 08/05/2024 Unknown By Mouth Twice a day 1 TABLET 947129 RxNorm TAKE 1 TABLET BY MOUTH TWO TIMES A DAY Paxil 20MG Oral Tablet 08/16/2024 09/27/19 25 By Mouth Daily 1 TABLET 425638 RxNorm 1 TABLET By Mouth Daily Wellbutrin XL 150MG Oral Tablet, Extended Release, 24 HR 08/16/2024 09/27/19 25 By Mouth Daily 1 TABLET 119376 RxNorm 1 TABLET By Mouth Daily. Wellbutrin XL 150MG Oral Tablet, Extended Release, 24 HR 09/26/2024 Unknown By Mouth Daily 1 TABLET 245150 RxNorm 1 TABLET By Mouth Daily. Paxil 20MG Oral Tablet 09/26/2024 Unknown By Mouth Daily 1 TABLET 624534 RxNorm 1 TABLE T By Mouth Daily Lisinopril 5MG Oral Tablet 09/26/2024 Unknown By Mouth Daily 1 TABLET 609090 RxNorm 1 TABLET By Mouth Daily Singulair 10MG Oral Tablet 09/26/2024 Unknown By Mouth Daily 1 TABLET 781938 RxNorm TAKE 1 TABLET BY MOUTH ONCE A DAY Crestor 40MG Oral Tablet 09/26/2024 Unknown By Mouth Daily 1 TABLET 123139 RxNorm TAKE 1 TABLET BY MOUTH ONCE A DAY Ativan 0.5MG Oral Tablet 09/27/2024 Unknown By Mouth As needed daily 1 TABLET 568644 RxNorm 1 TABLET By Mouth As needed daily Ambien 5MG Oral Tablet 09/27/2024 10/05/19 25 By Mouth At bedtime 913145 RxNorm 1-2 TABLET By Mouth At bedtime As needed Ambien 5MG Oral Tablet 10/04/2024 Unknown By Mouth At bedtime 1 TABLET 966738 RxNorm 1 TABLET By Mouth At bedtime [...] TYPE I DIABETES MELLITUS WITH HYPERGLYCEMIA active 768504415576222 SNOMED -CT HYPERTENSION active 49945746 SNOMED- CT HYPERCHOLESTEROLEMIA active 21327853 SNOMED-CT HYPOTHYROIDISM active 17549896 SNOME D-CT LUMBAR RADICULOPATHY active 219918744 SNOMED-CT LOW POTASSIUM active 68141700 SNOMED -CT GERD active 751678647 SNOMED-CT ALLERGIC RHINITIS active 41863684 SN OMED-CT DEPRESSION active 28572276 SNOMED-CT ANXIETY active 72418912 SNOMED-CT ASTHMA active 838884730 SNOMED-CT CHRONIC KIDNEY DISEASE STAGE 3 active 242598719 SNOMED-CT OBESITY active 048795898 SNOMED-CT ENDOMETRIOSIS active 353912653 SNOMED -CT SLEEP APNEA active 19473670 SNOMED-C 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 600724888499663 SNOMED-CT 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 35383484 S NOMED-CT HYPERCALCEMIA active 16868692 SNOMED -CT ENCOUNTER FOR FITTING AND ADJUSTMENT OF INSULIN PUMP active 610452915 S NOMED-CT ABNORMAL LEVELS OF OTHER SERUM ENZYMES active 479124542 SNOMED-CT HISTORY OF GASTRIC BYPASS 06/26/2022 05/30/2024 resolved 69 9451333 SNOMED-CT SINUSITIS 04/30/2022 resolved 02194855 SNOMED-CT DIABETES 2 01/19/2024 resolved 07681214 SNOMED-C T Allergies and Adverse Reactions Allergy Substance Reaction Severity Start Date Concern Status Co de Code System CEFUROXIME Rash (SNOMED-CT: 583115126) Mild Active 2194 RxNorm KETOROLAC Hives (SNOMED-CT: 195078338) Mild Active 09412 RxNorm BIAXIN Hives (SNOMED-CT: 696810703) Severe Active LANTUS Hives (SNOMED-CT: 815112750) Mild Active 159625 RxNorm TAMIFLU Rash (SNOMED-CT: 613986915) Active 215264 RxNorm SEPTRA Rash (SNOMED-CT: 647964385) Mild Active LEVEMIR Hives (SNOMED-CT: 494460074) Mild Active 275575 RxNorm Plan of Treatment [place] Screening Bilateral [...]
--- OUTSIDE RECORDS SUMMARY | 2024-10-25 03:00 | XMS_ITS ---
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 Name Role Phone SCARLET MAI Attending Unavailab le Results HEMOGLOBIN A1C - Collect Elan e/Time: 08/12/2024 13:28 [facility] ID: [id number] [address], [place], [id number] LOINC: 4548-4 Test Value Unit Reference Range Code Code System Flag HEMOGLO A1C 7.0 % L=4.8 H=5.9 4548-4 LOINC H DIAG DIGITAL BREAST ERIC *UN I RT* MAMMO - Completed: 08/12/2024 13:23 LOINC: 75914-3 Examination: Digital right d iagnostic mammogram with 3-D tomosynthesisAccession: [id number] Date/Time: 08/12/2024 12:54 PM Reason For Exam: 2 focal asymmetries in the right breast on cc view only on prior screening exam with further evaluation recommended Comparison: Screening mammogram 07/20/2024Technique: Digital diagnostic mammography of the right breast was performed in addition to 3-D Tomosynthesis technique. This study was read with the assistance of a computer- aided detection system.Tissue density: The breast tissue contains scattered fibroglandular densities.Findings:The 2 focal asymmetries in the medial right breast are evaluated with spot compression tomographic images. Both asymmetries completely effaced. No persisting underlying asymmetry or mass. No suspicious interval change in parenchymal pattern of the right breast.===== IMPRESSION: =====1. No findings in the right breast to suggest malignancyAssessment: ACR BI-RADS CATEGORY 2 - BENIGN FINDING(S)Recommendation:1: Routine screening mammogram bilateral in 1 yearComments: Created and Electronically Signed by:Aki Barlow MD08/12/2024 13:20 Social History Type Status Start Date End Date Code Code Syst em Smoking History Unknown if ever smoked [id number] SNOMED CT Smoking History Never smoker (Never Smoked) 646072942 SNOMED CT Sex Female Sexual Orientation Straight or Heterosexual 89391949 SNOMED CT Gender Identity Female [id number] [address] Medications Medication Start Date End Date Route Frequency Dose Code Code System Medication Instructions Home Meds Lyrica 150MG Oral Capsule 08/30/2018 Unknown By Mouth Twice a day 1 CAPSULE 450893 RxNorm 1 CAPSULE By Mouth Twice a day Xyzal Allergy 24HR 5MG Oral Tablet 08/30/2018 Unknown By Mouth Daily 1 TABLET 793013 RxNorm 1 TABLET By Mouth Daily Pepcid AC 20MG Oral Tablet 03/15/2019 Unknown By Mouth Daily 1 TABLET 662849 RxNorm 1 TABLET By Mouth Daily Fiasp 100U/1ML Injection Solution 02/23/2020 Unknown Subcutane ous RxNorm Subcutaneou s VIA INSULIN PUMP Levothyroxin e 50MCG Oral Tablet 02/20/2023 Unknown By Mouth 1 TABLET 500717 RxNorm 1 TABLET By Mouth in the morning on an empty stomach- PRESCRIBED BY DR DURAN Baclofen 10MG Oral Tablet 02/20/2023 Unknown By Mouth Three times a day 1 TABLET 077474 RxNorm 1 TABLET By Mouth Three times a day With food Ativan 0.5MG Oral Tablet 09/02/2023 09/28/19 25 By Mouth Twice a day 1 TABLET 909657 RxNorm 1 TABLET By Mouth Twice a day PRN Paxil 30MG Oral Tablet 10/30/2023 08/17/19 25 By Mouth Daily 2 TABLET 528841 RxNorm 2 TABLET By Mouth Daily Crestor 40MG Oral Tablet 01/05/2024 09/27/19 25 By Mouth Daily 1 TABLET 207180 RxNorm TAKE 1 TABLET BY MOUTH ONCE A DAY Singulair 10MG Oral Tablet 01/05/2024 09/27/19 25 By Mouth Daily 1 TABLET 734756 RxNorm TAKE 1 TABLET BY MOUTH ONCE A DAY Ambien 5MG Oral Tablet 01/05/2024 09/28/19 25 By Mouth At bedtime 290664 RxNorm 1-2 TABLET By Mouth At bedtime As needed Victoza 6MG/1ML Subcutaneous Solution 06/20/2024 Unknown Subcutane ous Daily 1.8 MILLIGRAMS 476721 RxNorm 1.8 MILLIGRAMS Subcutaneou s Daily Ozempic 0.25 MG or 0.5 MG Doses 2 MG/3 ML Subcutaneous Solution 06/20/2024 Unknown Subcutane ous Once a week 1.5 MILLILITER 0658201 RxNorm 1.5 MILLILITER Subcutaneou s Once a week Lisinopril 5MG Oral Tablet 07/05/2024 09/27/19 25 By Mouth Daily 1 TABLET 099595 RxNorm 1 TABLET By Mouth Daily busPIRone 15MG Oral Tablet 08/05/2024 Unknown By Mouth Twice a day 1 TABLET 656884 RxNorm TAKE 1 TABLET BY MOUTH TWO TIMES A DAY Paxil 20MG Oral Tablet 08/16/2024 09/27/19 25 By Mouth Daily 1 TABLET 183626 RxNorm 1 TABLET By Mouth Daily Wellbutrin XL 150MG Oral Tablet, Extended Release, 24 HR 08/16/2024 09/27/19 25 By Mouth Daily 1 TABLET 870784 RxNorm 1 TABLET By Mouth Daily. Wellbutrin XL 150MG Oral Tablet, Extended Release, 24 HR 09/26/2024 Unknown By Mouth Daily 1 TABLET 755840 RxNorm 1 TABLET By Mouth Daily. Paxil 20MG Oral Tablet 09/26/2024 Unknown By Mouth Daily 1 TABLET 874281 RxNorm 1 TABLE T By Mouth Daily Lisinopril 5MG Oral Tablet 09/26/2024 Unknown By Mouth Daily 1 TABLET 413522 RxNorm 1 TABLET By Mouth Daily Singulair 10MG Oral Tablet 09/26/2024 Unknown By Mouth Daily 1 TABLET 490282 RxNorm TAKE 1 TABLET BY MOUTH ONCE A DAY Crestor 40MG Oral Tablet 09/26/2024 Unknown By Mouth Daily 1 TABLET 574175 RxNorm TAKE 1 TABLET BY MOUTH ONCE A DAY Ativan 0.5MG Oral Tablet 09/27/2024 Unknown By Mouth As needed daily 1 TABLET 174721 RxNorm 1 TABLET By Mouth As needed daily Ambien 5MG Oral Tablet 09/27/2024 10/05/19 25 By Mouth At bedtime 087749 RxNorm 1-2 TABLET By Mouth At bedtime As needed Ambien 5MG Oral Tablet 10/04/2024 Unknown By Mouth At bedtime 1 TABLET 408836 RxNorm 1 TABLET By Mouth At bedtime [...] TYPE I DIABETES MELLITUS WITH HYPERGLYCEMIA active 902469826770532 SNOMED -CT HYPERTENSION active 75739688 SNOMED- CT HYPERCHOLESTEROLEMIA active 33059383 SNOMED-CT HYPOTHYROIDISM active 91518013 SNOME D-CT LUMBAR RADICULOPATHY active 946776238 SNOMED-CT LOW POTASSIUM active 68746903 SNOMED -CT GERD active 947067640 SNOMED-CT ALLERGIC RHINITIS active 31982994 SN OMED-CT DEPRESSION active 31342823 SNOMED-CT ANXIETY active 82325134 SNOMED-CT ASTHMA active 744023870 SNOMED-CT CHRONIC KIDNEY DISEASE STAGE 3 active 564614205 SNOMED-CT OBESITY active 600673523 SNOMED-CT ENDOMETRIOSIS active 564739793 SNOMED -CT SLEEP APNEA active 69040943 SNOMED-C 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 496531155829296 SNOMED-CT 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 24164757 S NOMED-CT HYPERCALCEMIA active 83591016 SNOMED -CT ENCOUNTER FOR FITTING AND ADJUSTMENT OF INSULIN PUMP active 005987086 S NOMED-CT ABNORMAL LEVELS OF OTHER SERUM ENZYMES active 958931103 SNOMED-CT HISTORY OF GASTRIC BYPASS 06/26/2022 05/30/2024 resolved 69 8558338 SNOMED-CT SINUSITIS 04/30/2022 resolved 42741900 SNOMED-CT DIABETES 2 01/19/2024 resolved 69660754 SNOMED-C T Allergies and Adverse Reactions Allergy Substance Reaction Severity Start Date Concern Status Co de Code System CEFUROXIME Rash (SNOMED-CT: 891158697) Mild Active 2194 RxNorm KETOROLAC Hives (SNOMED-CT: 505260349) Mild Active 66943 RxNorm BIAXIN Hives (SNOMED-CT: 933654662) Severe Active LANTUS Hives (SNOMED-CT: 873266138) Mild Active 463893 RxNorm TAMIFLU Rash (SNOMED-CT: 453720789) Active 734210 RxNorm SEPTRA Rash (SNOMED-CT: 809884560) Mild Active LEVEMIR Hives (SNOMED-CT: 354584667) Mild Active 410640 RxNorm Plan of Treatment MA Screening Bilateral 07/25/2025 Established Patient 30 01/03/2025 Description Due Date Details Instructions Pap 08/18/2025 Performed 09/06 20 normal, repeat in 5 yrs per [place] - RR 5.20.21 Sdoh 01/04/2025 Annual Labs 11/10/2024 cbc, cmp, tsh, free t4, lipids Mammogram 08/12/2025 08/12/24- WNL Depression 06/06/2025 Anxiety 06/06/2025 Encounters Encounter Diagnosis Start Date Code Code Sys tem Hyperglycemia due to type 1 diabetes mellitus 08/13/19 [id number] SNOMED-CT Personal Care Team Section Performer Name Performer Role Active Date Inactive Da te
--- OUTSIDE RECORDS SUMMARY | 2024-10-25 03:00 | XMS_ITS ---
Author Organization Unknown Address [address] [place] [phone] Phone Care Team Providers Care Load Dispatcher Name Role Phone ROSITA ROSADO Attending Unavailable [...] em Smoking History Never smoker (Never Smoked) [id number] SNOMED CT Smoking History Unknown if ever smoked [id number] SNOMED CT Sex Female Sexual Orientation Straight or Heterosexual [id number] SNOMED CT Gender Identity Female [id number] Medications Medication Start Date End Date Route Frequency Dose Code Code System Medication Instructions Home Meds Lyrica 150MG Oral Capsule 08/30/2018 Unknown By Mouth Twice a day 1 CAPSULE 629218 RxNorm 1 CAPSULE By Mouth Twice a day Xyzal Allergy 24HR 5MG Oral Tablet 08/30/2018 Unknown By Mouth Daily 1 TABLET 509873 RxNorm 1 TABLE T By Mouth Daily CeleBREX 100MG Oral Capsule 03/15/2019 12/31/19 23 By Mouth Twice a day 1 CAPSULE 255425 RxNorm 1 CAPSULE By Mouth Twice a day Pepcid AC 20MG Oral Tablet 03/15/2019 Unknown By Mouth Daily 1 TABLET 101758 RxNorm 1 TABLET By Mouth Daily medical marijuana 07/27/2019 04/22/19 24 By Mouth As Directed 1 edible RxNorm 1 edible By Mouth As Directed Fiasp 100U/1ML Injection Solution 02/23/2020 Unknown Subcutane ous 7840518 RxNorm Subcutaneou s VIA INSULIN PUMP Victoza 6MG/1ML Subcutaneou s Solution 02/23/2020 04/22/19 24 Subcutane ous Daily 1.8 MILLIGRAMS 838800 RxNorm 1.8 MILLIGRAMS Subcutaneou s Daily Crestor 40MG Oral Tablet 04/08/2022 06/05/19 23 By Mouth Daily 1 TABLET 530354 RxNorm TAKE 1 TABLET BY MOUTH ONCE A DAY Naltrexone HCl Powder 04/29/2022 06/06/19 25 By Mouth At bedtime 3 MILLIGRAMS RxNorm 3 MILLIGRAMS By Mouth At bedtime Paxil 40MG Oral Tablet 04/29/2022 02/05/20 23 By Mouth Daily 1 TABLET 723876 RxNorm TAKE 1 TABLET BY MOUTH ONCE A DAY busPIRone 15MG Oral Tablet 04/29/2022 02/05/20 23 By Mouth Twice a day 1 TABLET 488309 RxNorm TAKE 1 TABLET BY MOUTH TWO TIMES A DAY Prinivil 5MG Oral Tablet 04/29/2022 06/19/19 24 By Mouth Daily 1 TABLET 177269 RxNorm TAKE 1 TABLET BY MOUTH ONCE A DAY Potassium Chloride 20MEQ Oral Tablet, Extended Release 04/29/2022 12/31/19 23 By Mouth Twice a day 2 TABLET 4481580 RxNorm TAKE 2 TABLETS BY MOUTH TWO TIMES A DAY Singulair 10MG Oral Tablet 04/29/2022 05/07/19 24 By Mouth Daily 1 TABLET 619461 RxNorm TAKE 1 TABLET BY MOUTH ONCE A DAY Crestor 40MG Oral Tablet 06/05/2022 08/20/19 23 By Mouth Daily 1 TABLET 764589 RxNorm TAKE 1 TABLET BY MOUTH ONCE A DAY Crestor 40MG Oral Tablet 08/19/2022 12/20/19 23 By Mouth Daily 1 TABLET 003994 RxNorm TAKE 1 TABLET BY MOUTH ONCE A DAY Crestor 40MG Oral Tablet 12/19/2022 12/31/19 23 By Mouth Daily 1 TABLET 935294 RxNorm TAKE 1 TABLET BY MOUTH ONCE A DAY Ozempic 0.25 MG or 0.5 MG Doses 2 MG/3 ML Subcutaneou s Solution 12/30/2022 01/05/20 24 Subcutane ous Once a week 0.25 UNIT 7268679 RxNorm 0.25 UNIT Subcutaneou s Once a week Crestor 40MG Oral Tablet 12/30/2022 12/31/19 23 By Mouth Daily 1 TABLET 929060 RxNorm TAKE 1 TABLET BY MOUTH ONCE A DAY Crestor 40MG Oral Tablet 12/30/2022 01/05/20 24 By Mouth Daily 1 TABLET 578994 RxNorm TAKE 1 TABLET BY MOUTH ONCE A DAY Paxil 40MG Oral Tablet 02/04/2023 07/07/19 24 By Mouth Daily 1 TABLET 264288 RxNorm TAKE 1 TABLET BY MOUTH ONCE A DAY busPIRone 15MG Oral Tablet 02/04/2023 07/07/19 24 By Mouth Twice a day 1 TABLET 056114 RxNorm TAKE 1 TABLET BY MOUTH TWO TIMES A DAY Levothyroxi ne 50MCG Oral Tablet 02/20/2023 Unknown By Mouth 1 TABLET 200205 RxNorm 1 TABLE T By Mouth in the morning on an empty stomach- PRESCRIBED BY DR DURAN Victojersey 6MG/1ML Subcutaneou s Solution 02/20/2023 06/21/19 25 Subcutane ous Daily 1.8 UNIT 149704 RxNorm 1.8 UNIT Subcutaneou s Daily- *PRESCRIBED BY DR DURAN NovoLOG FlexPen 100U/1ML Subcutaneou s Solution 02/20/2023 04/07/20 23 Subcutane ous 2845619 RxNorm Inject up to 100 Units SUBQ daily in DMDED doses--- * PRESCRIBED BY DR DURAN Baclofen 10MG Oral Tablet 02/20/2023 Unknown By Mouth Three times a day 1 TABLET 313626 RxNorm 1 TABLET By Mouth Three times a day With food Aspirin 81MG Oral Tablet, Enteric Coated 02/20/2023 04/07/20 23 By Mouth Daily 1 TABLET 685667 RxNorm 1 TABLET By Mouth Daily Vitamin D 1000IU Oral Tablet 02/20/2023 04/07/20 23 By Mouth Daily 1 TABLET 541975 RxNorm 1 TABLET By Mouth Daily Augmentin 875MG-125MG Oral Tablet 04/22/2023 05/28/19 24 By Mouth Every 12 hours 1 TABLET 645521 RxNorm 1 TABLET By Mouth Every 12 hours x 10 days. Take with food. Diflucan 150MG Oral Tablet 04/22/2023 05/28/19 24 By Mouth x1 NOW 1 TABLET 404469 RxNorm 1 TABLET By Mouth x1 NOW. May repeat in 72 hours as needed. Singulair 10MG Oral Tablet 05/07/2023 07/07/19 24 By Mouth Daily 1 TABLET 906320 RxNorm TAKE 1 TABLET BY MOUTH ONCE A DAY Prinivil 5MG Oral Tablet 06/19/2023 06/22/19 24 By Mouth Daily 1 TABLET 533629 RxNorm TAKE 1 TABLET BY MOUTH ONCE A DAY Prinivil 5MG Oral Tablet 06/22/2023 07/07/19 24 By Mouth Daily 1 TABLET 651429 RxNorm TAKE 1 TABLET BY MOUTH ONCE A DAY Prinivil 5MG Oral Tablet 07/07/2023 01/05/20 24 By Mouth Daily 1 TABLET 217910 RxNorm TAKE 1 TABLET BY MOUTH ONCE A DAY Singulair 10MG Oral Tablet 07/07/2023 01/05/20 24 By Mouth Daily 1 TABLET 490828 RxNorm TAKE 1 TABLET BY MOUTH ONCE A DAY Paxil 40MG Oral Tablet 07/07/2023 10/02/19 24 By Mouth Daily 1 TABLET 967106 RxNorm TAKE 1 TABLET BY MOUTH ONCE A DAY busPIRone 15MG Oral Tablet 07/07/2023 01/05/20 24 By Mouth Twice a day 1 TABLET 158748 RxNorm TAKE 1 TABLET BY MOUTH TWO TIMES A DAY Ativan 0.5MG Oral Tablet 09/02/2023 09/28/19 25 By Mouth Twice a day 1 TABLET 934080 RxNorm 1 TABLET By Mouth Twice a day PRN Paxil 30MG Oral Tablet 10/02/2023 10/30/19 24 By Mouth Daily 2 TABLET 801250 RxNorm 2 TABLET By Mouth Daily Paxil 30MG Oral Tablet 10/30/2023 08/17/19 25 By Mouth Daily 2 TABLET 510442 RxNorm 2 TABLET By Mouth Daily Ambien 5MG Oral Tablet 12/11/2023 01/05/20 24 By Mouth At bedtime 711243 RxNorm 1-2 TABLET By Mouth At bedtime As needed Ozempic 0.25 MG or 0.5 MG Doses 2 MG/3 ML Subcutaneou s Solution 01/05/2024 06/21/19 25 Subcutane ous Once a week 0.5 UNIT 6563271 RxNorm 0.5 UNIT Subcutaneou s Once a week Crestor 40MG Oral Tablet 01/05/2024 09/27/19 25 By Mouth Daily 1 TABLET 476839 RxNorm TAKE 1 TABLET BY MOUTH ONCE A DAY busPIRone 15MG Oral Tablet 01/05/2024 08/06/19 25 By Mouth Twice a day 1 TABLET 660397 RxNorm TAKE 1 TABLET BY MOUTH TWO TIMES A DAY Singulair 10MG Oral Tablet 01/05/2024 09/27/19 25 By Mouth Daily 1 TABLET 281513 RxNorm TAKE 1 TABLET BY MOUTH ONCE A DAY Ambien 5MG Oral Tablet 01/05/2024 09/28/19 25 By Mouth At bedtime 406613 RxNorm 1-2 TABLET By Mouth At bedtime As needed Prinivil 5MG Oral Tablet 01/05/2024 07/06/19 25 By Mouth Daily 1 TABLET 789358 RxNorm TAKE 1 TABLET BY MOUTH ONCE A DAY Promethazin e DM 6.25MG/5ML- 15MG/5ML Oral Syrup 01/25/2024 06/06/19 25 ORAL As needed every 4 hr 5 mL 544793 RxNorm 5 mL ORAL As needed every 4 hr-do not take within 2 hours of Paxil or Buspirone Augmentin 875MG-125MG Oral Tablet 01/25/2024 06/06/19 25 By Mouth Twice a day 1 TABLET 737478 RxNorm 1 TABLET By Mouth Twice a day x 10 days Airsupra 90 MCG/1 Actuation-8 0 MCG/1 Actuation Inhalation Aerosol Powder 01/25/2024 06/06/19 25 Inhale As needed every 4 hr 2 Puff 2640759 RxNorm 2 Puff Inhale As needed every 4 hr Victoza 6MG/1ML Subcutaneou s Solution 06/20/2024 Unknown Subcutane ous Daily 1.8 MILLIGRAMS 430180 RxNorm 1.8 MILLIGRAMS Subcutaneou s Daily Ozempic 0.25 MG or 0.5 MG Doses 2 MG/3 ML Subcutaneou s Solution 06/20/2024 Unknown Subcutane ous Once a week 1.5 MILLILITER 7632806 RxNorm 1.5 MILLILITER Subcutaneou s Once a week Lisinopril 5MG Oral Tablet 07/05/2024 09/27/19 25 By Mouth Daily 1 TABLET 713968 RxNorm 1 TABLET By Mouth Daily busPIRone 15MG Oral Tablet 08/05/2024 Unknown By Mouth Twice a day 1 TABLET 023842 RxNorm TAKE 1 TABLET BY MOUTH TWO TIMES A DAY Paxil 20MG Oral Tablet 08/16/2024 09/27/19 25 By Mouth Daily 1 TABLET 969284 RxNorm 1 TABLET By Mouth Daily Wellbutrin XL 150MG Oral Tablet, Extended Release, 24 HR 08/16/2024 09/27/19 25 By Mouth Daily 1 TABLET 782466 RxNorm 1 TABLET By Mouth Daily. Wellbutrin XL 150MG Oral Tablet, Extended Release, 24 HR 09/26/2024 Unknown By Mouth Daily 1 TABLET 523321 RxNorm 1 TABLET By Mouth Daily. Paxil 20MG Oral Tablet 09/26/2024 Unknown By Mouth Daily 1 TABLET 299458 RxNorm 1 TABLE T By Mouth Daily Lisinopril 5MG Oral Tablet 09/26/2024 Unknown By Mouth Daily 1 TABLET 679391 RxNorm 1 TABLET By Mouth Daily Singulair 10MG Oral Tablet 09/26/2024 Unknown By Mouth Daily 1 TABLET 549961 RxNorm TAKE 1 TABLET BY MOUTH ONCE A DAY Crestor 40MG Oral Tablet 09/26/2024 Unknown By Mouth Daily 1 TABLET 785120 RxNorm TAKE 1 TABLET BY MOUTH ONCE A DAY Ativan 0.5MG Oral Tablet 09/27/2024 Unknown By Mouth As needed daily 1 TABLET 986207 RxNorm 1 TABLET By Mouth As needed daily Ambien 5MG Oral Tablet 09/27/2024 10/05/19 25 By Mouth At bedtime 233122 RxNorm 1-2 TABLET By Mouth At bedtime As needed Ambien 5MG Oral Tablet 10/04/2024 Unknown By Mouth At bedtime 1 TABLET 186006 RxNorm 1 TABLET By Mouth At bedtime [...] TYPE I DIABETES MELLITUS WITH HYPERGLYCEMIA active [id number] SNOMED -CT HYPERTENSION active 50456159 SNOMED- CT HYPERCHOLESTEROLEMIA active 28929679 SNOMED-CT HYPOTHYROIDISM active 15403779 SNOME D-CT LUMBAR RADICULOPATHY active 839296951 SNOMED-CT LOW POTASSIUM active 91397188 SNOMED -CT GERD active 906416827 SNOMED-CT ALLERGIC RHINITIS active 98799828 SN OMED-CT DEPRESSION active 93871255 SNOMED-CT ANXIETY active 47919489 SNOMED-CT ASTHMA active 981491402 SNOMED-CT CHRONIC KIDNEY DISEASE STAGE 3 active 462004257 SNOMED-CT OBESITY active 622057381 SNOMED-CT ENDOMETRIOSIS active 559189352 SNOMED -CT SLEEP APNEA active 23337968 SNOMED-C 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 458870949389411 SNOMED-CT 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 14348217 S NOMED-CT HYPERCALCEMIA active 27131192 SNOMED -CT ENCOUNTER FOR FITTING AND ADJUSTMENT OF INSULIN PUMP active 610539173 S NOMED-CT ABNORMAL LEVELS OF OTHER SERUM ENZYMES active 693358996 SNOMED-CT HISTORY OF GASTRIC BYPASS 06/26/2022 05/30/2024 resolved 69 5069750 SNOMED-CT SINUSITIS 04/30/2022 resolved 74777228 SNOMED-CT DIABETES 2 01/19/2024 resolved 35450330 SNOMED-C T Allergies and Adverse Reactions Allergy Substance Reaction Severity Start Date Concern Status Co de Code System CEFUROXIME Rash (SNOMED-CT: 760895090) Mild Active 2194 RxNorm KETOROLAC Hives (SNOMED-CT: 583680544) Mild Active 79112 RxNorm BIAXIN Hives (SNOMED-CT: 575258077) Severe Active LANTUS Hives (SNOMED-CT: 475565692) Mild Active 477457 RxNorm TAMIFLU Rash (SNOMED-CT: 031994772) Active 696057 RxNorm SEPTRA Rash (SNOMED-CT: 713072495) Mild Active LEVEMIR Hives (SNOMED-CT: 501836394) Mild Active 079575 RxNorm Plan of Treatment MA Screening Bilateral 07/25/2025 Established Patient 30 01/03/2025 Description Due Date Details Instructions Pap 08/18/2025 Performed 09/06 21 normal, repeat in 5 yrs per Ashlee - RR 5.20.21 Sdoh 01/04/2025 Annual Labs 11/10/2024 cbc, cmp, tsh, free t4, lipids Mammogram 08/12/2025 08/12/24- WNL Depression 06/06/2025 Anxiety 06/06/2025 Encounters Encounter Diagnosis Start Date Code Code Sys tem Type 2 diabetes mellitus without complication 05/14/19 23 [id number] [facility] [employer] Personal Care Team Section Performer Name Performer Role Active Date Inactive Da te Progress Notes [facility] 05/14/2022 11:29 Date of Service: 05/14/2022 Primary Care Physician: ASHLEE BECKER Chronic Care Management Visit Note Health Risk Assessment (Mail Communication) April Monthly Update The Primary Care Management visit had a cumulative time of 00:28:05 involving: review of patient information, documentation, practice information review, and mailing to [...] a calendar month, and that cost-sharing applies. Cassandra Ramon LPN, Straw Hat Brim Cutter Operator No immediate concerns for provider. The nurse reviewed the patient's chart to assess for and identify potential and actual health risks. This review included the patient's current medications, medical diagnoses, and medical, surgical, and social histories. This information will be reviewed and updated for accuracy in collaboration with the patient during the Chronic Care Management call next month. The following communication was mailed to the patient for review: This month I reviewed your chart for potential risks to your health and well-being. Risks are things in your social, environment, medical history, or your medications that could potentially affect your quality of life. Being aware of these potential risks can help prevent future healthcare problems. I will be reaching out to you to discuss these potential risks with you. Take some time to write down what you think are or could be risks to your health. Potential health risks: Environmental Risks: Increased risk of hypothermia due to cold climate. Increased risk of heat stroke due to hot climate. Increased risk of injury due to tornado-prone location. Increased risk of earthquake due to earthquake-prone location. Increased risk of household fire due to older building wiring. Increased risk of flooding due to flood-prone location. Please list any additional environmental risk factors: Social: Please list any additional social risk factors: Economic: Please list any additional economic risk factors: Medications: Famotidine - may cause headache, dizziness, constipation or diarrhea. Insulins - possible adverse effects include weight gain, swelling, itching or redness near injection site, and electrolyte disturbances. Celecoxib - side effects may include gas or bloating, sore throat, cold symptoms, constipation, dizziness, and change in taste. Famotidine - side effects may include headache, dizziness, constipation, or diarrhea. Montelukast (Singulair) - side effects may include headache, heartburn, stomach pain, tiredness, or diarrhea. Rosuvastatin (Crestor) - side effects may include constipation, stomach pain, dizziness, difficulty falling asleep or staying asleep, depression, joint pain, headache, memory loss or forgetfulness, and confusion. Please list any additional medication risk factors: Medical History: Anxiety - can cause rapid heart rate, palpitations, and chest pain. You may also be at an increased risk of high blood pressure and heart disease. If you already have heart disease, anxiety disorders may raise the risk of coronary events. May lead to alcohol or drug abuse. Asthma - can cause shortness of breath, chest tightness or pain, wheezing when exhaling, coughing or and/or trouble sleeping. May increase the risk of cardiovascular disease, heart attack, and stroke. Chronic kidney disease - can cause the kidneys to be unable to maintain the proper balance of fluid and chemicals in the body and unable to filter waste products. If waste cannot leave the body, your health is at risk. CKD can increase your risk of anemia, bone diseases, and heart disease. Progression of CKD can lead to the need for dialysis treatment. Diabetes - increased risk of stroke, blindness, heart disease, infections, damaged blood vessels, nerve damage, and kidney failure. Depression - linked to heart disease, insomnia, and increased risk for substance abuse. Depression also can increase your stress level hormones making it harder to fight infections. GERD (gastroesophageal reflux disease or acid reflux) - If GERD is left untreated, esophagitis can cause bleeding, ulcers, sinusitis and chronic scarring. This scarring can narrow the esophagus, eventually interfering with your ability to swallow. Hyperlipidemia - increases the risk for heart attack or stroke. Hypertension - Uncontrolled high blood pressure can increase your risk for damage to your arteries (an aneurysm, narrowed arteries), heart (coronary artery disease, heart failure, enlarged left heart), brain (TIA, stroke, dementia, and mild cognitive impairment), eyes (retinopathy, optic neuropathy) and kidneys (kidney failure). Hypothyroidism - Can cause low energy and tiredness, depression, weight gain, excessive sleepiness, and slowed thinking. Can also contribute to heart disease, decreased lung function and an abnormal enlargement of the thyroid gland (goiter). Obesity - Body mass index (BMI) is a way to measure obesity. BMI is a measure of body fat based on height and weight. A BMI of 25 to 30 is overweight. A BMI over 30 is obese. It can lead to serious health problems, such as: diabetes, arthritis, high blood pressure, heart disease, stroke, sleep apnea, liver disease, certain lung diseases, and certain cancers. Sleep Apnea - can increase your risk of high blood pressure, heart attack, stroke and abnormal heartbeats, such as Atrial Fibrillation. Sleep Apnea - Can cause complications such as: daytime fatigue, high blood pressure or heart problems, Type 2 diabetes, metabolic syndrome, liver problems, and sleep-deprived partners. Please list any additional health history risk factors: Upcoming Appointments: Your chart indicates that you have the following appointments: 10/28/2022 @ 11:00 AM with Yas My very best to you, take good care, Kilo! Cassandra Ramon LPN [phone] ICD10 Description E11.9 Type 2 diabetes mellitus without complications
--- OUTSIDE RECORDS SUMMARY | 2024-10-25 03:00 | XMS_ITS ---
Author Organization Unknown Address [address] [place] [address] [phone] Phone Care Team Providers Care Administration Clerk Name Role Phone SCARLET ZAYAS Attending Unavailable [...] em Smoking History Never smoker (Never Smoked) [id number] SNOMED CT Smoking History Unknown if ever smoked [id number] SNOMED CT Sex Female Sexual Orientation Straight or Heterosexual [id number] SNOMED CT Gender Identity Female [id number] Medications Medication Start Date End Date Route Frequency Dose Code Code System Medication Instructions Home Meds Lyrica 150MG Oral Capsule 08/30/2018 Unknown By Mouth Twice a day 1 CAPSULE 476065 RxNorm 1 CAPSULE By Mouth Twice a day Xyzal Allergy 24HR 5MG Oral Tablet 08/30/2018 Unknown By Mouth Daily 1 TABLET 098338 RxNorm 1 TABLE T By Mouth Daily CeleBREX 100MG Oral Capsule 03/15/2019 12/31/19 23 By Mouth Twice a day 1 CAPSULE 941920 RxNorm 1 CAPSULE By Mouth Twice a day Pepcid AC 20MG Oral Tablet 03/15/2019 Unknown By Mouth Daily 1 TABLET 751370 RxNorm 1 TABLET By Mouth Daily medical marijuana 07/27/2019 04/22/19 24 By Mouth As Directed 1 edible RxNorm 1 edible By Mouth As Directed Fiasp 100U/1ML Injection Solution 02/23/2020 Unknown Subcutane ous 7118766 RxNorm Subcutaneou s VIA INSULIN PUMP Victoza 6MG/1ML Subcutaneou s Solution 02/23/2020 04/22/19 24 Subcutane ous Daily 1.8 MILLIGRAMS 292354 RxNorm 1.8 MILLIGRAMS Subcutaneou s Daily Naltrexone HCl Powder 04/29/2022 06/06/19 25 By Mouth At bedtime 3 MILLIGRAMS RxNorm 3 MILLIGRAMS By Mouth At bedtime Paxil 40MG Oral Tablet 04/29/2022 02/05/20 23 By Mouth Daily 1 TABLET 704848 RxNorm TAKE 1 TABLET BY MOUTH ONCE A DAY busPIRone 15MG Oral Tablet 04/29/2022 02/05/20 23 By Mouth Twice a day 1 TABLET 532075 RxNorm TAKE 1 TABLET BY MOUTH TWO TIMES A DAY Prinivil 5MG Oral Tablet 04/29/2022 06/19/19 24 By Mouth Daily 1 TABLET 906444 RxNorm TAKE 1 TABLET BY MOUTH ONCE A DAY Potassium Chloride 20MEQ Oral Tablet, Extended Release 04/29/2022 12/31/19 23 By Mouth Twice a day 2 TABLET 1316598 RxNorm TAKE 2 TABLETS BY MOUTH TWO TIMES A DAY Singulair 10MG Oral Tablet 04/29/2022 05/07/19 24 By Mouth Daily 1 TABLET 833625 RxNorm TAKE 1 TABLET BY MOUTH ONCE A DAY Crestor 40MG Oral Tablet 06/05/2022 08/20/19 23 By Mouth Daily 1 TABLET 326977 RxNorm TAKE 1 TABLET BY MOUTH ONCE A DAY Crestor 40MG Oral Tablet 08/19/2022 12/20/19 23 By Mouth Daily 1 TABLET 208833 RxNorm TAKE 1 TABLET BY MOUTH ONCE A DAY Crestor 40MG Oral Tablet 12/19/2022 12/31/19 23 By Mouth Daily 1 TABLET 327225 RxNorm TAKE 1 TABLET BY MOUTH ONCE A DAY Ozempic 0.25 MG or 0.5 MG Doses 2 MG/3 ML Subcutaneou s Solution 12/30/2022 01/05/20 24 Subcutane ous Once a week 0.25 UNIT 5297219 RxNorm 0.25 UNIT Subcutaneou s Once a week Crestor 40MG Oral Tablet 12/30/2022 12/31/19 23 By Mouth Daily 1 TABLET 742813 RxNorm TAKE 1 TABLET BY MOUTH ONCE A DAY Crestor 40MG Oral Tablet 12/30/2022 01/05/20 24 By Mouth Daily 1 TABLET 572616 RxNorm TAKE 1 TABLET BY MOUTH ONCE A DAY Paxil 40MG Oral Tablet 02/04/2023 07/07/19 24 By Mouth Daily 1 TABLET 911699 RxNorm TAKE 1 TABLET BY MOUTH ONCE A DAY busPIRone 15MG Oral Tablet 02/04/2023 07/07/19 24 By Mouth Twice a day 1 TABLET 085696 RxNorm TAKE 1 TABLET BY MOUTH TWO TIMES A DAY Levothyroxi ne 50MCG Oral Tablet 02/20/2023 Unknown By Mouth 1 TABLET 259565 RxNorm 1 TABLE T By Mouth in the morning on an empty stomach- PRESCRIBED BY DR DURAN Victoza 6MG/1ML Subcutaneou s Solution 02/20/2023 06/21/19 25 Subcutane ous Daily 1.8 UNIT 710210 RxNorm 1.8 UNIT Subcutaneou s Daily- *PRESCRIBED BY DR DURAN NovoLOG FlexPen 100U/1ML Subcutaneou s Solution 02/20/2023 04/07/20 23 Subcutane ous 7062854 RxNorm Inject up to 100 Units SUBQ daily in DMDED doses--- * PRESCRIBED BY DR DURAN Baclofen 10MG Oral Tablet 02/20/2023 Unknown By Mouth Three times a day 1 TABLET 882758 RxNorm 1 TABLET By Mouth Three times a day With food Aspirin 81MG Oral Tablet, Enteric Coated 02/20/2023 04/07/20 23 By Mouth Daily 1 TABLET 598483 RxNorm 1 TABLET By Mouth Daily Vitamin D 1000IU Oral Tablet 02/20/2023 04/07/20 23 By Mouth Daily 1 TABLET 961114 RxNorm 1 TABLET By Mouth Daily Augmentin 875MG-125MG Oral Tablet 04/22/2023 05/28/19 24 By Mouth Every 12 hours 1 TABLET 101534 RxNorm 1 TABLET By Mouth Every 12 hours x 10 days. Take with food. Diflucan 150MG Oral Tablet 04/22/2023 05/28/19 24 By Mouth x1 NOW 1 TABLET 068439 RxNorm 1 TABLET By Mouth x1 NOW. May repeat in 72 hours as needed. Singulair 10MG Oral Tablet 05/07/2023 07/07/19 24 By Mouth Daily 1 TABLET 430873 RxNorm TAKE 1 TABLET BY MOUTH ONCE A DAY Prinivil 5MG Oral Tablet 06/19/2023 06/22/19 24 By Mouth Daily 1 TABLET 202420 RxNorm TAKE 1 TABLET BY MOUTH ONCE A DAY Prinivil 5MG Oral Tablet 06/22/2023 07/07/19 24 By Mouth Daily 1 TABLET 088867 RxNorm TAKE 1 TABLET BY MOUTH ONCE A DAY Prinivil 5MG Oral Tablet 07/07/2023 01/05/20 24 By Mouth Daily 1 TABLET 355832 RxNorm TAKE 1 TABLET BY MOUTH ONCE A DAY Singulair 10MG Oral Tablet 07/07/2023 01/05/20 24 By Mouth Daily 1 TABLET 098369 RxNorm TAKE 1 TABLET BY MOUTH ONCE A DAY Paxil 40MG Oral Tablet 07/07/2023 10/02/19 24 By Mouth Daily 1 TABLET 871583 RxNorm TAKE 1 TABLET BY MOUTH ONCE A DAY busPIRone 15MG Oral Tablet 07/07/2023 01/05/20 24 By Mouth Twice a day 1 TABLET 062818 RxNorm TAKE 1 TABLET BY MOUTH TWO TIMES A DAY Ativan 0.5MG Oral Tablet 09/02/2023 09/28/19 25 By Mouth Twice a day 1 TABLET 204731 RxNorm 1 TABLET By Mouth Twice a day PRN Paxil 30MG Oral Tablet 10/02/2023 10/30/19 24 By Mouth Daily 2 TABLET 278474 RxNorm 2 TABLET By Mouth Daily Paxil 30MG Oral Tablet 10/30/2023 08/17/19 25 By Mouth Daily 2 TABLET 562863 RxNorm 2 TABLET By Mouth Daily Ambien 5MG Oral Tablet 12/11/2023 01/05/20 24 By Mouth At bedtime 045786 RxNorm 1-2 TABLET By Mouth At bedtime As needed Ozempic 0.25 MG or 0.5 MG Doses 2 MG/3 ML Subcutaneou s Solution 01/05/2024 06/21/19 25 Subcutane ous Once a week 0.5 UNIT 2828173 RxNorm 0.5 UNIT Subcutaneou s Once a week Crestor 40MG Oral Tablet 01/05/2024 09/27/19 25 By Mouth Daily 1 TABLET 001172 RxNorm TAKE 1 TABLET BY MOUTH ONCE A DAY busPIRone 15MG Oral Tablet 01/05/2024 08/06/19 25 By Mouth Twice a day 1 TABLET 660147 RxNorm TAKE 1 TABLET BY MOUTH TWO TIMES A DAY Singulair 10MG Oral Tablet 01/05/2024 09/27/19 25 By Mouth Daily 1 TABLET 517981 RxNorm TAKE 1 TABLET BY MOUTH ONCE A DAY Ambien 5MG Oral Tablet 01/05/2024 09/28/19 25 By Mouth At bedtime 537009 RxNorm 1-2 TABLET By Mouth At bedtime As needed Prinivil 5MG Oral Tablet 01/05/2024 07/06/19 25 By Mouth Daily 1 TABLET 245650 RxNorm TAKE 1 TABLET BY MOUTH ONCE A DAY Promethazin e DM 6.25MG/5ML- 15MG/5ML Oral Syrup 01/25/2024 06/06/19 25 ORAL As needed every 4 hr 5 mL 333489 RxNorm 5 mL ORAL As needed every 4 hr-do not take within 2 hours of Paxil or Buspirone Augmentin 875MG-125MG Oral Tablet 01/25/2024 06/06/19 25 By Mouth Twice a day 1 TABLET 235566 RxNorm 1 TABLET By Mouth Twice a day x 10 days Airsupra 90 MCG/1 Actuation-8 0 MCG/1 Actuation Inhalation Aerosol Powder 01/25/2024 06/06/19 25 Inhale As needed every 4 hr 2 Puff 6862302 RxNorm 2 Puff Inhale As needed every 4 hr Victoza 6MG/1ML Subcutaneou s Solution 06/20/2024 Unknown Subcutane ous Daily 1.8 MILLIGRAMS 970877 RxNorm 1.8 MILLIGRAMS Subcutaneou s Daily Ozempic 0.25 MG or 0.5 MG Doses 2 MG/3 ML Subcutaneou s Solution 06/20/2024 Unknown Subcutane ous Once a week 1.5 MILLILITER 0116705 RxNorm 1.5 MILLILITER Subcutaneou s Once a week Lisinopril 5MG Oral Tablet 07/05/2024 09/27/19 25 By Mouth Daily 1 TABLET 546759 RxNorm 1 TABLET By Mouth Daily busPIRone 15MG Oral Tablet 08/05/2024 Unknown By Mouth Twice a day 1 TABLET 607045 RxNorm TAKE 1 TABLET BY MOUTH TWO TIMES A DAY Paxil 20MG Oral Tablet 08/16/2024 09/27/19 25 By Mouth Daily 1 TABLET 972023 RxNorm 1 TABLET By Mouth Daily Wellbutrin XL 150MG Oral Tablet, Extended Release, 24 HR 08/16/2024 09/27/19 25 By Mouth Daily 1 TABLET 601597 RxNorm 1 TABLET By Mouth Daily. Wellbutrin XL 150MG Oral Tablet, Extended Release, 24 HR 09/26/2024 Unknown By Mouth Daily 1 TABLET 606398 RxNorm 1 TABLET By Mouth Daily. Paxil 20MG Oral Tablet 09/26/2024 Unknown By Mouth Daily 1 TABLET 126671 RxNorm 1 TABLE T By Mouth Daily Lisinopril 5MG Oral Tablet 09/26/2024 Unknown By Mouth Daily 1 TABLET 454821 RxNorm 1 TABLET By Mouth Daily Singulair 10MG Oral Tablet 09/26/2024 Unknown By Mouth Daily 1 TABLET 946805 RxNorm TAKE 1 TABLET BY MOUTH ONCE A DAY Crestor 40MG Oral Tablet 09/26/2024 Unknown By Mouth Daily 1 TABLET 488888 RxNorm TAKE 1 TABLET BY MOUTH ONCE A DAY Ativan 0.5MG Oral Tablet 09/27/2024 Unknown By Mouth As needed daily 1 TABLET 211572 RxNorm 1 TABLET By Mouth As needed daily Ambien 5MG Oral Tablet 09/27/2024 10/05/19 25 By Mouth At bedtime 438700 RxNorm 1-2 TABLET By Mouth At bedtime As needed Ambien 5MG Oral Tablet 10/04/2024 Unknown By Mouth At bedtime 1 TABLET 568205 RxNorm 1 TABLET By Mouth At bedtime [...] TYPE I DIABETES MELLITUS WITH HYPERGLYCEMIA active 883414170117832 SNOMED -CT HYPERTENSION active 35239544 SNOMED- CT HYPERCHOLESTEROLEMIA active 48434120 SNOMED-CT HYPOTHYROIDISM active 39109581 SNOME D-CT LUMBAR RADICULOPATHY active 391202864 SNOMED-CT LOW POTASSIUM active 76152048 SNOMED -CT GERD active 890243342 SNOMED-CT ALLERGIC RHINITIS active 75709543 SN OMED-CT DEPRESSION active 70686355 SNOMED-CT ANXIETY active 09740939 SNOMED-CT ASTHMA active 502077107 SNOMED-CT CHRONIC KIDNEY DISEASE STAGE 3 active 878568315 SNOMED-CT OBESITY active 501761125 SNOMED-CT ENDOMETRIOSIS active 295753246 SNOMED -CT SLEEP APNEA active 89575540 SNOMED-C 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 796295624884728 SNOMED-CT 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 27117881 S NOMED-CT HYPERCALCEMIA active 12699455 SNOMED -CT ENCOUNTER FOR FITTING AND ADJUSTMENT OF INSULIN PUMP active 017065019 S NOMED-CT ABNORMAL LEVELS OF OTHER SERUM ENZYMES active 341950403 SNOMED-CT HISTORY OF GASTRIC BYPASS 06/26/2022 05/30/2024 resolved 69 0475841 SNOMED-CT SINUSITIS 04/30/2022 resolved 90020754 SNOMED-CT DIABETES 2 01/19/2024 resolved 16372737 SNOMED-C T Allergies and Adverse Reactions Allergy Substance Reaction Severity Start Date Concern Status Co de Code System CEFUROXIME Rash (SNOMED-CT: 298975052) Mild Active 2194 RxNorm KETOROLAC Hives (SNOMED-CT: 630829268) Mild Active 26565 RxNorm BIAXIN Hives (SNOMED-CT: 854957343) Severe Active LANTUS Hives (SNOMED-CT: 767763835) Mild Active 262743 RxNorm TAMIFLU Rash (SNOMED-CT: 260528738) Active 190918 RxNorm SEPTRA Rash (SNOMED-CT: 256431079) Mild Active LEVEMIR Hives (SNOMED-CT: 069962844) Mild Active 707395 RxNorm Plan of Treatment MA Screening Bilateral [...] tem Type 2 diabetes mellitus without complication 07/04/19 23 [id number] [employer] Personal Care Team Section Performer Name Performer Role Active Date Inactive Da te Progress Notes [facility] 07/08/2022 15:15 Date of Service: 07/03/2022 Primary Care Physician: CHANA NOVAK Chronic Care Management Visit Note Shopping Investigator/Community Resources & Dissemination Encounter (Phone Communication) June Monthly Update The Primary Care Management visit had a cumulative time of 00:24:05 involving: review of patient information, phone call [...] and that cost-sharing applies. Heather Ashraf LPN, Senior Power Scheduler No immediate concerns for provider. Patient Call Summary: Reviewed resources with patient. Declined any additional. She was driving to Weatherization Specialist's office while on the call as she is having issues with her BS dropping very low. It was 65 yesterday. They will be adjusting her insulin pump and monitor today. No other issues or concerns. During the Chronic Care Management call, the nurse discussed the social insurance specialist available through Medicare and local community resources with the patient. The nurse collaborated with the patient to determine which social insurance specialist and local community resources may be beneficial to the patient and provided further resources if requested by the patient. Below you will find a comprehensive list of social insurance specialist and local community resources that may be beneficial to the patient's health and well-being. The following communication was mailed to the patient after the phone visit this month: Thank you for reviewing the list of social insurance specialist and local community resources that may be available to you during our Chronic Care Management call this month. We hope these local resources will be beneficial to your health and wellbeing. Below you will find a list of all the resources that we discussed, and we have also given this information to your provider: Shopping Investigator/Local Community Resources: [facility] - This organization may offer medical equipment for free or on loan. Phone #: [phone] I recommended this resource because it is a great resource to have in case you find yourself in need of assistance equipment. [facility] - Utility Assistance [address] [place] [address] I recommended this resource because the rising cost of utilities may put a financial burden on your household and this program could help cover utility costs. Upcoming Appointments: Your chart does not indicate that you have any upcoming appointments. I hope all is well! Heather Ashraf LPN [phone] ICD10 Description E11.9 Type 2 diabetes mellitus without complications
--- OUTSIDE RECORDS SUMMARY | 2024-10-25 03:01 | XMS_ITS ---
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 Role Phone ROSITA ROSADO Attending Unavailable [...] em Smoking History Never smoker (Never Smoked) [id number] SNOMED CT Smoking History Unknown if ever smoked [id number] SNOMED CT Sex Female Sexual Orientation Straight or Heterosexual [id number] SNOMED CT Gender Identity Female [id number] Medications Medication Start Date End Date Route Frequency Dose Code Code System Medication Instructions Home Meds Lyrica 150MG Oral Capsule 08/30/2018 Unknown By Mouth Twice a day 1 CAPSULE 838234 RxNorm 1 CAPSULE By Mouth Twice a day Xyzal Allergy 24HR 5MG Oral Tablet 08/30/2018 Unknown By Mouth Daily 1 TABLET 067585 RxNorm 1 TABLE T By Mouth Daily CeleBREX 100MG Oral Capsule 03/15/2019 12/31/19 23 By Mouth Twice a day 1 CAPSULE 578321 RxNorm 1 CAPSULE By Mouth Twice a day Pepcid AC 20MG Oral Tablet 03/15/2019 Unknown By Mouth Daily 1 TABLET 131127 RxNorm 1 TABLET By Mouth Daily medical marijuana 07/27/2019 04/22/19 24 By Mouth As Directed 1 edible RxNorm 1 edible By Mouth As Directed Fiasp 100U/1ML Injection Solution 02/23/2020 Unknown Subcutane ous 2701335 RxNorm Subcutaneou s VIA INSULIN PUMP Victoza 6MG/1ML Subcutaneou s Solution 02/23/2020 04/22/19 24 Subcutane ous Daily 1.8 MILLIGRAMS 244086 RxNorm 1.8 MILLIGRAMS Subcutaneou s Daily Paxil 10MG Oral Tablet 08/22/2021 04/29/19 23 By Mouth Daily 1 TABLET 173874 RxNorm TAKE 1 TABLET BY MOUTH ONCE A DAY -TAKE WITH 40MG TAB Singulair 10MG Oral Tablet 10/03/2021 12/07/19 22 By Mouth Daily 1 TABLET 654145 RxNorm TAKE 1 TABLET BY MOUTH ONCE A DAY Prinivil 5MG Oral Tablet 10/03/2021 11/08/19 22 By Mouth Daily 1 TABLET 607440 RxNorm TAKE 1 TABLET BY MOUTH ONCE A DAY Potassium Chloride 20MEQ Oral Tablet, Extended Release 10/03/2021 11/05/19 22 By Mouth Twice a day 2 TABLET 0303184 RxNorm TAKE 2 TABLETS BY MOUTH TWO TIMES A DAY Crestor 40MG Oral Tablet 10/03/2021 01/10/20 22 By Mouth Daily 1 TABLET 701846 RxNorm TAKE 1 TABLET BY MOUTH ONCE A DAY Paxil 40MG Oral Tablet 10/03/2021 11/05/19 22 By Mouth Daily 1 TABLET 464344 RxNorm TAKE 1 TABLET BY MOUTH ONCE A DAY -TAKE WITH 10MG TAB busPIRone 15MG Oral Tablet 10/03/2021 12/07/19 22 By Mouth Twice a day 1 TABLET 091686 RxNorm 1 TABLET BY MOUTH TWICE A DAY Potassium Chloride 20MEQ Oral Tablet, Extended Release 11/04/2021 12/07/19 22 By Mouth Twice a day 2 TABLET 9921027 RxNorm TAKE 2 TABLETS BY MOUTH TWO TIMES A DAY Paxil 40MG Oral Tablet 11/04/2021 12/07/19 22 By Mouth Daily 1 TABLET 472775 RxNorm TAKE 1 TABLET BY MOUTH ONCE A DAY -TAKE WITH 10MG TAB Prinivil 5MG Oral Tablet 11/06/2021 04/29/19 23 By Mouth Daily 1 TABLET 556452 RxNorm TAKE 1 TABLET BY MOUTH ONCE A DAY Prinivil 5MG Oral Tablet 11/07/2021 04/08/20 22 By Mouth Daily 1 TABLET 286185 RxNorm TAKE 1 TABLET BY MOUTH ONCE A DAY Paxil 40MG Oral Tablet 12/06/2021 01/10/20 22 By Mouth Daily 1 TABLET 040434 RxNorm TAKE 1 TABLET BY MOUTH ONCE A DAY -TAKE WITH 10MG TAB Singulair 10MG Oral Tablet 12/06/2021 02/08/20 22 By Mouth Daily 1 TABLET 717550 RxNorm TAKE 1 TABLET BY MOUTH ONCE A DAY busPIRone 15MG Oral Tablet 12/06/2021 01/10/20 22 By Mouth Twice a day 1 TABLET 227025 RxNorm TAKE 1 TABLET BY MOUTH TWO TIMES A DAY Potassium Chloride 20MEQ Oral Tablet, Extended Release 12/06/2021 01/10/20 22 By Mouth Twice a day 2 TABLET 0772354 RxNorm TAKE 2 TABLETS BY MOUTH TWO TIMES A DAY Potassium Chloride 20MEQ Oral Tablet, Extended Release 01/09/2022 03/11/20 22 By Mouth Twice a day 2 TABLET 2476764 RxNorm TAKE 2 TABLETS BY MOUTH TWO TIMES A DAY Paxil 40MG Oral Tablet 01/09/2022 03/11/20 22 By Mouth Daily 1 TABLET 365142 RxNorm TAKE 1 TABLET BY MOUTH ONCE A DAY -TAKE WITH 10MG TAB Crestor 40MG Oral Tablet 01/09/2022 03/11/20 22 By Mouth Daily 1 TABLET 276170 RxNorm TAKE 1 TABLET BY MOUTH ONCE A DAY busPIRone 15MG Oral Tablet 01/09/2022 03/11/20 22 By Mouth Twice a day 1 TABLET 383594 RxNorm TAKE 1 TABLET BY MOUTH TWO TIMES A DAY Singulair 10MG Oral Tablet 02/07/2022 04/29/19 23 By Mouth Daily 1 TABLET 357201 RxNorm TAKE 1 TABLET BY MOUTH ONCE A DAY Singulair 10MG Oral Tablet 02/07/2022 04/29/19 23 By Mouth Daily 1 TABLET 879552 RxNorm TAKE 1 TABLET BY MOUTH ONCE A DAY Crestor 40MG Oral Tablet 03/11/2022 04/08/20 22 By Mouth Daily 1 TABLET 709889 RxNorm TAKE 1 TABLET BY MOUTH ONCE A DAY busPIRone 15MG Oral Tablet 03/11/2022 04/08/20 22 By Mouth Twice a day 1 TABLET 834560 RxNorm TAKE 1 TABLET BY MOUTH TWO TIMES A DAY Paxil 40MG Oral Tablet 03/11/2022 04/08/20 22 By Mouth Daily 1 TABLET 911503 RxNorm TAKE 1 TABLET BY MOUTH ONCE A DAY -TAKE WITH 10MG TAB Potassium Chloride 20MEQ Oral Tablet, Extended Release 03/11/2022 04/08/20 22 By Mouth Twice a day 2 TABLET 5007836 RxNorm TAKE 2 TABLETS BY MOUTH TWO TIMES A DAY Doxycycline 100MG Oral Capsule 03/20/2022 04/29/19 23 By Mouth Twice a day 1 CAPSULE 3451000 RxNorm 1 CAPSULE By Mouth Twice a day x10 days Paxil 40MG Oral Tablet 04/08/2022 04/29/19 23 By Mouth Daily 1 TABLET 979792 RxNorm TAKE 1 TABLET BY MOUTH ONCE A DAY -TAKE WITH 10MG TAB busPIRone 15MG Oral Tablet 04/08/2022 04/29/19 23 By Mouth Twice a day 1 TABLET 496401 RxNorm TAKE 1 TABLET BY MOUTH TWO TIMES A DAY Prinivil 5MG Oral Tablet 04/08/2022 04/29/19 23 By Mouth Daily 1 TABLET 931285 RxNorm TAKE 1 TABLET BY MOUTH ONCE A DAY Crestor 40MG Oral Tablet 04/08/2022 06/05/19 23 By Mouth Daily 1 TABLET 552240 RxNorm TAKE 1 TABLET BY MOUTH ONCE A DAY Potassium Chloride 20MEQ Oral Tablet, Extended Release 04/08/2022 04/29/19 23 By Mouth Twice a day 2 TABLET 0687633 RxNorm TAKE 2 TABLETS BY MOUTH TWO TIMES A DAY Naltrexone HCl Powder 04/29/2022 06/06/19 25 By Mouth At bedtime 3 MILLIGRAMS RxNorm 3 MILLIGRAMS By Mouth At bedtime Paxil 40MG Oral Tablet 04/29/2022 02/05/20 23 By Mouth Daily 1 TABLET 491513 RxNorm TAKE 1 TABLET BY MOUTH ONCE A DAY busPIRone 15MG Oral Tablet 04/29/2022 02/05/20 23 By Mouth Twice a day 1 TABLET 335368 RxNorm TAKE 1 TABLET BY MOUTH TWO TIMES A DAY Prinivil 5MG Oral Tablet 04/29/2022 06/19/19 24 By Mouth Daily 1 TABLET 873717 RxNorm TAKE 1 TABLET BY MOUTH ONCE A DAY Potassium Chloride 20MEQ Oral Tablet, Extended Release 04/29/2022 12/31/19 23 By Mouth Twice a day 2 TABLET 8598016 RxNorm TAKE 2 TABLETS BY MOUTH TWO TIMES A DAY Singulair 10MG Oral Tablet 04/29/2022 05/07/19 24 By Mouth Daily 1 TABLET 827197 RxNorm TAKE 1 TABLET BY MOUTH ONCE A DAY Crestor 40MG Oral Tablet 06/05/2022 08/20/19 23 By Mouth Daily 1 TABLET 565764 RxNorm TAKE 1 TABLET BY MOUTH ONCE A DAY Crestor 40MG Oral Tablet 08/19/2022 12/20/19 23 By Mouth Daily 1 TABLET 551659 RxNorm TAKE 1 TABLET BY MOUTH ONCE A DAY Crestor 40MG Oral Tablet 12/19/2022 12/31/19 23 By Mouth Daily 1 TABLET 152895 RxNorm TAKE 1 TABLET BY MOUTH ONCE A DAY Ozempic 0.25 MG or 0.5 MG Doses 2 MG/3 ML Subcutaneou s Solution 12/30/2022 01/05/20 24 Subcutane ous Once a week 0.25 UNIT 7741380 RxNorm 0.25 UNIT Subcutaneou s Once a week Crestor 40MG Oral Tablet 12/30/2022 12/31/19 23 By Mouth Daily 1 TABLET 170177 RxNorm TAKE 1 TABLET BY MOUTH ONCE A DAY Crestor 40MG Oral Tablet 12/30/2022 01/05/20 24 By Mouth Daily 1 TABLET 938193 RxNorm TAKE 1 TABLET BY MOUTH ONCE A DAY Paxil 40MG Oral Tablet 02/04/2023 07/07/19 24 By Mouth Daily 1 TABLET 768584 RxNorm TAKE 1 TABLET BY MOUTH ONCE A DAY busPIRone 15MG Oral Tablet 02/04/2023 07/07/19 24 By Mouth Twice a day 1 TABLET 801037 RxNorm TAKE 1 TABLET BY MOUTH TWO TIMES A DAY Levothyroxi ne 50MCG Oral Tablet 02/20/2023 Unknown By Mouth 1 TABLET 456434 RxNorm 1 TABLE T By Mouth in the morning on an empty stomach- PRESCRIBED BY DR ROGER Whitfield 6MG/1ML Subcutaneou s Solution 02/20/2023 06/21/19 25 Subcutane ous Daily 1.8 UNIT 018328 RxNorm 1.8 UNIT Subcutaneou s Daily- *PRESCRIBED BY DR DURAN NovoLOG FlexPen 100U/1ML Subcutaneou s Solution 02/20/2023 04/07/20 Subcutane ous 1797833 RxNorm Inject up to 100 Units SUBQ daily in DMDED doses--- * PRESCRIBED BY DR DURAN Baclofen 10MG Oral Tablet 02/20/2023 Unknown By Mouth Three times a day 1 TABLET 636792 RxNorm 1 TABLET By Mouth Three times a day With food Aspirin 81MG Oral Tablet, Enteric Coated 02/20/2023 04/07/20 23 By Mouth Daily 1 TABLET 503540 RxNorm 1 TABLET By Mouth Daily Vitamin D 1000IU Oral Tablet 02/20/2023 04/07/20 23 By Mouth Daily 1 TABLET 290426 RxNorm 1 TABLET By Mouth Daily Augmentin 875MG-125MG Oral Tablet 04/22/2023 05/28/19 24 By Mouth Every 12 hours 1 TABLET 416682 RxNorm 1 TABLET By Mouth Every 12 hours x 10 days. Take with food. Diflucan 150MG Oral Tablet 04/22/2023 05/28/19 24 By Mouth x1 NOW 1 TABLET 471356 RxNorm 1 TABLET By Mouth x1 NOW. May repeat in 72 hours as needed. Singulair 10MG Oral Tablet 05/07/2023 07/07/19 24 By Mouth Daily 1 TABLET 178440 RxNorm TAKE 1 TABLET BY MOUTH ONCE A DAY Prinivil 5MG Oral Tablet 06/19/2023 06/22/19 24 By Mouth Daily 1 TABLET 292895 RxNorm TAKE 1 TABLET BY MOUTH ONCE A DAY Prinivil 5MG Oral Tablet 06/22/2023 07/07/19 24 By Mouth Daily 1 TABLET 005535 RxNorm TAKE 1 TABLET BY MOUTH ONCE A DAY Prinivil 5MG Oral Tablet 07/07/2023 01/05/20 24 By Mouth Daily 1 TABLET 537750 RxNorm TAKE 1 TABLET BY MOUTH ONCE A DAY Singulair 10MG Oral Tablet 07/07/2023 01/05/20 24 By Mouth Daily 1 TABLET 995270 RxNorm TAKE 1 TABLET BY MOUTH ONCE A DAY Paxil 40MG Oral Tablet 07/07/2023 10/02/19 24 By Mouth Daily 1 TABLET 824257 RxNorm TAKE 1 TABLET BY MOUTH ONCE A DAY busPIRone 15MG Oral Tablet 07/07/2023 01/05/20 24 By Mouth Twice a day 1 TABLET 200443 RxNorm TAKE 1 TABLET BY MOUTH TWO TIMES A DAY Ativan 0.5MG Oral Tablet 09/02/2023 09/28/19 25 By Mouth Twice a day 1 TABLET 776406 RxNorm 1 TABLET By Mouth Twice a day PRN Paxil 30MG Oral Tablet 10/02/2023 10/30/19 24 By Mouth Daily 2 TABLET 370107 RxNorm 2 TABLET By Mouth Daily Paxil 30MG Oral Tablet 10/30/2023 08/17/19 25 By Mouth Daily 2 TABLET 853600 RxNorm 2 TABLET By Mouth Daily Ambien 5MG Oral Tablet 12/11/2023 01/05/20 24 By Mouth At bedtime 219685 RxNorm 1-2 TABLET By Mouth At bedtime As needed Ozempic 0.25 MG or 0.5 MG Doses 2 MG/3 ML Subcutaneou s Solution 01/05/2024 06/21/19 25 Subcutane ous Once a week 0.5 UNIT 5379353 RxNorm 0.5 UNIT Subcutaneou s Once a week Crestor 40MG Oral Tablet 01/05/2024 09/27/19 25 By Mouth Daily 1 TABLET 005630 RxNorm TAKE 1 TABLET BY MOUTH ONCE A DAY busPIRone 15MG Oral Tablet 01/05/2024 08/06/19 25 By Mouth Twice a day 1 TABLET 892714 RxNorm TAKE 1 TABLET BY MOUTH TWO TIMES A DAY Singulair 10MG Oral Tablet 01/05/2024 09/27/19 25 By Mouth Daily 1 TABLET 045477 RxNorm TAKE 1 TABLET BY MOUTH ONCE A DAY Ambien 5MG Oral Tablet 01/05/2024 09/28/19 25 By Mouth At bedtime 813770 RxNorm 1-2 TABLET By Mouth At bedtime As needed Prinivil 5MG Oral Tablet 01/05/2024 07/06/19 25 By Mouth Daily 1 TABLET 542792 RxNorm TAKE 1 TABLET BY MOUTH ONCE A DAY Promethazin e DM 6.25MG/5ML- 15MG/5ML Oral Syrup 01/25/2024 06/06/19 25 ORAL As needed every 4 hr 5 mL 194288 RxNorm 5 mL ORAL As needed every 4 hr-do not take within 2 hours of Paxil or Buspirone Augmentin 875MG-125MG Oral Tablet 01/25/2024 06/06/19 25 By Mouth Twice a day 1 TABLET 112671 RxNorm 1 TABLET By Mouth Twice a day x 10 days Airsupra 90 MCG/1 Actuation-8 0 MCG/1 Actuation Inhalation Aerosol Powder 01/25/2024 06/06/19 25 Inhale As needed every 4 hr 2 Puff 0962771 RxNorm 2 Puff Inhale As needed every 4 hr Victoza 6MG/1ML Subcutaneou s Solution 06/20/2024 Unknown Subcutane ous Daily 1.8 MILLIGRAMS 975551 RxNorm 1.8 MILLIGRAMS Subcutaneou s Daily Ozempic 0.25 MG or 0.5 MG Doses 2 MG/3 ML Subcutaneou s Solution 06/20/2024 Unknown Subcutane ous Once a week 1.5 MILLILITER 5060353 RxNorm 1.5 MILLILITER Subcutaneou s Once a week Lisinopril 5MG Oral Tablet 07/05/2024 09/27/19 25 By Mouth Daily 1 TABLET 676938 RxNorm 1 TABLET By Mouth Daily busPIRone 15MG Oral Tablet 08/05/2024 Unknown By Mouth Twice a day 1 TABLET 786489 RxNorm TAKE 1 TABLET BY MOUTH TWO TIMES A DAY Paxil 20MG Oral Tablet 08/16/2024 09/27/19 25 By Mouth Daily 1 TABLET 284279 RxNorm 1 TABLET By Mouth Daily Wellbutrin XL 150MG Oral Tablet, Extended Release, 24 HR 08/16/2024 09/27/19 25 By Mouth Daily 1 TABLET 705448 RxNorm 1 TABLET By Mouth Daily. Wellbutrin XL 150MG Oral Tablet, Extended Release, 24 HR 09/26/2024 Unknown By Mouth Daily 1 TABLET 563463 RxNorm 1 TABLET By Mouth Daily. Paxil 20MG Oral Tablet 09/26/2024 Unknown By Mouth Daily 1 TABLET 130017 RxNorm 1 TABLE T By Mouth Daily Lisinopril 5MG Oral Tablet 09/26/2024 Unknown By Mouth Daily 1 TABLET 116121 RxNorm 1 TABLET By Mouth Daily Singulair 10MG Oral Tablet 09/26/2024 Unknown By Mouth Daily 1 TABLET 713355 RxNorm TAKE 1 TABLET BY MOUTH ONCE A DAY Crestor 40MG Oral Tablet 09/26/2024 Unknown By Mouth Daily 1 TABLET 941056 RxNorm TAKE 1 TABLET BY MOUTH ONCE A DAY Ativan 0.5MG Oral Tablet 09/27/2024 Unknown By Mouth As needed daily 1 TABLET 643636 RxNorm 1 TABLET By Mouth As needed daily Ambien 5MG Oral Tablet 09/27/2024 10/05/19 25 By Mouth At bedtime 732186 RxNorm 1-2 TABLET By Mouth At bedtime As needed Ambien 5MG Oral Tablet 10/04/2024 Unknown By Mouth At bedtime 1 TABLET 423657 RxNorm 1 TABLET By Mouth At bedtime [...] TYPE I DIABETES MELLITUS WITH HYPERGLYCEMIA active [id number] SNOMED -CT HYPERTENSION active 33808423 SNOMED- CT HYPERCHOLESTEROLEMIA active 13334193 SNOMED-CT HYPOTHYROIDISM active 26921354 SNOME D-CT LUMBAR RADICULOPATHY active 988235987 SNOMED-CT LOW POTASSIUM active 07838771 SNOMED -CT GERD active 609497648 SNOMED-CT ALLERGIC RHINITIS active 29835524 SN OMED-CT DEPRESSION active 89207024 SNOMED-CT ANXIETY active 38594673 SNOMED-CT ASTHMA active 409863739 SNOMED-CT CHRONIC KIDNEY DISEASE STAGE 3 active 314175783 SNOMED-CT OBESITY active 682081676 SNOMED-CT ENDOMETRIOSIS active 659710676 SNOMED -CT SLEEP APNEA active 82292923 SNOMED-C 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 [id number] SNOMED-CT 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 47482698 S NOMED-CT HYPERCALCEMIA active 16028040 SNOMED -CT ENCOUNTER FOR FITTING AND ADJUSTMENT OF INSULIN PUMP active 607053870 S NOMED-CT ABNORMAL LEVELS OF OTHER SERUM ENZYMES active 656285266 SNOMED-CT HISTORY OF GASTRIC BYPASS 06/26/2022 05/30/2024 resolved 69 2262966 SNOMED-CT SINUSITIS 04/30/2022 resolved 83466598 SNOMED-CT DIABETES 2 01/19/2024 resolved 11494243 SNOMED-C T Allergies and Adverse Reactions Allergy Substance Reaction Severity Start Date Concern Status Co de Code System CEFUROXIME Rash (SNOMED-CT: 953843040) Mild Active 2194 RxNorm KETOROLAC Hives (SNOMED-CT: 006054974) Mild Active 23844 RxNorm BIAXIN Hives (SNOMED-CT: 840975205) Severe Active LANTUS Hives (SNOMED-CT: 220277006) Mild Active 484553 RxNorm TAMIFLU Rash (SNOMED-CT: 446291427) Active 824144 RxNorm SEPTRA Rash (SNOMED-CT: 526821280) Mild Active LEVEMIR Hives (SNOMED-CT: 060066496) Mild Active 177143 RxNorm Plan of Treatment MA Screening Bilateral [...] tem Type 2 diabetes mellitus without complication 10/17/19 22 [id number] SNOMED-CT Personal Care Team Section Performer Name Performer Role Active Date Inactive Da te
--- OUTSIDE RECORDS SUMMARY | 2024-10-25 03:01 | XMS_ITS ---
Author Organization Unknown Address [address] [place] [phone] Phone Care Team Providers Care Medical Administrative Technician Name Role Phone ROSITA ROSADO Attending Unavailable [...] em Smoking History Never smoker (Never Smoked) [id number] SNOMED CT Smoking History Unknown if ever smoked [id number] SNOMED CT Sex Female Sexual Orientation Straight or Heterosexual 36336236 SNOMED CT Gender Identity Female [id number] Medications Medication Start Date End Date Route Frequency Dose Code Code System Medication Instructions Home Meds Lyrica 150MG Oral Capsule 08/30/2018 Unknown By Mouth Twice a day 1 CAPSULE 256118 RxNorm 1 CAPSULE By Mouth Twice a day Xyzal Allergy 24HR 5MG Oral Tablet 08/30/2018 Unknown By Mouth Daily 1 TABLET 548713 RxNorm 1 TABLE T By Mouth Daily CeleBREX 100MG Oral Capsule 03/15/2019 12/31/19 23 By Mouth Twice a day 1 CAPSULE 610800 RxNorm 1 CAPSULE By Mouth Twice a day Pepcid AC 20MG Oral Tablet 03/15/2019 Unknown By Mouth Daily 1 TABLET 356026 RxNorm 1 TABLET By Mouth Daily medical marijuana 07/27/2019 04/22/19 24 By Mouth As Directed 1 edible RxNorm 1 edible By Mouth As Directed Fiasp 100U/1ML Injection Solution 02/23/2020 Unknown Subcutane ous 3935918 RxNorm Subcutaneou s VIA INSULIN PUMP Victoza 6MG/1ML Subcutaneou s Solution 02/23/2020 04/22/19 24 Subcutane ous Daily 1.8 MILLIGRAMS 329006 RxNorm 1.8 MILLIGRAMS Subcutaneou s Daily Paxil 10MG Oral Tablet 08/22/2021 04/29/19 23 By Mouth Daily 1 TABLET 905277 RxNorm TAKE 1 TABLET BY MOUTH ONCE A DAY -TAKE WITH 40MG TAB Prinivil 5MG Oral Tablet 11/06/2021 04/29/19 23 By Mouth Daily 1 TABLET 397544 RxNorm TAKE 1 TABLET BY MOUTH ONCE A DAY Prinivil 5MG Oral Tablet 11/07/2021 04/08/20 22 By Mouth Daily 1 TABLET 215210 RxNorm TAKE 1 TABLET BY MOUTH ONCE A DAY Singulair 10MG Oral Tablet 12/06/2021 02/08/20 22 By Mouth Daily 1 TABLET 222752 RxNorm TAKE 1 TABLET BY MOUTH ONCE A DAY Potassium Chloride 20MEQ Oral Tablet, Extended Release 01/09/2022 03/11/20 22 By Mouth Twice a day 2 TABLET 3785954 RxNorm TAKE 2 TABLETS BY MOUTH TWO TIMES A DAY Paxil 40MG Oral Tablet 01/09/2022 03/11/20 22 By Mouth Daily 1 TABLET 174072 RxNorm TAKE 1 TABLET BY MOUTH ONCE A DAY -TAKE WITH 10MG TAB Crestor 40MG Oral Tablet 01/09/2022 03/11/20 22 By Mouth Daily 1 TABLET 313835 RxNorm TAKE 1 TABLET BY MOUTH ONCE A DAY busPIRone 15MG Oral Tablet 01/09/2022 03/11/20 22 By Mouth Twice a day 1 TABLET 775793 RxNorm TAKE 1 TABLET BY MOUTH TWO TIMES A DAY Singulair 10MG Oral Tablet 02/07/2022 04/29/19 23 By Mouth Daily 1 TABLET 722574 RxNorm TAKE 1 TABLET BY MOUTH ONCE A DAY Singulair 10MG Oral Tablet 02/07/2022 04/29/19 23 By Mouth Daily 1 TABLET 895130 RxNorm TAKE 1 TABLET BY MOUTH ONCE A DAY Crestor 40MG Oral Tablet 03/11/2022 04/08/20 22 By Mouth Daily 1 TABLET 998044 RxNorm TAKE 1 TABLET BY MOUTH ONCE A DAY busPIRone 15MG Oral Tablet 03/11/2022 04/08/20 22 By Mouth Twice a day 1 TABLET 460187 RxNorm TAKE 1 TABLET BY MOUTH TWO TIMES A DAY Paxil 40MG Oral Tablet 03/11/2022 04/08/20 22 By Mouth Daily 1 TABLET 359075 RxNorm TAKE 1 TABLET BY MOUTH ONCE A DAY -TAKE WITH 10MG TAB Potassium Chloride 20MEQ Oral Tablet, Extended Release 03/11/2022 04/08/20 22 By Mouth Twice a day 2 TABLET 3891149 RxNorm TAKE 2 TABLETS BY MOUTH TWO TIMES A DAY Doxycycline 100MG Oral Capsule 03/20/2022 04/29/19 23 By Mouth Twice a day 1 CAPSULE 4797550 RxNorm 1 CAPSULE By Mouth Twice a day x10 days Paxil 40MG Oral Tablet 04/08/2022 04/29/19 23 By Mouth Daily 1 TABLET 561213 RxNorm TAKE 1 TABLET BY MOUTH ONCE A DAY -TAKE WITH 10MG TAB busPIRone 15MG Oral Tablet 04/08/2022 04/29/19 23 By Mouth Twice a day 1 TABLET 589246 RxNorm TAKE 1 TABLET BY MOUTH TWO TIMES A DAY Prinivil 5MG Oral Tablet 04/08/2022 04/29/19 23 By Mouth Daily 1 TABLET 668479 RxNorm TAKE 1 TABLET BY MOUTH ONCE A DAY Crestor 40MG Oral Tablet 04/08/2022 06/05/19 23 By Mouth Daily 1 TABLET 650269 RxNorm TAKE 1 TABLET BY MOUTH ONCE A DAY Potassium Chloride 20MEQ Oral Tablet, Extended Release 04/08/2022 04/29/19 23 By Mouth Twice a day 2 TABLET 9965400 RxNorm TAKE 2 TABLETS BY MOUTH TWO TIMES A DAY Naltrexone HCl Powder 04/29/2022 06/06/19 25 By Mouth At bedtime 3 MILLIGRAMS RxNorm 3 MILLIGRAMS By Mouth At bedtime Paxil 40MG Oral Tablet 04/29/2022 02/05/20 23 By Mouth Daily 1 TABLET 954537 RxNorm TAKE 1 TABLET BY MOUTH ONCE A DAY busPIRone 15MG Oral Tablet 04/29/2022 02/05/20 23 By Mouth Twice a day 1 TABLET 852580 RxNorm TAKE 1 TABLET BY MOUTH TWO TIMES A DAY Prinivil 5MG Oral Tablet 04/29/2022 06/19/19 24 By Mouth Daily 1 TABLET 744950 RxNorm TAKE 1 TABLET BY MOUTH ONCE A DAY Potassium Chloride 20MEQ Oral Tablet, Extended Release 04/29/2022 12/31/19 23 By Mouth Twice a day 2 TABLET 1104089 RxNorm TAKE 2 TABLETS BY MOUTH TWO TIMES A DAY Singulair 10MG Oral Tablet 04/29/2022 05/07/19 24 By Mouth Daily 1 TABLET 369806 RxNorm TAKE 1 TABLET BY MOUTH ONCE A DAY Crestor 40MG Oral Tablet 06/05/2022 08/20/19 23 By Mouth Daily 1 TABLET 385605 RxNorm TAKE 1 TABLET BY MOUTH ONCE A DAY Crestor 40MG Oral Tablet 08/19/2022 12/20/19 23 By Mouth Daily 1 TABLET 734362 RxNorm TAKE 1 TABLET BY MOUTH ONCE A DAY Crestor 40MG Oral Tablet 12/19/2022 12/31/19 23 By Mouth Daily 1 TABLET 279557 RxNorm TAKE 1 TABLET BY MOUTH ONCE A DAY Ozempic 0.25 MG or 0.5 MG Doses 2 MG/3 ML Subcutaneou s Solution 12/30/2022 01/05/20 24 Subcutane ous Once a week 0.25 UNIT 0383329 RxNorm 0.25 UNIT Subcutaneou s Once a week Crestor 40MG Oral Tablet 12/30/2022 12/31/19 23 By Mouth Daily 1 TABLET 379436 RxNorm TAKE 1 TABLET BY MOUTH ONCE A DAY Crestor 40MG Oral Tablet 12/30/2022 01/05/20 24 By Mouth Daily 1 TABLET 057630 RxNorm TAKE 1 TABLET BY MOUTH ONCE A DAY Paxil 40MG Oral Tablet 02/04/2023 07/07/19 24 By Mouth Daily 1 TABLET 199505 RxNorm TAKE 1 TABLET BY MOUTH ONCE A DAY busPIRone 15MG Oral Tablet 02/04/2023 07/07/19 24 By Mouth Twice a day 1 TABLET 655428 RxNorm TAKE 1 TABLET BY MOUTH TWO TIMES A DAY Levothyroxi ne 50MCG Oral Tablet 02/20/2023 Unknown By Mouth 1 TABLET 661970 RxNorm 1 TABLE T By Mouth in the morning on an empty stomach- PRESCRIBED BY DR DURAN Victoza 6MG/1ML Subcutaneou s Solution 02/20/2023 06/21/19 25 Subcutane ous Daily 1.8 UNIT 117766 RxNorm 1.8 UNIT Subcutaneou s Daily- *PRESCRIBED BY DR DURAN NovoLOG FlexPen 100U/1ML Subcutaneou s Solution 02/20/2023 04/07/20 23 Subcutane ous 3901793 RxNorm Inject up to 100 Units SUBQ daily in DMDED doses--- * PRESCRIBED BY DR DURAN Baclofen 10MG Oral Tablet 02/20/2023 Unknown By Mouth Three times a day 1 TABLET 315853 RxNorm 1 TABLET By Mouth Three times a day With food Aspirin 81MG Oral Tablet, Enteric Coated 02/20/2023 04/07/20 23 By Mouth Daily 1 TABLET 454094 RxNorm 1 TABLET By Mouth Daily Vitamin D 1000IU Oral Tablet 02/20/2023 04/07/20 23 By Mouth Daily 1 TABLET 321404 RxNorm 1 TABLET By Mouth Daily Augmentin 875MG-125MG Oral Tablet 04/22/2023 05/28/19 24 By Mouth Every 12 hours 1 TABLET 106087 RxNorm 1 TABLET By Mouth Every 12 hours x 10 days. Take with food. Diflucan 150MG Oral Tablet 04/22/2023 05/28/19 24 By Mouth x1 NOW 1 TABLET 341235 RxNorm 1 TABLET By Mouth x1 NOW. May repeat in 72 hours as needed. Singulair 10MG Oral Tablet 05/07/2023 07/07/19 24 By Mouth Daily 1 TABLET 178310 RxNorm TAKE 1 TABLET BY MOUTH ONCE A DAY Prinivil 5MG Oral Tablet 06/19/2023 06/22/19 24 By Mouth Daily 1 TABLET 114335 RxNorm TAKE 1 TABLET BY MOUTH ONCE A DAY Prinivil 5MG Oral Tablet 06/22/2023 07/07/19 24 By Mouth Daily 1 TABLET 519384 RxNorm TAKE 1 TABLET BY MOUTH ONCE A DAY Prinivil 5MG Oral Tablet 07/07/2023 01/05/20 24 By Mouth Daily 1 TABLET 191810 RxNorm TAKE 1 TABLET BY MOUTH ONCE A DAY Singulair 10MG Oral Tablet 07/07/2023 01/05/20 24 By Mouth Daily 1 TABLET 278783 RxNorm TAKE 1 TABLET BY MOUTH ONCE A DAY Paxil 40MG Oral Tablet 07/07/2023 10/02/19 24 By Mouth Daily 1 TABLET 700371 RxNorm TAKE 1 TABLET BY MOUTH ONCE A DAY busPIRone 15MG Oral Tablet 07/07/2023 01/05/20 24 By Mouth Twice a day 1 TABLET 884965 RxNorm TAKE 1 TABLET BY MOUTH TWO TIMES A DAY Ativan 0.5MG Oral Tablet 09/02/2023 09/28/19 25 By Mouth Twice a day 1 TABLET 895266 RxNorm 1 TABLET By Mouth Twice a day PRN Paxil 30MG Oral Tablet 10/02/2023 10/30/19 24 By Mouth Daily 2 TABLET 928308 RxNorm 2 TABLET By Mouth Daily Paxil 30MG Oral Tablet 10/30/2023 08/17/19 25 By Mouth Daily 2 TABLET 389886 RxNorm 2 TABLET By Mouth Daily Ambien 5MG Oral Tablet 12/11/2023 01/05/20 24 By Mouth At bedtime 481264 RxNorm 1-2 TABLET By Mouth At bedtime As needed Ozempic 0.25 MG or 0.5 MG Doses 2 MG/3 ML Subcutaneou s Solution 01/05/2024 06/21/19 25 Subcutane ous Once a week 0.5 UNIT 2553917 RxNorm 0.5 UNIT Subcutaneou s Once a week Crestor 40MG Oral Tablet 01/05/2024 09/27/19 25 By Mouth Daily 1 TABLET 311908 RxNorm TAKE 1 TABLET BY MOUTH ONCE A DAY busPIRone 15MG Oral Tablet 01/05/2024 08/06/19 25 By Mouth Twice a day 1 TABLET 912303 RxNorm TAKE 1 TABLET BY MOUTH TWO TIMES A DAY Singulair 10MG Oral Tablet 01/05/2024 09/27/19 25 By Mouth Daily 1 TABLET 574842 RxNorm TAKE 1 TABLET BY MOUTH ONCE A DAY Ambien 5MG Oral Tablet 01/05/2024 09/28/19 25 By Mouth At bedtime 685383 RxNorm 1-2 TABLET By Mouth At bedtime As needed Prinivil 5MG Oral Tablet 01/05/2024 07/06/19 25 By Mouth Daily 1 TABLET 574981 RxNorm TAKE 1 TABLET BY MOUTH ONCE A DAY Promethazin e DM 6.25MG/5ML- 15MG/5ML Oral Syrup 01/25/2024 06/06/19 25 ORAL As needed every 4 hr 5 mL 274880 RxNorm 5 mL ORAL As needed every 4 hr-do not take within 2 hours of Paxil or Buspirone Augmentin 875MG-125MG Oral Tablet 01/25/2024 06/06/19 25 By Mouth Twice a day 1 TABLET 809270 RxNorm 1 TABLET By Mouth Twice a day x 10 days Airsupra 90 MCG/1 Actuation-8 0 MCG/1 Actuation Inhalation Aerosol Powder 01/25/2024 06/06/19 25 Inhale As needed every 4 hr 2 Puff 1635392 RxNorm 2 Puff Inhale As needed every 4 hr Victoza 6MG/1ML Subcutaneou s Solution 06/20/2024 Unknown Subcutane ous Daily 1.8 MILLIGRAMS 821564 RxNorm 1.8 MILLIGRAMS Subcutaneou s Daily Ozempic 0.25 MG or 0.5 MG Doses 2 MG/3 ML Subcutaneou s Solution 06/20/2024 Unknown Subcutane ous Once a week 1.5 MILLILITER 7775414 RxNorm 1.5 MILLILITER Subcutaneou s Once a week Lisinopril 5MG Oral Tablet 07/05/2024 09/27/19 25 By Mouth Daily 1 TABLET 285826 RxNorm 1 TABLET By Mouth Daily busPIRone 15MG Oral Tablet 08/05/2024 Unknown By Mouth Twice a day 1 TABLET 402521 RxNorm TAKE 1 TABLET BY MOUTH TWO TIMES A DAY Paxil 20MG Oral Tablet 08/16/2024 09/27/19 25 By Mouth Daily 1 TABLET 371857 RxNorm 1 TABLET By Mouth Daily Wellbutrin XL 150MG Oral Tablet, Extended Release, 24 HR 08/16/2024 09/27/19 25 By Mouth Daily 1 TABLET 643375 RxNorm 1 TABLET By Mouth Daily. Wellbutrin XL 150MG Oral Tablet, Extended Release, 24 HR 09/26/2024 Unknown By Mouth Daily 1 TABLET 555024 RxNorm 1 TABLET By Mouth Daily. Paxil 20MG Oral Tablet 09/26/2024 Unknown By Mouth Daily 1 TABLET 653584 RxNorm 1 TABLE T By Mouth Daily Lisinopril 5MG Oral Tablet 09/26/2024 Unknown By Mouth Daily 1 TABLET 461327 RxNorm 1 TABLET By Mouth Daily Singulair 10MG Oral Tablet 09/26/2024 Unknown By Mouth Daily 1 TABLET 221845 RxNorm TAKE 1 TABLET BY MOUTH ONCE A DAY Crestor 40MG Oral Tablet 09/26/2024 Unknown By Mouth Daily 1 TABLET 971894 RxNorm TAKE 1 TABLET BY MOUTH ONCE A DAY Ativan 0.5MG Oral Tablet 09/27/2024 Unknown By Mouth As needed daily 1 TABLET 966671 RxNorm 1 TABLET By Mouth As needed daily Ambien 5MG Oral Tablet 09/27/2024 10/05/19 25 By Mouth At bedtime 224903 RxNorm 1-2 TABLET By Mouth At bedtime As needed Ambien 5MG Oral Tablet 10/04/2024 Unknown By Mouth At bedtime 1 TABLET 360900 RxNorm 1 TABLET By Mouth At bedtime [...] TYPE I DIABETES MELLITUS WITH HYPERGLYCEMIA active [id number] SNOMED -CT HYPERTENSION active 04216334 SNOMED- CT HYPERCHOLESTEROLEMIA active 91932923 SNOMED-CT HYPOTHYROIDISM active 44640256 SNOME D-CT LUMBAR RADICULOPATHY active 510046751 SNOMED-CT LOW POTASSIUM active 66120621 SNOMED -CT GERD active 768630220 SNOMED-CT ALLERGIC RHINITIS active 46358346 SN OMED-CT DEPRESSION active 38893861 SNOMED-CT ANXIETY active 87831832 SNOMED-CT ASTHMA active 935338963 SNOMED-CT CHRONIC KIDNEY DISEASE STAGE 3 active 844376106 SNOMED-CT OBESITY active 361094437 SNOMED-CT ENDOMETRIOSIS active 157659141 SNOMED -CT SLEEP APNEA active 61276310 SNOMED-C 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 041043470115384 SNOMED-CT 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 51079072 S NOMED-CT HYPERCALCEMIA active 02864770 SNOMED -CT ENCOUNTER FOR FITTING AND ADJUSTMENT OF INSULIN PUMP active 543158797 S NOMED-CT ABNORMAL LEVELS OF OTHER SERUM ENZYMES active 898813387 SNOMED-CT HISTORY OF GASTRIC BYPASS 06/26/2022 05/30/2024 resolved 69 5845184 SNOMED-CT SINUSITIS 04/30/2022 resolved 64462161 SNOMED-CT DIABETES 2 01/19/2024 resolved 32845023 SNOMED-C T Allergies and Adverse Reactions Allergy Substance Reaction Severity Start Date Concern Status Co de Code System CEFUROXIME Rash (SNOMED-CT: 235378389) Mild Active 2194 RxNorm KETOROLAC Hives (SNOMED-CT: 550846369) Mild Active 00193 RxNorm BIAXIN Hives (SNOMED-CT: 493430844) Severe Active LANTUS Hives (SNOMED-CT: 287659671) Mild Active 557779 RxNorm TAMIFLU Rash (SNOMED-CT: 863620686) Active 543393 RxNorm SEPTRA Rash (SNOMED-CT: 174962000) Mild Active LEVEMIR Hives (SNOMED-CT: 169941759) Mild Active 000224 RxNorm Plan of Treatment MA Screening Bilateral [...]
--- OUTSIDE RECORDS SUMMARY | 2024-10-25 03:01 | XMS_ITS ---
Author Organization Unknown Address [address], [place] [id number] Phone Care Team Providers Care Director Of Community Life Name Role Phone Caprice Jackson Attending Unavailable Results SCREENING DIGITAL BREAST ISIDRA O *BI* MAMM - Completed: 06/25/2023 15:06 LOINC: Examination: Digital bilater al screening mammogram with 3D TomosynthesisAccession: [id number] Date/Time: 06/25/2023 2:39 PM Reason For Exam: No prior breast procedures. No personal or first-degree relative history of breast cancer. No current complaints.Comparison: Mammograms from 05/12/2022 01/10/2021 04/15/2018Technique: Digital screening mammography of both breasts was performed in addition to 3-D Tomosynthesis technique. This study was read with the assistance of a computer- aided detection system.Tissue density: The breast tissue contains scattered fibroglandular densities.Findings: Benign bilateral axillary lymph nodes. Benign round calcifications bilaterally. Small intramammary lymph node again seen in the left breast. Overall parenchymal pattern unchanged from the prior studies. There is no new focal asymmetry, dominant mass lesion, area of skin thickening, or cluster of suspicious appearing calcifications in either breast to suggest malignancy.===== IMPRESSION: =====1. Stable mammographic appearance with no new findings to suggest malignancy in either breast.Assessment: ACR BI-RADS CATEGORY 2 - BENIGN FINDING(S)Recommendation:1: Routine screening mammogram bilateral in 1 yearComments: Created and Electronically Signed by:Aki Barlow MD06/26/2023 12:24 Social History Type Status Start Date End Date Code Code Syst em Smoking History Unknown if ever smoked [id number] SNOMED CT Smoking History Never smoker (Never Smoked) 752825152 SNOMED CT Sex Female Sexual Orientation Straight or Heterosexual 59086957 SNOMED CT Gender Identity Female [id number] [address] Medications Medication Start Date End Date Route Frequency Dose Code Code System Medication Instructions Home Meds Lyrica 150MG Oral Capsule 08/30/2018 Unknown By Mouth Twice a day 1 CAPSULE 195175 RxNorm 1 CAPSULE By Mouth Twice a day Xyzal Allergy 24HR 5MG Oral Tablet 08/30/2018 Unknown By Mouth Daily 1 TABLET 856724 RxNorm 1 TABLET By Mouth Daily Pepcid AC 20MG Oral Tablet 03/15/2019 Unknown By Mouth Daily 1 TABLET 537492 RxNorm 1 TABLET By Mouth Daily Fiasp 100U/1ML Injection Solution 02/23/2020 Unknown Subcutane ous 6601448 RxNorm Subcutaneou s VIA INSULIN PUMP Naltrexone HCl Powder 04/29/2022 06/06/19 25 By Mouth At bedtime 3 MILLIGRAMS RxNorm 3 MILLIGRAMS By Mouth At bedtime Ozempic 0.25 MG or 0.5 MG Doses 2 MG/3 ML Subcutaneous Solution 12/30/2022 01/05/20 24 Subcutane ous Once a week 0.25 UNIT 1860896 RxNorm 0.25 UNIT Subcutaneou s Once a week Crestor 40MG Oral Tablet 12/30/2022 01/05/20 24 By Mouth Daily 1 TABLET 295145 RxNorm TAKE 1 TABLET BY MOUTH ONCE A DAY Paxil 40MG Oral Tablet 02/04/2023 07/07/19 24 By Mouth Daily 1 TABLET 337212 RxNorm TAKE 1 TABLET BY MOUTH ONCE A DAY busPIRone 15MG Oral Tablet 02/04/2023 07/07/19 24 By Mouth Twice a day 1 TABLET 095035 RxNorm TAKE 1 TABLET BY MOUTH TWO TIMES A DAY Levothyroxin e 50MCG Oral Tablet 02/20/2023 Unknown By Mouth 1 TABLET 558458 RxNorm 1 TABLET By Mouth in the morning on an empty stomach- PRESCRIBED BY DR DURAN Vicyenny 6MG/1ML Subcutaneous Solution 02/20/2023 06/21/19 25 Subcutane ous Daily 1.8 UNIT 705051 RxNorm 1.8 UNIT Subcutaneou s Daily- *PRESCRIBED BY DR DURAN Baclofen 10MG Oral Tablet 02/20/2023 Unknown By Mouth Three times a day 1 TABLET 828286 RxNorm 1 TABLET By Mouth Three times a day With food Singulair 10MG Oral Tablet 05/07/2023 07/07/19 24 By Mouth Daily 1 TABLET 566550 RxNorm TAKE 1 TABLET BY MOUTH ONCE A DAY Prinivil 5MG Oral Tablet 06/22/2023 07/07/19 24 By Mouth Daily 1 TABLET 823284 RxNorm TAKE 1 TABLET BY MOUTH ONCE A DAY Prinivil 5MG Oral Tablet 07/07/2023 01/05/20 24 By Mouth Daily 1 TABLET 015109 RxNorm TAKE 1 TABLET BY MOUTH ONCE A DAY Singulair 10MG Oral Tablet 07/07/2023 01/05/20 24 By Mouth Daily 1 TABLET 428472 RxNorm TAKE 1 TABLET BY MOUTH ONCE A DAY Paxil 40MG Oral Tablet 07/07/2023 10/02/19 24 By Mouth Daily 1 TABLET 891395 RxNorm TAKE 1 TABLET BY MOUTH ONCE A DAY busPIRone 15MG Oral Tablet 07/07/2023 01/05/20 24 By Mouth Twice a day 1 TABLET 568527 RxNorm TAKE 1 TABLET BY MOUTH TWO TIMES A DAY Ativan 0.5MG Oral Tablet 09/02/2023 09/28/19 25 By Mouth Twice a day 1 TABLET 114939 RxNorm 1 TABLET By Mouth Twice a day PRN Paxil 30MG Oral Tablet 10/02/2023 10/30/19 24 By Mouth Daily 2 TABLET 220242 RxNorm 2 TABLET By Mouth Daily Paxil 30MG Oral Tablet 10/30/2023 08/17/19 25 By Mouth Daily 2 TABLET 000095 RxNorm 2 TABLET By Mouth Daily Ambien 5MG Oral Tablet 12/11/2023 01/05/20 24 By Mouth At bedtime 834685 RxNorm 1-2 TABLET By Mouth At bedtime As needed Ozempic 0.25 MG or 0.5 MG Doses 2 MG/3 ML Subcutaneous Solution 01/05/2024 06/21/19 25 Subcutane ous Once a week 0.5 UNIT 8769755 RxNorm 0.5 UNIT Subcutaneou s Once a week Crestor 40MG Oral Tablet 01/05/2024 09/27/19 25 By Mouth Daily 1 TABLET 692389 RxNorm TAKE 1 TABLET BY MOUTH ONCE A DAY busPIRone 15MG Oral Tablet 01/05/2024 08/06/19 25 By Mouth Twice a day 1 TABLET 668497 RxNorm TAKE 1 TABLET BY MOUTH TWO TIMES A DAY Singulair 10MG Oral Tablet 01/05/2024 09/27/19 25 By Mouth Daily 1 TABLET 852213 RxNorm TAKE 1 TABLET BY MOUTH ONCE A DAY Ambien 5MG Oral Tablet 01/05/2024 09/28/19 25 By Mouth At bedtime 935009 RxNorm 1-2 TABLET By Mouth At bedtime As needed Prinivil 5MG Oral Tablet 01/05/2024 07/06/19 25 By Mouth Daily 1 TABLET 907481 RxNorm TAKE 1 TABLET BY MOUTH ONCE A DAY Promethazine DM 6.25MG/5ML-1 5MG/5ML Oral Syrup 01/25/2024 06/06/19 25 ORAL As needed every 4 hr 5 mL 415635 RxNorm 5 mL ORAL As needed every 4 hr-do not take within 2 hours of Paxil or Buspirone Augmentin 875MG-125MG Oral Tablet 01/25/2024 06/06/19 25 By Mouth Twice a day 1 TABLET 696860 RxNorm 1 TABLET By Mouth Twice a day x 10 days Airsupra 90 MCG/1 Actuation-80 MCG/1 Actuation Inhalation Aerosol Powder 01/25/2024 06/06/19 25 Inhale As needed every 4 hr 2 Puff 3622890 RxNorm 2 Puff Inhale As needed every 4 hr Victoza 6MG/1ML Subcutaneous Solution 06/20/2024 Unknown Subcutane ous Daily 1.8 MILLIGRAMS 633711 RxNorm 1.8 MILLIGRAMS Subcutaneou s Daily Ozempic 0.25 MG or 0.5 MG Doses 2 MG/3 ML Subcutaneous Solution 06/20/2024 Unknown Subcutane ous Once a week 1.5 MILLILITER 9324716 RxNorm 1.5 MILLILITER Subcutaneou s Once a week Lisinopril 5MG Oral Tablet 07/05/2024 09/27/19 25 By Mouth Daily 1 TABLET 132433 RxNorm 1 TABLET By Mouth Daily busPIRone 15MG Oral Tablet 08/05/2024 Unknown By Mouth Twice a day 1 TABLET 825151 RxNorm TAKE 1 TABLET BY MOUTH TWO TIMES A DAY Paxil 20MG Oral Tablet 08/16/2024 09/27/19 25 By Mouth Daily 1 TABLET 833533 RxNorm 1 TABLET By Mouth Daily Wellbutrin XL 150MG Oral Tablet, Extended Release, 24 HR 08/16/2024 09/27/19 25 By Mouth Daily 1 TABLET 909402 RxNorm 1 TABLET By Mouth Daily. Wellbutrin XL 150MG Oral Tablet, Extended Release, 24 HR 09/26/2024 Unknown By Mouth Daily 1 TABLET 063867 RxNorm 1 TABLET By Mouth Daily. Paxil 20MG Oral Tablet 09/26/2024 Unknown By Mouth Daily 1 TABLET 680215 RxNorm 1 TABLE T By Mouth Daily Lisinopril 5MG Oral Tablet 09/26/2024 Unknown By Mouth Daily 1 TABLET 604168 RxNorm 1 TABLET By Mouth Daily Singulair 10MG Oral Tablet 09/26/2024 Unknown By Mouth Daily 1 TABLET 663109 RxNorm TAKE 1 TABLET BY MOUTH ONCE A DAY Crestor 40MG Oral Tablet 09/26/2024 Unknown By Mouth Daily 1 TABLET 998574 RxNorm TAKE 1 TABLET BY MOUTH ONCE A DAY Ativan 0.5MG Oral Tablet 09/27/2024 Unknown By Mouth As needed daily 1 TABLET 001868 RxNorm 1 TABLET By Mouth As needed daily Ambien 5MG Oral Tablet 09/27/2024 10/05/19 25 By Mouth At bedtime 074575 RxNorm 1-2 TABLET By Mouth At bedtime As needed Ambien 5MG Oral Tablet 10/04/2024 Unknown By Mouth At bedtime 1 TABLET 089075 RxNorm 1 TABLET By Mouth At bedtime [...] TYPE I DIABETES MELLITUS WITH HYPERGLYCEMIA active 051513986323722 SNOMED -CT HYPERTENSION active 49324838 SNOMED- CT HYPERCHOLESTEROLEMIA active 24705811 SNOMED-CT HYPOTHYROIDISM active 24349315 SNOME D-CT LUMBAR RADICULOPATHY active 750432136 SNOMED-CT LOW POTASSIUM active 38189984 SNOMED -CT GERD active 307593802 SNOMED-CT ALLERGIC RHINITIS active 54477378 SN OMED-CT DEPRESSION active 74915926 SNOMED-CT ANXIETY active 54913124 SNOMED-CT ASTHMA active 218838335 SNOMED-CT CHRONIC KIDNEY DISEASE STAGE 3 active 768036817 SNOMED-CT OBESITY active 835567311 SNOMED-CT ENDOMETRIOSIS active 087566256 SNOMED -CT SLEEP APNEA active 00976458 SNOMED-C 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 573372348231943 SNOMED-CT 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 24717734 S NOMED-CT HYPERCALCEMIA active 76823081 SNOMED -CT ENCOUNTER FOR FITTING AND ADJUSTMENT OF INSULIN PUMP active 971171790 S NOMED-CT ABNORMAL LEVELS OF OTHER SERUM ENZYMES active 143539012 SNOMED-CT HISTORY OF GASTRIC BYPASS 06/26/2022 05/30/2024 resolved 69 3416893 SNOMED-CT SINUSITIS 04/30/2022 resolved 00164291 SNOMED-CT DIABETES 2 01/19/2024 resolved 54672419 SNOMED-C T Allergies and Adverse Reactions Allergy Substance Reaction Severity Start Date Concern Status Co de Code System CEFUROXIME Rash (SNOMED-CT: 695651306) Mild Active 2194 RxNorm KETOROLAC Hives (SNOMED-CT: 000093866) Mild Active 85804 RxNorm BIAXIN Hives (SNOMED-CT: 834384422) Severe Active LANTUS Hives (SNOMED-CT: 374061638) Mild Active 061203 RxNorm TAMIFLU Rash (SNOMED-CT: 614964818) Active 068256 RxNorm SEPTRA Rash (SNOMED-CT: 778074683) Mild Active LEVEMIR Hives (SNOMED-CT: 938461504) Mild Active 304102 RxNorm Plan of Treatment MA Screening Bilateral 07/25/2025 Established Patient 30 01/03/2025 Description Due Date Details Instructions Pap 08/18/2025 Performed 09/06 20 normal, repeat in 5 yrs per [place] - RR 5.20.21 Sdoh 01/04/2025 Annual Labs 11/10/2024 cbc, cmp, tsh, free t4, lipids Mammogram 08/12/2025 08/12/24- WNL Depression 06/06/2025 Anxiety 06/06/2025 Encounters Encounter Diagnosis Start Date Code Code Sys tem Screening mammography 06/25/2023 51905551 SNOMED -CT Personal Care Team Section Performer Name Performer Role Active Date Inactive Da te Imaging Narrative Notes
--- OUTSIDE RECORDS SUMMARY | 2024-10-25 03:01 | XMS_ITS ---
Author Organization Unknown Address [address] [place] [address] [phone] Phone Care Team Providers Care Air Support Control Officer Name Role Phone SCARLET ZAYAS Attending Unavailable [...] em Smoking History Never smoker (Never Smoked) [id number] SNOMED CT Smoking History Unknown if ever smoked [id number] SNOMED CT Sex Female Sexual Orientation Straight or Heterosexual [id number] SNOMED CT Gender Identity Female [id number] Medications Medication Start Date End Date Route Frequency Dose Code Code System Medication Instructions Home Meds Lyrica 150MG Oral Capsule 08/30/2018 Unknown By Mouth Twice a day 1 CAPSULE 281810 RxNorm 1 CAPSULE By Mouth Twice a day Xyzal Allergy 24HR 5MG Oral Tablet 08/30/2018 Unknown By Mouth Daily 1 TABLET 432383 RxNorm 1 TABLE T By Mouth Daily CeleBREX 100MG Oral Capsule 03/15/2019 12/31/19 23 By Mouth Twice a day 1 CAPSULE 007810 RxNorm 1 CAPSULE By Mouth Twice a day Pepcid AC 20MG Oral Tablet 03/15/2019 Unknown By Mouth Daily 1 TABLET 681803 RxNorm 1 TABLET By Mouth Daily medical marijuana 07/27/2019 04/22/19 24 By Mouth As Directed 1 edible RxNorm 1 edible By Mouth As Directed Fiasp 100U/1ML Injection Solution 02/23/2020 Unknown Subcutane ous 3437871 RxNorm Subcutaneou s VIA INSULIN PUMP Victoza 6MG/1ML Subcutaneou s Solution 02/23/2020 04/22/19 24 Subcutane ous Daily 1.8 MILLIGRAMS 365505 RxNorm 1.8 MILLIGRAMS Subcutaneou s Daily Naltrexone HCl Powder 04/29/2022 06/06/19 25 By Mouth At bedtime 3 MILLIGRAMS RxNorm 3 MILLIGRAMS By Mouth At bedtime Paxil 40MG Oral Tablet 04/29/2022 02/05/20 23 By Mouth Daily 1 TABLET 804637 RxNorm TAKE 1 TABLET BY MOUTH ONCE A DAY busPIRone 15MG Oral Tablet 04/29/2022 02/05/20 23 By Mouth Twice a day 1 TABLET 782520 RxNorm TAKE 1 TABLET BY MOUTH TWO TIMES A DAY Prinivil 5MG Oral Tablet 04/29/2022 06/19/19 24 By Mouth Daily 1 TABLET 761163 RxNorm TAKE 1 TABLET BY MOUTH ONCE A DAY Potassium Chloride 20MEQ Oral Tablet, Extended Release 04/29/2022 12/31/19 23 By Mouth Twice a day 2 TABLET 9245034 RxNorm TAKE 2 TABLETS BY MOUTH TWO TIMES A DAY Singulair 10MG Oral Tablet 04/29/2022 05/07/19 24 By Mouth Daily 1 TABLET 816776 RxNorm TAKE 1 TABLET BY MOUTH ONCE A DAY Crestor 40MG Oral Tablet 08/19/2022 12/20/19 23 By Mouth Daily 1 TABLET 608528 RxNorm TAKE 1 TABLET BY MOUTH ONCE A DAY Crestor 40MG Oral Tablet 12/19/2022 12/31/19 23 By Mouth Daily 1 TABLET 720907 RxNorm TAKE 1 TABLET BY MOUTH ONCE A DAY Ozempic 0.25 MG or 0.5 MG Doses 2 MG/3 ML Subcutaneou s Solution 12/30/2022 01/05/20 24 Subcutane ous Once a week 0.25 UNIT 7406098 RxNorm 0.25 UNIT Subcutaneou s Once a week Crestor 40MG Oral Tablet 12/30/2022 12/31/19 23 By Mouth Daily 1 TABLET 468441 RxNorm TAKE 1 TABLET BY MOUTH ONCE A DAY Crestor 40MG Oral Tablet 12/30/2022 01/05/20 24 By Mouth Daily 1 TABLET 949933 RxNorm TAKE 1 TABLET BY MOUTH ONCE A DAY Paxil 40MG Oral Tablet 02/04/2023 07/07/19 24 By Mouth Daily 1 TABLET 285693 RxNorm TAKE 1 TABLET BY MOUTH ONCE A DAY busPIRone 15MG Oral Tablet 02/04/2023 07/07/19 24 By Mouth Twice a day 1 TABLET 699024 RxNorm TAKE 1 TABLET BY MOUTH TWO TIMES A DAY Levothyroxi ne 50MCG Oral Tablet 02/20/2023 Unknown By Mouth 1 TABLET 649084 RxNorm 1 TABLE T By Mouth in the morning on an empty stomach- PRESCRIBED BY DR DURAN Victoza 6MG/1ML Subcutaneou s Solution 02/20/2023 06/21/19 25 Subcutane ous Daily 1.8 UNIT 086730 RxNorm 1.8 UNIT Subcutaneou s Daily- *PRESCRIBED BY DR DURAN NovoLOG FlexPen 100U/1ML Subcutaneou s Solution 02/20/2023 04/07/20 23 Subcutane ous 9249451 RxNorm Inject up to 100 Units SUBQ daily in DMDED doses--- * PRESCRIBED BY DR DURAN Baclofen 10MG Oral Tablet 02/20/2023 Unknown By Mouth Three times a day 1 TABLET 477437 RxNorm 1 TABLET By Mouth Three times a day With food Aspirin 81MG Oral Tablet, Enteric Coated 02/20/2023 04/07/20 23 By Mouth Daily 1 TABLET 157877 RxNorm 1 TABLET By Mouth Daily Vitamin D 1000IU Oral Tablet 02/20/2023 04/07/20 23 By Mouth Daily 1 TABLET 237049 RxNorm 1 TABLET By Mouth Daily Augmentin 875MG-125MG Oral Tablet 04/22/2023 05/28/19 24 By Mouth Every 12 hours 1 TABLET 671180 RxNorm 1 TABLET By Mouth Every 12 hours x 10 days. Take with food. Diflucan 150MG Oral Tablet 04/22/2023 05/28/19 24 By Mouth x1 NOW 1 TABLET 760722 RxNorm 1 TABLET By Mouth x1 NOW. May repeat in 72 hours as needed. Singulair 10MG Oral Tablet 05/07/2023 07/07/19 24 By Mouth Daily 1 TABLET 722983 RxNorm TAKE 1 TABLET BY MOUTH ONCE A DAY Prinivil 5MG Oral Tablet 06/19/2023 06/22/19 24 By Mouth Daily 1 TABLET 745041 RxNorm TAKE 1 TABLET BY MOUTH ONCE A DAY Prinivil 5MG Oral Tablet 06/22/2023 07/07/19 24 By Mouth Daily 1 TABLET 750766 RxNorm TAKE 1 TABLET BY MOUTH ONCE A DAY Prinivil 5MG Oral Tablet 07/07/2023 01/05/20 24 By Mouth Daily 1 TABLET 633304 RxNorm TAKE 1 TABLET BY MOUTH ONCE A DAY Singulair 10MG Oral Tablet 07/07/2023 01/05/20 24 By Mouth Daily 1 TABLET 123951 RxNorm TAKE 1 TABLET BY MOUTH ONCE A DAY Paxil 40MG Oral Tablet 07/07/2023 10/02/19 24 By Mouth Daily 1 TABLET 474791 RxNorm TAKE 1 TABLET BY MOUTH ONCE A DAY busPIRone 15MG Oral Tablet 07/07/2023 01/05/20 24 By Mouth Twice a day 1 TABLET 121301 RxNorm TAKE 1 TABLET BY MOUTH TWO TIMES A DAY Ativan 0.5MG Oral Tablet 09/02/2023 09/28/19 25 By Mouth Twice a day 1 TABLET 912396 RxNorm 1 TABLET By Mouth Twice a day PRN Paxil 30MG Oral Tablet 10/02/2023 10/30/19 24 By Mouth Daily 2 TABLET 955083 RxNorm 2 TABLET By Mouth Daily Paxil 30MG Oral Tablet 10/30/2023 08/17/19 25 By Mouth Daily 2 TABLET 224019 RxNorm 2 TABLET By Mouth Daily Ambien 5MG Oral Tablet 12/11/2023 01/05/20 24 By Mouth At bedtime 183522 RxNorm 1-2 TABLET By Mouth At bedtime As needed Ozempic 0.25 MG or 0.5 MG Doses 2 MG/3 ML Subcutaneou s Solution 01/05/2024 06/21/19 25 Subcutane ous Once a week 0.5 UNIT 8571903 RxNorm 0.5 UNIT Subcutaneou s Once a week Crestor 40MG Oral Tablet 01/05/2024 09/27/19 25 By Mouth Daily 1 TABLET 586735 RxNorm TAKE 1 TABLET BY MOUTH ONCE A DAY busPIRone 15MG Oral Tablet 01/05/2024 08/06/19 25 By Mouth Twice a day 1 TABLET 366987 RxNorm TAKE 1 TABLET BY MOUTH TWO TIMES A DAY Singulair 10MG Oral Tablet 01/05/2024 09/27/19 25 By Mouth Daily 1 TABLET 204078 RxNorm TAKE 1 TABLET BY MOUTH ONCE A DAY Ambien 5MG Oral Tablet 01/05/2024 09/28/19 25 By Mouth At bedtime 096033 RxNorm 1-2 TABLET By Mouth At bedtime As needed Prinivil 5MG Oral Tablet 01/05/2024 07/06/19 25 By Mouth Daily 1 TABLET 513827 RxNorm TAKE 1 TABLET BY MOUTH ONCE A DAY Promethazin e DM 6.25MG/5ML- 15MG/5ML Oral Syrup 01/25/2024 06/06/19 25 ORAL As needed every 4 hr 5 mL 084863 RxNorm 5 mL ORAL As needed every 4 hr-do not take within 2 hours of Paxil or Buspirone Augmentin 875MG-125MG Oral Tablet 01/25/2024 06/06/19 25 By Mouth Twice a day 1 TABLET 903773 RxNorm 1 TABLET By Mouth Twice a day x 10 days Airsupra 90 MCG/1 Actuation-8 0 MCG/1 Actuation Inhalation Aerosol Powder 01/25/2024 06/06/19 25 Inhale As needed every 4 hr 2 Puff 8083485 RxNorm 2 Puff Inhale As needed every 4 hr Victoza 6MG/1ML Subcutaneou s Solution 06/20/2024 Unknown Subcutane ous Daily 1.8 MILLIGRAMS 389627 RxNorm 1.8 MILLIGRAMS Subcutaneou s Daily Ozempic 0.25 MG or 0.5 MG Doses 2 MG/3 ML Subcutaneou s Solution 06/20/2024 Unknown Subcutane ous Once a week 1.5 MILLILITER 7873879 RxNorm 1.5 MILLILITER Subcutaneou s Once a week Lisinopril 5MG Oral Tablet 07/05/2024 09/27/19 25 By Mouth Daily 1 TABLET 124201 RxNorm 1 TABLET By Mouth Daily busPIRone 15MG Oral Tablet 08/05/2024 Unknown By Mouth Twice a day 1 TABLET 649630 RxNorm TAKE 1 TABLET BY MOUTH TWO TIMES A DAY Paxil 20MG Oral Tablet 08/16/2024 09/27/19 25 By Mouth Daily 1 TABLET 132058 RxNorm 1 TABLET By Mouth Daily Wellbutrin XL 150MG Oral Tablet, Extended Release, 24 HR 08/16/2024 09/27/19 25 By Mouth Daily 1 TABLET 789768 RxNorm 1 TABLET By Mouth Daily. Wellbutrin XL 150MG Oral Tablet, Extended Release, 24 HR 09/26/2024 Unknown By Mouth Daily 1 TABLET 520930 RxNorm 1 TABLET By Mouth Daily. Paxil 20MG Oral Tablet 09/26/2024 Unknown By Mouth Daily 1 TABLET 469294 RxNorm 1 TABLE T By Mouth Daily Lisinopril 5MG Oral Tablet 09/26/2024 Unknown By Mouth Daily 1 TABLET 187017 RxNorm 1 TABLET By Mouth Daily Singulair 10MG Oral Tablet 09/26/2024 Unknown By Mouth Daily 1 TABLET 550631 RxNorm TAKE 1 TABLET BY MOUTH ONCE A DAY Crestor 40MG Oral Tablet 09/26/2024 Unknown By Mouth Daily 1 TABLET 547703 RxNorm TAKE 1 TABLET BY MOUTH ONCE A DAY Ativan 0.5MG Oral Tablet 09/27/2024 Unknown By Mouth As needed daily 1 TABLET 150630 RxNorm 1 TABLET By Mouth As needed daily Ambien 5MG Oral Tablet 09/27/2024 10/05/19 25 By Mouth At bedtime 985233 RxNorm 1-2 TABLET By Mouth At bedtime As needed Ambien 5MG Oral Tablet 10/04/2024 Unknown By Mouth At bedtime 1 TABLET 052235 RxNorm 1 TABLET By Mouth At bedtime [...] TYPE I DIABETES MELLITUS WITH HYPERGLYCEMIA active [id number] SNOMED -CT HYPERTENSION active 90439907 SNOMED- CT HYPERCHOLESTEROLEMIA active 88411791 SNOMED-CT HYPOTHYROIDISM active 64177247 SNOME D-CT LUMBAR RADICULOPATHY active 859756764 SNOMED-CT LOW POTASSIUM active 96511498 SNOMED -CT GERD active 081858518 SNOMED-CT ALLERGIC RHINITIS active 35108793 SN OMED-CT DEPRESSION active 63665834 SNOMED-CT ANXIETY active 38643653 SNOMED-CT ASTHMA active 054243941 SNOMED-CT CHRONIC KIDNEY DISEASE STAGE 3 active 921225101 SNOMED-CT OBESITY active 307323516 SNOMED-CT ENDOMETRIOSIS active 922068967 SNOMED -CT SLEEP APNEA active 48402997 SNOMED-C 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 070690171703570 SNOMED-CT 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 35132360 S NOMED-CT HYPERCALCEMIA active 02642169 SNOMED -CT ENCOUNTER FOR FITTING AND ADJUSTMENT OF INSULIN PUMP active 454743422 S NOMED-CT ABNORMAL LEVELS OF OTHER SERUM ENZYMES active 017742406 SNOMED-CT HISTORY OF GASTRIC BYPASS 06/26/2022 05/30/2024 resolved 69 5290848 SNOMED-CT SINUSITIS 04/30/2022 resolved 59078966 SNOMED-CT DIABETES 2 01/19/2024 resolved 64597997 SNOMED-C T Allergies and Adverse Reactions Allergy Substance Reaction Severity Start Date Concern Status Co de Code System CEFUROXIME Rash (SNOMED-CT: 202325909) Mild Active 2194 RxNorm KETOROLAC Hives (SNOMED-CT: 245250143) Mild Active 20212 RxNorm BIAXIN Hives (SNOMED-CT: 145889660) Severe Active LANTUS Hives (SNOMED-CT: 791692548) Mild Active 184501 RxNorm TAMIFLU Rash (SNOMED-CT: 026390004) Active 177970 RxNorm SEPTRA Rash (SNOMED-CT: 826829977) Mild Active LEVEMIR Hives (SNOMED-CT: 695680784) Mild Active 152971 RxNorm Plan of Treatment [place] Screening Bilateral [...] tem Type 2 diabetes mellitus without complication 11/15/19 23 [id number] SNOMED-CT Personal Care Team Section Performer Name Performer Role Active Date Inactive Da te Progress Notes [facility] 12/16/2022 17:29 Date of Service: 11/14/2022 Primary Care Physician: CHANA NOVAK Chronic Care Management Visit Note Preventative Health Assessment (Mail Communication) October Monthly Update The Primary Care Management visit had a cumulative time of 00:20:16 involving: review of patient information, documentation, practice [...] and that cost-sharing applies. Heather Ashraf LPN, Director Airport Operations No immediate concerns for provider. The nurse reviewed the patient's chart to compile a list of preventive health opportunities that the patient is eligible for through Medicare. The nurse provided the patient with this information and education on why preventive measures are an important part of their health and well-being. This information will be reviewed, verified, and discussed with the patient during the Chronic Care Management call next month and recommendations will be provided for scheduling. The following communication was mailed to the patient for review: Staying healthy and living well begins with preventive healthcare. Preventive healthcare is all about detecting issues before symptoms even start. Medicare offers preventive services to keep you healthy and living the best quality of life. We've provided you with a list of preventive services that you may be eligible for under Medicare. Please review this list and check off any services that you've already had. Write down the last date when possible. Please be aware that not all of these services will apply to you. This will help us know what you have had in the past and put together a plan with your provider to ensure you are receiving all of these beneficial screenings (many of which are covered 100% by Medicare but may need a referral from your provider). Preventive Health Services That May Be Due: Cervical Cancer Screening with Breast Exam - Due Diabetes Self-Management Training - Due Influenza Vaccine - Due - Last completed: 12/18/20 Preventive Health Services Documented as Completed: Cardiovascular Disease Screenings - Up to date Colorectal Cancer Screening - Up to date Depression Screening - Up to date Hepatitis C Screening - Up to date Preventive Health Services Documented as Declined: COVID Vaccination Status: Up to date Remember to contact your provider's office to schedule your preventive health services, as appropriate. We tried to reach you by phone on 11/04/2022 and 11/11/2022. Upcoming Appointments: Your chart does not indicate that you have any upcoming appointments. I hope all is well! Heather Ashraf LPN [phone] ICD10 Description E11.9 Type 2 diabetes mellitus without complications
--- OUTSIDE RECORDS SUMMARY | 2024-10-25 03:01 | XMS_ITS ---
Author Organization Unknown Address [address] [place] [phone] Phone Care Team Providers Care Conductor Pullman Name Role Phone ROSITA ROSADO Attending Unavailable [...] em Smoking History Never smoker (Never Smoked) [id number] SNOMED CT Smoking History Unknown if ever smoked [id number] SNOMED CT Sex Female Sexual Orientation Straight or Heterosexual 33301725 SNOMED CT Gender Identity Female [id number] Vital Signs Vital Sign Value Unit Dickinson Value Dickinson Unit Date/Time Recent/Initial? Code Code System Body Mass Index 38.25 kg/m2 03/07/2021 13:53 Initial 47559 -5 [facility] Systolic Blood Pressure 112 mm[Hg] 03/07/2021 13:53 Initial 8480- 6 [facility] Diastolic Blood Pressure 78 mm[Hg] 03/07/2021 13:53 Initial 8462- 4 [facility] Body Surface Area 2.24 m2 03/07/2021 13:53 Initial 3140- 1 [facility] Height 167.640 0 cm 66.00 in 03/07/2021 13:53 Initial 8302- 2 [facility] O2 Saturation 94 % 2020 13:53 Initial 15397 -5 [facility] Pulse 104.0 /min 03/07/2021 13:53 Initial 8867- 4 [facility] Respiration 18 /min 03/07/20 13:53 Initial 9279- 1 LOINC Temperature 36.0 Lisa 96.8 F 03/07/20 13:53 Initial 8310- 5 [facility] Weight 107.50 kg 237.00 lbs 03/07/2021 13:53 Initial 83550 -7 [facility] Medications Medication Start Date End Date Route Frequency Dose Code Code System Medication Instructions Home Meds Lyrica 150MG Oral Capsule 08/30/2018 Unknown By Mouth Twice a day 1 CAPSULE 516503 RxNorm 1 CAPSULE By Mouth Twice a day Xyzal Allergy 24HR 5MG Oral Tablet 08/30/2018 Unknown By Mouth Daily 1 TABLET 488832 RxNorm 1 TABLE T By Mouth Daily CeleBREX 100MG Oral Capsule 03/15/2019 12/31/19 23 By Mouth Twice a day 1 CAPSULE 540347 RxNorm 1 CAPSULE By Mouth Twice a day Pepcid AC 20MG Oral Tablet 03/15/2019 Unknown By Mouth Daily 1 TABLET 887977 RxNorm 1 TABLET By Mouth Daily medical marijuana 07/27/2019 04/22/19 24 By Mouth As Directed 1 edible RxNorm 1 edible By Mouth As Directed Fiasp 100U/1ML Injection Solution 02/23/2020 Unknown Subcutane ous 2815547 RxNorm Subcutaneou s VIA INSULIN PUMP Victoza 6MG/1ML Subcutaneou s Solution 02/23/2020 04/22/19 24 Subcutane ous Daily 1.8 MILLIGRAMS 741926 RxNorm 1.8 MILLIGRAMS Subcutaneou s Daily Prinivil 5MG Oral Tablet 09/06/2020 04/03/20 21 By Mouth Daily 1 TABLET 579051 RxNorm TAKE 1 TABLET BY MOUTH ONCE A DAY Potassium Chloride 20MEQ Oral Tablet, Extended Release 09/06/2020 04/22/19 22 By Mouth Twice a day 2 TABLET 9887251 RxNorm TAKE 2 TABLETS BY MOUTH TWO TIMES A DAY Crestor 40MG Oral Tablet 09/06/2020 04/03/20 21 By Mouth Daily 1 TABLET 418222 RxNorm TAKE 1 TABLET BY MOUTH ONCE A DAY Paxil 40MG Oral Tablet 09/06/2020 04/09/20 21 By Mouth Daily 1 TABLET 507687 RxNorm TAKE 1 TABLET BY MOUTH ONCE A DAY -TAKE WITH 10MG TAB Singulair 10MG Oral Tablet 09/06/2020 04/03/20 21 By Mouth Daily 1 TABLET 141304 RxNorm TAKE 1 TABLET BY MOUTH ONCE A DAY Paxil 10MG Oral Tablet 10/09/2020 04/03/20 21 By Mouth Daily 1 TABLET 314754 RxNorm TAKE 1 TABLET BY MOUTH ONCE A DAY -TAKE WITH 40MG TAB busPIRone 15MG Oral Tablet 01/11/2021 04/11/20 21 By Mouth Twice a day 1 TABLET 050387 RxNorm 1 TABLET BY MOUTH TWICE A DAY Augmentin 875MG-125MG Oral Tablet 02/26/2021 03/07/20 21 By Mouth Twice a day 1 TABLET 947253 RxNorm 1 TABLET By Mouth Twice a day x10 days Promethazin e DM 6.25MG/5ML- 15MG/5ML Oral Syrup 02/26/2021 03/07/20 21 By Mouth As needed every 4-6 hrs 5 mL 128879 RxNorm 5 mL By Mouth As needed every 4-6 hrs As needed Singulair 10MG Oral Tablet 04/03/2021 10/04/19 22 By Mouth Daily 1 TABLET 971047 RxNorm TAKE 1 TABLET BY MOUTH ONCE A DAY Paxil 10MG Oral Tablet 04/03/2021 04/09/20 21 By Mouth Daily 1 TABLET 041443 RxNorm TAKE 1 TABLET BY MOUTH ONCE A DAY -TAKE WITH 40MG TAB Prinivil 5MG Oral Tablet 04/03/2021 10/04/19 22 By Mouth Daily 1 TABLET 459971 RxNorm TAKE 1 TABLET BY MOUTH ONCE A DAY Crestor 40MG Oral Tablet 04/03/2021 10/04/19 22 By Mouth Daily 1 TABLET 577939 RxNorm TAKE 1 TABLET BY MOUTH ONCE A DAY Paxil 10MG Oral Tablet 04/09/2021 08/23/19 22 By Mouth Daily 1 TABLET 553921 RxNorm TAKE 1 TABLET BY MOUTH ONCE A DAY -TAKE WITH 40MG TAB Paxil 40MG Oral Tablet 04/09/2021 10/04/19 22 By Mouth Daily 1 TABLET 229306 RxNorm TAKE 1 TABLET BY MOUTH ONCE A DAY -TAKE WITH 10MG TAB busPIRone 15MG Oral Tablet 04/11/2021 05/02/19 22 By Mouth Twice a day 1 TABLET 146545 RxNorm 1 TABLET BY MOUTH TWICE A DAY Potassium Chloride 20MEQ Oral Tablet, Extended Release 04/22/2021 06/28/19 22 By Mouth Twice a day 2 TABLET 4342029 RxNorm TAKE 2 TABLETS BY MOUTH TWO TIMES A DAY busPIRone 15MG Oral Tablet 05/02/2021 06/28/19 22 By Mouth Twice a day 1 TABLET 869440 RxNorm 1 TABLET BY MOUTH TWICE A DAY Potassium Chloride 20MEQ Oral Tablet, Extended Release 06/27/2021 08/02/19 22 By Mouth Twice a day 2 TABLET 5845191 RxNorm TAKE 2 TABLETS BY MOUTH TWO TIMES A DAY busPIRone 15MG Oral Tablet 06/27/2021 10/04/19 22 By Mouth Twice a day 1 TABLET 802960 RxNorm 1 TABLET BY MOUTH TWICE A DAY Augmentin 875MG-125MG Oral Tablet 07/11/2021 10/04/19 22 By mouth Twice a day 1 TABLET 090095 RxNorm 1 TABLET By mouth Twice a day x10 days Potassium Chloride 20MEQ Oral Tablet, Extended Release 08/01/2021 10/04/19 22 By Mouth Twice a day 2 TABLET 9161987 RxNorm TAKE 2 TABLETS BY MOUTH TWO TIMES A DAY Paxil 10MG Oral Tablet 08/22/2021 04/29/19 23 By Mouth Daily 1 TABLET 594690 RxNorm TAKE 1 TABLET BY MOUTH ONCE A DAY -TAKE WITH 40MG TAB Singulair 10MG Oral Tablet 10/03/2021 12/07/19 22 By Mouth Daily 1 TABLET 198708 RxNorm TAKE 1 TABLET BY MOUTH ONCE A DAY Prinivil 5MG Oral Tablet 10/03/2021 11/08/19 22 By Mouth Daily 1 TABLET 837222 RxNorm TAKE 1 TABLET BY MOUTH ONCE A DAY Potassium Chloride 20MEQ Oral Tablet, Extended Release 10/03/2021 11/05/19 22 By Mouth Twice a day 2 TABLET 9126906 RxNorm TAKE 2 TABLETS BY MOUTH TWO TIMES A DAY Crestor 40MG Oral Tablet 10/03/2021 01/10/20 22 By Mouth Daily 1 TABLET 735192 RxNorm TAKE 1 TABLET BY MOUTH ONCE A DAY Paxil 40MG Oral Tablet 10/03/2021 11/05/19 22 By Mouth Daily 1 TABLET 843798 RxNorm TAKE 1 TABLET BY MOUTH ONCE A DAY -TAKE WITH 10MG TAB busPIRone 15MG Oral Tablet 10/03/2021 12/07/19 22 By Mouth Twice a day 1 TABLET 633216 RxNorm 1 TABLET BY MOUTH TWICE A DAY Potassium Chloride 20MEQ Oral Tablet, Extended Release 11/04/2021 12/07/19 22 By Mouth Twice a day 2 TABLET 8642000 RxNorm TAKE 2 TABLETS BY MOUTH TWO TIMES A DAY Paxil 40MG Oral Tablet 11/04/2021 12/07/19 22 By Mouth Daily 1 TABLET 096287 RxNorm TAKE 1 TABLET BY MOUTH ONCE A DAY -TAKE WITH 10MG TAB Prinivil 5MG Oral Tablet 11/06/2021 04/29/19 23 By Mouth Daily 1 TABLET 564389 RxNorm TAKE 1 TABLET BY MOUTH ONCE A DAY Prinivil 5MG Oral Tablet 11/07/2021 04/08/20 22 By Mouth Daily 1 TABLET 090431 RxNorm TAKE 1 TABLET BY MOUTH ONCE A DAY Paxil 40MG Oral Tablet 12/06/2021 01/10/20 22 By Mouth Daily 1 TABLET 311968 RxNorm TAKE 1 TABLET BY MOUTH ONCE A DAY -TAKE WITH 10MG TAB Singulair 10MG Oral Tablet 12/06/2021 02/08/20 By Mouth Daily 1 TABLET 128947 RxNorm TAKE 1 TABLET BY MOUTH ONCE A DAY busPIRone 15MG Oral Tablet 12/06/2021 01/10/20 22 By Mouth Twice a day 1 TABLET 209461 RxNorm TAKE 1 TABLET BY MOUTH TWO TIMES A DAY Potassium Chloride 20MEQ Oral Tablet, Extended Release 12/06/2021 01/10/20 By Mouth Twice a day 2 TABLET 6873571 RxNorm TAKE 2 TABLETS BY MOUTH TWO TIMES A DAY Potassium Chloride 20MEQ Oral Tablet, Extended Release 01/09/2022 03/11/20 22 By Mouth Twice a day 2 TABLET 8295387 RxNorm TAKE 2 TABLETS BY MOUTH TWO TIMES A DAY Paxil 40MG Oral Tablet 01/09/2022 03/11/20 22 By Mouth Daily 1 TABLET 148316 RxNorm TAKE 1 TABLET BY MOUTH ONCE A DAY -TAKE WITH 10MG TAB Crestor 40MG Oral Tablet 01/09/2022 03/11/20 22 By Mouth Daily 1 TABLET 919574 RxNorm TAKE 1 TABLET BY MOUTH ONCE A DAY busPIRone 15MG Oral Tablet 01/09/2022 03/11/20 22 By Mouth Twice a day 1 TABLET 218238 RxNorm TAKE 1 TABLET BY MOUTH TWO TIMES A DAY Singulair 10MG Oral Tablet 02/07/2022 04/29/19 23 By Mouth Daily 1 TABLET 753096 RxNorm TAKE 1 TABLET BY MOUTH ONCE A DAY Singulair 10MG Oral Tablet 02/07/2022 04/29/19 23 By Mouth Daily 1 TABLET 731176 RxNorm TAKE 1 TABLET BY MOUTH ONCE A DAY Crestor 40MG Oral Tablet 03/11/2022 04/08/20 22 By Mouth Daily 1 TABLET 780846 RxNorm TAKE 1 TABLET BY MOUTH ONCE A DAY busPIRone 15MG Oral Tablet 03/11/2022 04/08/20 22 By Mouth Twice a day 1 TABLET 652839 RxNorm TAKE 1 TABLET BY MOUTH TWO TIMES A DAY Paxil 40MG Oral Tablet 03/11/2022 04/08/20 22 By Mouth Daily 1 TABLET 670334 RxNorm TAKE 1 TABLET BY MOUTH ONCE A DAY -TAKE WITH 10MG TAB Potassium Chloride 20MEQ Oral Tablet, Extended Release 03/11/2022 04/08/20 22 By Mouth Twice a day 2 TABLET 0409773 RxNorm TAKE 2 TABLETS BY MOUTH TWO TIMES A DAY Doxycycline 100MG Oral Capsule 03/20/2022 04/29/19 23 By Mouth Twice a day 1 CAPSULE 2943116 RxNorm 1 CAPSULE By Mouth Twice a day x10 days Paxil 40MG Oral Tablet 04/08/2022 04/29/19 23 By Mouth Daily 1 TABLET 217624 RxNorm TAKE 1 TABLET BY MOUTH ONCE A DAY -TAKE WITH 10MG TAB busPIRone 15MG Oral Tablet 04/08/2022 04/29/19 23 By Mouth Twice a day 1 TABLET 549023 RxNorm TAKE 1 TABLET BY MOUTH TWO TIMES A DAY Prinivil 5MG Oral Tablet 04/08/2022 04/29/19 23 By Mouth Daily 1 TABLET 275862 RxNorm TAKE 1 TABLET BY MOUTH ONCE A DAY Crestor 40MG Oral Tablet 04/08/2022 06/05/19 23 By Mouth Daily 1 TABLET 247022 RxNorm TAKE 1 TABLET BY MOUTH ONCE A DAY Potassium Chloride 20MEQ Oral Tablet, Extended Release 04/08/2022 04/29/19 23 By Mouth Twice a day 2 TABLET 9989162 RxNorm TAKE 2 TABLETS BY MOUTH TWO TIMES A DAY Naltrexone HCl Powder 04/29/2022 06/06/19 25 By Mouth At bedtime 3 MILLIGRAMS RxNorm 3 MILLIGRAMS By Mouth At bedtime Paxil 40MG Oral Tablet 04/29/2022 02/05/20 23 By Mouth Daily 1 TABLET 376350 RxNorm TAKE 1 TABLET BY MOUTH ONCE A DAY busPIRone 15MG Oral Tablet 04/29/2022 02/05/20 23 By Mouth Twice a day 1 TABLET 613520 RxNorm TAKE 1 TABLET BY MOUTH TWO TIMES A DAY Prinivil 5MG Oral Tablet 04/29/2022 06/19/19 24 By Mouth Daily 1 TABLET 705126 RxNorm TAKE 1 TABLET BY MOUTH ONCE A DAY Potassium Chloride 20MEQ Oral Tablet, Extended Release 04/29/2022 12/31/19 23 By Mouth Twice a day 2 TABLET 9619730 RxNorm TAKE 2 TABLETS BY MOUTH TWO TIMES A DAY Singulair 10MG Oral Tablet 04/29/2022 05/07/19 24 By Mouth Daily 1 TABLET 979461 RxNorm TAKE 1 TABLET BY MOUTH ONCE A DAY Crestor 40MG Oral Tablet 06/05/2022 08/20/19 23 By Mouth Daily 1 TABLET 961504 RxNorm TAKE 1 TABLET BY MOUTH ONCE A DAY Crestor 40MG Oral Tablet 08/19/2022 12/20/19 23 By Mouth Daily 1 TABLET 380544 RxNorm TAKE 1 TABLET BY MOUTH ONCE A DAY Crestor 40MG Oral Tablet 12/19/2022 12/31/19 23 By Mouth Daily 1 TABLET 382864 RxNorm TAKE 1 TABLET BY MOUTH ONCE A DAY Ozempic 0.25 MG or 0.5 MG Doses 2 MG/3 ML Subcutaneou s Solution 12/30/2022 01/05/20 24 Subcutane ous Once a week 0.25 UNIT 8440754 RxNorm 0.25 UNIT Subcutaneou s Once a week Crestor 40MG Oral Tablet 12/30/2022 12/31/19 23 By Mouth Daily 1 TABLET 374969 RxNorm TAKE 1 TABLET BY MOUTH ONCE A DAY Crestor 40MG Oral Tablet 12/30/2022 01/05/20 24 By Mouth Daily 1 TABLET 116193 RxNorm TAKE 1 TABLET BY MOUTH ONCE A DAY Paxil 40MG Oral Tablet 02/04/2023 07/07/19 24 By Mouth Daily 1 TABLET 760240 RxNorm TAKE 1 TABLET BY MOUTH ONCE A DAY busPIRone 15MG Oral Tablet 02/04/2023 07/07/19 24 By Mouth Twice a day 1 TABLET 047593 RxNorm TAKE 1 TABLET BY MOUTH TWO TIMES A DAY Levothyroxi ne 50MCG Oral Tablet 02/20/2023 Unknown By Mouth 1 TABLET 366884 RxNorm 1 TABLE T By Mouth in the morning on an empty stomach- PRESCRIBED BY DR DURAN Victoza 6MG/1ML Subcutaneou s Solution 02/20/2023 06/21/19 25 Subcutane ous Daily 1.8 UNIT 345355 RxNorm 1.8 UNIT Subcutaneou s Daily- *PRESCRIBED BY DR DURAN NovoLOG FlexPen 100U/1ML Subcutaneou s Solution 02/20/2023 04/07/20 23 Subcutane ous 4639701 RxNorm Inject up to 100 Units SUBQ daily in DMDED doses--- * PRESCRIBED BY DR DURAN Baclofen 10MG Oral Tablet 02/20/2023 Unknown By Mouth Three times a day 1 TABLET 923397 RxNorm 1 TABLET By Mouth Three times a day With food Aspirin 81MG Oral Tablet, Enteric Coated 02/20/2023 04/07/20 23 By Mouth Daily 1 TABLET 375782 RxNorm 1 TABLET By Mouth Daily Vitamin D 1000IU Oral Tablet 02/20/2023 04/07/20 23 By Mouth Daily 1 TABLET 700886 RxNorm 1 TABLET By Mouth Daily Augmentin 875MG-125MG Oral Tablet 04/22/2023 05/28/19 24 By Mouth Every 12 hours 1 TABLET 913189 RxNorm 1 TABLET By Mouth Every 12 hours x 10 days. Take with food. Diflucan 150MG Oral Tablet 04/22/2023 05/28/19 24 By Mouth x1 NOW 1 TABLET 133129 RxNorm 1 TABLET By Mouth x1 NOW. May repeat in 72 hours as needed. Singulair 10MG Oral Tablet 05/07/2023 07/07/19 24 By Mouth Daily 1 TABLET 924596 RxNorm TAKE 1 TABLET BY MOUTH ONCE A DAY Prinivil 5MG Oral Tablet 06/19/2023 06/22/19 24 By Mouth Daily 1 TABLET 293387 RxNorm TAKE 1 TABLET BY MOUTH ONCE A DAY Prinivil 5MG Oral Tablet 06/22/2023 07/07/19 24 By Mouth Daily 1 TABLET 423097 RxNorm TAKE 1 TABLET BY MOUTH ONCE A DAY Prinivil 5MG Oral Tablet 07/07/2023 01/05/20 24 By Mouth Daily 1 TABLET 785227 RxNorm TAKE 1 TABLET BY MOUTH ONCE A DAY Singulair 10MG Oral Tablet 07/07/2023 01/05/20 24 By Mouth Daily 1 TABLET 815119 RxNorm TAKE 1 TABLET BY MOUTH ONCE A DAY Paxil 40MG Oral Tablet 07/07/2023 10/02/19 24 By Mouth Daily 1 TABLET 347835 RxNorm TAKE 1 TABLET BY MOUTH ONCE A DAY busPIRone 15MG Oral Tablet 07/07/2023 01/05/20 24 By Mouth Twice a day 1 TABLET 679157 RxNorm TAKE 1 TABLET BY MOUTH TWO TIMES A DAY Ativan 0.5MG Oral Tablet 09/02/2023 09/28/19 25 By Mouth Twice a day 1 TABLET 902606 RxNorm 1 TABLET By Mouth Twice a day PRN Paxil 30MG Oral Tablet 10/02/2023 10/30/19 24 By Mouth Daily 2 TABLET 346195 RxNorm 2 TABLET By Mouth Daily Paxil 30MG Oral Tablet 10/30/2023 08/17/19 25 By Mouth Daily 2 TABLET 132302 RxNorm 2 TABLET By Mouth Daily Ambien 5MG Oral Tablet 12/11/2023 01/05/20 24 By Mouth At bedtime 973676 RxNorm 1-2 TABLET By Mouth At bedtime As needed Ozempic 0.25 MG or 0.5 MG Doses 2 MG/3 ML Subcutaneou s Solution 01/05/2024 06/21/19 25 Subcutane ous Once a week 0.5 UNIT 3429112 RxNorm 0.5 UNIT Subcutaneou s Once a week Crestor 40MG Oral Tablet 01/05/2024 09/27/19 25 By Mouth Daily 1 TABLET 300845 RxNorm TAKE 1 TABLET BY MOUTH ONCE A DAY busPIRone 15MG Oral Tablet 01/05/2024 08/06/19 25 By Mouth Twice a day 1 TABLET 587352 RxNorm TAKE 1 TABLET BY MOUTH TWO TIMES A DAY Singulair 10MG Oral Tablet 01/05/2024 09/27/19 25 By Mouth Daily 1 TABLET 982445 RxNorm TAKE 1 TABLET BY MOUTH ONCE A DAY Ambien 5MG Oral Tablet 01/05/2024 09/28/19 25 By Mouth At bedtime 202475 RxNorm 1-2 TABLET By Mouth At bedtime As needed Prinivil 5MG Oral Tablet 01/05/2024 07/06/19 25 By Mouth Daily 1 TABLET 473573 RxNorm TAKE 1 TABLET BY MOUTH ONCE A DAY Promethazin e DM 6.25MG/5ML- 15MG/5ML Oral Syrup 01/25/2024 06/06/19 25 ORAL As needed every 4 hr 5 mL 588707 RxNorm 5 mL ORAL As needed every 4 hr-do not take within 2 hours of Paxil or Buspirone Augmentin 875MG-125MG Oral Tablet 01/25/2024 06/06/19 25 By Mouth Twice a day 1 TABLET 607288 RxNorm 1 TABLET By Mouth Twice a day x 10 days Airsupra 90 MCG/1 Actuation-8 0 MCG/1 Actuation Inhalation Aerosol Powder 01/25/2024 06/06/19 25 Inhale As needed every 4 hr 2 Puff 9960117 RxNorm 2 Puff Inhale As needed every 4 hr Victoza 6MG/1ML Subcutaneou s Solution 06/20/2024 Unknown Subcutane ous Daily 1.8 MILLIGRAMS 772952 RxNorm 1.8 MILLIGRAMS Subcutaneou s Daily Ozempic 0.25 MG or 0.5 MG Doses 2 MG/3 ML Subcutaneou s Solution 06/20/2024 Unknown Subcutane ous Once a week 1.5 MILLILITER 4527062 RxNorm 1.5 MILLILITER Subcutaneou s Once a week Lisinopril 5MG Oral Tablet 07/05/2024 09/27/19 25 By Mouth Daily 1 TABLET 080186 RxNorm 1 TABLET By Mouth Daily busPIRone 15MG Oral Tablet 08/05/2024 Unknown By Mouth Twice a day 1 TABLET 508115 RxNorm TAKE 1 TABLET BY MOUTH TWO TIMES A DAY Paxil 20MG Oral Tablet 08/16/2024 09/27/19 25 By Mouth Daily 1 TABLET 933873 RxNorm 1 TABLET By Mouth Daily Wellbutrin XL 150MG Oral Tablet, Extended Release, 24 HR 08/16/2024 09/27/19 25 By Mouth Daily 1 TABLET 482125 RxNorm 1 TABLET By Mouth Daily. Wellbutrin XL 150MG Oral Tablet, Extended Release, 24 HR 09/26/2024 Unknown By Mouth Daily 1 TABLET 275934 RxNorm 1 TABLET By Mouth Daily. Paxil 20MG Oral Tablet 09/26/2024 Unknown By Mouth Daily 1 TABLET 356667 RxNorm 1 TABLE T By Mouth Daily Lisinopril 5MG Oral Tablet 09/26/2024 Unknown By Mouth Daily 1 TABLET 642802 RxNorm 1 TABLET By Mouth Daily Singulair 10MG Oral Tablet 09/26/2024 Unknown By Mouth Daily 1 TABLET 405187 RxNorm TAKE 1 TABLET BY MOUTH ONCE A DAY Crestor 40MG Oral Tablet 09/26/2024 Unknown By Mouth Daily 1 TABLET 473044 RxNorm TAKE 1 TABLET BY MOUTH ONCE A DAY Ativan 0.5MG Oral Tablet 09/27/2024 Unknown By Mouth As needed daily 1 TABLET 235704 RxNorm 1 TABLET By Mouth As needed daily Ambien 5MG Oral Tablet 09/27/2024 10/05/19 25 By Mouth At bedtime 977097 RxNorm 1-2 TABLET By Mouth At bedtime As needed Ambien 5MG Oral Tablet 10/04/2024 Unknown By Mouth At bedtime 1 TABLET 971770 RxNorm 1 TABLET By Mouth At bedtime As needed Assessment You had the following problems:TYPE I DIABETES MELLITUS WITH HYPERGLYCEMIAHYPERTENSIONHYPERCHOLESTEROLEMIAHYPOTHYROIDISMLUMBAR RADICULOPATHYLOW POTASSIUMGERDALLERGIC RHINITISDEPRESSIONANXIETYASTHMACHRONIC KIDNEY DISEASE STAGE 3OBESITYENDOMETRIOSISSLEEP APNEANEOPLASM OF UNCERTAIN BEHAVIOR OF RIGHT ADRENAL GLANDDEFICIENCY OF OTHER SPECIFIED B GROUP VITAMINSHYPERCALCEMIAENCOUNTER FOR FITTING AND ADJUSTMENT OF INSULIN PUMPABNORMAL LEVELS OF OTHER SERUM ENZYMES Assessment/Plan: MDD/ERIKA- Cont. current meds Hyperlipidemia- Cont. Crestor HTN- Cont. Prinvil Return to clinic in 6 months- HTN/Anxiety & Depression f/u Hospital Discharge Instructions Should you have any questions prior to discharge, please contact a member of your healthcare team. If you have left the hospital and have any questions, please contact your primary care physician. Reason For Referral No Data Found Problems Problem Start Date Resolved Date Status Code Code System TYPE I DIABETES MELLITUS WITH HYPERGLYCEMIA active 063127492452451 SNOMED -CT HYPERTENSION active 53490054 SNOMED- CT HYPERCHOLESTEROLEMIA active 14338126 SNOMED-CT HYPOTHYROIDISM active 46080598 SNOME D-CT LUMBAR RADICULOPATHY active 015015561 SNOMED-CT LOW POTASSIUM active 08748323 SNOMED -CT GERD active 063155631 SNOMED-CT ALLERGIC RHINITIS active 40658883 SN OMED-CT DEPRESSION active 11342931 SNOMED-CT ANXIETY active 87724414 SNOMED-CT ASTHMA active 942573290 SNOMED-CT CHRONIC KIDNEY DISEASE STAGE 3 active 667641778 SNOMED-CT OBESITY active 267266937 SNOMED-CT ENDOMETRIOSIS active 038681982 SNOMED -CT SLEEP APNEA active 81493897 SNOMED-C 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 110105798238891 SNOMED-CT 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 98468838 S NOMED-CT HYPERCALCEMIA active 74218702 SNOMED -CT ENCOUNTER FOR FITTING AND ADJUSTMENT OF INSULIN PUMP active 649348746 S NOMED-CT ABNORMAL LEVELS OF OTHER SERUM ENZYMES active 240481893 SNOMED-CT HISTORY OF GASTRIC BYPASS 06/26/2022 05/30/2024 resolved 69 9036938 SNOMED-CT SINUSITIS 04/30/2022 resolved 59153909 SNOMED-CT DIABETES 2 01/19/2024 resolved 46771370 SNOMED-C T Allergies and Adverse Reactions Allergy Substance Reaction Severity Start Date Concern Status Co de Code System CEFUROXIME Rash (SNOMED-CT: 302763412) Mild Active 2194 RxNorm KETOROLAC Hives (SNOMED-CT: 827301543) Mild Active 42431 RxNorm BIAXIN Hives (SNOMED-CT: 939170864) Severe Active LANTUS Hives (SNOMED-CT: 308942630) Mild Active 019909 RxNorm TAMIFLU Rash (SNOMED-CT: 016820370) Active 796885 RxNorm SEPTRA Rash (SNOMED-CT: 676796438) Mild Active SINDY Hives (SNOMED-CT: 625638008) Mild Active 815374 RxNorm Plan of Treatment MA Screening Bilateral 07/25/2025 Established Patient 30 01/03/2025 Description Due Date Details Instructions Pap 08/18/2025 Performed 09/06 20 normal, repeat in 5 yrs per [place] - RR 5.20.21 Sdoh 01/04/2025 Annual Labs 11/10/2024 cbc, cmp, tsh, free t4, lipids Mammogram 08/12/2025 08/12/24- WNL Depression 06/06/2025 Anxiety 06/06/2025 Future Order Description Future Order Date Futu re Order Loinc: CBC W DIFF 03/07/2021 LOINC: 33638-2 COMPREHENSIVE METABOLIC PANEL 03/07/2021 L OINC: 55548-6 TSH 03/07/2021 LOINC: 96063-3 HEMOGLOBIN A1C 03/07/2021 LOINC: 4548-4 MICROALBUMIN URINE 03/07/2021 LOINC: 49630 -1 Encounters Encounter Diagnosis Start Date Code Code Sys tem Anxiety 03/07/2021 81706870 SNOMED-CT Personal Care Team Section Performer Name Performer Role Active Date Inactive Da te Progress Notes
--- OUTSIDE RECORDS SUMMARY | 2024-10-25 03:01 | XMS_ITS | Clinical Summary ---
Author Organization [employer] [facility] Address [address] [place] [address] Care Team Providers Care Unified Communications Architect Name Role Phone Shagufta Tinsley MD Primary Care Provider Allergies Active Allergy Reactions Criticality Noted Date Comments Cefuroxime Axetil Rash 03/06/2018 Clarithromycin Hives 03/06/2018 Insulin Detemir Swelling 03/06/2018 Facial swelling Ketorolac Tromethamine Hives 03/06/2018 Sulfamethoxazole-Trimethoprim Rash 2017 Medications insulin aspart (NovoLOG) 100 unit/mL injection Inject 20 Units by subcutaneous injection 3 times daily. Active liraglutide (VICTOZA 2-NOÉ SUBCUT) Inject 1.8 Units by subcutaneous injection daily. Active insulin degludec (TRESIBA FLEXTOUCH U-100 SUBCUT) Inject 60 Units by subcutaneous injection daily. Active POTASSIUM CHLORIDE ORAL Take by mouth 2 times daily. Active metformin HCl (METFORMIN ORAL) Take by mouth 2 times daily. Active pregabalin (LYRICA) 150 mg Capsule Take 150 mg by mouth every 12 hours. Active hydrocodone bitartrate (ZOHYDRO ER ORAL) Take 10 mg by mouth daily 40 mg at night . Active raNITIdine (ZANTAC) 75 mg Tablet Take 75 mg by mouth 2 times daily. Active celecoxib (CELEBREX ORAL) Take by mouth daily. Active PARoxetine hcl (PAXIL CR) 25 mg Controlled Release 24 hour tablet Take 50 mg by mouth daily. Active LISINOPRIL ORAL Take by mouth daily. Active montelukast sodium (SINGULAIR ORAL) Take by mouth daily. Active levocetirizine dihydrochloride (XYZAL ORAL) Take by mouth daily. Active baclofen (LIORESAL) 10 mg tablet Take 10 mg by mouth daily. Active Active Problems No known active problems Social History Tobacco Use Types Packs/Day Years Used Date Smoking Tobacco: Never Smokeless Tobacco: Never Alcohol Use Standard Drinks/Week Comments No 0 (1 standard drink = 0.6 oz pur e alcohol) Comments No Sex and Gender Information Value Date Recorded Sex Assigned at Not on file Legal Sex Female 11:59 PM CDT Gender Identity Not on file Sexual Orientation Not on file Last Filed Vital Signs Vital Sign Reading Time Taken Comments Blood Pressure 134/87 03/06/2018 4:[address] ROLLER OPERATOR Pulse 105 03/06/2018 4:[address] ROLLER OPERATOR Temperature 36.8 C (98.3 F) 03/06/2018 4:[address] ROLLER OPERATOR Respiratory Rate 14 03/06/2018 4:[address] ROLLER OPERATOR Oxygen Saturation 99% 03/06/2018 4:[address] ROLLER OPERATOR Inhaled Oxygen Concentration - - Weight 117.9 kg (260 lb) 03/06/2018 4:[address] ROLLER OPERATOR Height 167.6 cm (5' 6) 03/06/2018 4:[address] ROLLER OPERATOR Body Mass Index 41.97 03/06/2018 4:[address] ROLLER OPERATOR Plan of Treatment Health Maintenance Due Date Last Done Comments DTAP/TDAP/TD VACCINES (1 - Tdap) 01/31/1983 HPV/Cotest (21-29) 01/31/1985 CERVICAL CANCER SCREENING 01/31/1994 HPV/Cotest (30-65) 01/31/1994 PAP SMEAR 01/31/1994 BREAST CANCER SCREENING 2004 COLORECTAL SCREENING 01/31/2009 Colorectal Cancer Screening 01/31/2009 FIT-DNA Q 3 years 01/31/2009 FIT/FOBT Q 1 year 01/31/2009 Flex Sig/CT Colonography Q 5 years 01/31/2009 ZOSTER VACCINE (1 of 2) 01/31/2014 INFLUENZA VACCINE (#1) 2024 RSV VACCINE (60+ or ) (1 - 1-dose 75+ series) 01/31/2039 HEPATITIS B VACCINES Aged Out No long er eligible based on patient's age to complete this topic Insurance [place] [id number] Care Teams Unified Communications Architect Relationship Specialty Start Date End Date Shagufta Tinsley MD [address] [place] [phone] PCP - General Family Practice 03/06/18
--- OUTSIDE RECORDS SUMMARY | 2024-10-25 03:01 | XMS_ITS ---
Author Organization Unknown Address [address] [place] [address] [phone] Phone Care Team Providers Care Assayer Name Role Phone ROSITA ROSADO Attending Unavailable [...] em Smoking History Never smoker (Never Smoked) [id number] SNOMED CT Smoking History Unknown if ever smoked [id number] SNOMED CT Sex Female Sexual Orientation Straight or Heterosexual [id number] SNOMED CT Gender Identity Female [id number] Medications Medication Start Date End Date Route Frequency Dose Code Code System Medication Instructions Home Meds Lyrica 150MG Oral Capsule 08/30/2018 Unknown By Mouth Twice a day 1 CAPSULE 026966 RxNorm 1 CAPSULE By Mouth Twice a day Xyzal Allergy 24HR 5MG Oral Tablet 08/30/2018 Unknown By Mouth Daily 1 TABLET 181768 RxNorm 1 TABLE T By Mouth Daily CeleBREX 100MG Oral Capsule 03/15/2019 12/31/19 23 By Mouth Twice a day 1 CAPSULE 652992 RxNorm 1 CAPSULE By Mouth Twice a day Pepcid AC 20MG Oral Tablet 03/15/2019 Unknown By Mouth Daily 1 TABLET 941947 RxNorm 1 TABLET By Mouth Daily medical marijuana 07/27/2019 04/22/19 24 By Mouth As Directed 1 edible RxNorm 1 edible By Mouth As Directed Fiasp 100U/1ML Injection Solution 02/23/2020 Unknown Subcutane ous 8152392 RxNorm Subcutaneou s VIA INSULIN PUMP Victoza 6MG/1ML Subcutaneou s Solution 02/23/2020 04/22/19 24 Subcutane ous Daily 1.8 MILLIGRAMS 403045 RxNorm 1.8 MILLIGRAMS Subcutaneou s Daily Paxil 10MG Oral Tablet 08/22/2021 04/29/19 23 By Mouth Daily 1 TABLET 358928 RxNorm TAKE 1 TABLET BY MOUTH ONCE A DAY -TAKE WITH 40MG TAB Prinivil 5MG Oral Tablet 11/06/2021 04/29/19 23 By Mouth Daily 1 TABLET 787659 RxNorm TAKE 1 TABLET BY MOUTH ONCE A DAY Prinivil 5MG Oral Tablet 11/07/2021 04/08/20 22 By Mouth Daily 1 TABLET 454475 RxNorm TAKE 1 TABLET BY MOUTH ONCE A DAY Singulair 10MG Oral Tablet 02/07/2022 04/29/19 23 By Mouth Daily 1 TABLET 354730 RxNorm TAKE 1 TABLET BY MOUTH ONCE A DAY Singulair 10MG Oral Tablet 02/07/2022 04/29/19 23 By Mouth Daily 1 TABLET 720387 RxNorm TAKE 1 TABLET BY MOUTH ONCE A DAY Crestor 40MG Oral Tablet 03/11/2022 04/08/20 22 By Mouth Daily 1 TABLET 410999 RxNorm TAKE 1 TABLET BY MOUTH ONCE A DAY busPIRone 15MG Oral Tablet 03/11/2022 04/08/20 22 By Mouth Twice a day 1 TABLET 925139 RxNorm TAKE 1 TABLET BY MOUTH TWO TIMES A DAY Paxil 40MG Oral Tablet 03/11/2022 04/08/20 22 By Mouth Daily 1 TABLET 558826 RxNorm TAKE 1 TABLET BY MOUTH ONCE A DAY -TAKE WITH 10MG TAB Potassium Chloride 20MEQ Oral Tablet, Extended Release 03/11/2022 04/08/20 22 By Mouth Twice a day 2 TABLET 8601058 RxNorm TAKE 2 TABLETS BY MOUTH TWO TIMES A DAY Doxycycline 100MG Oral Capsule 03/20/2022 04/29/19 23 By Mouth Twice a day 1 CAPSULE 8146419 RxNorm 1 CAPSULE By Mouth Twice a day x10 days Paxil 40MG Oral Tablet 04/08/2022 04/29/19 23 By Mouth Daily 1 TABLET 804454 RxNorm TAKE 1 TABLET BY MOUTH ONCE A DAY -TAKE WITH 10MG TAB busPIRone 15MG Oral Tablet 04/08/2022 04/29/19 23 By Mouth Twice a day 1 TABLET 379898 RxNorm TAKE 1 TABLET BY MOUTH TWO TIMES A DAY Prinivil 5MG Oral Tablet 04/08/2022 04/29/19 23 By Mouth Daily 1 TABLET 325636 RxNorm TAKE 1 TABLET BY MOUTH ONCE A DAY Crestor 40MG Oral Tablet 04/08/2022 06/05/19 23 By Mouth Daily 1 TABLET 270850 RxNorm TAKE 1 TABLET BY MOUTH ONCE A DAY Potassium Chloride 20MEQ Oral Tablet, Extended Release 04/08/2022 04/29/19 23 By Mouth Twice a day 2 TABLET 4106190 RxNorm TAKE 2 TABLETS BY MOUTH TWO TIMES A DAY Naltrexone HCl Powder 04/29/2022 06/06/19 25 By Mouth At bedtime 3 MILLIGRAMS RxNorm 3 MILLIGRAMS By Mouth At bedtime Paxil 40MG Oral Tablet 04/29/2022 02/05/20 23 By Mouth Daily 1 TABLET 719870 RxNorm TAKE 1 TABLET BY MOUTH ONCE A DAY busPIRone 15MG Oral Tablet 04/29/2022 02/05/20 23 By Mouth Twice a day 1 TABLET 494432 RxNorm TAKE 1 TABLET BY MOUTH TWO TIMES A DAY Prinivil 5MG Oral Tablet 04/29/2022 06/19/19 24 By Mouth Daily 1 TABLET 484160 RxNorm TAKE 1 TABLET BY MOUTH ONCE A DAY Potassium Chloride 20MEQ Oral Tablet, Extended Release 04/29/2022 12/31/19 23 By Mouth Twice a day 2 TABLET 4911336 RxNorm TAKE 2 TABLETS BY MOUTH TWO TIMES A DAY Singulair 10MG Oral Tablet 04/29/2022 05/07/19 24 By Mouth Daily 1 TABLET 272545 RxNorm TAKE 1 TABLET BY MOUTH ONCE A DAY Crestor 40MG Oral Tablet 06/05/2022 08/20/19 23 By Mouth Daily 1 TABLET 518263 RxNorm TAKE 1 TABLET BY MOUTH ONCE A DAY Crestor 40MG Oral Tablet 08/19/2022 12/20/19 23 By Mouth Daily 1 TABLET 653638 RxNorm TAKE 1 TABLET BY MOUTH ONCE A DAY Crestor 40MG Oral Tablet 12/19/2022 12/31/19 23 By Mouth Daily 1 TABLET 592108 RxNorm TAKE 1 TABLET BY MOUTH ONCE A DAY Ozempic 0.25 MG or 0.5 MG Doses 2 MG/3 ML Subcutaneou s Solution 12/30/2022 01/05/20 24 Subcutane ous Once a week 0.25 UNIT 8782782 RxNorm 0.25 UNIT Subcutaneou s Once a week Crestor 40MG Oral Tablet 12/30/2022 12/31/19 23 By Mouth Daily 1 TABLET 362948 RxNorm TAKE 1 TABLET BY MOUTH ONCE A DAY Crestor 40MG Oral Tablet 12/30/2022 01/05/20 24 By Mouth Daily 1 TABLET 105090 RxNorm TAKE 1 TABLET BY MOUTH ONCE A DAY Paxil 40MG Oral Tablet 02/04/2023 07/07/19 24 By Mouth Daily 1 TABLET 228799 RxNorm TAKE 1 TABLET BY MOUTH ONCE A DAY busPIRone 15MG Oral Tablet 02/04/2023 07/07/19 24 By Mouth Twice a day 1 TABLET 918269 RxNorm TAKE 1 TABLET BY MOUTH TWO TIMES A DAY Levothyroxi ne 50MCG Oral Tablet 02/20/2023 Unknown By Mouth 1 TABLET 251709 RxNorm 1 TABLE T By Mouth in the morning on an empty stomach- PRESCRIBED BY DR DURAN Victojersey 6MG/1ML Subcutaneou s Solution 02/20/2023 06/21/19 25 Subcutane ous Daily 1.8 UNIT 385857 RxNorm 1.8 UNIT Subcutaneou s Daily- *PRESCRIBED BY DR DURAN NovoLOG FlexPen 100U/1ML Subcutaneou s Solution 02/20/2023 04/07/20 23 Subcutane ous 0842234 RxNorm Inject up to 100 Units SUBQ daily in DMDED doses--- * PRESCRIBED BY DR DURAN Baclofen 10MG Oral Tablet 02/20/2023 Unknown By Mouth Three times a day 1 TABLET 360202 RxNorm 1 TABLET By Mouth Three times a day With food Aspirin 81MG Oral Tablet, Enteric Coated 02/20/2023 04/07/20 23 By Mouth Daily 1 TABLET 284155 RxNorm 1 TABLET By Mouth Daily Vitamin D 1000IU Oral Tablet 02/20/2023 04/07/20 23 By Mouth Daily 1 TABLET 249669 RxNorm 1 TABLET By Mouth Daily Augmentin 875MG-125MG Oral Tablet 04/22/2023 05/28/19 24 By Mouth Every 12 hours 1 TABLET 544259 RxNorm 1 TABLET By Mouth Every 12 hours x 10 days. Take with food. Diflucan 150MG Oral Tablet 04/22/2023 05/28/19 24 By Mouth x1 NOW 1 TABLET 382327 RxNorm 1 TABLET By Mouth x1 NOW. May repeat in 72 hours as needed. Singulair 10MG Oral Tablet 05/07/2023 07/07/19 24 By Mouth Daily 1 TABLET 273006 RxNorm TAKE 1 TABLET BY MOUTH ONCE A DAY Prinivil 5MG Oral Tablet 06/19/2023 06/22/19 24 By Mouth Daily 1 TABLET 816366 RxNorm TAKE 1 TABLET BY MOUTH ONCE A DAY Prinivil 5MG Oral Tablet 06/22/2023 07/07/19 24 By Mouth Daily 1 TABLET 282502 RxNorm TAKE 1 TABLET BY MOUTH ONCE A DAY Prinivil 5MG Oral Tablet 07/07/2023 01/05/20 24 By Mouth Daily 1 TABLET 989322 RxNorm TAKE 1 TABLET BY MOUTH ONCE A DAY Singulair 10MG Oral Tablet 07/07/2023 01/05/20 24 By Mouth Daily 1 TABLET 860373 RxNorm TAKE 1 TABLET BY MOUTH ONCE A DAY Paxil 40MG Oral Tablet 07/07/2023 10/02/19 24 By Mouth Daily 1 TABLET 523827 RxNorm TAKE 1 TABLET BY MOUTH ONCE A DAY busPIRone 15MG Oral Tablet 07/07/2023 01/05/20 24 By Mouth Twice a day 1 TABLET 626581 RxNorm TAKE 1 TABLET BY MOUTH TWO TIMES A DAY Ativan 0.5MG Oral Tablet 09/02/2023 09/28/19 25 By Mouth Twice a day 1 TABLET 788371 RxNorm 1 TABLET By Mouth Twice a day PRN Paxil 30MG Oral Tablet 10/02/2023 10/30/19 24 By Mouth Daily 2 TABLET 922962 RxNorm 2 TABLET By Mouth Daily Paxil 30MG Oral Tablet 10/30/2023 08/17/19 25 By Mouth Daily 2 TABLET 108743 RxNorm 2 TABLET By Mouth Daily Ambien 5MG Oral Tablet 12/11/2023 01/05/20 24 By Mouth At bedtime 985089 RxNorm 1-2 TABLET By Mouth At bedtime As needed Ozempic 0.25 MG or 0.5 MG Doses 2 MG/3 ML Subcutaneou s Solution 01/05/2024 06/21/19 25 Subcutane ous Once a week 0.5 UNIT 0966505 RxNorm 0.5 UNIT Subcutaneou s Once a week Crestor 40MG Oral Tablet 01/05/2024 09/27/19 25 By Mouth Daily 1 TABLET 418284 RxNorm TAKE 1 TABLET BY MOUTH ONCE A DAY busPIRone 15MG Oral Tablet 01/05/2024 08/06/19 25 By Mouth Twice a day 1 TABLET 715897 RxNorm TAKE 1 TABLET BY MOUTH TWO TIMES A DAY Singulair 10MG Oral Tablet 01/05/2024 09/27/19 25 By Mouth Daily 1 TABLET 702789 RxNorm TAKE 1 TABLET BY MOUTH ONCE A DAY Ambien 5MG Oral Tablet 01/05/2024 09/28/19 25 By Mouth At bedtime 250881 RxNorm 1-2 TABLET By Mouth At bedtime As needed Prinivil 5MG Oral Tablet 01/05/2024 07/06/19 25 By Mouth Daily 1 TABLET 332412 RxNorm TAKE 1 TABLET BY MOUTH ONCE A DAY Promethazin e DM 6.25MG/5ML- 15MG/5ML Oral Syrup 01/25/2024 06/06/19 25 ORAL As needed every 4 hr 5 mL 096036 RxNorm 5 mL ORAL As needed every 4 hr-do not take within 2 hours of Paxil or Buspirone Augmentin 875MG-125MG Oral Tablet 01/25/2024 06/06/19 25 By Mouth Twice a day 1 TABLET 324167 RxNorm 1 TABLET By Mouth Twice a day x 10 days Airsupra 90 MCG/1 Actuation-8 0 MCG/1 Actuation Inhalation Aerosol Powder 01/25/2024 06/06/19 25 Inhale As needed every 4 hr 2 Puff 3671665 RxNorm 2 Puff Inhale As needed every 4 hr Victoza 6MG/1ML Subcutaneou s Solution 06/20/2024 Unknown Subcutane ous Daily 1.8 MILLIGRAMS 334983 RxNorm 1.8 MILLIGRAMS Subcutaneou s Daily Ozempic 0.25 MG or 0.5 MG Doses 2 MG/3 ML Subcutaneou s Solution 06/20/2024 Unknown Subcutane ous Once a week 1.5 MILLILITER 3521578 RxNorm 1.5 MILLILITER Subcutaneou s Once a week Lisinopril 5MG Oral Tablet 07/05/2024 09/27/19 25 By Mouth Daily 1 TABLET 841776 RxNorm 1 TABLET By Mouth Daily busPIRone 15MG Oral Tablet 08/05/2024 Unknown By Mouth Twice a day 1 TABLET 017508 RxNorm TAKE 1 TABLET BY MOUTH TWO TIMES A DAY Paxil 20MG Oral Tablet 08/16/2024 09/27/19 25 By Mouth Daily 1 TABLET 263846 RxNorm 1 TABLET By Mouth Daily Wellbutrin XL 150MG Oral Tablet, Extended Release, 24 HR 08/16/2024 09/27/19 25 By Mouth Daily 1 TABLET 660055 RxNorm 1 TABLET By Mouth Daily. Wellbutrin XL 150MG Oral Tablet, Extended Release, 24 HR 09/26/2024 Unknown By Mouth Daily 1 TABLET 456951 RxNorm 1 TABLET By Mouth Daily. Paxil 20MG Oral Tablet 09/26/2024 Unknown By Mouth Daily 1 TABLET 975928 RxNorm 1 TABLE T By Mouth Daily Lisinopril 5MG Oral Tablet 09/26/2024 Unknown By Mouth Daily 1 TABLET 332775 RxNorm 1 TABLET By Mouth Daily Singulair 10MG Oral Tablet 09/26/2024 Unknown By Mouth Daily 1 TABLET 024156 RxNorm TAKE 1 TABLET BY MOUTH ONCE A DAY Crestor 40MG Oral Tablet 09/26/2024 Unknown By Mouth Daily 1 TABLET 085464 RxNorm TAKE 1 TABLET BY MOUTH ONCE A DAY Ativan 0.5MG Oral Tablet 09/27/2024 Unknown By Mouth As needed daily 1 TABLET 351540 RxNorm 1 TABLET By Mouth As needed daily Ambien 5MG Oral Tablet 09/27/2024 10/05/19 25 By Mouth At bedtime 439153 RxNorm 1-2 TABLET By Mouth At bedtime As needed Ambien 5MG Oral Tablet 10/04/2024 Unknown By Mouth At bedtime 1 TABLET 374461 RxNorm 1 TABLET By Mouth At bedtime [...] TYPE I DIABETES MELLITUS WITH HYPERGLYCEMIA active [id number] SNOMED -CT HYPERTENSION active 36892916 SNOMED- CT HYPERCHOLESTEROLEMIA active 31103030 SNOMED-CT HYPOTHYROIDISM active 38357782 SNOME D-CT LUMBAR RADICULOPATHY active 556042911 SNOMED-CT LOW POTASSIUM active 88168027 SNOMED -CT GERD active 097537632 SNOMED-CT ALLERGIC RHINITIS active 21980129 SN OMED-CT DEPRESSION active 75572115 SNOMED-CT ANXIETY active 75826553 SNOMED-CT ASTHMA active 360282778 SNOMED-CT CHRONIC KIDNEY DISEASE STAGE 3 active 041956524 SNOMED-CT OBESITY active 337264307 SNOMED-CT ENDOMETRIOSIS active 657168249 SNOMED -CT SLEEP APNEA active 23857965 SNOMED-C 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 165552230878647 SNOMED-CT 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 94487538 S NOMED-CT HYPERCALCEMIA active 77496214 SNOMED -CT ENCOUNTER FOR FITTING AND ADJUSTMENT OF INSULIN PUMP active 166629210 S NOMED-CT ABNORMAL LEVELS OF OTHER SERUM ENZYMES active 108063460 SNOMED-CT HISTORY OF GASTRIC BYPASS 06/26/2022 05/30/2024 resolved 69 5057985 SNOMED-CT SINUSITIS 04/30/2022 resolved 43300224 SNOMED-CT DIABETES 2 01/19/2024 resolved 59655521 SNOMED-C T Allergies and Adverse Reactions Allergy Substance Reaction Severity Start Date Concern Status Co de Code System CEFUROXIME Rash (SNOMED-CT: 000304483) Mild Active 2194 RxNorm KETOROLAC Hives (SNOMED-CT: 038982849) Mild Active 36484 RxNorm BIAXIN Hives (SNOMED-CT: 380529336) Severe Active LANTUS Hives (SNOMED-CT: 043746976) Mild Active 291758 RxNorm TAMIFLU Rash (SNOMED-CT: 992277982) Active 783346 RxNorm SEPTRA Rash (SNOMED-CT: 847695589) Mild Active LEVEMIR Hives (SNOMED-CT: 469756764) Mild Active 294420 RxNorm Plan of Treatment MA Screening Bilateral 07/25/2025 Established Patient 30 01/03/2025 Description Due Date Details Instructions Pap 08/18/2025 Performed 09/06 21 normal, repeat in 5 yrs per [place] - RR 5.20.21 Sdoh 01/04/2025 Annual Labs 11/10/2024 cbc, cmp, tsh, free t4, lipids Mammogram 08/12/2025 08/12/24- WNL Depression 06/06/2025 Anxiety 06/06/2025 Encounters Encounter Diagnosis Start Date Code Code Sys tem Essential hypertension 04/03/2022 [id number] [facility] [place] D-CT Personal Care Team Section Performer Name Performer Role Active Date Inactive Jonny gross
--- OUTSIDE RECORDS SUMMARY | 2024-10-25 03:01 | XMS_ITS ---
Author Organization Unknown Address [address] [place] [address] [phone] Phone Care Team Providers Care Corn Sheller Name Role Phone SCARLET ZAYAS Attending Unavailable [...] em Smoking History Never smoker (Never Smoked) [id number] SNOMED CT Smoking History Unknown if ever smoked [id number] SNOMED CT Sex Female Sexual Orientation Straight or Heterosexual [id number] SNOMED CT Gender Identity Female [id number] Medications Medication Start Date End Date Route Frequency Dose Code Code System Medication Instructions Home Meds Lyrica 150MG Oral Capsule 08/30/2018 Unknown By Mouth Twice a day 1 CAPSULE 513902 RxNorm 1 CAPSULE By Mouth Twice a day Xyzal Allergy 24HR 5MG Oral Tablet 08/30/2018 Unknown By Mouth Daily 1 TABLET 810700 RxNorm 1 TABLE T By Mouth Daily CeleBREX 100MG Oral Capsule 03/15/2019 12/31/19 23 By Mouth Twice a day 1 CAPSULE 965344 RxNorm 1 CAPSULE By Mouth Twice a day Pepcid AC 20MG Oral Tablet 03/15/2019 Unknown By Mouth Daily 1 TABLET 220732 RxNorm 1 TABLET By Mouth Daily medical marijuana 07/27/2019 04/22/19 24 By Mouth As Directed 1 edible RxNorm 1 edible By Mouth As Directed Fiasp 100U/1ML Injection Solution 02/23/2020 Unknown Subcutane ous 8944227 RxNorm Subcutaneou s VIA INSULIN PUMP Victoza 6MG/1ML Subcutaneou s Solution 02/23/2020 04/22/19 24 Subcutane ous Daily 1.8 MILLIGRAMS 873252 RxNorm 1.8 MILLIGRAMS Subcutaneou s Daily Naltrexone HCl Powder 04/29/2022 06/06/19 25 By Mouth At bedtime 3 MILLIGRAMS RxNorm 3 MILLIGRAMS By Mouth At bedtime Paxil 40MG Oral Tablet 04/29/2022 02/05/20 23 By Mouth Daily 1 TABLET 088125 RxNorm TAKE 1 TABLET BY MOUTH ONCE A DAY busPIRone 15MG Oral Tablet 04/29/2022 02/05/20 23 By Mouth Twice a day 1 TABLET 389152 RxNorm TAKE 1 TABLET BY MOUTH TWO TIMES A DAY Prinivil 5MG Oral Tablet 04/29/2022 06/19/19 24 By Mouth Daily 1 TABLET 528129 RxNorm TAKE 1 TABLET BY MOUTH ONCE A DAY Potassium Chloride 20MEQ Oral Tablet, Extended Release 04/29/2022 12/31/19 23 By Mouth Twice a day 2 TABLET 0769809 RxNorm TAKE 2 TABLETS BY MOUTH TWO TIMES A DAY Singulair 10MG Oral Tablet 04/29/2022 05/07/19 24 By Mouth Daily 1 TABLET 194047 RxNorm TAKE 1 TABLET BY MOUTH ONCE A DAY Crestor 40MG Oral Tablet 08/19/2022 12/20/19 23 By Mouth Daily 1 TABLET 744956 RxNorm TAKE 1 TABLET BY MOUTH ONCE A DAY Crestor 40MG Oral Tablet 12/19/2022 12/31/19 23 By Mouth Daily 1 TABLET 257959 RxNorm TAKE 1 TABLET BY MOUTH ONCE A DAY Ozempic 0.25 MG or 0.5 MG Doses 2 MG/3 ML Subcutaneou s Solution 12/30/2022 01/05/20 24 Subcutane ous Once a week 0.25 UNIT 6788648 RxNorm 0.25 UNIT Subcutaneou s Once a week Crestor 40MG Oral Tablet 12/30/2022 12/31/19 23 By Mouth Daily 1 TABLET 096047 RxNorm TAKE 1 TABLET BY MOUTH ONCE A DAY Crestor 40MG Oral Tablet 12/30/2022 01/05/20 24 By Mouth Daily 1 TABLET 200551 RxNorm TAKE 1 TABLET BY MOUTH ONCE A DAY Paxil 40MG Oral Tablet 02/04/2023 07/07/19 24 By Mouth Daily 1 TABLET 162282 RxNorm TAKE 1 TABLET BY MOUTH ONCE A DAY busPIRone 15MG Oral Tablet 02/04/2023 07/07/19 24 By Mouth Twice a day 1 TABLET 068920 RxNorm TAKE 1 TABLET BY MOUTH TWO TIMES A DAY Levothyroxi ne 50MCG Oral Tablet 02/20/2023 Unknown By Mouth 1 TABLET 553472 RxNorm 1 TABLE T By Mouth in the morning on an empty stomach- PRESCRIBED BY DR DURAN Victoza 6MG/1ML Subcutaneou s Solution 02/20/2023 06/21/19 25 Subcutane ous Daily 1.8 UNIT 774231 RxNorm 1.8 UNIT Subcutaneou s Daily- *PRESCRIBED BY DR DURAN NovoLOG FlexPen 100U/1ML Subcutaneou s Solution 02/20/2023 04/07/20 23 Subcutane ous 6178698 RxNorm Inject up to 100 Units SUBQ daily in DMDED doses--- * PRESCRIBED BY DR DURAN Baclofen 10MG Oral Tablet 02/20/2023 Unknown By Mouth Three times a day 1 TABLET 562253 RxNorm 1 TABLET By Mouth Three times a day With food Aspirin 81MG Oral Tablet, Enteric Coated 02/20/2023 04/07/20 23 By Mouth Daily 1 TABLET 098294 RxNorm 1 TABLET By Mouth Daily Vitamin D 1000IU Oral Tablet 02/20/2023 04/07/20 23 By Mouth Daily 1 TABLET 085517 RxNorm 1 TABLET By Mouth Daily Augmentin 875MG-125MG Oral Tablet 04/22/2023 05/28/19 24 By Mouth Every 12 hours 1 TABLET 944489 RxNorm 1 TABLET By Mouth Every 12 hours x 10 days. Take with food. Diflucan 150MG Oral Tablet 04/22/2023 05/28/19 24 By Mouth x1 NOW 1 TABLET 601711 RxNorm 1 TABLET By Mouth x1 NOW. May repeat in 72 hours as needed. Singulair 10MG Oral Tablet 05/07/2023 07/07/19 24 By Mouth Daily 1 TABLET 188285 RxNorm TAKE 1 TABLET BY MOUTH ONCE A DAY Prinivil 5MG Oral Tablet 06/19/2023 06/22/19 24 By Mouth Daily 1 TABLET 593692 RxNorm TAKE 1 TABLET BY MOUTH ONCE A DAY Prinivil 5MG Oral Tablet 06/22/2023 07/07/19 24 By Mouth Daily 1 TABLET 360128 RxNorm TAKE 1 TABLET BY MOUTH ONCE A DAY Prinivil 5MG Oral Tablet 07/07/2023 01/05/20 24 By Mouth Daily 1 TABLET 546373 RxNorm TAKE 1 TABLET BY MOUTH ONCE A DAY Singulair 10MG Oral Tablet 07/07/2023 01/05/20 24 By Mouth Daily 1 TABLET 101229 RxNorm TAKE 1 TABLET BY MOUTH ONCE A DAY Paxil 40MG Oral Tablet 07/07/2023 10/02/19 24 By Mouth Daily 1 TABLET 504920 RxNorm TAKE 1 TABLET BY MOUTH ONCE A DAY busPIRone 15MG Oral Tablet 07/07/2023 01/05/20 24 By Mouth Twice a day 1 TABLET 579261 RxNorm TAKE 1 TABLET BY MOUTH TWO TIMES A DAY Ativan 0.5MG Oral Tablet 09/02/2023 09/28/19 25 By Mouth Twice a day 1 TABLET 959810 RxNorm 1 TABLET By Mouth Twice a day PRN Paxil 30MG Oral Tablet 10/02/2023 10/30/19 24 By Mouth Daily 2 TABLET 090275 RxNorm 2 TABLET By Mouth Daily Paxil 30MG Oral Tablet 10/30/2023 08/17/19 25 By Mouth Daily 2 TABLET 870926 RxNorm 2 TABLET By Mouth Daily Ambien 5MG Oral Tablet 12/11/2023 01/05/20 24 By Mouth At bedtime 694125 RxNorm 1-2 TABLET By Mouth At bedtime As needed Ozempic 0.25 MG or 0.5 MG Doses 2 MG/3 ML Subcutaneou s Solution 01/05/2024 06/21/19 25 Subcutane ous Once a week 0.5 UNIT 7976472 RxNorm 0.5 UNIT Subcutaneou s Once a week Crestor 40MG Oral Tablet 01/05/2024 09/27/19 25 By Mouth Daily 1 TABLET 696873 RxNorm TAKE 1 TABLET BY MOUTH ONCE A DAY busPIRone 15MG Oral Tablet 01/05/2024 08/06/19 25 By Mouth Twice a day 1 TABLET 773510 RxNorm TAKE 1 TABLET BY MOUTH TWO TIMES A DAY Singulair 10MG Oral Tablet 01/05/2024 09/27/19 25 By Mouth Daily 1 TABLET 653479 RxNorm TAKE 1 TABLET BY MOUTH ONCE A DAY Ambien 5MG Oral Tablet 01/05/2024 09/28/19 25 By Mouth At bedtime 844881 RxNorm 1-2 TABLET By Mouth At bedtime As needed Prinivil 5MG Oral Tablet 01/05/2024 07/06/19 25 By Mouth Daily 1 TABLET 248592 RxNorm TAKE 1 TABLET BY MOUTH ONCE A DAY Promethazin e DM 6.25MG/5ML- 15MG/5ML Oral Syrup 01/25/2024 06/06/19 25 ORAL As needed every 4 hr 5 mL 419050 RxNorm 5 mL ORAL As needed every 4 hr-do not take within 2 hours of Paxil or Buspirone Augmentin 875MG-125MG Oral Tablet 01/25/2024 06/06/19 25 By Mouth Twice a day 1 TABLET 234383 RxNorm 1 TABLET By Mouth Twice a day x 10 days Airsupra 90 MCG/1 Actuation-8 0 MCG/1 Actuation Inhalation Aerosol Powder 01/25/2024 06/06/19 25 Inhale As needed every 4 hr 2 Puff 3803511 RxNorm 2 Puff Inhale As needed every 4 hr Victoza 6MG/1ML Subcutaneou s Solution 06/20/2024 Unknown Subcutane ous Daily 1.8 MILLIGRAMS 658106 RxNorm 1.8 MILLIGRAMS Subcutaneou s Daily Ozempic 0.25 MG or 0.5 MG Doses 2 MG/3 ML Subcutaneou s Solution 06/20/2024 Unknown Subcutane ous Once a week 1.5 MILLILITER 3636474 RxNorm 1.5 MILLILITER Subcutaneou s Once a week Lisinopril 5MG Oral Tablet 07/05/2024 09/27/19 25 By Mouth Daily 1 TABLET 975098 RxNorm 1 TABLET By Mouth Daily busPIRone 15MG Oral Tablet 08/05/2024 Unknown By Mouth Twice a day 1 TABLET 100308 RxNorm TAKE 1 TABLET BY MOUTH TWO TIMES A DAY Paxil 20MG Oral Tablet 08/16/2024 09/27/19 25 By Mouth Daily 1 TABLET 143268 RxNorm 1 TABLET By Mouth Daily Wellbutrin XL 150MG Oral Tablet, Extended Release, 24 HR 08/16/2024 09/27/19 25 By Mouth Daily 1 TABLET 817383 RxNorm 1 TABLET By Mouth Daily. Wellbutrin XL 150MG Oral Tablet, Extended Release, 24 HR 09/26/2024 Unknown By Mouth Daily 1 TABLET 605561 RxNorm 1 TABLET By Mouth Daily. Paxil 20MG Oral Tablet 09/26/2024 Unknown By Mouth Daily 1 TABLET 336508 RxNorm 1 TABLE T By Mouth Daily Lisinopril 5MG Oral Tablet 09/26/2024 Unknown By Mouth Daily 1 TABLET 683460 RxNorm 1 TABLET By Mouth Daily Singulair 10MG Oral Tablet 09/26/2024 Unknown By Mouth Daily 1 TABLET 157365 RxNorm TAKE 1 TABLET BY MOUTH ONCE A DAY Crestor 40MG Oral Tablet 09/26/2024 Unknown By Mouth Daily 1 TABLET 970009 RxNorm TAKE 1 TABLET BY MOUTH ONCE A DAY Ativan 0.5MG Oral Tablet 09/27/2024 Unknown By Mouth As needed daily 1 TABLET 332230 RxNorm 1 TABLET By Mouth As needed daily Ambien 5MG Oral Tablet 09/27/2024 10/05/19 25 By Mouth At bedtime 064867 RxNorm 1-2 TABLET By Mouth At bedtime As needed Ambien 5MG Oral Tablet 10/04/2024 Unknown By Mouth At bedtime 1 TABLET 740267 RxNorm 1 TABLET By Mouth At bedtime [...] TYPE I DIABETES MELLITUS WITH HYPERGLYCEMIA active [id number] SNOMED -CT HYPERTENSION active 76201059 SNOMED- CT HYPERCHOLESTEROLEMIA active 08880107 SNOMED-CT HYPOTHYROIDISM active 45207555 SNOME D-CT LUMBAR RADICULOPATHY active 600836186 SNOMED-CT LOW POTASSIUM active 30599019 SNOMED -CT GERD active 663332926 SNOMED-CT ALLERGIC RHINITIS active 27129855 SN OMED-CT DEPRESSION active 44816673 SNOMED-CT ANXIETY active 89748256 SNOMED-CT ASTHMA active 821053373 SNOMED-CT CHRONIC KIDNEY DISEASE STAGE 3 active 812827374 SNOMED-CT OBESITY active 705854083 SNOMED-CT ENDOMETRIOSIS active 410193449 SNOMED -CT SLEEP APNEA active 75989893 SNOMED-C 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 401414788780891 SNOMED-CT 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 86484895 S NOMED-CT HYPERCALCEMIA active 26307968 SNOMED -CT ENCOUNTER FOR FITTING AND ADJUSTMENT OF INSULIN PUMP active 211321456 S NOMED-CT ABNORMAL LEVELS OF OTHER SERUM ENZYMES active 016065863 SNOMED-CT HISTORY OF GASTRIC BYPASS 06/26/2022 05/30/2024 resolved 69 6144000 SNOMED-CT SINUSITIS 04/30/2022 resolved 20834483 SNOMED-CT DIABETES 2 01/19/2024 resolved 81022094 SNOMED-C T Allergies and Adverse Reactions Allergy Substance Reaction Severity Start Date Concern Status Co de Code System CEFUROXIME Rash (SNOMED-CT: 245759483) Mild Active 2194 RxNorm KETOROLAC Hives (SNOMED-CT: 734403838) Mild Active 55915 RxNorm BIAXIN Hives (SNOMED-CT: 904291469) Severe Active LANTUS Hives (SNOMED-CT: 067964550) Mild Active 602334 RxNorm TAMIFLU Rash (SNOMED-CT: 132548480) Active 398162 RxNorm SEPTRA Rash (SNOMED-CT: 404559944) Mild Active LEVEMIR Hives (SNOMED-CT: 123369265) Mild Active 401820 RxNorm Plan of Treatment MA Screening Bilateral 07/25/2025 Established Patient 30 01/03/2025 Description Due Date Details Instructions Pap 08/18/2025 Performed 09/06 20 normal, repeat in 5 yrs per [place] - RR 5.20.21 Sdoh 01/04/2025 Annual Labs 11/10/2024 cbc, cmp, tsh, free t4, lipids Mammogram 08/12/2025 08/12/24- WNL Depression 06/06/2025 Anxiety 06/06/2025 Encounters Encounter Diagnosis Start Date Code Code Sys tem Essential hypertension 12/15/2022 [id number] SNOME D-CT Personal Care Team Section Performer Name Performer Role Active Date Inactive Da te Progress Notes [facility] 12/16/2022 17:32 Date of Service: 12/15/2022 Primary Care Physician: CHANA NOVAK Chronic Care Management Visit Note Preventative Health & Dissemination Encounter (Phone Communication) November Monthly Update The Primary Care Management visit had a cumulative time of 00:20:26 involving: review of patient information, phone call to the patient, documentation, practice information review, and mailing to the patient. The review of patient information included the patient's medical history, active problem list, allergies, current medications, all pertinent lab results, surgical history, social history, upcoming appointments, and last provider note. Medical necessity determined by chronic conditions of: I10 ; which place the patient at significant risk of , acute exacerbation/decompensation, or functional decline. Patient has consented to PCM services on September 17, 2021 prior to this encounter, acknowledging that service may be terminated at-will, only one provider may deliver services during a calendar month, and that cost-sharing applies. Heather Ashraf LPN, [facility] Representative No immediate concerns for provider. Patient Call Summary: Reviewed preventative health items with patient. No new issues or concerns. The nurse compiled a list of all the preventive health services available through Medicare that this patient may be eligible for and is interested in receiving. These preventive health services were discussed with the patient during the Chronic Care Management phone call this month. Below is a list of the preventive health services available through Medicare for you and your office to schedule with the patient, as appropriate: Preventive Health Services That May Be Due: Cervical Cancer Screening with Breast Exam - Due Preventive Health Services Completed: Cardiovascular Disease Screenings - Up to date Colorectal Cancer Screening - Up to date Depression Screening - Up to date Hepatitis C Screening - Up to date Influenza Vaccine - Up to date - Last completed: 2021 COVID Vaccination Status: Up to date The following communication was mailed to the patient after the phone visit this month: Thank you for reviewing the preventive health services that may be available to you through Medicare over the phone with your nurse this month. As discussed, preventive health is important to keep you healthy and with the best quality of life. We've included the list of preventive health services you may be eligible for and expressed interest in participating in, and we've also sent this list to your provider, so you can work with them to schedule these preventive health services as appropriate: Preventive Health Services That May Be Due: Cervical Cancer Screening with Breast Exam - Due Preventive Health Services Completed: Cardiovascular Disease Screenings - Up to date Colorectal Cancer Screening - Up to date Depression Screening - Up to date Hepatitis C Screening - Up to date Influenza Vaccine - Up to date - Last completed: 2021 COVID Vaccination Status: Up to date Remember to contact your provider's office to schedule your preventive health services, as appropriate. Upcoming Appointments: Your chart indicates that you have the following appointments: 12/30/22 at 1:30 with ANA LILIA Mack I hope all is well! Heather Ashraf LPN [phone] ICD10 Description I10 Essential (primary) hypertension
--- OUTSIDE RECORDS SUMMARY | 2024-10-25 03:02 | XMS_ITS ---
Author Organization Unknown Address [address] [place] [address] [phone] Phone Care Team Providers Care Assistant Store Manager Name Role Phone SCARLET ZAYAS Attending Unavailable [...] em Smoking History Never smoker (Never Smoked) [id number] SNOMED CT Smoking History Unknown if ever smoked [id number] SNOMED CT Sex Female Sexual Orientation Straight or Heterosexual 31032917 SNOMED CT Gender Identity Female [id number] Vital Signs Vital Sign Value Unit Addison Value Addison Unit Date/Time Recent/Initial? Code Code System Body Mass Index 37.93 kg/m2 04/29/2022 14:44 Initial 94968 -5 [facility] Systolic Blood Pressure 118 mm[Hg] 04/29/2022 14:44 Initial 8480- 6 [facility] Diastolic Blood Pressure 84 mm[Hg] 04/29/2022 14:44 Initial 8462- 4 [facility] Body Surface Area 2.23 m2 04/29/2022 14:44 Initial 3140- 1 LOINC Height 167.640 0 cm 66.00 in 04/29/2022 14:44 Initial 8302- 2 [facility] O2 Saturation 97 % 2022 14:44 Initial 42036 -5 LOINC Pulse 116.0 /min 04/29/2022 14:44 Initial 8867- 4 LOINC Respiration 16 /min 04/29/19 23 14:44 Initial 9279- 1 LOINC Temperature 36.0 Lisa 96.8 F 04/29/19 14:44 Initial 8310- 5 LOINC Weight 106.59 kg 235.00 lbs 04/29/2022 14:44 Initial 10974 -7 [facility] Medications Medication Start Date End Date Route Frequency Dose Code Code System Medication Instructions Home Meds Lyrica 150MG Oral Capsule 08/30/2018 Unknown By Mouth Twice a day 1 CAPSULE 335420 RxNorm 1 CAPSULE By Mouth Twice a day Xyzal Allergy 24HR 5MG Oral Tablet 08/30/2018 Unknown By Mouth Daily 1 TABLET 257919 RxNorm 1 TABLE T By Mouth Daily CeleBREX 100MG Oral Capsule 03/15/2019 12/31/19 23 By Mouth Twice a day 1 CAPSULE 612196 RxNorm 1 CAPSULE By Mouth Twice a day Pepcid AC 20MG Oral Tablet 03/15/2019 Unknown By Mouth Daily 1 TABLET 817192 RxNorm 1 TABLET By Mouth Daily medical marijuana 07/27/2019 04/22/19 24 By Mouth As Directed 1 edible RxNorm 1 edible By Mouth As Directed Fiasp 100U/1ML Injection Solution 02/23/2020 Unknown Subcutane ous 1171661 RxNorm Subcutaneou s VIA INSULIN PUMP Victoza 6MG/1ML Subcutaneou s Solution 02/23/2020 04/22/19 24 Subcutane ous Daily 1.8 MILLIGRAMS 930700 RxNorm 1.8 MILLIGRAMS Subcutaneou s Daily Crestor 40MG Oral Tablet 04/08/2022 06/05/19 23 By Mouth Daily 1 TABLET 604220 RxNorm TAKE 1 TABLET BY MOUTH ONCE A DAY Naltrexone HCl Powder 04/29/2022 06/06/19 25 By Mouth At bedtime 3 MILLIGRAMS RxNorm 3 MILLIGRAMS By Mouth At bedtime Paxil 40MG Oral Tablet 04/29/2022 02/05/20 23 By Mouth Daily 1 TABLET 388641 RxNorm TAKE 1 TABLET BY MOUTH ONCE A DAY busPIRone 15MG Oral Tablet 04/29/2022 02/05/20 23 By Mouth Twice a day 1 TABLET 344758 RxNorm TAKE 1 TABLET BY MOUTH TWO TIMES A DAY Prinivil 5MG Oral Tablet 04/29/2022 06/19/19 24 By Mouth Daily 1 TABLET 695981 RxNorm TAKE 1 TABLET BY MOUTH ONCE A DAY Potassium Chloride 20MEQ Oral Tablet, Extended Release 04/29/2022 12/31/19 23 By Mouth Twice a day 2 TABLET 8744556 RxNorm TAKE 2 TABLETS BY MOUTH TWO TIMES A DAY Singulair 10MG Oral Tablet 04/29/2022 05/07/19 24 By Mouth Daily 1 TABLET 052889 RxNorm TAKE 1 TABLET BY MOUTH ONCE A DAY Crestor 40MG Oral Tablet 06/05/2022 08/20/19 23 By Mouth Daily 1 TABLET 389558 RxNorm TAKE 1 TABLET BY MOUTH ONCE A DAY Crestor 40MG Oral Tablet 08/19/2022 12/20/19 23 By Mouth Daily 1 TABLET 193921 RxNorm TAKE 1 TABLET BY MOUTH ONCE A DAY Crestor 40MG Oral Tablet 12/19/2022 12/31/19 23 By Mouth Daily 1 TABLET 235424 RxNorm TAKE 1 TABLET BY MOUTH ONCE A DAY Ozempic 0.25 MG or 0.5 MG Doses 2 MG/3 ML Subcutaneou s Solution 12/30/2022 01/05/20 24 Subcutane ous Once a week 0.25 UNIT 0470298 RxNorm 0.25 UNIT Subcutaneou s Once a week Crestor 40MG Oral Tablet 12/30/2022 12/31/19 23 By Mouth Daily 1 TABLET 084320 RxNorm TAKE 1 TABLET BY MOUTH ONCE A DAY Crestor 40MG Oral Tablet 12/30/2022 01/05/20 24 By Mouth Daily 1 TABLET 991273 RxNorm TAKE 1 TABLET BY MOUTH ONCE A DAY Paxil 40MG Oral Tablet 02/04/2023 07/07/19 24 By Mouth Daily 1 TABLET 885784 RxNorm TAKE 1 TABLET BY MOUTH ONCE A DAY busPIRone 15MG Oral Tablet 02/04/2023 07/07/19 24 By Mouth Twice a day 1 TABLET 504670 RxNorm TAKE 1 TABLET BY MOUTH TWO TIMES A DAY Levothyroxi ne 50MCG Oral Tablet 02/20/2023 Unknown By Mouth 1 TABLET 090133 RxNorm 1 TABLE T By Mouth in the morning on an empty stomach- PRESCRIBED BY DR THAMPY Victoza 6MG/1ML Subcutaneou s Solution 02/20/2023 06/21/19 25 Subcutane ous Daily 1.8 UNIT 465588 RxNorm 1.8 UNIT Subcutaneou s Daily- *PRESCRIBED BY DR DURAN NovoLOG FlexPen 100U/1ML Subcutaneou s Solution 02/20/2023 04/07/20 23 Subcutane ous 1524235 RxNorm Inject up to 100 Units SUBQ daily in DMDED doses--- * PRESCRIBED BY DR DURAN Baclofen 10MG Oral Tablet 02/20/2023 Unknown By Mouth Three times a day 1 TABLET 410337 RxNorm 1 TABLET By Mouth Three times a day With food Aspirin 81MG Oral Tablet, Enteric Coated 02/20/2023 04/07/20 23 By Mouth Daily 1 TABLET 292412 RxNorm 1 TABLET By Mouth Daily Vitamin D 1000IU Oral Tablet 02/20/2023 04/07/20 23 By Mouth Daily 1 TABLET 356324 RxNorm 1 TABLET By Mouth Daily Augmentin 875MG-125MG Oral Tablet 04/22/2023 05/28/19 24 By Mouth Every 12 hours 1 TABLET 691420 RxNorm 1 TABLET By Mouth Every 12 hours x 10 days. Take with food. Diflucan 150MG Oral Tablet 04/22/2023 05/28/19 24 By Mouth x1 NOW 1 TABLET 367593 RxNorm 1 TABLET By Mouth x1 NOW. May repeat in 72 hours as needed. Singulair 10MG Oral Tablet 05/07/2023 07/07/19 24 By Mouth Daily 1 TABLET 890017 RxNorm TAKE 1 TABLET BY MOUTH ONCE A DAY Prinivil 5MG Oral Tablet 06/19/2023 06/22/19 24 By Mouth Daily 1 TABLET 214130 RxNorm TAKE 1 TABLET BY MOUTH ONCE A DAY Prinivil 5MG Oral Tablet 06/22/2023 07/07/19 24 By Mouth Daily 1 TABLET 591015 RxNorm TAKE 1 TABLET BY MOUTH ONCE A DAY Prinivil 5MG Oral Tablet 07/07/2023 01/05/20 24 By Mouth Daily 1 TABLET 263530 RxNorm TAKE 1 TABLET BY MOUTH ONCE A DAY Singulair 10MG Oral Tablet 07/07/2023 01/05/20 24 By Mouth Daily 1 TABLET 788677 RxNorm TAKE 1 TABLET BY MOUTH ONCE A DAY Paxil 40MG Oral Tablet 07/07/2023 10/02/19 24 By Mouth Daily 1 TABLET 203021 RxNorm TAKE 1 TABLET BY MOUTH ONCE A DAY busPIRone 15MG Oral Tablet 07/07/2023 01/05/20 24 By Mouth Twice a day 1 TABLET 539850 RxNorm TAKE 1 TABLET BY MOUTH TWO TIMES A DAY Ativan 0.5MG Oral Tablet 09/02/2023 09/28/19 25 By Mouth Twice a day 1 TABLET 663242 RxNorm 1 TABLET By Mouth Twice a day PRN Paxil 30MG Oral Tablet 10/02/2023 10/30/19 24 By Mouth Daily 2 TABLET 551199 RxNorm 2 TABLET By Mouth Daily Paxil 30MG Oral Tablet 10/30/2023 08/17/19 25 By Mouth Daily 2 TABLET 017389 RxNorm 2 TABLET By Mouth Daily Ambien 5MG Oral Tablet 12/11/2023 01/05/20 24 By Mouth At bedtime 513613 RxNorm 1-2 TABLET By Mouth At bedtime As needed Ozempic 0.25 MG or 0.5 MG Doses 2 MG/3 ML Subcutaneou s Solution 01/05/2024 06/21/19 25 Subcutane ous Once a week 0.5 UNIT 9844512 RxNorm 0.5 UNIT Subcutaneou s Once a week Crestor 40MG Oral Tablet 01/05/2024 09/27/19 25 By Mouth Daily 1 TABLET 847659 RxNorm TAKE 1 TABLET BY MOUTH ONCE A DAY busPIRone 15MG Oral Tablet 01/05/2024 08/06/19 25 By Mouth Twice a day 1 TABLET 376409 RxNorm TAKE 1 TABLET BY MOUTH TWO TIMES A DAY Singulair 10MG Oral Tablet 01/05/2024 09/27/19 25 By Mouth Daily 1 TABLET 318287 RxNorm TAKE 1 TABLET BY MOUTH ONCE A DAY Ambien 5MG Oral Tablet 01/05/2024 09/28/19 25 By Mouth At bedtime 940191 RxNorm 1-2 TABLET By Mouth At bedtime As needed Prinivil 5MG Oral Tablet 01/05/2024 07/06/19 25 By Mouth Daily 1 TABLET 791541 RxNorm TAKE 1 TABLET BY MOUTH ONCE A DAY Promethazin e DM 6.25MG/5ML- 15MG/5ML Oral Syrup 01/25/2024 06/06/19 25 ORAL As needed every 4 hr 5 mL 412089 RxNorm 5 mL ORAL As needed every 4 hr-do not take within 2 hours of Paxil or Buspirone Augmentin 875MG-125MG Oral Tablet 01/25/2024 06/06/19 25 By Mouth Twice a day 1 TABLET 776521 RxNorm 1 TABLET By Mouth Twice a day x 10 days Airsupra 90 MCG/1 Actuation-8 0 MCG/1 Actuation Inhalation Aerosol Powder 01/25/2024 06/06/19 25 Inhale As needed every 4 hr 2 Puff 9623794 RxNorm 2 Puff Inhale As needed every 4 hr Victoza 6MG/1ML Subcutaneou s Solution 06/20/2024 Unknown Subcutane ous Daily 1.8 MILLIGRAMS 283083 RxNorm 1.8 MILLIGRAMS Subcutaneou s Daily Ozempic 0.25 MG or 0.5 MG Doses 2 MG/3 ML Subcutaneou s Solution 06/20/2024 Unknown Subcutane ous Once a week 1.5 MILLILITER 3183378 RxNorm 1.5 MILLILITER Subcutaneou s Once a week Lisinopril 5MG Oral Tablet 07/05/2024 09/27/19 25 By Mouth Daily 1 TABLET 657109 RxNorm 1 TABLET By Mouth Daily busPIRone 15MG Oral Tablet 08/05/2024 Unknown By Mouth Twice a day 1 TABLET 055631 RxNorm TAKE 1 TABLET BY MOUTH TWO TIMES A DAY Paxil 20MG Oral Tablet 08/16/2024 09/27/19 25 By Mouth Daily 1 TABLET 802139 RxNorm 1 TABLET By Mouth Daily Wellbutrin XL 150MG Oral Tablet, Extended Release, 24 HR 08/16/2024 09/27/19 25 By Mouth Daily 1 TABLET 402105 RxNorm 1 TABLET By Mouth Daily. Wellbutrin XL 150MG Oral Tablet, Extended Release, 24 HR 09/26/2024 Unknown By Mouth Daily 1 TABLET 501334 RxNorm 1 TABLET By Mouth Daily. Paxil 20MG Oral Tablet 09/26/2024 Unknown By Mouth Daily 1 TABLET 340985 RxNorm 1 TABLE T By Mouth Daily Lisinopril 5MG Oral Tablet 09/26/2024 Unknown By Mouth Daily 1 TABLET 539559 RxNorm 1 TABLET By Mouth Daily Singulair 10MG Oral Tablet 09/26/2024 Unknown By Mouth Daily 1 TABLET 093456 RxNorm TAKE 1 TABLET BY MOUTH ONCE A DAY Crestor 40MG Oral Tablet 09/26/2024 Unknown By Mouth Daily 1 TABLET 927545 RxNorm TAKE 1 TABLET BY MOUTH ONCE A DAY Ativan 0.5MG Oral Tablet 09/27/2024 Unknown By Mouth As needed daily 1 TABLET 322309 RxNorm 1 TABLET By Mouth As needed daily Ambien 5MG Oral Tablet 09/27/2024 10/05/19 25 By Mouth At bedtime 031904 RxNorm 1-2 TABLET By Mouth At bedtime As needed Ambien 5MG Oral Tablet 10/04/2024 Unknown By Mouth At bedtime 1 TABLET 651593 RxNorm 1 TABLET By Mouth At bedtime As needed Assessment You had the following problems:TYPE I DIABETES MELLITUS WITH HYPERGLYCEMIAHYPERTENSIONHYPERCHOLESTEROLEMIAHYPOTHYROIDISMLUMBAR RADICULOPATHYLOW POTASSIUMGERDALLERGIC RHINITISDEPRESSIONANXIETYASTHMACHRONIC KIDNEY DISEASE STAGE 3OBESITYENDOMETRIOSISSLEEP APNEANEOPLASM OF UNCERTAIN BEHAVIOR OF RIGHT ADRENAL GLANDDEFICIENCY OF OTHER SPECIFIED B GROUP VITAMINSHYPERCALCEMIAENCOUNTER FOR FITTING AND ADJUSTMENT OF INSULIN PUMPABNORMAL LEVELS OF OTHER SERUM ENZYMES Assessment/Plan: 1. Hypertension controlled: Continue same meds. 2. DM II: Sees Dr. Ng at [facility]. Labs ordered. Follow up with him. Labs ordered: CBC, CMP, TSH, urine microalbumin, lipids, A1C. Consider adding Farxiga or Jardiance. 3. Anxiety/depression controlled: Continue same meds. Refills sent. Recheck in 6 months and prn. 4. Hyperlipidemia: Repeat lipids. Continue crestor for now. 5. MÓNICA: Has new CPAP machine and is using daily. 6. CKD: No longer seeing master barber. Will recheck labs and consider adding Farxiga or Jardiance. Continue Prinivil daily. 7. Chronic back pain: Follows up with pain management at [facility] in [place]. 8. Wellness: Scheduled for mammogram on 05-05-22 at 12:50. Screening labs ordered: CBC, CMP, TSH, lipids, A1C, Urine microalbumin. 9: History of hypokalemia: Recheck electrolytes. Continues on potassium daily. 10: Obesity BMI 37: Patient considering gastric sleeve but still unsure at this time. Return to clinic in 6 months and prn. Hospital Discharge Instructions Should you have any questions prior to discharge, please contact a member of your healthcare team. If you have left the hospital and have any questions, please contact your primary care physician. Reason For Referral No Data Found Procedures Procedure Name Date Status Code Code Evelin galindo Laparoscopic sleeve gastrectomy 06/26/2022 completed 4270 73506 SNOMEDCT Problems Problem Start Date Resolved Date Status Code Code System TYPE I DIABETES MELLITUS WITH HYPERGLYCEMIA active 087202976705419 SNOMED -CT HYPERTENSION active 25048895 SNOMED- CT HYPERCHOLESTEROLEMIA active 25189485 SNOMED-CT HYPOTHYROIDISM active 67795016 SNOME D-CT LUMBAR RADICULOPATHY active 998706029 SNOMED-CT LOW POTASSIUM active 11730966 SNOMED -CT GERD active 477103386 SNOMED-CT ALLERGIC RHINITIS active 16969265 SN OMED-CT DEPRESSION active 95397600 SNOMED-CT ANXIETY active 33076125 SNOMED-CT ASTHMA active 751413285 SNOMED-CT CHRONIC KIDNEY DISEASE STAGE 3 active 187571455 SNOMED-CT OBESITY active 048035014 SNOMED-CT ENDOMETRIOSIS active 658278952 SNOMED -CT SLEEP APNEA active 94708772 SNOMED-C 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 338366045866533 SNOMED-CT 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 00127129 S NOMED-CT HYPERCALCEMIA active 51540444 SNOMED -CT ENCOUNTER FOR FITTING AND ADJUSTMENT OF INSULIN PUMP active 786167597 S NOMED-CT ABNORMAL LEVELS OF OTHER SERUM ENZYMES active 761651892 SNOMED-CT HISTORY OF GASTRIC BYPASS 06/26/2022 05/30/2024 resolved 69 3529856 SNOMED-CT SINUSITIS 04/30/2022 resolved 01226483 SNOMED-CT DIABETES 2 01/19/2024 resolved 43483290 SNOMED-C T Allergies and Adverse Reactions Allergy Substance Reaction Severity Start Date Concern Status Co de Code System CEFUROXIME Rash (SNOMED-CT: 765650675) Mild Active 2194 RxNorm KETOROLAC Hives (SNOMED-CT: 325038539) Mild Active 19512 RxNorm BIAXIN Hives (SNOMED-CT: 943214441) Severe Active LANTUS Hives (SNOMED-CT: 493935835) Mild Active 552165 RxNorm TAMIFLU Rash (SNOMED-CT: 501775568) Active 962314 RxNorm SEPTRA Rash (SNOMED-CT: 468539628) Mild Active LEVEMIR Hives (SNOMED-CT: 686796311) Mild Active 634876 RxNorm Plan of Treatment MA Screening Bilateral [...] Futu re Order Loinc: CBC W DIFF 04/29/2022 LOINC: 84279-6 COMPREHENSIVE METABOLIC PANEL 04/29/2022 L OINC: 21225-6 TSH 04/29/2022 LOINC: 93763-2 MICROALBUMIN URINE 04/29/2022 LOINC: 65026 -1 HEMOGLOBIN A1C 04/29/2022 LOINC: 4548-4 Encounters Encounter Diagnosis Start Date Code Code Sys tem Anxiety 04/29/2022 57684478 OMED-CT Personal Care Team Section Performer Name Performer Role Active Date Inactive Da te Progress Notes [facility] 04/30/2022 10:34 Admission Date/Time: 04/29/2022 15:29 [facility] Visit Note Chief Complaint: 6 MONTH F/U Has the patient received a COVID Vaccine? yes Nurse Note: This nurse note is documented by Cassandra Eid LPN. 57 year old female presents to office for 6 month follow up HTN and depression. Patient states she does not check blood prerssure at home. Denies any chest pain or SOB. Voiced depression is stable on current medications. Is ready to schedule mammogram. Patient states she sees an quality control inspector for diabetes and pain management for nerve damage in her low back. History of Present Illness: 57 year old female previous patient of Mariposa Cuellar. Sees from [facility] for diabetes. Has insulin pump. Has follow up there this spring. No labs done recently. Used to see master barber for CKD but no longer follows up. Has pain management for her previous lower lumbar fusion with radiculopathy. Sees [facility] in [place], [place]. Dad had bypass at age 44 and signficant heart disease.Due for mammogram. Taking crestor daily. Just recently got new CPAP machine from [employer] and using daily. Has been considering Gastric sleeve procedure but feels a little hesitant with it. Travels to [place] to see significant other often Feels mood is doing well with current medications. REVIEW OF SYSTEMS: System X = system reviewed, Negative unless docu as Positive: Positive for: Constitutional fever, chills, loss of appetite, snoring HEENT sore throat, blurred or double vision, ear pain Respiratory cough, sputum, shortness of breath, wheezing Cardiovascular chest pain, palpitations,edema Gastrointestinal nausea, vomiting, constipation, diarrhea, abdominal pain Genitourinary burning, blood, frequency Hematopoetic easy bruising, bleeding Skin rashes, hives Musculoskeletal significant joint pain, swelling low back pain with radiculopathy Neurologic weakness, numbness, fainting, seizures, headaches Psychiatric anxiety, depression, problems sleeping Endocrine polydipsia, polyuria, heat or cold intolerance HABITS Does Not Current Use History of Quantity Duration Smoking x Marijuana x-medical Alcohol x Narcotics x Illicit Drugs x Allergy Table Allergen Type Reaction CEFUROXIME medication KETOROLAC medication Hives BIAXIN medication TAMIFLU medication SEPTRA medication LEVEMIR medication Hives Vital Signs: This Visit HtWt Date/Time BP (mm/Hg) BP Position/Site Heart Rate Resp Temp (F) SPO2% Pain Score Height (in) Weight (lbs/ozs) BMI Head Cir (cm) 04/29/2022 14:44 118/84 Sitting/Left Arm 116 16 96.8 Temporal Scanning 97 % 4 66 in 235 lbs 37.93 PHYSICAL EXAM: GENERAL: Alert, well-appearing in no [...] cooperative. Conversant, normal affect. Lab Results: This Visit: No Labs Available Assessment/Plan: 1. Hypertension controlled: Continue same meds. 2. DM II: Sees Dr. Ng at [facility]. Labs ordered. Follow up with him. Labs ordered: CBC, CMP, TSH, urine microalbumin, lipids, A1C. Consider adding Farxiga or Jardiance. 3. Anxiety/depression controlled: Continue same meds. Refills sent. Recheck in 6 months and prn. 4. Hyperlipidemia: Repeat lipids. Continue crestor for now. 5. MÓNICA: Has new CPAP machine and is using daily. 6. CKD: No longer seeing master barber. Will recheck labs and consider adding Farxiga or Jardiance. Continue Prinivil daily. 7. Chronic back pain: Follows up with pain management at [facility] in [place]. 8. Wellness: Scheduled for mammogram on 05-05-22 at 12:50. Screening labs ordered: CBC, CMP, TSH, lipids, A1C, Urine microalbumin. 9: History of hypokalemia: Recheck electrolytes. Continues on potassium daily. 10: Obesity BMI 37: Patient considering gastric sleeve but still unsure at this time. Return to clinic in 6 months and prn. Ordered & Completed Meds Table: No Current Medications Available Discharge Med List: Discharge Medications Medication Special Instructions Start Date Prescribing MD Jones 10MG Oral Tablet TAKE 1 TABLET BY MOUTH ONCE A DAY 04/29/2022 SCARLET ZAYAS Potassium Chloride 20MEQ Oral Tablet, Extended Release TAKE 2 TABLETS BY MOUTH TWO TIMES A DAY 04/29/2022 SCARLET ZAYAS Prinivil 5MG Oral Tablet TAKE 1 TABLET BY MOUTH ONCE A DAY 04/29/2022 SCARLET ZAYAS busPIRone 15MG Oral Tablet TAKE 1 TABLET BY MOUTH TWO TIMES A DAY 04/29/2022 SCARLET ZAYAS Paxil 40MG Oral Tablet TAKE 1 TABLET BY MOUTH ONCE A DAY 04/29/2022 SCARLET ZAYAS Naltrexone HCl Powder 3 MILLIGRAMS By Mouth At bedtime 04/29/2022 Crestor 40MG Oral Tablet TAKE 1 TABLET BY MOUTH ONCE A DAY 04/08/2022 ROSITA ROSADO Victoza 6MG/1ML Subcutaneous Solution 1.8 [...]
--- OUTSIDE RECORDS SUMMARY | 2024-10-25 03:02 | XMS_ITS | Clinical Summary ---
Author Organization [facility] Address [address] [place] [address] Care Team Providers Care Pompom Maker Name Role Phone Yovana Schilling MD Primary Care Provider Source Comments [facility],non-[facility] community hospital Affiliates and Associated Physician Practices is amultiple site organization consisting of ambulatory clinics and hospital sitesin [place], [place], [place] and [place]. This disclosure is being madepursuant to the Care Everywhere program and may not contain all information available regarding this patient. Last updated 18.[facility] Allergies Active Allergy Reactions Criticality Noted Date Comments Clarithromycin 08/23/2010 Cefuroxime 08/23/2010 Sulfamethoxazole W-Trimethoprim 09/2010 Medications * Be aware that medications may not be up to date on this document. Alwaysverify current medications with the patient. Furosemide (LASIX PO) Take by mouth. Active celecoxib (CELEBREX) 200 MG capsule Take 200 mg by mouth daily. Active levocetirizine (XYZAL) 5 MG tablet Take 5 mg by mouth daily. Active traMADol (ULTRAM) 50 MG tablet Take 50 mg by mouth 2 times daily as needed. 08/23/2010 Active rosuvastatin (CRESTOR) 40 MG tablet Take 40 mg by mouth daily. Active amLODIPine (NORVASC) 5 MG tablet Take 5 mg by mouth daily. Active ranitidine (ZANTAC) 150 MG capsule Take 150 mg by mouth 2 times daily. Active paroxetine CR 24hr (PAXIL-CR) 25 MG tablet Take 50 mg by mouth daily. Active hydrocodone-acet aminophen (VICODIN) 5-500 MG tablet Take 1-2 Tabs by mouth at bedtime. 08/23/2010 Active pregabalin (LYRICA) 100 MG capsule Take 100 mg by mouth 3 times daily. Active potassium chloride (KLOR-CON) 10 MEQ tablet Take 2 Tabs by mouth daily. 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 Gender Identity Not on file Sexual Orientation Not on file Last Filed Vital Signs Vital Sign Reading Time Taken Comments Blood Pressure 113/76 08/24/2010 12:54 AM CDT Pulse 88 08/24/2010 12:54 AM CDT Temperature 36.8 C (98.3 F) 08/24/2010 12:54 AM CDT Respiratory Rate 16 08/24/2010 12:54 AM CDT Oxygen Saturation 97% 08/24/2010 12:54 AM CDT Inhaled Oxygen Concentration - - Weight 117.9 kg (260 lb) 08/23/2010 2:02 PM CDT Height 167.6 cm (5' 6) 08/23/2010 2:02 PM CDT Body Mass Index 41.97 08/23/2010 2:02 PM CDT Plan of Treatment Health Maintenance Due Date Last Done Comments COLOGUARD (AGES 45-75) - COL ON CA SCREENING 1964 COLON MONITORING 1964 COLONOSCOPY - COLON CA SCREENING 1964 CT COLONOGRAPHY - COLON CA SCREENING 1964 Colorectal Cancer Screening 1964 FIT - COLON CA SCREENING 1964 FLEX SIG - COLON CA SCREENING 1964 MAMMOGRAM 1964 HIV SCREENING 01/31/1979 HEPATITIS C SCREENING 01/27/1982 DTAP/TDAP/TD VACCINES (1 - Tdap) 01/31/1983 PNEUMOCOCCAL VACCINE 50+ (1 of 1 - PCV) 01/31/2014 ZOSTER VACCINE (1 of 2) 01/31/2014 COVID-19 VACCINE (1 - 2023-2 5 season) 2023 Respiratory Syncytial Virus (RSV) Vaccine Pt: or over 60 yrs (1 - Risk 60-74 years 1-dose series) 2024 DEPRESSION SCREENING 04/20/2024 INFLUENZA VACCINE (#1) 2024 HEPATITIS B VACCINE Aged Out No longe r eligible based on patient's age to complete this topic HIB VACCINE Aged Out No longer eligi ble based on patient's age to complete this topic HPV VACCINE Aged Out No longer eligi ble based on patient's age to complete this topic MENINGOCOCCAL (Group B) VACC INE SHARED DECISION-MAKING Aged Out No longer eligibl e based on patient's age to complete this topic MENINGOCOCCAL GROUPS A/C/Y/W VACCINE Aged Out No longer eligible b ased on patient's age to complete this topic Care Teams Pompom Maker Relationship Specialty Start Date End Date Yovana Schilling MD [id number] [id number] PCP - General 08/23/10
--- OUTSIDE RECORDS SUMMARY | 2024-10-25 03:02 | XMS_ITS ---
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 No current breast complaints. Family history of breast cancer maternal aunt age 80. Comparison: Screening mammograms 06/25/2023, 05/12/2022, 01/10/2021, 04/15/2018.Technique: 3D tomographic views both breasts.Tissue density: The breast tissue contains scattered fibroglandular densities.Findings: There are 2 single view asymmetries noted within the medial right breast, CC view only. No definite MLO correlate. Scattered benign appearing calcifications noted. No suspicious microcalcification, architectural distortion, or mass identified within the left breast. ===== IMPRESSION: =====1. Right breast asymmetries.Assessment: ACR BI- RADS Category 0 - Need additional imaging evaluation.Recommendation:1: Follow-up diagnostic mammogram with spot compression views and potential ultrasound right Created and Electronically Signed by:Cooper Vinson MD07/20/2024 13:10 Social History Type Status Start Date End Date Code Code Syst em Smoking History Unknown if ever smoked [id number] SNOMED CT Smoking History Never smoker (Never Smoked) 660903133 SNOMED CT Sex Female Sexual Orientation Straight or Heterosexual 15581027 SNOMED CT Gender Identity Female [id number] Medications Medication Start Date End Date Route Frequency Dose Code Code System Medication Instructions Home Meds Lyrica 150MG Oral Capsule 08/30/2018 Unknown By Mouth Twice a day 1 CAPSULE 575689 RxNorm 1 CAPSULE By Mouth Twice a day Xyzal Allergy 24HR 5MG Oral Tablet 08/30/2018 Unknown By Mouth Daily 1 TABLET 418593 RxNorm 1 TABLET By Mouth Daily Pepcid AC 20MG Oral Tablet 03/15/2019 Unknown By Mouth Daily 1 TABLET 103425 RxNorm 1 TABLET By Mouth Daily Fiasp 100U/1ML Injection Solution 02/23/2020 Unknown Subcutane ous 0478642 RxNorm Subcutaneou s VIA INSULIN PUMP Levothyroxin e 50MCG Oral Tablet 02/20/2023 Unknown By Mouth 1 TABLET 747201 RxNorm 1 TABLET By Mouth in the morning on an empty stomach- PRESCRIBED BY DR DURAN Baclofen 10MG Oral Tablet 02/20/2023 Unknown By Mouth Three times a day 1 TABLET 914563 RxNorm 1 TABLET By Mouth Three times a day With food Ativan 0.5MG Oral Tablet 09/02/2023 09/28/19 25 By Mouth Twice a day 1 TABLET 102414 RxNorm 1 TABLET By Mouth Twice a day PRN Paxil 30MG Oral Tablet 10/30/2023 08/17/19 25 By Mouth Daily 2 TABLET 352059 RxNorm 2 TABLET By Mouth Daily Crestor 40MG Oral Tablet 01/05/2024 09/27/19 25 By Mouth Daily 1 TABLET 461479 RxNorm TAKE 1 TABLET BY MOUTH ONCE A DAY busPIRone 15MG Oral Tablet 01/05/2024 08/06/19 25 By Mouth Twice a day 1 TABLET 176104 RxNorm TAKE 1 TABLET BY MOUTH TWO TIMES A DAY Singulair 10MG Oral Tablet 01/05/2024 09/27/19 25 By Mouth Daily 1 TABLET 555147 RxNorm TAKE 1 TABLET BY MOUTH ONCE A DAY Ambien 5MG Oral Tablet 01/05/2024 09/28/19 25 By Mouth At bedtime 916035 RxNorm 1-2 TABLET By Mouth At bedtime As needed Victoza 6MG/1ML Subcutaneous Solution 06/20/2024 Unknown Subcutane ous Daily 1.8 MILLIGRAMS 817383 RxNorm 1.8 MILLIGRAMS Subcutaneou s Daily Ozempic 0.25 MG or 0.5 MG Doses 2 MG/3 ML Subcutaneous Solution 06/20/2024 Unknown Subcutane ous Once a week 1.5 MILLILITER 5556235 RxNorm 1.5 MILLILITER Subcutaneou s Once a week Lisinopril 5MG Oral Tablet 07/05/2024 09/27/19 25 By Mouth Daily 1 TABLET 202691 RxNorm 1 TABLET By Mouth Daily busPIRone 15MG Oral Tablet 08/05/2024 Unknown By Mouth Twice a day 1 TABLET 405901 RxNorm TAKE 1 TABLET BY MOUTH TWO TIMES A DAY Paxil 20MG Oral Tablet 08/16/2024 09/27/19 25 By Mouth Daily 1 TABLET 912057 RxNorm 1 TABLET By Mouth Daily Wellbutrin XL 150MG Oral Tablet, Extended Release, 24 HR 08/16/2024 09/27/19 25 By Mouth Daily 1 TABLET 832441 RxNorm 1 TABLET By Mouth Daily. Wellbutrin XL 150MG Oral Tablet, Extended Release, 24 HR 09/26/2024 Unknown By Mouth Daily 1 TABLET 746921 RxNorm 1 TABLET By Mouth Daily. Paxil 20MG Oral Tablet 09/26/2024 Unknown By Mouth Daily 1 TABLET 591897 RxNorm 1 TABLE T By Mouth Daily Lisinopril 5MG Oral Tablet 09/26/2024 Unknown By Mouth Daily 1 TABLET 448310 RxNorm 1 TABLET By Mouth Daily Singulair 10MG Oral Tablet 09/26/2024 Unknown By Mouth Daily 1 TABLET 609884 RxNorm TAKE 1 TABLET BY MOUTH ONCE A DAY Crestor 40MG Oral Tablet 09/26/2024 Unknown By Mouth Daily 1 TABLET 625248 RxNorm TAKE 1 TABLET BY MOUTH ONCE A DAY Ativan 0.5MG Oral Tablet 09/27/2024 Unknown By Mouth As needed daily 1 TABLET 567937 RxNorm 1 TABLET By Mouth As needed daily Ambien 5MG Oral Tablet 09/27/2024 10/05/19 25 By Mouth At bedtime 295604 RxNorm 1-2 TABLET By Mouth At bedtime As needed Ambien 5MG Oral Tablet 10/04/2024 Unknown By Mouth At bedtime 1 TABLET 878522 RxNorm 1 TABLET By Mouth At bedtime [...] TYPE I DIABETES MELLITUS WITH HYPERGLYCEMIA active 149323807772387 SNOMED -CT HYPERTENSION active 76194486 SNOMED- CT HYPERCHOLESTEROLEMIA active 05838219 SNOMED-CT HYPOTHYROIDISM active 17742886 SNOME D-CT LUMBAR RADICULOPATHY active 546297924 SNOMED-CT LOW POTASSIUM active 46179085 SNOMED -CT GERD active 270872186 SNOMED-CT ALLERGIC RHINITIS active 23091367 SN OMED-CT DEPRESSION active 55090926 SNOMED-CT ANXIETY active 62641109 SNOMED-CT ASTHMA active 080993862 SNOMED-CT CHRONIC KIDNEY DISEASE STAGE 3 active 278382581 SNOMED-CT OBESITY active 776787734 SNOMED-CT ENDOMETRIOSIS active 365187833 SNOMED -CT SLEEP APNEA active 24223925 SNOMED-C 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 010080319317581 SNOMED-CT 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 34507531 S NOMED-CT HYPERCALCEMIA active 78926227 SNOMED -CT ENCOUNTER FOR FITTING AND ADJUSTMENT OF INSULIN PUMP active 229075711 S NOMED-CT ABNORMAL LEVELS OF OTHER SERUM ENZYMES active 647392794 SNOMED-CT HISTORY OF GASTRIC BYPASS 06/26/2022 05/30/2024 resolved 69 1812365 SNOMED-CT SINUSITIS 04/30/2022 resolved 98596354 SNOMED-CT DIABETES 2 01/19/2024 resolved 83549621 SNOMED-C T Allergies and Adverse Reactions Allergy Substance Reaction Severity Start Date Concern Status Co de Code System CEFUROXIME Rash (SNOMED-CT: 725817590) Mild Active 2194 RxNorm KETOROLAC Hives (SNOMED-CT: 866948124) Mild Active 22040 RxNorm BIAXIN Hives (SNOMED-CT: 969933414) Severe Active LANTUS Hives (SNOMED-CT: 422867865) Mild Active 698893 RxNorm TAMIFLU Rash (SNOMED-CT: 414685013) Active 898943 RxNorm SEPTRA Rash (SNOMED-CT: 662917711) Mild Active LEVEMIR Hives (SNOMED-CT: 589265467) Mild Active 779133 RxNorm Plan of Treatment MA Screening Bilateral 07/25/2025 Established Patient 30 01/03/2025 Description Due Date Details Instructions Pap 08/18/2025 Performed 09/06 20 normal, repeat in 5 yrs per [facility] - RR 5.20.21 Sdoh 01/04/2025 Annual Labs 11/10/2024 cbc, cmp, tsh, free t4, lipids Mammogram 08/12/2025 08/12/24- WNL Depression 06/06/2025 Anxiety 06/06/2025 Encounters Encounter Diagnosis Start Date Code Code Sys tem Screening mammography 07/20/2024 13938764 [employer] -[facility] Personal Care Team Section Performer Name Performer Role Active Date Inactive Da te
--- OUTSIDE RECORDS SUMMARY | 2024-10-25 03:02 | XMS_ITS ---
Author Organization Unknown Address [address], [place] [phone] Phone Care Team Providers Care Radioactivity Technician Name Role Phone WELDON FREDI Attending Unavailable Results CT CERVICAL SPINE - Complete d: 06/06/2024 13:41 LOINC: 72484-1 EXAMINATION: CT Cervical Spi ne without contrast. DATE/TIME: 06/06/2024 12:55 PM REASON FOR EXAM: Cervical pain bilaterally extending into the shoulders. Intermittent right-sided headaches.COMPARISON: May 26, 2019.TECHNIQUE: Axial CT images of the cervical spine are obtained without the use of IV contrast agent. Subsequent coronal and sagittal reformatted sequences are created for evaluation. A dose lowering technique was used for this procedure, which may include, but is not limited to, dose reduction technique, automated exposure control, iterative reconstruction, ALARA (As Low As Reasonably Achievable), or Image Gently techniques.FINDINGS: Limited visualization of posterior fossa contents is unremarkable. Limited visualization of lung apices are clear. The odontoid is intact.Visualized paranasal sinuses are clear.There is straightening of the normal cervical lordosis. Loss of height of the disc spaces is present at C4-5, C5-6 and C6-7. This is similar to progressed compared back to May 2019.No prevertebral soft tissue swelling is present. Right and left lobe of thyroid gland are unremarkable. Submandibular and parotid glands are unremarkable.At C3-4 due to disc osteophyte complexes left neural foraminal narrowing.At C4-5 there is posterior osteophytic ridging that is present. There is suspected moderate canal stenosis. This is increased compared back to May 2019. The neural foramina appear to be patent.At C5-6, there is posterior osteophytic ridging with suspected disc bulge. There is moderate to severe canal stenosis that is suspected. There is bilateral neural foraminal narrowing. This appears to be increased compared back to May 2019.At C6-7 the canal does not appear to be stenotic. Due to disc osteophyte complexes mild left neural foraminal narrowing. This is increasing as compared back to May 2019. The neural foramina appear to be patent.No significant central canal stenosis or neural foraminal narrowing is present at C7-T1.===== IMPRESSION: =====1. Multilevel degenerative changes are present involving the cervical spine. The findings appear to be increased as compared back to May 2019. Please see details above.2. The patient can undergo MRI, MRI recommended for further evaluation. Created and Electronically Signed by:Tomasz Blair MD06/06/2024 15:02 Social History Type Status Start Date End Date Code Code Syst em Smoking History Unknown if ever smoked 389799300 SNOMED CT Smoking History Never smoker (Never Smoked) 160693582 SNOMED CT Sex Female Sexual Orientation Straight or Heterosexual 44100141 SNOMED CT Gender Identity Female [id number] [address] Medications Medication Start Date End Date Route Frequency Dose Code Code System Medication Instructions Home Meds Lyrica 150MG Oral Capsule 08/30/2018 Unknown By Mouth Twice a day 1 CAPSULE 450422 RxNorm 1 CAPSULE By Mouth Twice a day Xyzal Allergy 24HR 5MG Oral Tablet 08/30/2018 Unknown By Mouth Daily 1 TABLET 495230 RxNorm 1 TABLET By Mouth Daily Pepcid AC 20MG Oral Tablet 03/15/2019 Unknown By Mouth Daily 1 TABLET 823431 RxNorm 1 TABLET By Mouth Daily Fiasp 100U/1ML Injection Solution 02/23/2020 Unknown Subcutane ous 5364074 RxNorm Subcutaneou s VIA INSULIN PUMP Levothyroxin e 50MCG Oral Tablet 02/20/2023 Unknown By Mouth 1 TABLET 442942 RxNorm 1 TABLET By Mouth in the morning on an empty stomach- PRESCRIBED BY DR ROGER Whitfield 6MG/1ML Subcutaneous Solution 02/20/2023 06/21/19 25 Subcutane ous Daily 1.8 UNIT 060248 RxNorm 1.8 UNIT Subcutaneou s Daily- *PRESCRIBED BY DR DURAN Baclofen 10MG Oral Tablet 02/20/2023 Unknown By Mouth Three times a day 1 TABLET 801247 RxNorm 1 TABLET By Mouth Three times a day With food Ativan 0.5MG Oral Tablet 09/02/2023 09/28/19 25 By Mouth Twice a day 1 TABLET 849092 RxNorm 1 TABLET By Mouth Twice a day PRN Paxil 30MG Oral Tablet 10/30/2023 08/17/19 25 By Mouth Daily 2 TABLET 721626 RxNorm 2 TABLET By Mouth Daily Ozempic 0.25 MG or 0.5 MG Doses 2 MG/3 ML Subcutaneous Solution 01/05/2024 06/21/19 25 Subcutane ous Once a week 0.5 UNIT 4908589 RxNorm 0.5 UNIT Subcutaneou s Once a week Crestor 40MG Oral Tablet 01/05/2024 09/27/19 25 By Mouth Daily 1 TABLET 759677 RxNorm TAKE 1 TABLET BY MOUTH ONCE A DAY busPIRone 15MG Oral Tablet 01/05/2024 08/06/19 25 By Mouth Twice a day 1 TABLET 036354 RxNorm TAKE 1 TABLET BY MOUTH TWO TIMES A DAY Singulair 10MG Oral Tablet 01/05/2024 09/27/19 25 By Mouth Daily 1 TABLET 903913 RxNorm TAKE 1 TABLET BY MOUTH ONCE A DAY Ambien 5MG Oral Tablet 01/05/2024 09/28/19 25 By Mouth At bedtime 111812 RxNorm 1-2 TABLET By Mouth At bedtime As needed Prinivil 5MG Oral Tablet 01/05/2024 07/06/19 25 By Mouth Daily 1 TABLET 233312 RxNorm TAKE 1 TABLET BY MOUTH ONCE A DAY Victoza 6MG/1ML Subcutaneous Solution 06/20/2024 Unknown Subcutane ous Daily 1.8 MILLIGRAMS 894182 RxNorm 1.8 MILLIGRAMS Subcutaneou s Daily Ozempic 0.25 MG or 0.5 MG Doses 2 MG/3 ML Subcutaneous Solution 06/20/2024 Unknown Subcutane ous Once a week 1.5 MILLILITER 1038181 RxNorm 1.5 MILLILITER Subcutaneou s Once a week Lisinopril 5MG Oral Tablet 07/05/2024 09/27/19 25 By Mouth Daily 1 TABLET 322863 RxNorm 1 TABLET By Mouth Daily busPIRone 15MG Oral Tablet 08/05/2024 Unknown By Mouth Twice a day 1 TABLET 904911 RxNorm TAKE 1 TABLET BY MOUTH TWO TIMES A DAY Paxil 20MG Oral Tablet 08/16/2024 09/27/19 25 By Mouth Daily 1 TABLET 540487 RxNorm 1 TABLET By Mouth Daily Wellbutrin XL 150MG Oral Tablet, Extended Release, 24 HR 08/16/2024 09/27/19 25 By Mouth Daily 1 TABLET 389041 RxNorm 1 TABLET By Mouth Daily. Wellbutrin XL 150MG Oral Tablet, Extended Release, 24 HR 09/26/2024 Unknown By Mouth Daily 1 TABLET 414913 RxNorm 1 TABLET By Mouth Daily. Paxil 20MG Oral Tablet 09/26/2024 Unknown By Mouth Daily 1 TABLET 071420 RxNorm 1 TABLE T By Mouth Daily Lisinopril 5MG Oral Tablet 09/26/2024 Unknown By Mouth Daily 1 TABLET 207289 RxNorm 1 TABLET By Mouth Daily Singulair 10MG Oral Tablet 09/26/2024 Unknown By Mouth Daily 1 TABLET 125197 RxNorm TAKE 1 TABLET BY MOUTH ONCE A DAY Crestor 40MG Oral Tablet 09/26/2024 Unknown By Mouth Daily 1 TABLET 972211 RxNorm TAKE 1 TABLET BY MOUTH ONCE A DAY Ativan 0.5MG Oral Tablet 09/27/2024 Unknown By Mouth As needed daily 1 TABLET 059937 RxNorm 1 TABLET By Mouth As needed daily Ambien 5MG Oral Tablet 09/27/2024 10/05/19 25 By Mouth At bedtime 856166 RxNorm 1-2 TABLET By Mouth At bedtime As needed Ambien 5MG Oral Tablet 10/04/2024 Unknown By Mouth At bedtime 1 TABLET 105322 RxNorm 1 TABLET By Mouth At bedtime [...] TYPE I DIABETES MELLITUS WITH HYPERGLYCEMIA active 906304201565886 SNOMED -CT HYPERTENSION active 31924611 SNOMED- CT HYPERCHOLESTEROLEMIA active 70538742 SNOMED-CT HYPOTHYROIDISM active 18904535 SNOME D-CT LUMBAR RADICULOPATHY active 041868809 SNOMED-CT LOW POTASSIUM active 76714808 SNOMED -CT GERD active 997577174 SNOMED-CT ALLERGIC RHINITIS active 84485059 SN OMED-CT DEPRESSION active 91181718 SNOMED-CT ANXIETY active 69027620 SNOMED-CT ASTHMA active 351684884 SNOMED-CT CHRONIC KIDNEY DISEASE STAGE 3 active 256276995 SNOMED-CT OBESITY active 948084416 SNOMED-CT ENDOMETRIOSIS active 152785410 SNOMED -CT SLEEP APNEA active 59911062 SNOMED-C 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 911914038875812 SNOMED-CT 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 00398446 S NOMED-CT HYPERCALCEMIA active 89900630 SNOMED -CT ENCOUNTER FOR FITTING AND ADJUSTMENT OF INSULIN PUMP active 444950399 S NOMED-CT ABNORMAL LEVELS OF OTHER SERUM ENZYMES active 089264526 SNOMED-CT HISTORY OF GASTRIC BYPASS 06/26/2022 05/30/2024 resolved 69 7923493 SNOMED-CT SINUSITIS 04/30/2022 resolved 47016707 SNOMED-CT DIABETES 2 01/19/2024 resolved 82550038 SNOMED-C T Allergies and Adverse Reactions Allergy Substance Reaction Severity Start Date Concern Status Co de Code System CEFUROXIME Rash (SNOMED-CT: 662368503) Mild Active 2194 RxNorm KETOROLAC Hives (SNOMED-CT: 091588180) Mild Active 61112 RxNorm BIAXIN Hives (SNOMED-CT: 274294350) Severe Active LANTUS Hives (SNOMED-CT: 917538085) Mild Active 517600 RxNorm TAMIFLU Rash (SNOMED-CT: 407529309) Active 397289 RxNorm SEPTRA Rash (SNOMED-CT: 197559815) Mild Active LEVEMIR Hives (SNOMED-CT: 097793166) Mild Active 311341 RxNorm Plan of Treatment MA Screening Bilateral 07/25/2025 Established Patient 30 01/03/2025 Description Due Date Details Instructions Pap 08/18/2025 Performed 09/06 20 normal, repeat in 5 yrs per [facility] - RR 5.20.21 Sdoh 01/04/2025 Annual Labs 11/10/2024 cbc, cmp, tsh, free t4, lipids Mammogram 08/12/2025 08/12/24- WNL Depression 06/06/2025 Anxiety 06/06/2025 Encounters Encounter Diagnosis Start Date Code Code Sys tem Neck pain 06/06/2024 [id number] [facility]-[facility] Personal Care Team Section Performer Name Performer Role Active Date Inactive Da te Imaging Narrative Notes [facility] 06/06/2024 15:[address] [address] RADIOLOGY REPORT NAME: NUMBER: SEX: AGE: ADMIT: SERVICE: Type: KILO RING [id number] F 59 06/06/24 AX 2 DATE OF : 1965 M/R#: [id number] HOME PHONE: [phone] RM: CELL PHONE: [phone] ACCESSION NUMBER: [id number] CT CERVICAL SPINE COMPLETE: 06/06/2024 13:41 JMM ATTENDING PHYSICIAN: FREDI LATHAM PHYSICIAN: DICTATING PHYSICIAN: Tomasz Blair MD PRIMARY CARE PHYSICIAN: Unsigned transcriptions represent a preliminary report and do not represent a medical or legal document EXAMINATION: CT Cervical Spine without contrast. EXAM DATE/TIME: 06/06/2024 12:55 PM REASON FOR EXAM: Cervical pain bilaterally extending into the shoulders. Intermittent right-sided headaches. COMPARISON: May 26, 2019. TECHNIQUE: Axial CT images of the cervical spine are obtained without the use of IV contrast agent. Subsequent coronal and sagittal reformatted sequences are created for evaluation. A dose lowering technique was used for this procedure, which may include, but is not limited to, dose reduction technique, automated exposure control, iterative reconstruction, ALARA (As Low As Reasonably Achievable), or Image Gently techniques. FINDINGS: Limited visualization of posterior fossa contents is unremarkable. Limited visualization of lung apices are clear. The odontoid is intact. Visualized paranasal sinuses are clear. There is straightening of the normal cervical lordosis. Loss of height of the disc spaces is present at C4- 5, C5-6 and C6-7. This is similar to progressed compared back to May 2019. No prevertebral soft tissue swelling is present. Right and left lobe of thyroid gland are unremarkable. Submandibular and parotid glands are unremarkable. [address] [address] RADIOLOGY REPORT NAME: NUMBER: SEX: AGE: ADMIT: SERVICE: Type: KILO RING [id number] F 59 06/06/24 AX 2 DATE OF : 1965 M/R#: [id number] HOME PHONE: [phone] RM: CELL PHONE: [phone] ACCESSION NUMBER: [id number] CT CERVICAL SPINE COMPLETE: 06/06/2024 13:41 RODRIGO ATTENDING PHYSICIAN: FREDI WELDON SECOND PHYSICIAN: DICTATING PHYSICIAN: Tomasz Blair MD PRIMARY CARE PHYSICIAN: Unsigned transcriptions represent a preliminary report and do not represent a medical or legal document At C3-4 due to disc osteophyte complexes left neural foraminal narrowing. At C4-5 there is posterior osteophytic ridging that is present. There is suspected moderate canal stenosis. This is increased compared back to May 2019. The neural foramina appear to be patent. At C5-6, there is posterior osteophytic ridging with suspected disc bulge. There is moderate to severe canal stenosis that is suspected. There is bilateral neural foraminal narrowing. This appears to be increased compared back to May 2019. At C6-7 the canal does not appear to be stenotic. Due to disc osteophyte complexes mild left neural foraminal narrowing. This is increasing as compared back to May 2019. The neural foramina appear to be patent. No significant central canal stenosis or neural foraminal narrowing is present at C7-T1. ===== IMPRESSION: ===== 1. Multilevel degenerative changes are present involving the cervical spine. The findings appear to be increased as compared back to May 2019. Please see details above. 2. The patient can undergo MRI, MRI recommended for further evaluation. Created and Electronically Signed by: Tomasz Blair MD 06/06/2024 15:02
--- OUTSIDE RECORDS SUMMARY | 2024-10-25 03:03 | XMS_ITS ---
Author Organization Unknown Address [address] [place] [address] [phone] Phone Care Team Providers Care Dog Or Horse Racing Official Name Role Phone BECKER ASHLEE Attending Unavailable DM VAZQUEZ Secondary Unavailable Immunization Immunization Date Status Additional Notes [...] em Smoking History Never smoker (Never Smoked) [id number] SNOMED CT Smoking History Unknown if ever smoked 821649153 SNOMED CT Sex Female Sexual Orientation Straight or Heterosexual 82010937 SNOMED CT Gender Identity Female [id number] Vital Signs Vital Sign Value Unit [place] Value [place] Unit Date/Time Recent/Initial? Code Code System Body Mass Index 37.35 kg/m2 03/20/2022 14:36 Initial 81551 -5 LOINC Systolic Blood Pressure 126 mm[Hg] 03/20/2022 14:36 Initial 8480- 6 LOINC Diastolic Blood Pressure 82 mm[Hg] 03/20/2022 14:36 Initial 8462- 4 LOINC Body Surface Area 2.21 m2 03/20/2022 14:36 Initial 3140- 1 LOINC Height 167.640 0 cm 66.00 in 03/20/2022 14:36 Initial 8302- 2 [facility] O2 Saturation 97 % 2021 14:36 Initial 90861 -5 LOINC Pulse 117.0 /min 03/20/2022 14:36 Initial 8867- 4 [facility] Temperature 37.1 Lisa 98.7 F 03/20/20 14:36 Initial 8310- 5 [facility] Weight 104.96 kg 231.40 lbs 03/20/2022 14:36 Initial 20001 -7 [facility] Medications Medication Start Date End Date Route Frequency Dose Code Code System Medication Instructions Home Meds Lyrica 150MG Oral Capsule 08/30/2018 Unknown By Mouth Twice a day 1 CAPSULE 962741 RxNorm 1 CAPSULE By Mouth Twice a day Xyzal Allergy 24HR 5MG Oral Tablet 08/30/2018 Unknown By Mouth Daily 1 TABLET 589243 RxNorm 1 TABLE T By Mouth Daily CeleBREX 100MG Oral Capsule 03/15/2019 12/31/19 23 By Mouth Twice a day 1 CAPSULE 679889 RxNorm 1 CAPSULE By Mouth Twice a day Pepcid AC 20MG Oral Tablet 03/15/2019 Unknown By Mouth Daily 1 TABLET 333899 RxNorm 1 TABLET By Mouth Daily medical marijuana 07/27/2019 04/22/19 24 By Mouth As Directed 1 edible RxNorm 1 edible By Mouth As Directed Fiasp 100U/1ML Injection Solution 02/23/2020 Unknown Subcutane ous 0055825 RxNorm Subcutaneou s VIA INSULIN PUMP Victoza 6MG/1ML Subcutaneou s Solution 02/23/2020 04/22/19 24 Subcutane ous Daily 1.8 MILLIGRAMS 956838 RxNorm 1.8 MILLIGRAMS Subcutaneou s Daily Paxil 10MG Oral Tablet 08/22/2021 04/29/19 23 By Mouth Daily 1 TABLET 134005 RxNorm TAKE 1 TABLET BY MOUTH ONCE A DAY -TAKE WITH 40MG TAB Prinivil 5MG Oral Tablet 11/06/2021 04/29/19 23 By Mouth Daily 1 TABLET 024627 RxNorm TAKE 1 TABLET BY MOUTH ONCE A DAY Prinivil 5MG Oral Tablet 11/07/2021 04/08/20 22 By Mouth Daily 1 TABLET 456468 RxNorm TAKE 1 TABLET BY MOUTH ONCE A DAY Singulair 10MG Oral Tablet 02/07/2022 04/29/19 23 By Mouth Daily 1 TABLET 231792 RxNorm TAKE 1 TABLET BY MOUTH ONCE A DAY Singulair 10MG Oral Tablet 02/07/2022 04/29/19 23 By Mouth Daily 1 TABLET 631165 RxNorm TAKE 1 TABLET BY MOUTH ONCE A DAY Crestor 40MG Oral Tablet 03/11/2022 04/08/20 22 By Mouth Daily 1 TABLET 383740 RxNorm TAKE 1 TABLET BY MOUTH ONCE A DAY busPIRone 15MG Oral Tablet 03/11/2022 04/08/20 22 By Mouth Twice a day 1 TABLET 333400 RxNorm TAKE 1 TABLET BY MOUTH TWO TIMES A DAY Paxil 40MG Oral Tablet 03/11/2022 04/08/20 22 By Mouth Daily 1 TABLET 561357 RxNorm TAKE 1 TABLET BY MOUTH ONCE A DAY -TAKE WITH 10MG TAB Potassium Chloride 20MEQ Oral Tablet, Extended Release 03/11/2022 04/08/20 22 By Mouth Twice a day 2 TABLET 5694483 RxNorm TAKE 2 TABLETS BY MOUTH TWO TIMES A DAY Doxycycline 100MG Oral Capsule 03/20/2022 04/29/19 23 By Mouth Twice a day 1 CAPSULE 9414795 RxNorm 1 CAPSULE By Mouth Twice a day x10 days Paxil 40MG Oral Tablet 04/08/2022 04/29/19 23 By Mouth Daily 1 TABLET 518492 RxNorm TAKE 1 TABLET BY MOUTH ONCE A DAY -TAKE WITH 10MG TAB busPIRone 15MG Oral Tablet 04/08/2022 04/29/19 23 By Mouth Twice a day 1 TABLET 213908 RxNorm TAKE 1 TABLET BY MOUTH TWO TIMES A DAY Prinivil 5MG Oral Tablet 04/08/2022 04/29/19 23 By Mouth Daily 1 TABLET 390721 RxNorm TAKE 1 TABLET BY MOUTH ONCE A DAY Crestor 40MG Oral Tablet 04/08/2022 06/05/19 23 By Mouth Daily 1 TABLET 247666 RxNorm TAKE 1 TABLET BY MOUTH ONCE A DAY Potassium Chloride 20MEQ Oral Tablet, Extended Release 04/08/2022 04/29/19 23 By Mouth Twice a day 2 TABLET 6316776 RxNorm TAKE 2 TABLETS BY MOUTH TWO TIMES A DAY Naltrexone HCl Powder 04/29/2022 06/06/19 25 By Mouth At bedtime 3 MILLIGRAMS RxNorm 3 MILLIGRAMS By Mouth At bedtime Paxil 40MG Oral Tablet 04/29/2022 02/05/20 23 By Mouth Daily 1 TABLET 086520 RxNorm TAKE 1 TABLET BY MOUTH ONCE A DAY busPIRone 15MG Oral Tablet 04/29/2022 02/05/20 23 By Mouth Twice a day 1 TABLET 306786 RxNorm TAKE 1 TABLET BY MOUTH TWO TIMES A DAY Prinivil 5MG Oral Tablet 04/29/2022 06/19/19 24 By Mouth Daily 1 TABLET 870984 RxNorm TAKE 1 TABLET BY MOUTH ONCE A DAY Potassium Chloride 20MEQ Oral Tablet, Extended Release 04/29/2022 12/31/19 23 By Mouth Twice a day 2 TABLET 0690158 RxNorm TAKE 2 TABLETS BY MOUTH TWO TIMES A DAY Singulair 10MG Oral Tablet 04/29/2022 05/07/19 24 By Mouth Daily 1 TABLET 106330 RxNorm TAKE 1 TABLET BY MOUTH ONCE A DAY Crestor 40MG Oral Tablet 06/05/2022 08/20/19 23 By Mouth Daily 1 TABLET 670267 RxNorm TAKE 1 TABLET BY MOUTH ONCE A DAY Crestor 40MG Oral Tablet 08/19/2022 12/20/19 23 By Mouth Daily 1 TABLET 960152 RxNorm TAKE 1 TABLET BY MOUTH ONCE A DAY Crestor 40MG Oral Tablet 12/19/2022 12/31/19 23 By Mouth Daily 1 TABLET 323399 RxNorm TAKE 1 TABLET BY MOUTH ONCE A DAY Ozempic 0.25 MG or 0.5 MG Doses 2 MG/3 ML Subcutaneou s Solution 12/30/2022 01/05/20 24 Subcutane ous Once a week 0.25 UNIT 3007608 RxNorm 0.25 UNIT Subcutaneou s Once a week Crestor 40MG Oral Tablet 12/30/2022 12/31/19 23 By Mouth Daily 1 TABLET 472401 RxNorm TAKE 1 TABLET BY MOUTH ONCE A DAY Crestor 40MG Oral Tablet 12/30/2022 01/05/20 24 By Mouth Daily 1 TABLET 444141 RxNorm TAKE 1 TABLET BY MOUTH ONCE A DAY Paxil 40MG Oral Tablet 02/04/2023 07/07/19 24 By Mouth Daily 1 TABLET 844349 RxNorm TAKE 1 TABLET BY MOUTH ONCE A DAY busPIRone 15MG Oral Tablet 02/04/2023 07/07/19 24 By Mouth Twice a day 1 TABLET 950511 RxNorm TAKE 1 TABLET BY MOUTH TWO TIMES A DAY Levothyroxi ne 50MCG Oral Tablet 02/20/2023 Unknown By Mouth 1 TABLET 070564 RxNorm 1 TABLE T By Mouth in the morning on an empty stomach- PRESCRIBED BY DR DURAN Vicyenny 6MG/1ML Subcutaneou s Solution 02/20/2023 06/21/19 25 Subcutane ous Daily 1.8 UNIT 902010 RxNorm 1.8 UNIT Subcutaneou s Daily- *PRESCRIBED BY DR DURAN NovoLOG FlexPen 100U/1ML Subcutaneou s Solution 02/20/2023 04/07/20 23 Subcutane ous 3388899 RxNorm Inject up to 100 Units SUBQ daily in DMDED doses--- * PRESCRIBED BY DR DURAN Baclofen 10MG Oral Tablet 02/20/2023 Unknown By Mouth Three times a day 1 TABLET 261759 RxNorm 1 TABLET By Mouth Three times a day With food Aspirin 81MG Oral Tablet, Enteric Coated 02/20/2023 04/07/20 23 By Mouth Daily 1 TABLET 252758 RxNorm 1 TABLET By Mouth Daily Vitamin D 1000IU Oral Tablet 02/20/2023 04/07/20 23 By Mouth Daily 1 TABLET 758643 RxNorm 1 TABLET By Mouth Daily Augmentin 875MG-125MG Oral Tablet 04/22/2023 05/28/19 24 By Mouth Every 12 hours 1 TABLET 877526 RxNorm 1 TABLET By Mouth Every 12 hours x 10 days. Take with food. Diflucan 150MG Oral Tablet 04/22/2023 05/28/19 24 By Mouth x1 NOW 1 TABLET 968156 RxNorm 1 TABLET By Mouth x1 NOW. May repeat in 72 hours as needed. Singulair 10MG Oral Tablet 05/07/2023 07/07/19 24 By Mouth Daily 1 TABLET 382124 RxNorm TAKE 1 TABLET BY MOUTH ONCE A DAY Prinivil 5MG Oral Tablet 06/19/2023 06/22/19 24 By Mouth Daily 1 TABLET 455855 RxNorm TAKE 1 TABLET BY MOUTH ONCE A DAY Prinivil 5MG Oral Tablet 06/22/2023 07/07/19 24 By Mouth Daily 1 TABLET 689358 RxNorm TAKE 1 TABLET BY MOUTH ONCE A DAY Prinivil 5MG Oral Tablet 07/07/2023 01/05/20 24 By Mouth Daily 1 TABLET 196809 RxNorm TAKE 1 TABLET BY MOUTH ONCE A DAY Singulair 10MG Oral Tablet 07/07/2023 01/05/20 24 By Mouth Daily 1 TABLET 717454 RxNorm TAKE 1 TABLET BY MOUTH ONCE A DAY Paxil 40MG Oral Tablet 07/07/2023 10/02/19 24 By Mouth Daily 1 TABLET 953694 RxNorm TAKE 1 TABLET BY MOUTH ONCE A DAY busPIRone 15MG Oral Tablet 07/07/2023 01/05/20 24 By Mouth Twice a day 1 TABLET 993645 RxNorm TAKE 1 TABLET BY MOUTH TWO TIMES A DAY Ativan 0.5MG Oral Tablet 09/02/2023 09/28/19 25 By Mouth Twice a day 1 TABLET 651901 RxNorm 1 TABLET By Mouth Twice a day PRN Paxil 30MG Oral Tablet 10/02/2023 10/30/19 24 By Mouth Daily 2 TABLET 032379 RxNorm 2 TABLET By Mouth Daily Paxil 30MG Oral Tablet 10/30/2023 08/17/19 25 By Mouth Daily 2 TABLET 833649 RxNorm 2 TABLET By Mouth Daily Ambien 5MG Oral Tablet 12/11/2023 01/05/20 24 By Mouth At bedtime 163243 RxNorm 1-2 TABLET By Mouth At bedtime As needed Ozempic 0.25 MG or 0.5 MG Doses 2 MG/3 ML Subcutaneou s Solution 01/05/2024 06/21/19 25 Subcutane ous Once a week 0.5 UNIT 4237989 RxNorm 0.5 UNIT Subcutaneou s Once a week Crestor 40MG Oral Tablet 01/05/2024 09/27/19 25 By Mouth Daily 1 TABLET 675228 RxNorm TAKE 1 TABLET BY MOUTH ONCE A DAY busPIRone 15MG Oral Tablet 01/05/2024 08/06/19 25 By Mouth Twice a day 1 TABLET 050775 RxNorm TAKE 1 TABLET BY MOUTH TWO TIMES A DAY Singulair 10MG Oral Tablet 01/05/2024 09/27/19 25 By Mouth Daily 1 TABLET 773991 RxNorm TAKE 1 TABLET BY MOUTH ONCE A DAY Ambien 5MG Oral Tablet 01/05/2024 09/28/19 25 By Mouth At bedtime 619872 RxNorm 1-2 TABLET By Mouth At bedtime As needed Prinivil 5MG Oral Tablet 01/05/2024 07/06/19 25 By Mouth Daily 1 TABLET 484883 RxNorm TAKE 1 TABLET BY MOUTH ONCE A DAY Promethazin e DM 6.25MG/5ML- 15MG/5ML Oral Syrup 01/25/2024 06/06/19 25 ORAL As needed every 4 hr 5 mL 189516 RxNorm 5 mL ORAL As needed every 4 hr-do not take within 2 hours of Paxil or Buspirone Augmentin 875MG-125MG Oral Tablet 01/25/2024 06/06/19 25 By Mouth Twice a day 1 TABLET 379706 RxNorm 1 TABLET By Mouth Twice a day x 10 days Airsupra 90 MCG/1 Actuation-8 0 MCG/1 Actuation Inhalation Aerosol Powder 01/25/2024 06/06/19 25 Inhale As needed every 4 hr 2 Puff 1188114 RxNorm 2 Puff Inhale As needed every 4 hr Victoza 6MG/1ML Subcutaneou s Solution 06/20/2024 Unknown Subcutane ous Daily 1.8 MILLIGRAMS 947522 RxNorm 1.8 MILLIGRAMS Subcutaneou s Daily Ozempic 0.25 MG or 0.5 MG Doses 2 MG/3 ML Subcutaneou s Solution 06/20/2024 Unknown Subcutane ous Once a week 1.5 MILLILITER 8590067 RxNorm 1.5 MILLILITER Subcutaneou s Once a week Lisinopril 5MG Oral Tablet 07/05/2024 09/27/19 25 By Mouth Daily 1 TABLET 838341 RxNorm 1 TABLET By Mouth Daily busPIRone 15MG Oral Tablet 08/05/2024 Unknown By Mouth Twice a day 1 TABLET 449303 RxNorm TAKE 1 TABLET BY MOUTH TWO TIMES A DAY Paxil 20MG Oral Tablet 08/16/2024 09/27/19 25 By Mouth Daily 1 TABLET 276238 RxNorm 1 TABLET By Mouth Daily Wellbutrin XL 150MG Oral Tablet, Extended Release, 24 HR 08/16/2024 09/27/19 25 By Mouth Daily 1 TABLET 949786 RxNorm 1 TABLET By Mouth Daily. Wellbutrin XL 150MG Oral Tablet, Extended Release, 24 HR 09/26/2024 Unknown By Mouth Daily 1 TABLET 366249 RxNorm 1 TABLET By Mouth Daily. Paxil 20MG Oral Tablet 09/26/2024 Unknown By Mouth Daily 1 TABLET 582635 RxNorm 1 TABLE T By Mouth Daily Lisinopril 5MG Oral Tablet 09/26/2024 Unknown By Mouth Daily 1 TABLET 845445 RxNorm 1 TABLET By Mouth Daily Singulair 10MG Oral Tablet 09/26/2024 Unknown By Mouth Daily 1 TABLET 015048 RxNorm TAKE 1 TABLET BY MOUTH ONCE A DAY Crestor 40MG Oral Tablet 09/26/2024 Unknown By Mouth Daily 1 TABLET 407842 RxNorm TAKE 1 TABLET BY MOUTH ONCE A DAY Ativan 0.5MG Oral Tablet 09/27/2024 Unknown By Mouth As needed daily 1 TABLET 593698 RxNorm 1 TABLET By Mouth As needed daily Ambien 5MG Oral Tablet 09/27/2024 10/05/19 25 By Mouth At bedtime 759922 RxNorm 1-2 TABLET By Mouth At bedtime As needed Ambien 5MG Oral Tablet 10/04/2024 Unknown By Mouth At bedtime 1 TABLET 597019 RxNorm 1 TABLET By Mouth At bedtime [...] TYPE I DIABETES MELLITUS WITH HYPERGLYCEMIA active 083410255662531 SNOMED -CT HYPERTENSION active 44320647 SNOMED- CT HYPERCHOLESTEROLEMIA active 55192489 SNOMED-CT HYPOTHYROIDISM active 84985369 SNOME D-CT LUMBAR RADICULOPATHY active 204200781 SNOMED-CT LOW POTASSIUM active 74284736 SNOMED -CT GERD active 993276381 SNOMED-CT ALLERGIC RHINITIS active 60033369 SN OMED-CT DEPRESSION active 03040265 SNOMED-CT ANXIETY active 08858350 SNOMED-CT ASTHMA active 890429356 SNOMED-CT CHRONIC KIDNEY DISEASE STAGE 3 active 389726292 SNOMED-CT OBESITY active 307149408 SNOMED-CT ENDOMETRIOSIS active 090829301 SNOMED -CT SLEEP APNEA active 35682831 SNOMED-C 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 208752312643856 SNOMED-CT 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 42114281 S NOMED-CT HYPERCALCEMIA active 43112997 SNOMED -CT ENCOUNTER FOR FITTING AND ADJUSTMENT OF INSULIN PUMP active 429253262 S NOMED-CT ABNORMAL LEVELS OF OTHER SERUM ENZYMES active 936401913 SNOMED-CT HISTORY OF GASTRIC BYPASS 06/26/2022 05/30/2024 resolved 69 1193568 SNOMED-CT SINUSITIS 04/30/2022 resolved 71012608 SNOMED-CT DIABETES 2 01/19/2024 resolved 45653415 SNOMED-C T Allergies and Adverse Reactions Allergy Substance Reaction Severity Start Date Concern Status Co de Code System CEFUROXIME Rash (SNOMED-CT: 894539621) Mild Active 2194 RxNorm KETOROLAC Hives (SNOMED-CT: 980941599) Mild Active 64870 RxNorm BIAXIN Hives (SNOMED-CT: 406778338) Severe Active LANTUS Hives (SNOMED-CT: 234204444) Mild Active 330293 RxNorm TAMIFLU Rash (SNOMED-CT: 692045319) Active 892544 RxNorm SEPTRA Rash (SNOMED-CT: 596262259) Mild Active LEVEMIR Hives (SNOMED-CT: 430225472) Mild Active 223209 RxNorm Plan of Treatment MA Screening Bilateral 07/25/2025 Established Patient 29 01/03/2025 Assessment/Plan Surgical Clearance- Cleared from primary care for procedure; F/U PRN Cellulitis RLE s/p tattoo- Doxycycline as ordered; F/U if worsens or persists Description Due Date Details Instructions Pap 08/18/2025 Performed 09/06 20 normal, repeat in 5 yrs per Ashlee - RR 5.20.21 Sdoh 01/04/2025 Annual Labs 11/10/2024 cbc, cmp, tsh, free t4, lipids Mammogram 08/12/2025 08/12/24- WNL Depression 06/06/2025 Anxiety 06/06/2025 Encounters Encounter Diagnosis Start Date Code Code Sys tem Pre-surgery evaluation 03/20/2022 [id number] Inaura D-CT Personal Care Team Section Performer Name Performer Role Active Date Inactive Da te Progress Notes [facility] 03/20/2022 15:45 Date of Service: 03/20/2022 Clinic Visit Note Chief Complaint: SURGICAL CLEARANCE Has the patient received a COVID Vaccine? YES Nurse Note: this nurse note is documented by Lea Ross CMA . Patient is a 57 year old female who presents in office today for a surgical clearance. Patient states that she had her initial evaluation, and is now needing clearance in order to have the surgery preformed. Patient states that the surgery is Laproscopic gastric sleeve. Patient states that they told her they could most likely get her down to 160-180. Patient states that she is also seeing a dietitian. Pt is overall excited for the weight loss and self confidence. She had a tattoo to right LE that got infected. She was seen at urgent care and given Clinda which improved area but erythema has began to return per pt report. Last day of Clinda 5 days ago. She requests something other than clinda r/t GI SE. Depression Screening PHQ9 completed by the patient. See scanned image. PHQ-9 Total Score: 6 Score Assessment: 0-4= not an indicator or depression, 5-9=mild depression, 10-14=moderate depression, 15-19=moderately severe depression, 20-27=severe depression. Allergy Table Allergen Type Reaction TAMIFLU medication SEPTRA medication LEVEMIR medication Hives KETOROLAC medication Hives CEFUROXIME medication BIAXIN medication HEALTH HISTORY: Problem List Diabetes 2 Lumbar radiculopathy Low potassium GERD Allergic rhinitis Depression Anxiety Hypertension Hypercholesterolemia Asthma Hypothyroidism Chronic kidney disease stage 3 Obesity Endometriosis Onychocryptosis Sleep apnea Otitis media Sinusitis Surgery History Table Procedure Procedure Date Age Notes Anterior lumbar fusion 2006 Colonoscopy 01/18/2018 52 Electrical nerve stimulation procedure 2015 History of lumbar laminectomy 2008 Laparoscopy 1990 Lumbar discectomy 2002 at L4 Family Hx Table Problem Entered Relative Family history of cancer of kidney 08/30/2018 10:53 BROTHER FH: Hypercholesterolemia 08/30/2018 10:52 BROTHER FH: Hypertension 08/30/2018 10:52 BROTHER FH of diabetes 08/30/2018 10:53 BROTHER FH: Hypercholesterolemia 08/30/2018 10:52 FATHER FH of diabetes 08/30/2018 10:53 FATHER FH of diabetes 08/30/2018 10:53 PATERNAL GRANDMOTHER Family history of anxiety disorder 08/30/2018 10:54 MOTHER FH: Hypercholesterolemia 08/30/2018 10:52 MOTHER FH: Depression 08/30/2018 10:54 MOTHER FH: Hypertension 08/30/2018 10:52 MOTHER SOCIAL HISTORY: HABITS Does Not Current Use History of Quantity Duration Smoking x Marijuana x Edibles Alcohol x Narcotics x Illicit Drugs x REVIEW OF SYSTEMS: System X = system reviewed, Negative unless docu as Positive: Positive for: Constitutional x fever, chills, loss of appetite, snoring HEENT x sore throat, blurred or double vision, ear pain Respiratory x cough, sputum, shortness of breath, wheezing Cardiovascular x chest pain, palpitations,edema Gastrointestinal x nausea, vomiting, constipation, diarrhea, abdominal pain Genitourinary x burning, blood, frequency Hematopoetic x easy bruising, bleeding Skin x rashes, hives Musculoskeletal x significant joint pain, swelling Neurologic x weakness, numbness, fainting, seizures, headaches Psychiatric x anxiety, depression, problems sleeping Endocrine x polydipsia, polyuria, heat or cold intolerance Vital Signs: This Visit HtWt Date/Time BP (mm/Hg) BP Position/Site Heart Rate Resp Temp (F) Pain Score Height (in) Weight (lbs/ozs) BMI Head Cir (cm) 03/20/2022 14:36 126/82 Sitting/Left Arm 117 98.7 Temporal Scanning 4 66 in 231.4 lbs 37.35 PHYSICAL EXAM: GENERAL: Well-appearing in no acute distress HEENT: Atraumatic. Normocephalic. Pupils equal, round and reactive to light and accommodation. No Conjunctival Injection. Extraocular movement intact. Tympanic membranes normal. NECK: Supple with no lymphadenopathy or thyromegaly. No carotid bruits. RESPIRATORY: CTAB. No Wheezes/Rales/Rhonchi. Normal respiratory effort. Chest wall normal. CARDIOVASCULAR: Regular rate and rhythm. No M/G/R. No edema. ABDOMEN: Soft, non-tender. Normal Bowel Sounds. No Hepatosplenomegaly. Non Distended. No rebound or guarding. NEUROLOGIC: Normal motor strength throughout. Normal gait and station. SKIN: Warm and dry. No rash or suspicious lesions. Right LE with tattoo noted just above the ankle. Erythema, edema, and warmth without drainage or streaking noted derrick-tattoo area MUSCULOSKELETAL: No significant arthritic changes. Normal tone. Normal range of motion. PSYCHIATRIC: Alert, oriented and cooperative. Normal memory. Conversant, normal affect. Assessment/Plan Surgical Clearance- Cleared from primary care for procedure; F/U PRN Cellulitis RLE s/p tattoo- Doxycycline as ordered; F/U if worsens or persists Ordered & Completed Meds Table: No Current Medications Available ([place] all that occurred) Documenting clinical information in the electronic health record Counseling and education to the patient/family/caregiver Preparation to see the patient by reviewing test result Ordered medications, tests or procedures Preparation to see the patient by reviewing outside records Referring and communicating with other health geriatric care manager Obtaining and/or reviewing separately obtained history Independent interpretation of results and communicating results to the patient/family/caregiver Performing a medically appropriate examination/evaluation Care coordination (not reported separately) Discharge Med List: Discharge Medications Medication Special Instructions Start Date Prescribing Lyricdelgado 150MG Oral Capsule 1 CAPSULE By Mouth Twice a day 08/30/2018 Xyzal Allergy 24HR 5MG Oral Tablet 1 TABLET By Mouth Daily 08/30/2018 CeleBREX 100MG Oral Capsule 1 CAPSULE By Mouth Twice a day 03/15/2019 Pepcid AC 20MG Oral Tablet 1 TABLET By Mouth Daily 03/15/2019 medical marijuana 1 edible By Mouth As Directed 07/27/2019 Fiasp 100U/1ML Injection Solution Subcutaneous VIA INSULIN PUMP 02/23/2020 Victoza 6MG/1ML Subcutaneous Solution 1.8 MILLIGRAMS Subcutaneous Daily 02/23/2020 Paxil 10MG Oral Tablet TAKE 1 TABLET BY MOUTH ONCE A DAY -TAKE WITH 40MG TAB 08/22/2021 ROSITA ROSADO Prinivil 5MG Oral Tablet TAKE 1 TABLET BY MOUTH ONCE A DAY 11/06/2021 ROSITA ROSADO Prinivil 5MG Oral Tablet TAKE 1 TABLET BY MOUTH ONCE A DAY 11/07/2021 ROSITA ROSADO Singulair 10MG Oral Tablet TAKE 1 TABLET BY MOUTH ONCE A DAY 02/07/2022 ROSITA ROSADO Singulair 10MG Oral Tablet TAKE 1 TABLET BY MOUTH ONCE A DAY 02/07/2022 ROSITA ROSADO Crestor 40MG Oral Tablet TAKE 1 TABLET BY MOUTH ONCE A DAY 03/11/2022 ROSITA ROSADO busPIRone 15MG Oral Tablet TAKE 1 TABLET BY MOUTH TWO TIMES A DAY 03/11/2022 ROSITA ROSADO Paxil 40MG Oral Tablet TAKE 1 TABLET BY MOUTH ONCE A DAY -TAKE WITH 10MG TAB 03/11/2022 ROSITA ROSADO Potassium Chloride 20MEQ Oral Tablet, Extended Release TAKE 2 TABLETS BY MOUTH TWO TIMES A DAY 03/11/2022 ROSITA ROSADO Doxycycline 100MG Oral Capsule 1 CAPSULE By Mouth Twice a day x10 days 03/20/2022 ROSITA ROSADO
--- OUTSIDE RECORDS SUMMARY | 2024-10-25 03:04 | XMS_ITS ---
Author Organization Unknown Address [address] [place] [phone] Phone Care Team Providers Care Cpr Instructor Name Role Phone ROSITA ROSADO Attending Unavailable [...] em Smoking History Never smoker (Never Smoked) [id number] SNOMED CT Smoking History Unknown if ever smoked [id number] SNOMED CT Sex Female Sexual Orientation Straight or Heterosexual [id number] SNOMED CT Gender Identity Female [id number] Medications Medication Start Date End Date Route Frequency Dose Code Code System Medication Instructions Home Meds Lyrica 150MG Oral Capsule 08/30/2018 Unknown By Mouth Twice a day 1 CAPSULE 558764 RxNorm 1 CAPSULE By Mouth Twice a day Xyzal Allergy 24HR 5MG Oral Tablet 08/30/2018 Unknown By Mouth Daily 1 TABLET 691945 RxNorm 1 TABLE T By Mouth Daily CeleBREX 100MG Oral Capsule 03/15/2019 12/31/19 23 By Mouth Twice a day 1 CAPSULE 671134 RxNorm 1 CAPSULE By Mouth Twice a day Pepcid AC 20MG Oral Tablet 03/15/2019 Unknown By Mouth Daily 1 TABLET 877820 RxNorm 1 TABLET By Mouth Daily medical marijuana 07/27/2019 04/22/19 24 By Mouth As Directed 1 edible RxNorm 1 edible By Mouth As Directed Fiasp 100U/1ML Injection Solution 02/23/2020 Unknown Subcutane ous 9031808 RxNorm Subcutaneou s VIA INSULIN PUMP Victoza 6MG/1ML Subcutaneou s Solution 02/23/2020 04/22/19 24 Subcutane ous Daily 1.8 MILLIGRAMS 455555 RxNorm 1.8 MILLIGRAMS Subcutaneou s Daily Paxil 10MG Oral Tablet 08/22/2021 04/29/19 23 By Mouth Daily 1 TABLET 923057 RxNorm TAKE 1 TABLET BY MOUTH ONCE A DAY -TAKE WITH 40MG TAB Singulair 10MG Oral Tablet 10/03/2021 12/07/19 22 By Mouth Daily 1 TABLET 309335 RxNorm TAKE 1 TABLET BY MOUTH ONCE A DAY Crestor 40MG Oral Tablet 10/03/2021 01/10/20 22 By Mouth Daily 1 TABLET 747185 RxNorm TAKE 1 TABLET BY MOUTH ONCE A DAY busPIRone 15MG Oral Tablet 10/03/2021 12/07/19 22 By Mouth Twice a day 1 TABLET 520191 RxNorm 1 TABLET BY MOUTH TWICE A DAY Potassium Chloride 20MEQ Oral Tablet, Extended Release 11/04/2021 12/07/19 22 By Mouth Twice a day 2 TABLET 3547503 RxNorm TAKE 2 TABLETS BY MOUTH TWO TIMES A DAY Paxil 40MG Oral Tablet 11/04/2021 12/07/19 22 By Mouth Daily 1 TABLET 295207 RxNorm TAKE 1 TABLET BY MOUTH ONCE A DAY -TAKE WITH 10MG TAB Prinivil 5MG Oral Tablet 11/06/2021 04/29/19 23 By Mouth Daily 1 TABLET 267425 RxNorm TAKE 1 TABLET BY MOUTH ONCE A DAY Prinivil 5MG Oral Tablet 11/07/2021 04/08/20 22 By Mouth Daily 1 TABLET 579297 RxNorm TAKE 1 TABLET BY MOUTH ONCE A DAY Paxil 40MG Oral Tablet 12/06/2021 01/10/20 22 By Mouth Daily 1 TABLET 877789 RxNorm TAKE 1 TABLET BY MOUTH ONCE A DAY -TAKE WITH 10MG TAB Singulair 10MG Oral Tablet 12/06/2021 02/08/20 22 By Mouth Daily 1 TABLET 999783 RxNorm TAKE 1 TABLET BY MOUTH ONCE A DAY busPIRone 15MG Oral Tablet 12/06/2021 01/10/20 22 By Mouth Twice a day 1 TABLET 212388 RxNorm TAKE 1 TABLET BY MOUTH TWO TIMES A DAY Potassium Chloride 20MEQ Oral Tablet, Extended Release 12/06/2021 01/10/20 By Mouth Twice a day 2 TABLET 9213285 RxNorm TAKE 2 TABLETS BY MOUTH TWO TIMES A DAY Potassium Chloride 20MEQ Oral Tablet, Extended Release 01/09/2022 03/11/20 By Mouth Twice a day 2 TABLET 2736667 RxNorm TAKE 2 TABLETS BY MOUTH TWO TIMES A DAY Paxil 40MG Oral Tablet 01/09/2022 03/11/20 22 By Mouth Daily 1 TABLET 564982 RxNorm TAKE 1 TABLET BY MOUTH ONCE A DAY -TAKE WITH 10MG TAB Crestor 40MG Oral Tablet 01/09/2022 03/11/20 By Mouth Daily 1 TABLET 818205 RxNorm TAKE 1 TABLET BY MOUTH ONCE A DAY busPIRone 15MG Oral Tablet 01/09/2022 03/11/20 22 By Mouth Twice a day 1 TABLET 587037 RxNorm TAKE 1 TABLET BY MOUTH TWO TIMES A DAY Singulair 10MG Oral Tablet 02/07/2022 04/29/19 23 By Mouth Daily 1 TABLET 789234 RxNorm TAKE 1 TABLET BY MOUTH ONCE A DAY Singulair 10MG Oral Tablet 02/07/2022 04/29/19 23 By Mouth Daily 1 TABLET 704984 RxNorm TAKE 1 TABLET BY MOUTH ONCE A DAY Crestor 40MG Oral Tablet 03/11/2022 04/08/20 22 By Mouth Daily 1 TABLET 505605 RxNorm TAKE 1 TABLET BY MOUTH ONCE A DAY busPIRone 15MG Oral Tablet 03/11/2022 04/08/20 22 By Mouth Twice a day 1 TABLET 177997 RxNorm TAKE 1 TABLET BY MOUTH TWO TIMES A DAY Paxil 40MG Oral Tablet 03/11/2022 04/08/20 22 By Mouth Daily 1 TABLET 097300 RxNorm TAKE 1 TABLET BY MOUTH ONCE A DAY -TAKE WITH 10MG TAB Potassium Chloride 20MEQ Oral Tablet, Extended Release 03/11/2022 04/08/20 22 By Mouth Twice a day 2 TABLET 9916420 RxNorm TAKE 2 TABLETS BY MOUTH TWO TIMES A DAY Doxycycline 100MG Oral Capsule 03/20/2022 04/29/19 23 By Mouth Twice a day 1 CAPSULE 4197837 RxNorm 1 CAPSULE By Mouth Twice a day x10 days Paxil 40MG Oral Tablet 04/08/2022 04/29/19 23 By Mouth Daily 1 TABLET 693715 RxNorm TAKE 1 TABLET BY MOUTH ONCE A DAY -TAKE WITH 10MG TAB busPIRone 15MG Oral Tablet 04/08/2022 04/29/19 23 By Mouth Twice a day 1 TABLET 995310 RxNorm TAKE 1 TABLET BY MOUTH TWO TIMES A DAY Prinivil 5MG Oral Tablet 04/08/2022 04/29/19 23 By Mouth Daily 1 TABLET 398648 RxNorm TAKE 1 TABLET BY MOUTH ONCE A DAY Crestor 40MG Oral Tablet 04/08/2022 06/05/19 23 By Mouth Daily 1 TABLET 839365 RxNorm TAKE 1 TABLET BY MOUTH ONCE A DAY Potassium Chloride 20MEQ Oral Tablet, Extended Release 04/08/2022 04/29/19 23 By Mouth Twice a day 2 TABLET 1398170 RxNorm TAKE 2 TABLETS BY MOUTH TWO TIMES A DAY Naltrexone HCl Powder 04/29/2022 06/06/19 25 By Mouth At bedtime 3 MILLIGRAMS RxNorm 3 MILLIGRAMS By Mouth At bedtime Paxil 40MG Oral Tablet 04/29/2022 02/05/20 23 By Mouth Daily 1 TABLET 479406 RxNorm TAKE 1 TABLET BY MOUTH ONCE A DAY busPIRone 15MG Oral Tablet 04/29/2022 02/05/20 23 By Mouth Twice a day 1 TABLET 258703 RxNorm TAKE 1 TABLET BY MOUTH TWO TIMES A DAY Prinivil 5MG Oral Tablet 04/29/2022 06/19/19 24 By Mouth Daily 1 TABLET 442423 RxNorm TAKE 1 TABLET BY MOUTH ONCE A DAY Potassium Chloride 20MEQ Oral Tablet, Extended Release 04/29/2022 12/31/19 23 By Mouth Twice a day 2 TABLET 6570853 RxNorm TAKE 2 TABLETS BY MOUTH TWO TIMES A DAY Singulair 10MG Oral Tablet 04/29/2022 05/07/19 24 By Mouth Daily 1 TABLET 465564 RxNorm TAKE 1 TABLET BY MOUTH ONCE A DAY Crestor 40MG Oral Tablet 06/05/2022 08/20/19 23 By Mouth Daily 1 TABLET 463601 RxNorm TAKE 1 TABLET BY MOUTH ONCE A DAY Crestor 40MG Oral Tablet 08/19/2022 12/20/19 23 By Mouth Daily 1 TABLET 214614 RxNorm TAKE 1 TABLET BY MOUTH ONCE A DAY Crestor 40MG Oral Tablet 12/19/2022 12/31/19 23 By Mouth Daily 1 TABLET 575744 RxNorm TAKE 1 TABLET BY MOUTH ONCE A DAY Ozempic 0.25 MG or 0.5 MG Doses 2 MG/3 ML Subcutaneou s Solution 12/30/2022 01/05/20 24 Subcutane ous Once a week 0.25 UNIT 7305395 RxNorm 0.25 UNIT Subcutaneou s Once a week Crestor 40MG Oral Tablet 12/30/2022 12/31/19 23 By Mouth Daily 1 TABLET 864681 RxNorm TAKE 1 TABLET BY MOUTH ONCE A DAY Crestor 40MG Oral Tablet 12/30/2022 01/05/20 24 By Mouth Daily 1 TABLET 291763 RxNorm TAKE 1 TABLET BY MOUTH ONCE A DAY Paxil 40MG Oral Tablet 02/04/2023 07/07/19 24 By Mouth Daily 1 TABLET 063133 RxNorm TAKE 1 TABLET BY MOUTH ONCE A DAY busPIRone 15MG Oral Tablet 02/04/2023 07/07/19 24 By Mouth Twice a day 1 TABLET 978215 RxNorm TAKE 1 TABLET BY MOUTH TWO TIMES A DAY Levothyroxi ne 50MCG Oral Tablet 02/20/2023 Unknown By Mouth 1 TABLET 556522 RxNorm 1 TABLE T By Mouth in the morning on an empty stomach- PRESCRIBED BY DR DURAN Victoza 6MG/1ML Subcutaneou s Solution 02/20/2023 06/21/19 25 Subcutane ous Daily 1.8 UNIT 414092 RxNorm 1.8 UNIT Subcutaneou s Daily- *PRESCRIBED BY DR DURAN NovoLOG FlexPen 100U/1ML Subcutaneou s Solution 02/20/2023 04/07/20 23 Subcutane ous 7879764 RxNorm Inject up to 100 Units SUBQ daily in DMDED doses--- * PRESCRIBED BY DR DURAN Baclofen 10MG Oral Tablet 02/20/2023 Unknown By Mouth Three times a day 1 TABLET 602264 RxNorm 1 TABLET By Mouth Three times a day With food Aspirin 81MG Oral Tablet, Enteric Coated 02/20/2023 04/07/20 23 By Mouth Daily 1 TABLET 660817 RxNorm 1 TABLET By Mouth Daily Vitamin D 1000IU Oral Tablet 02/20/2023 04/07/20 23 By Mouth Daily 1 TABLET 897603 RxNorm 1 TABLET By Mouth Daily Augmentin 875MG-125MG Oral Tablet 04/22/2023 05/28/19 24 By Mouth Every 12 hours 1 TABLET 692703 RxNorm 1 TABLET By Mouth Every 12 hours x 10 days. Take with food. Diflucan 150MG Oral Tablet 04/22/2023 05/28/19 24 By Mouth x1 NOW 1 TABLET 945314 RxNorm 1 TABLET By Mouth x1 NOW. May repeat in 72 hours as needed. Singulair 10MG Oral Tablet 05/07/2023 07/07/19 24 By Mouth Daily 1 TABLET 650828 RxNorm TAKE 1 TABLET BY MOUTH ONCE A DAY Prinivil 5MG Oral Tablet 06/19/2023 06/22/19 24 By Mouth Daily 1 TABLET 055436 RxNorm TAKE 1 TABLET BY MOUTH ONCE A DAY Prinivil 5MG Oral Tablet 06/22/2023 07/07/19 24 By Mouth Daily 1 TABLET 832773 RxNorm TAKE 1 TABLET BY MOUTH ONCE A DAY Prinivil 5MG Oral Tablet 07/07/2023 01/05/20 24 By Mouth Daily 1 TABLET 279414 RxNorm TAKE 1 TABLET BY MOUTH ONCE A DAY Singulair 10MG Oral Tablet 07/07/2023 01/05/20 24 By Mouth Daily 1 TABLET 108487 RxNorm TAKE 1 TABLET BY MOUTH ONCE A DAY Paxil 40MG Oral Tablet 07/07/2023 10/02/19 24 By Mouth Daily 1 TABLET 127909 RxNorm TAKE 1 TABLET BY MOUTH ONCE A DAY busPIRone 15MG Oral Tablet 07/07/2023 01/05/20 24 By Mouth Twice a day 1 TABLET 987789 RxNorm TAKE 1 TABLET BY MOUTH TWO TIMES A DAY Ativan 0.5MG Oral Tablet 09/02/2023 09/28/19 25 By Mouth Twice a day 1 TABLET 154700 RxNorm 1 TABLET By Mouth Twice a day PRN Paxil 30MG Oral Tablet 10/02/2023 10/30/19 24 By Mouth Daily 2 TABLET 890917 RxNorm 2 TABLET By Mouth Daily Paxil 30MG Oral Tablet 10/30/2023 08/17/19 25 By Mouth Daily 2 TABLET 235895 RxNorm 2 TABLET By Mouth Daily Ambien 5MG Oral Tablet 12/11/2023 01/05/20 24 By Mouth At bedtime 563598 RxNorm 1-2 TABLET By Mouth At bedtime As needed Ozempic 0.25 MG or 0.5 MG Doses 2 MG/3 ML Subcutaneou s Solution 01/05/2024 06/21/19 25 Subcutane ous Once a week 0.5 UNIT 9128699 RxNorm 0.5 UNIT Subcutaneou s Once a week Crestor 40MG Oral Tablet 01/05/2024 09/27/19 25 By Mouth Daily 1 TABLET 997629 RxNorm TAKE 1 TABLET BY MOUTH ONCE A DAY busPIRone 15MG Oral Tablet 01/05/2024 08/06/19 25 By Mouth Twice a day 1 TABLET 433987 RxNorm TAKE 1 TABLET BY MOUTH TWO TIMES A DAY Singulair 10MG Oral Tablet 01/05/2024 09/27/19 25 By Mouth Daily 1 TABLET 978156 RxNorm TAKE 1 TABLET BY MOUTH ONCE A DAY Ambien 5MG Oral Tablet 01/05/2024 09/28/19 25 By Mouth At bedtime 347318 RxNorm 1-2 TABLET By Mouth At bedtime As needed Prinivil 5MG Oral Tablet 01/05/2024 07/06/19 25 By Mouth Daily 1 TABLET 206825 RxNorm TAKE 1 TABLET BY MOUTH ONCE A DAY Promethazin e DM 6.25MG/5ML- 15MG/5ML Oral Syrup 01/25/2024 06/06/19 25 ORAL As needed every 4 hr 5 mL 454631 RxNorm 5 mL ORAL As needed every 4 hr-do not take within 2 hours of Paxil or Buspirone Augmentin 875MG-125MG Oral Tablet 01/25/2024 06/06/19 25 By Mouth Twice a day 1 TABLET 725457 RxNorm 1 TABLET By Mouth Twice a day x 10 days Airsupra 90 MCG/1 Actuation-8 0 MCG/1 Actuation Inhalation Aerosol Powder 01/25/2024 06/06/19 25 Inhale As needed every 4 hr 2 Puff 1712773 RxNorm 2 Puff Inhale As needed every 4 hr Victoza 6MG/1ML Subcutaneou s Solution 06/20/2024 Unknown Subcutane ous Daily 1.8 MILLIGRAMS 941441 RxNorm 1.8 MILLIGRAMS Subcutaneou s Daily Ozempic 0.25 MG or 0.5 MG Doses 2 MG/3 ML Subcutaneou s Solution 06/20/2024 Unknown Subcutane ous Once a week 1.5 MILLILITER 8213575 RxNorm 1.5 MILLILITER Subcutaneou s Once a week Lisinopril 5MG Oral Tablet 07/05/2024 09/27/19 25 By Mouth Daily 1 TABLET 474802 RxNorm 1 TABLET By Mouth Daily busPIRone 15MG Oral Tablet 08/05/2024 Unknown By Mouth Twice a day 1 TABLET 907797 RxNorm TAKE 1 TABLET BY MOUTH TWO TIMES A DAY Paxil 20MG Oral Tablet 08/16/2024 09/27/19 25 By Mouth Daily 1 TABLET 145294 RxNorm 1 TABLET By Mouth Daily Wellbutrin XL 150MG Oral Tablet, Extended Release, 24 HR 08/16/2024 09/27/19 25 By Mouth Daily 1 TABLET 328837 RxNorm 1 TABLET By Mouth Daily. Wellbutrin XL 150MG Oral Tablet, Extended Release, 24 HR 09/26/2024 Unknown By Mouth Daily 1 TABLET 949399 RxNorm 1 TABLET By Mouth Daily. Paxil 20MG Oral Tablet 09/26/2024 Unknown By Mouth Daily 1 TABLET 836598 RxNorm 1 TABLE T By Mouth Daily Lisinopril 5MG Oral Tablet 09/26/2024 Unknown By Mouth Daily 1 TABLET 851312 RxNorm 1 TABLET By Mouth Daily Singulair 10MG Oral Tablet 09/26/2024 Unknown By Mouth Daily 1 TABLET 491757 RxNorm TAKE 1 TABLET BY MOUTH ONCE A DAY Crestor 40MG Oral Tablet 09/26/2024 Unknown By Mouth Daily 1 TABLET 408005 RxNorm TAKE 1 TABLET BY MOUTH ONCE A DAY Ativan 0.5MG Oral Tablet 09/27/2024 Unknown By Mouth As needed daily 1 TABLET 245147 RxNorm 1 TABLET By Mouth As needed daily Ambien 5MG Oral Tablet 09/27/2024 10/05/19 25 By Mouth At bedtime 497140 RxNorm 1-2 TABLET By Mouth At bedtime As needed Ambien 5MG Oral Tablet 10/04/2024 Unknown By Mouth At bedtime 1 TABLET 626755 RxNorm 1 TABLET By Mouth At bedtime [...] TYPE I DIABETES MELLITUS WITH HYPERGLYCEMIA active [id number] SNOMED -CT HYPERTENSION active 91182082 SNOMED- CT HYPERCHOLESTEROLEMIA active 12378727 SNOMED-CT HYPOTHYROIDISM active 45307481 SNOME D-CT LUMBAR RADICULOPATHY active 733842589 SNOMED-CT LOW POTASSIUM active 62883651 SNOMED -CT GERD active 243620723 SNOMED-CT ALLERGIC RHINITIS active 08266734 SN OMED-CT DEPRESSION active 73274091 SNOMED-CT ANXIETY active 43104710 SNOMED-CT ASTHMA active 008126859 SNOMED-CT CHRONIC KIDNEY DISEASE STAGE 3 active 756968095 SNOMED-CT OBESITY active 347933432 SNOMED-CT ENDOMETRIOSIS active 973004983 SNOMED -CT SLEEP APNEA active 82354652 SNOMED-C 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 383309805753325 SNOMED-CT 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 50635059 S NOMED-CT HYPERCALCEMIA active 23094573 SNOMED -CT ENCOUNTER FOR FITTING AND ADJUSTMENT OF INSULIN PUMP active 132770018 S NOMED-CT ABNORMAL LEVELS OF OTHER SERUM ENZYMES active 837021546 SNOMED-CT HISTORY OF GASTRIC BYPASS 06/26/2022 05/30/2024 resolved 69 0263778 SNOMED-CT SINUSITIS 04/30/2022 resolved 54376518 SNOMED-CT DIABETES 2 01/19/2024 resolved 63557814 SNOMED-C T Allergies and Adverse Reactions Allergy Substance Reaction Severity Start Date Concern Status Co de Code System CEFUROXIME Rash (SNOMED-CT: 611436120) Mild Active 2194 RxNorm KETOROLAC Hives (SNOMED-CT: 007298035) Mild Active 49131 RxNorm BIAXIN Hives (SNOMED-CT: 345116012) Severe Active LANTUS Hives (SNOMED-CT: 952077883) Mild Active 125805 RxNorm TAMIFLU Rash (SNOMED-CT: 251377218) Active 080789 RxNorm SEPTRA Rash (SNOMED-CT: 780135619) Mild Active LEVEMIR Hives (SNOMED-CT: 291020639) Mild Active 545045 RxNorm Plan of Treatment MA Screening Bilateral [...] tem Type 2 diabetes mellitus without complication 11/28/19 22 [id number] SNOMED-CT Personal Care Team Section Performer Name Performer Role Active Date Inactive Da ginny
--- OUTSIDE RECORDS SUMMARY | 2024-10-25 03:04 | XMS_ITS ---
Author Organization Unknown Address [address] [place] [address] [phone] Phone Care Team Providers Care Spring Forger Name Role Phone SCARLET ZAYAS Attending Unavailable SCARLET ZAYAS Referring Provider Immunization Immunization Date Status Additional Notes Code [...] em Smoking History Never smoker (Never Smoked) [id number] SNOMED CT Smoking History Unknown if ever smoked [id number] SNOMED CT Sex Female Sexual Orientation Straight or Heterosexual 13554188 SNOMED CT Gender Identity Female [id number] Vital Signs Vital Sign Value Unit Ogle Value Ogle Unit Date/Time Recent/Initial? Code Code System Body Mass Index 31.63 kg/m2 12/30/2022 13:54 Initial 52103 -5 LOINC Systolic Blood Pressure 116 mm[Hg] 12/30/2022 13:54 Initial 8480- 6 LOINC Diastolic Blood Pressure 78 mm[Hg] 12/30/2022 13:54 Initial 8462- 4 LOINC Body Surface Area 2.03 m2 12/30/2022 13:54 Initial 3140- 1 LOINC Height 167.640 0 cm 66.00 in 12/30/2022 13:54 Initial 8302- 2 LOINC O2 Saturation 95 % 2022 13:54 Initial 21189 -5 [facility] Pulse 110.0 /min 12/30/2022 13:54 Initial 8867- 4 LOINC Respiration 16 /min 12/31/19 13:54 Initial 9279- 1 [facility] Temperature 36.3 Lisa 97.3 F 12/31/19 13:54 Initial 8310- 5 [facility] Weight 88.90 kg 196.00 lbs 12/30/2022 13:54 Initial 78685 -7 [facility] Medications Medication Start Date End Date Route Frequency Dose Code Code System Medication Instructions Home Meds Lyrica 150MG Oral Capsule 08/30/2018 Unknown By Mouth Twice a day 1 CAPSULE 518106 RxNorm 1 CAPSULE By Mouth Twice a day Xyzal Allergy 24HR 5MG Oral Tablet 08/30/2018 Unknown By Mouth Daily 1 TABLET 144168 RxNorm 1 TABLE T By Mouth Daily CeleBREX 100MG Oral Capsule 03/15/2019 12/31/19 23 By Mouth Twice a day 1 CAPSULE 131292 RxNorm 1 CAPSULE By Mouth Twice a day Pepcid AC 20MG Oral Tablet 03/15/2019 Unknown By Mouth Daily 1 TABLET 417749 RxNorm 1 TABLET By Mouth Daily medical marijuana 07/27/2019 04/22/19 24 By Mouth As Directed 1 edible RxNorm 1 edible By Mouth As Directed Fiasp 100U/1ML Injection Solution 02/23/2020 Unknown Subcutane ous 1447861 RxNorm Subcutaneou s VIA INSULIN PUMP Victoza 6MG/1ML Subcutaneou s Solution 02/23/2020 04/22/19 24 Subcutane ous Daily 1.8 MILLIGRAMS 696433 RxNorm 1.8 MILLIGRAMS Subcutaneou s Daily Naltrexone HCl Powder 04/29/2022 06/06/19 25 By Mouth At bedtime 3 MILLIGRAMS RxNorm 3 MILLIGRAMS By Mouth At bedtime Paxil 40MG Oral Tablet 04/29/2022 02/05/20 23 By Mouth Daily 1 TABLET 978273 RxNorm TAKE 1 TABLET BY MOUTH ONCE A DAY busPIRone 15MG Oral Tablet 04/29/2022 02/05/20 23 By Mouth Twice a day 1 TABLET 003802 RxNorm TAKE 1 TABLET BY MOUTH TWO TIMES A DAY Prinivil 5MG Oral Tablet 04/29/2022 06/19/19 24 By Mouth Daily 1 TABLET 159706 RxNorm TAKE 1 TABLET BY MOUTH ONCE A DAY Potassium Chloride 20MEQ Oral Tablet, Extended Release 04/29/2022 12/31/19 23 By Mouth Twice a day 2 TABLET 8656706 RxNorm TAKE 2 TABLETS BY MOUTH TWO TIMES A DAY Singulair 10MG Oral Tablet 04/29/2022 05/07/19 24 By Mouth Daily 1 TABLET 559448 RxNorm TAKE 1 TABLET BY MOUTH ONCE A DAY Crestor 40MG Oral Tablet 12/19/2022 12/31/19 23 By Mouth Daily 1 TABLET 264899 RxNorm TAKE 1 TABLET BY MOUTH ONCE A DAY Ozempic 0.25 MG or 0.5 MG Doses 2 MG/3 ML Subcutaneou s Solution 12/30/2022 01/05/20 24 Subcutane ous Once a week 0.25 UNIT 9702881 RxNorm 0.25 UNIT Subcutaneou s Once a week Crestor 40MG Oral Tablet 12/30/2022 12/31/19 23 By Mouth Daily 1 TABLET 264858 RxNorm TAKE 1 TABLET BY MOUTH ONCE A DAY Crestor 40MG Oral Tablet 12/30/2022 01/05/20 24 By Mouth Daily 1 TABLET 333712 RxNorm TAKE 1 TABLET BY MOUTH ONCE A DAY Paxil 40MG Oral Tablet 02/04/2023 07/07/19 24 By Mouth Daily 1 TABLET 860100 RxNorm TAKE 1 TABLET BY MOUTH ONCE A DAY busPIRone 15MG Oral Tablet 02/04/2023 07/07/19 24 By Mouth Twice a day 1 TABLET 018889 RxNorm TAKE 1 TABLET BY MOUTH TWO TIMES A DAY Levothyroxi ne 50MCG Oral Tablet 02/20/2023 Unknown By Mouth 1 TABLET 396655 RxNorm 1 TABLE T By Mouth in the morning on an empty stomach- PRESCRIBED BY DR DURAN Victoza 6MG/1ML Subcutaneou s Solution 02/20/2023 06/21/19 25 Subcutane ous Daily 1.8 UNIT 183217 RxNorm 1.8 UNIT Subcutaneou s Daily- *PRESCRIBED BY DR DURAN NovoLOG FlexPen 100U/1ML Subcutaneou s Solution 02/20/2023 04/07/20 23 Subcutane ous 1648592 RxNorm Inject up to 100 Units SUBQ daily in DMDED doses--- * PRESCRIBED BY DR DURAN Baclofen 10MG Oral Tablet 02/20/2023 Unknown By Mouth Three times a day 1 TABLET 635621 RxNorm 1 TABLET By Mouth Three times a day With food Aspirin 81MG Oral Tablet, Enteric Coated 02/20/2023 04/07/20 23 By Mouth Daily 1 TABLET 940089 RxNorm 1 TABLET By Mouth Daily Vitamin D 1000IU Oral Tablet 02/20/2023 04/07/20 23 By Mouth Daily 1 TABLET 229845 RxNorm 1 TABLET By Mouth Daily Augmentin 875MG-125MG Oral Tablet 04/22/2023 05/28/19 24 By Mouth Every 12 hours 1 TABLET 009614 RxNorm 1 TABLET By Mouth Every 12 hours x 10 days. Take with food. Diflucan 150MG Oral Tablet 04/22/2023 05/28/19 24 By Mouth x1 NOW 1 TABLET 884477 RxNorm 1 TABLET By Mouth x1 NOW. May repeat in 72 hours as needed. Singulair 10MG Oral Tablet 05/07/2023 07/07/19 24 By Mouth Daily 1 TABLET 921062 RxNorm TAKE 1 TABLET BY MOUTH ONCE A DAY Prinivil 5MG Oral Tablet 06/19/2023 06/22/19 24 By Mouth Daily 1 TABLET 225575 RxNorm TAKE 1 TABLET BY MOUTH ONCE A DAY Prinivil 5MG Oral Tablet 06/22/2023 07/07/19 24 By Mouth Daily 1 TABLET 822669 RxNorm TAKE 1 TABLET BY MOUTH ONCE A DAY Prinivil 5MG Oral Tablet 07/07/2023 01/05/20 24 By Mouth Daily 1 TABLET 586500 RxNorm TAKE 1 TABLET BY MOUTH ONCE A DAY Singulair 10MG Oral Tablet 07/07/2023 01/05/20 24 By Mouth Daily 1 TABLET 009727 RxNorm TAKE 1 TABLET BY MOUTH ONCE A DAY Paxil 40MG Oral Tablet 07/07/2023 10/02/19 24 By Mouth Daily 1 TABLET 359944 RxNorm TAKE 1 TABLET BY MOUTH ONCE A DAY busPIRone 15MG Oral Tablet 07/07/2023 01/05/20 24 By Mouth Twice a day 1 TABLET 083339 RxNorm TAKE 1 TABLET BY MOUTH TWO TIMES A DAY Ativan 0.5MG Oral Tablet 09/02/2023 09/28/19 25 By Mouth Twice a day 1 TABLET 233828 RxNorm 1 TABLET By Mouth Twice a day PRN Paxil 30MG Oral Tablet 10/02/2023 10/30/19 24 By Mouth Daily 2 TABLET 900711 RxNorm 2 TABLET By Mouth Daily Paxil 30MG Oral Tablet 10/30/2023 08/17/19 25 By Mouth Daily 2 TABLET 469807 RxNorm 2 TABLET By Mouth Daily Ambien 5MG Oral Tablet 12/11/2023 01/05/20 24 By Mouth At bedtime 308469 RxNorm 1-2 TABLET By Mouth At bedtime As needed Ozempic 0.25 MG or 0.5 MG Doses 2 MG/3 ML Subcutaneou s Solution 01/05/2024 06/21/19 25 Subcutane ous Once a week 0.5 UNIT 0514226 RxNorm 0.5 UNIT Subcutaneou s Once a week Crestor 40MG Oral Tablet 01/05/2024 09/27/19 25 By Mouth Daily 1 TABLET 821877 RxNorm TAKE 1 TABLET BY MOUTH ONCE A DAY busPIRone 15MG Oral Tablet 01/05/2024 08/06/19 25 By Mouth Twice a day 1 TABLET 985178 RxNorm TAKE 1 TABLET BY MOUTH TWO TIMES A DAY Singulair 10MG Oral Tablet 01/05/2024 09/27/19 25 By Mouth Daily 1 TABLET 740937 RxNorm TAKE 1 TABLET BY MOUTH ONCE A DAY Ambien 5MG Oral Tablet 01/05/2024 09/28/19 25 By Mouth At bedtime 373312 RxNorm 1-2 TABLET By Mouth At bedtime As needed Prinivil 5MG Oral Tablet 01/05/2024 07/06/19 25 By Mouth Daily 1 TABLET 636932 RxNorm TAKE 1 TABLET BY MOUTH ONCE A DAY Promethazin e DM 6.25MG/5ML- 15MG/5ML Oral Syrup 01/25/2024 06/06/19 25 ORAL As needed every 4 hr 5 mL 336036 RxNorm 5 mL ORAL As needed every 4 hr-do not take within 2 hours of Paxil or Buspirone Augmentin 875MG-125MG Oral Tablet 01/25/2024 06/06/19 25 By Mouth Twice a day 1 TABLET 835154 RxNorm 1 TABLET By Mouth Twice a day x 10 days Airsupra 90 MCG/1 Actuation-8 0 MCG/1 Actuation Inhalation Aerosol Powder 01/25/2024 06/06/19 25 Inhale As needed every 4 hr 2 Puff 2696759 RxNorm 2 Puff Inhale As needed every 4 hr Victoza 6MG/1ML Subcutaneou s Solution 06/20/2024 Unknown Subcutane ous Daily 1.8 MILLIGRAMS 386112 RxNorm 1.8 MILLIGRAMS Subcutaneou s Daily Ozempic 0.25 MG or 0.5 MG Doses 2 MG/3 ML Subcutaneou s Solution 06/20/2024 Unknown Subcutane ous Once a week 1.5 MILLILITER 8715496 RxNorm 1.5 MILLILITER Subcutaneou s Once a week Lisinopril 5MG Oral Tablet 07/05/2024 09/27/19 25 By Mouth Daily 1 TABLET 331774 RxNorm 1 TABLET By Mouth Daily busPIRone 15MG Oral Tablet 08/05/2024 Unknown By Mouth Twice a day 1 TABLET 110900 RxNorm TAKE 1 TABLET BY MOUTH TWO TIMES A DAY Paxil 20MG Oral Tablet 08/16/2024 09/27/19 25 By Mouth Daily 1 TABLET 308573 RxNorm 1 TABLET By Mouth Daily Wellbutrin XL 150MG Oral Tablet, Extended Release, 24 HR 08/16/2024 09/27/19 25 By Mouth Daily 1 TABLET 646936 RxNorm 1 TABLET By Mouth Daily. Wellbutrin XL 150MG Oral Tablet, Extended Release, 24 HR 09/26/2024 Unknown By Mouth Daily 1 TABLET 238112 RxNorm 1 TABLET By Mouth Daily. Paxil 20MG Oral Tablet 09/26/2024 Unknown By Mouth Daily 1 TABLET 963828 RxNorm 1 TABLE T By Mouth Daily Lisinopril 5MG Oral Tablet 09/26/2024 Unknown By Mouth Daily 1 TABLET 379087 RxNorm 1 TABLET By Mouth Daily Singulair 10MG Oral Tablet 09/26/2024 Unknown By Mouth Daily 1 TABLET 746381 RxNorm TAKE 1 TABLET BY MOUTH ONCE A DAY Crestor 40MG Oral Tablet 09/26/2024 Unknown By Mouth Daily 1 TABLET 936305 RxNorm TAKE 1 TABLET BY MOUTH ONCE A DAY Ativan 0.5MG Oral Tablet 09/27/2024 Unknown By Mouth As needed daily 1 TABLET 820243 RxNorm 1 TABLET By Mouth As needed daily Ambien 5MG Oral Tablet 09/27/2024 10/05/19 25 By Mouth At bedtime 150149 RxNorm 1-2 TABLET By Mouth At bedtime As needed Ambien 5MG Oral Tablet 10/04/2024 Unknown By Mouth At bedtime 1 TABLET 259311 RxNorm 1 TABLET By Mouth At bedtime As needed Assessment You had the following problems:TYPE I DIABETES MELLITUS WITH HYPERGLYCEMIAHYPERTENSIONHYPERCHOLESTEROLEMIAHYPOTHYROIDISMLUMBAR RADICULOPATHYLOW POTASSIUMGERDALLERGIC RHINITISDEPRESSIONANXIETYASTHMACHRONIC KIDNEY DISEASE STAGE 3OBESITYENDOMETRIOSISSLEEP APNEANEOPLASM OF UNCERTAIN BEHAVIOR OF RIGHT ADRENAL GLANDDEFICIENCY OF OTHER SPECIFIED B GROUP VITAMINSHYPERCALCEMIAENCOUNTER FOR FITTING AND ADJUSTMENT OF INSULIN PUMPABNORMAL LEVELS OF OTHER SERUM ENZYMES Assessment Medicare Well Visit Chronic Conditions: Diabetes 2 Lumbar radiculopathy Low potassium GERD Allergic rhinitis Depression Anxiety Hypertension Hypercholesterolemia Asthma Hypothyroidism Chronic kidney disease stage 3 Obesity BMI 31 Endometriosis Onychocryptosis Sleep apnea Hospital Discharge Instructions Should you have any questions prior to discharge, please contact a member of your healthcare team. If you have left the hospital and have any questions, please contact your primary care physician. Reason For Referral Reason for Referral: Lipoma on Left thigh/hip greater than 6 inches Receiving Provider: Sharita [id number] Appointment Date: 03/20/2023 Additional Information: apt time at 11:30 Problems Problem Start Date Resolved Date Status Code Code System TYPE I DIABETES MELLITUS WITH HYPERGLYCEMIA active 203104214847051 SNOMED -CT HYPERTENSION active 40566628 SNOMED- CT HYPERCHOLESTEROLEMIA active 51008522 SNOMED-CT HYPOTHYROIDISM active 84745278 SNOME D-CT LUMBAR RADICULOPATHY active 866689613 SNOMED-CT LOW POTASSIUM active 06609937 SNOMED -CT GERD active 645421629 SNOMED-CT ALLERGIC RHINITIS active 04869483 SN OMED-CT DEPRESSION active 06848188 SNOMED-CT ANXIETY active 77686449 SNOMED-CT ASTHMA active 992981630 SNOMED-CT CHRONIC KIDNEY DISEASE STAGE 3 active 283852364 SNOMED-CT OBESITY active 346322546 SNOMED-CT ENDOMETRIOSIS active 281343270 SNOMED -CT SLEEP APNEA active 59175207 SNOMED-C 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 756479187464892 SNOMED-CT 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 76867830 S NOMED-CT HYPERCALCEMIA active 61270400 SNOMED -CT ENCOUNTER FOR FITTING AND ADJUSTMENT OF INSULIN PUMP active 827510241 S NOMED-CT ABNORMAL LEVELS OF OTHER SERUM ENZYMES active 392314587 SNOMED-CT HISTORY OF GASTRIC BYPASS 06/26/2022 05/30/2024 resolved 69 9570269 SNOMED-CT SINUSITIS 04/30/2022 resolved 01480632 SNOMED-CT DIABETES 2 01/19/2024 resolved 87040262 SNOMED-C T Allergies and Adverse Reactions Allergy Substance Reaction Severity Start Date Concern Status Co de Code System CEFUROXIME Rash (SNOMED-CT: 269349574) Mild Active 2194 RxNorm KETOROLAC Hives (SNOMED-CT: 143672342) Mild Active 23981 RxNorm BIAXIN Hives (SNOMED-CT: 535663521) Severe Active LANTUS Hives (SNOMED-CT: 230219255) Mild Active 662450 RxNorm TAMIFLU Rash (SNOMED-CT: 607624716) Active 168416 RxNorm SEPTRA Rash (SNOMED-CT: 875108964) Mild Active LEVEMIR Hives (SNOMED-CT: 538884725) Mild Active 657116 RxNorm Plan of Treatment MA Screening Bilateral 07/25/2025 Established Patient 30 01/03/2025 TANFREDY MATIAS 03/20/2023 Plan 1. Medicare Wellness exam: Paperwork reviewed with patient. Received flu vaccine rleady. Mammogram due after 05-12-23. Colon screening was done 2017; sending for report to determine when needed next. Pap due 2025. Labs to be done for Dr. Ng. Hepatitis C screening ordered. 2. S/P bariatric procedure: Doing well. Has lost over [address] Lees's office. 3. DM II: Monitored by Dr. Ng. A1C to be rechecked this month along with other labs. Continue same meds per Dr. Ng 4. Chronic anxiety with depression, controlled: Continue same meds. No changes needed. 5. Left thigh/hip lipoma: Refer to surgeon in [place] for further evaluation. 6. Family history of hypertrophic cardiomyopathy: EKG and echocardiogram ordered. If abnormal, wants to go to [facility] with mom's assembler insulator. 7. Obesity BMI 31: Congratulated on weight loss. Following up with Dr. Lees. Screening, Education, Counseling Services Date Last Performed Date Due Pneumococcal Vaccine PCV13 03-28-2016 PPV23 12-15-2019 Influenza Vaccine 12-18-2020 done 12-21-22 Hepatitis B Vaccine Shingle Vaccine done Abdominal aortic aneurysm screening n/a Cardiovascular Screening 05-12-202201-10 Colorectal Cancer Screening 2017 Dr. Griffith Diabetes screening test (FBS/GTT) 05-12-202201-10 Glaucoma Screening PT TO SCHEDULE Hepatitis C Screening Due now ordered HIV Screening low risk Bone Mass Measurement due now n/a Pap/Pelvic Exam 09-06-20 due 2025 Screening mammogram 05-12-202205-13 Prostate Cancer Screening na Diabetes & renal disease dietary training education Dr. Lees Fall Prevention Program education Increase Physical Activity education Smoking Cessation Counseling never smoker Discharge instructions given to patient. Next Annual Wellness Visit: Return in 1 year. Description Due Date Details Instructions Pap 08/18/2025 Performed 09/06 20 normal, repeat in 5 yrs per [place] - RR 5.20.21 Sdoh 01/04/2025 Annual Labs 11/10/2024 cbc, cmp, tsh, free t4, lipids Mammogram 08/12/2025 08/12/24- WNL Depression 06/06/2025 Anxiety 06/06/2025 Encounters Encounter Diagnosis Start Date Code Code Sys tem Adult health examination 12/30/2022 [id number] [facility] [place] MED-CT Personal Care Team Section Performer Name Performer Role Active Date Inactive Da te Progress Notes [facility] 12/31/2022 14:11 Date of Service: 12/30/2022 Medicare Well Visit Chief Complaint: MWV Nurse Note: This nurse note is documented by YESENIA Morgan. HRA- Health Risk Assessment: the HRA was completed & reviewed (Yes/No)? Yes Depression Screening PHQ9 completed by the patient. See scanned image. PHQ-9 Total Score: 4 Score Assessment: 0-4= not an indicator or depression, 5-9=mild depression, 10-14=moderate depression, 15-19=moderately severe depression, 20-27=severe depression. Fall Screening: STEADI Fall Risk Screening completed by the patient. See scanned image. Education given (Yes/No): Yes [employer] Ht Wt Date/Time BP (mm/Hg) BP Position/Site Heart Rate Resp Temp (C) Pain Score Height (cm) Weight (kg) BMI 12/30/2022 13:54 116/78 Sitting/Right Arm 110 16 36.3 Temporal 167.6 cm 88.9 kg 31.63 Allergy Table Allergen Type Reaction CEFUROXIME medication KETOROLAC medication Hives BIAXIN medication TAMIFLU medication SEPTRA medication LEVEMIR medication Hives Current Home Meds Medication Dosage Route Frequency Prescribing MD Lyrica 150MG Oral Capsule 1 CAPSULE By Mouth Twice a day Xyzal Allergy 24HR 5MG Oral Tablet 1 TABLET By Mouth Daily Pepcid AC 20MG Oral Tablet 1 TABLET By Mouth Daily medical marijuana 1 edible By Mouth As Directed Fiasp 100U/1ML Injection Solution Subcutaneous Victoza 6MG/1ML Subcutaneous Solution 1.8 MILLIGRAMS Subcutaneous Daily Naltrexone HCl Powder 3 MILLIGRAMS By Mouth At bedtime Paxil 40MG Oral Tablet 1 TABLET By Mouth Daily SCARLET ZAYAS busPIRone 15MG Oral Tablet 1 TABLET By Mouth Twice a day SCARLET ZAYAS Prinivil 5MG Oral Tablet 1 TABLET By Mouth Daily SCARLET ZAYAS Singulair 10MG Oral Tablet 1 TABLET By Mouth Daily SCARLET ZAYAS Ozempic 0.25 MG or 0.5 MG Doses 2 MG/3 ML Subcutaneous Solution 0.25 UNIT Subcutaneous Once a week Crestor 40MG Oral Tablet 1 TABLET By Mouth Daily SCARLET ZAYAS Opioid Use (Yes/No)? Opiod Problem List Diabetes 2 Lumbar radiculopathy Low potassium GERD Allergic rhinitis Depression Anxiety Hypertension Hypercholesterolemia Asthma Hypothyroidism Chronic kidney disease stage 3 Obesity Endometriosis Onychocryptosis Sleep apnea BMI 31.0 to 31.9 History of gastric bypass Blood Transfusion before 1991 (Yes/No) ? No Menopause age: 47 Surgery History Table Procedure Procedure Date Age Notes Laparoscopy 1989 Colonoscopy 01/18/2018 52 Laparoscopic sleeve gastrectomy 06/26/2022 57 Lumbar discectomy 2002 at L4 Anterior lumbar fusion 2006 History of lumbar laminectomy 2008 Electrical nerve stimulation procedure 2015 Family Hx Table Problem Entered Relative Family history of cancer of kidney 08/30/2018 10:53 BROTHER FH: Hypercholesterolemia 08/30/2018 10:52 BROTHER FH: Hypertension 08/30/2018 10:52 BROTHER FH of diabetes 08/30/2018 10:53 BROTHER FH: Hypercholesterolemia 08/30/2018 10:52 FATHER FH of diabetes 08/30/2018 10:53 FATHER FH of diabetes 08/30/2018 10:53 PATERNAL GRANDMOTHER Family history: Cardiomyopathy 12/30/2022 13:58 MOTHER Family history of anxiety disorder 08/30/2018 10:54 MOTHER FH: Hypercholesterolemia 08/30/2018 10:52 MOTHER FH: Depression 08/30/2018 10:54 MOTHER FH: Hypertension 08/30/2018 10:52 MOTHER Is there a patient or family history of glaucoma? No Is there a family history of abdominal aortic aneurysm? No Social History: Smoking Status: Never smoker, Cessation Education: Exercise Routine None Infrequently Frequently Daily x Type of Exercise: housework, the gym Caffeine Use Summary: See also social history in EMR: Rare, Chi tea PRN Alcohol Use Summary: See also social history in EMR: No Advance Directive Type/Intent: No Domestic Violence Risk (Yes/No)? No Immunization List COVID-19, mRNA, LNP-S, PF, 30 mcg/0.3 mL dose, aung-sucrose, 09/23/2021 influenza, unspecified formulation, 12/20/2022 zoster live, 03/28/2016 Pneumococcal conjugate PCV 13, 03/28/2016 Influenza, seasonal, injectable, 12/19/2013 Influenza, seasonal, injectable, 02/15/2016 influenza, injectable, quadrivalent, preservative free, 12/18/2020 influenza, injectable, quadrivalent, 12/19/2014 influenza, injectable, quadrivalent, 01/15/2015 influenza, injectable, quadrivalent, 04/08/2018 influenza, injectable, quadrivalent, 01/14/2019 Influenza, injectable, MDCK, preservative free, quadrivalent, 03/05/2017 Influenza, injectable, MDCK, quadrivalent, preservative, 04/18/2018 zoster recombinant, 03/09/2020 zoster recombinant, 06/21/2020 COVID-19, mRNA, LNP-S, PF, 30 mcg/0.3 mL dose, 07/03/2020 COVID-19, mRNA, LNP-S, PF, 30 mcg/0.3 mL dose, 07/19/2020 COVID-19, mRNA, LNP-S, PF, 30 mcg/0.3 mL dose, 01/18/2021 pneumococcal polysaccharide PPV23, 12/15/2019 Patient's Current Providers and Suppliers: Primary Care Physician: CHANA NOVAK Next appt with PCP: 6-12 months Pharmacy (list both acute & mail order) [facility] Dentist Jamey [employer] Manufacturing Operations Manager/Instructor Programmable Controll[employer] [facility] Zipper Measurer Dermatology Fly Tier Jason Duran Orthopedist Quiller Runner Preschool Assistant Principal Care Management DSME Program (current or past) Pain Management Associated Physicians Bariatric surgeon Jani Lees Cognitive Function: Reviewed the Healthy Brain Checklist completed by the patient. Education given (Yes/No): Yes Mobility: Ambulatory x Cane Walker Wheelchair Bedridden Prosthesis General Activity Capability: Independent Requires Assistance Dependent Activities of Daily Living x Housework x x Meal Preparation x Managing Finances x Shopping x Transportation x Hearing Aid Use: No Visual Acuity: Snellen: Left eye: 20/13 Right eye: 20/20 Both eyes: 20/15 With or without correction? Yes Vision: Date of Last eye exam: Feb 2022 Difficulty driving at night (Yes/No): No Glasses x Contacts Current Nutrition, Diet: low fat and carb diet Dental Care: Have you been to the dentist in the last year (Yes/No)? Yes Safety Devices in Home: Present Absent Unknown Safety Alert System/Device x Carbon Monoxide Detector x Smoke Detector x Grab Bars in Bathroom x Shower Bench/Chair x Walk-in Tub x Elevated Toilet Seat x Hazards Present in Home: Present Absent Unknown Uneven Floors x Household Clutter x Obstructed Walkways x Poor Household Lighting x Loose Rugs x Is this patient an candidate for CCM? Already signed up To be a candidate for CCM the patient needs to have traditional Medicare and at least 2 chronic conditions. If yes, complete CCM referral form and send to home health. Provider notes: 57 year old female here today for Medicare Wellness visit. Had bariatric surgery per Dr. Lees at [facility] June 26. Has lost nearly 40 pound so far. Glucose doing better and back pain better. She was doing pool exercises this summer. Sees pediatric immunologist in January. On combo of Victoza and Ozempic. Has not had to use bolus insulin any further. Mood doing well with current meds. Dr. Ng manages her thyroid, diabetes, lipids. Doing well with current medications. Has noticed large lipoma on left thigh/hip region. Would like surgeon to look at this in [place]. Mom diagnosed with hypertrophic cardiomyopathy recently and her doctor at [facility] recommends patient have EKG and echocardiogram. Mom is on med called Lisy. Patient had colonoscopy in [address] Griffith. Last pap 09-06-20. Labs due again in December with Dr. Ng. PHYSICAL EXAM: GENERAL: Alert, well- appearing in no acute distress HEENT: Atraumatic. Eyes - pupils round, reactive to light. Ears - ear canals normal bilaterally. TMs normal bilaterally. Nose - Nares normal. No sinus tenderness. Oropharynx normal. NECK: Supple, no adenopathy/mass. RESPIRATORY: Lungs were clear to auscultation. Normal respiratory effort. Normal respiratory rate. CARDIOVASCULAR: Normal cardiac exam. Heart regular rate and rhythm. SKIN: Left thigh/hip with very large lipoma measuring over 6 inches in diameter. No pain with palpation. MUSCULOSKELETAL: Normal gait for age. PSYCHIATRIC: Alert, oriented and cooperative. Conversant, normal affect. Ordered & Completed Meds Table: No Current Medications Available Assessment Medicare Well Visit Chronic Conditions: Diabetes 2 Lumbar radiculopathy Low potassium GERD Allergic rhinitis Depression Anxiety Hypertension Hypercholesterolemia Asthma Hypothyroidism Chronic kidney disease stage 3 Obesity BMI 31 Endometriosis Onychocryptosis Sleep apnea Plan 1. Medicare Wellness exam: Paperwork reviewed with patient. Received flu vaccine rleady. Mammogram due after 05-12-23. Colon screening was done 2017; sending for report to determine when needed next. Pap due 2025. Labs to be done for Dr. Ng. Hepatitis C screening ordered. 2. S/P bariatric procedure: Doing well. Has lost over [address] Lees's office. 3. DM II: Monitored by Dr. Ng. A1C to be rechecked this month along with other labs. Continue same meds per Dr. Ng 4. Chronic anxiety with depression, controlled: Continue same meds. No changes needed. 5. Left thigh/hip lipoma: Refer to surgeon in [place] for further evaluation. 6. Family history of hypertrophic cardiomyopathy: EKG and echocardiogram ordered. If abnormal, wants to go to [facility] with mom's assembler insulator. 7. Obesity BMI 31: Congratulated on weight loss. Following up with Dr. Lees. Screening, Education, Counseling Services Date Last Performed Date Due Pneumococcal Vaccine PCV13 03-28-2016 PPV23 12-15-2019 Influenza Vaccine 12-18-2020 done 12-21-22 Hepatitis B Vaccine Shingle Vaccine done Abdominal aortic aneurysm screening n/a Cardiovascular Screening 05-12-202201-10 Colorectal Cancer Screening 2017 Dr. Griffith Diabetes screening test (FBS/GTT) 05-12-202201-10 Glaucoma Screening PT TO SCHEDULE Hepatitis C Screening Due now ordered HIV Screening low risk Bone Mass Measurement due now n/a Pap/Pelvic Exam 09-06-20 due 2025 Screening mammogram 05-12-2022- Prostate Cancer Screening na Diabetes & renal disease dietary training education Dr. Lees Fall Prevention Program education Increase Physical Activity education Smoking Cessation Counseling never smoker Discharge instructions given to patient. Next Annual Wellness Visit: Return in 1 year.
--- OUTSIDE RECORDS SUMMARY | 2024-10-25 03:04 | XMS_ITS ---
Author Organization Unknown Address [address] [place] [address] [phone] Phone Care Team Providers Care Stummel Selector Name Role Phone ROSITA ROSADO Attending Unavailable [...] em Smoking History Never smoker (Never Smoked) [id number] SNOMED CT Smoking History Unknown if ever smoked [id number] SNOMED CT Sex Female Sexual Orientation Straight or Heterosexual [id number] SNOMED CT Gender Identity Female [id number] Medications Medication Start Date End Date Route Frequency Dose Code Code System Medication Instructions Home Meds Lyrica 150MG Oral Capsule 08/30/2018 Unknown By Mouth Twice a day 1 CAPSULE 552010 RxNorm 1 CAPSULE By Mouth Twice a day Xyzal Allergy 24HR 5MG Oral Tablet 08/30/2018 Unknown By Mouth Daily 1 TABLET 672072 RxNorm 1 TABLE T By Mouth Daily CeleBREX 100MG Oral Capsule 03/15/2019 12/31/19 23 By Mouth Twice a day 1 CAPSULE 629857 RxNorm 1 CAPSULE By Mouth Twice a day Pepcid AC 20MG Oral Tablet 03/15/2019 Unknown By Mouth Daily 1 TABLET 484196 RxNorm 1 TABLET By Mouth Daily medical marijuana 07/27/2019 04/22/19 24 By Mouth As Directed 1 edible RxNorm 1 edible By Mouth As Directed Fiasp 100U/1ML Injection Solution 02/23/2020 Unknown Subcutane ous 0737109 RxNorm Subcutaneou s VIA INSULIN PUMP Victoza 6MG/1ML Subcutaneou s Solution 02/23/2020 04/22/19 24 Subcutane ous Daily 1.8 MILLIGRAMS 652147 RxNorm 1.8 MILLIGRAMS Subcutaneou s Daily Naltrexone HCl Powder 04/29/2022 06/06/19 25 By Mouth At bedtime 3 MILLIGRAMS RxNorm 3 MILLIGRAMS By Mouth At bedtime Paxil 40MG Oral Tablet 04/29/2022 02/05/20 23 By Mouth Daily 1 TABLET 624306 RxNorm TAKE 1 TABLET BY MOUTH ONCE A DAY busPIRone 15MG Oral Tablet 04/29/2022 02/05/20 23 By Mouth Twice a day 1 TABLET 997174 RxNorm TAKE 1 TABLET BY MOUTH TWO TIMES A DAY Prinivil 5MG Oral Tablet 04/29/2022 06/19/19 24 By Mouth Daily 1 TABLET 138131 RxNorm TAKE 1 TABLET BY MOUTH ONCE A DAY Potassium Chloride 20MEQ Oral Tablet, Extended Release 04/29/2022 12/31/19 23 By Mouth Twice a day 2 TABLET 5365749 RxNorm TAKE 2 TABLETS BY MOUTH TWO TIMES A DAY Singulair 10MG Oral Tablet 04/29/2022 05/07/19 24 By Mouth Daily 1 TABLET 809887 RxNorm TAKE 1 TABLET BY MOUTH ONCE A DAY Crestor 40MG Oral Tablet 06/05/2022 08/20/19 23 By Mouth Daily 1 TABLET 171879 RxNorm TAKE 1 TABLET BY MOUTH ONCE A DAY Crestor 40MG Oral Tablet 08/19/2022 12/20/19 23 By Mouth Daily 1 TABLET 163172 RxNorm TAKE 1 TABLET BY MOUTH ONCE A DAY Crestor 40MG Oral Tablet 12/19/2022 12/31/19 23 By Mouth Daily 1 TABLET 622016 RxNorm TAKE 1 TABLET BY MOUTH ONCE A DAY Ozempic 0.25 MG or 0.5 MG Doses 2 MG/3 ML Subcutaneou s Solution 12/30/2022 01/05/20 24 Subcutane ous Once a week 0.25 UNIT 9840668 RxNorm 0.25 UNIT Subcutaneou s Once a week Crestor 40MG Oral Tablet 12/30/2022 12/31/19 23 By Mouth Daily 1 TABLET 451794 RxNorm TAKE 1 TABLET BY MOUTH ONCE A DAY Crestor 40MG Oral Tablet 12/30/2022 01/05/20 24 By Mouth Daily 1 TABLET 882979 RxNorm TAKE 1 TABLET BY MOUTH ONCE A DAY Paxil 40MG Oral Tablet 02/04/2023 07/07/19 24 By Mouth Daily 1 TABLET 089924 RxNorm TAKE 1 TABLET BY MOUTH ONCE A DAY busPIRone 15MG Oral Tablet 02/04/2023 07/07/19 24 By Mouth Twice a day 1 TABLET 209027 RxNorm TAKE 1 TABLET BY MOUTH TWO TIMES A DAY Levothyroxi ne 50MCG Oral Tablet 02/20/2023 Unknown By Mouth 1 TABLET 713230 RxNorm 1 TABLE T By Mouth in the morning on an empty stomach- PRESCRIBED BY DR DURAN Victoza 6MG/1ML Subcutaneou s Solution 02/20/2023 06/21/19 25 Subcutane ous Daily 1.8 UNIT 034954 RxNorm 1.8 UNIT Subcutaneou s Daily- *PRESCRIBED BY DR DURAN NovoLOG FlexPen 100U/1ML Subcutaneou s Solution 02/20/2023 04/07/20 23 Subcutane ous 9564478 RxNorm Inject up to 100 Units SUBQ daily in DMDED doses--- * PRESCRIBED BY DR DURAN Baclofen 10MG Oral Tablet 02/20/2023 Unknown By Mouth Three times a day 1 TABLET 962365 RxNorm 1 TABLET By Mouth Three times a day With food Aspirin 81MG Oral Tablet, Enteric Coated 02/20/2023 04/07/20 23 By Mouth Daily 1 TABLET 077048 RxNorm 1 TABLET By Mouth Daily Vitamin D 1000IU Oral Tablet 02/20/2023 04/07/20 23 By Mouth Daily 1 TABLET 273517 RxNorm 1 TABLET By Mouth Daily Augmentin 875MG-125MG Oral Tablet 04/22/2023 05/28/19 24 By Mouth Every 12 hours 1 TABLET 825085 RxNorm 1 TABLET By Mouth Every 12 hours x 10 days. Take with food. Diflucan 150MG Oral Tablet 04/22/2023 05/28/19 24 By Mouth x1 NOW 1 TABLET 708204 RxNorm 1 TABLET By Mouth x1 NOW. May repeat in 72 hours as needed. Singulair 10MG Oral Tablet 05/07/2023 07/07/19 24 By Mouth Daily 1 TABLET 173940 RxNorm TAKE 1 TABLET BY MOUTH ONCE A DAY Prinivil 5MG Oral Tablet 06/19/2023 06/22/19 24 By Mouth Daily 1 TABLET 477884 RxNorm TAKE 1 TABLET BY MOUTH ONCE A DAY Prinivil 5MG Oral Tablet 06/22/2023 07/07/19 24 By Mouth Daily 1 TABLET 455802 RxNorm TAKE 1 TABLET BY MOUTH ONCE A DAY Prinivil 5MG Oral Tablet 07/07/2023 01/05/20 24 By Mouth Daily 1 TABLET 254167 RxNorm TAKE 1 TABLET BY MOUTH ONCE A DAY Singulair 10MG Oral Tablet 07/07/2023 01/05/20 24 By Mouth Daily 1 TABLET 380556 RxNorm TAKE 1 TABLET BY MOUTH ONCE A DAY Paxil 40MG Oral Tablet 07/07/2023 10/02/19 24 By Mouth Daily 1 TABLET 538098 RxNorm TAKE 1 TABLET BY MOUTH ONCE A DAY busPIRone 15MG Oral Tablet 07/07/2023 01/05/20 24 By Mouth Twice a day 1 TABLET 539340 RxNorm TAKE 1 TABLET BY MOUTH TWO TIMES A DAY Ativan 0.5MG Oral Tablet 09/02/2023 09/28/19 25 By Mouth Twice a day 1 TABLET 484125 RxNorm 1 TABLET By Mouth Twice a day PRN Paxil 30MG Oral Tablet 10/02/2023 10/30/19 24 By Mouth Daily 2 TABLET 061902 RxNorm 2 TABLET By Mouth Daily Paxil 30MG Oral Tablet 10/30/2023 08/17/19 25 By Mouth Daily 2 TABLET 688597 RxNorm 2 TABLET By Mouth Daily Ambien 5MG Oral Tablet 12/11/2023 01/05/20 24 By Mouth At bedtime 415084 RxNorm 1-2 TABLET By Mouth At bedtime As needed Ozempic 0.25 MG or 0.5 MG Doses 2 MG/3 ML Subcutaneou s Solution 01/05/2024 06/21/19 25 Subcutane ous Once a week 0.5 UNIT 2171233 RxNorm 0.5 UNIT Subcutaneou s Once a week Crestor 40MG Oral Tablet 01/05/2024 09/27/19 25 By Mouth Daily 1 TABLET 630827 RxNorm TAKE 1 TABLET BY MOUTH ONCE A DAY busPIRone 15MG Oral Tablet 01/05/2024 08/06/19 25 By Mouth Twice a day 1 TABLET 836964 RxNorm TAKE 1 TABLET BY MOUTH TWO TIMES A DAY Singulair 10MG Oral Tablet 01/05/2024 09/27/19 25 By Mouth Daily 1 TABLET 921931 RxNorm TAKE 1 TABLET BY MOUTH ONCE A DAY Ambien 5MG Oral Tablet 01/05/2024 09/28/19 25 By Mouth At bedtime 153511 RxNorm 1-2 TABLET By Mouth At bedtime As needed Prinivil 5MG Oral Tablet 01/05/2024 07/06/19 25 By Mouth Daily 1 TABLET 089184 RxNorm TAKE 1 TABLET BY MOUTH ONCE A DAY Promethazin e DM 6.25MG/5ML- 15MG/5ML Oral Syrup 01/25/2024 06/06/19 25 ORAL As needed every 4 hr 5 mL 607455 RxNorm 5 mL ORAL As needed every 4 hr-do not take within 2 hours of Paxil or Buspirone Augmentin 875MG-125MG Oral Tablet 01/25/2024 06/06/19 25 By Mouth Twice a day 1 TABLET 484216 RxNorm 1 TABLET By Mouth Twice a day x 10 days Airsupra 90 MCG/1 Actuation-8 0 MCG/1 Actuation Inhalation Aerosol Powder 01/25/2024 06/06/19 25 Inhale As needed every 4 hr 2 Puff 8791055 RxNorm 2 Puff Inhale As needed every 4 hr Victoza 6MG/1ML Subcutaneou s Solution 06/20/2024 Unknown Subcutane ous Daily 1.8 MILLIGRAMS 925089 RxNorm 1.8 MILLIGRAMS Subcutaneou s Daily Ozempic 0.25 MG or 0.5 MG Doses 2 MG/3 ML Subcutaneou s Solution 06/20/2024 Unknown Subcutane ous Once a week 1.5 MILLILITER 1859465 RxNorm 1.5 MILLILITER Subcutaneou s Once a week Lisinopril 5MG Oral Tablet 07/05/2024 09/27/19 25 By Mouth Daily 1 TABLET 166695 RxNorm 1 TABLET By Mouth Daily busPIRone 15MG Oral Tablet 08/05/2024 Unknown By Mouth Twice a day 1 TABLET 936928 RxNorm TAKE 1 TABLET BY MOUTH TWO TIMES A DAY Paxil 20MG Oral Tablet 08/16/2024 09/27/19 25 By Mouth Daily 1 TABLET 223501 RxNorm 1 TABLET By Mouth Daily Wellbutrin XL 150MG Oral Tablet, Extended Release, 24 HR 08/16/2024 09/27/19 25 By Mouth Daily 1 TABLET 477760 RxNorm 1 TABLET By Mouth Daily. Wellbutrin XL 150MG Oral Tablet, Extended Release, 24 HR 09/26/2024 Unknown By Mouth Daily 1 TABLET 957794 RxNorm 1 TABLET By Mouth Daily. Paxil 20MG Oral Tablet 09/26/2024 Unknown By Mouth Daily 1 TABLET 976826 RxNorm 1 TABLE T By Mouth Daily Lisinopril 5MG Oral Tablet 09/26/2024 Unknown By Mouth Daily 1 TABLET 176613 RxNorm 1 TABLET By Mouth Daily Singulair 10MG Oral Tablet 09/26/2024 Unknown By Mouth Daily 1 TABLET 391305 RxNorm TAKE 1 TABLET BY MOUTH ONCE A DAY Crestor 40MG Oral Tablet 09/26/2024 Unknown By Mouth Daily 1 TABLET 406936 RxNorm TAKE 1 TABLET BY MOUTH ONCE A DAY Ativan 0.5MG Oral Tablet 09/27/2024 Unknown By Mouth As needed daily 1 TABLET 565080 RxNorm 1 TABLET By Mouth As needed daily Ambien 5MG Oral Tablet 09/27/2024 10/05/19 25 By Mouth At bedtime 247530 RxNorm 1-2 TABLET By Mouth At bedtime As needed Ambien 5MG Oral Tablet 10/04/2024 Unknown By Mouth At bedtime 1 TABLET 629804 RxNorm 1 TABLET By Mouth At bedtime [...] TYPE I DIABETES MELLITUS WITH HYPERGLYCEMIA active [id number] SNOMED -CT HYPERTENSION active 15638178 SNOMED- CT HYPERCHOLESTEROLEMIA active 94473155 SNOMED-CT HYPOTHYROIDISM active 45461901 SNOME D-CT LUMBAR RADICULOPATHY active 608243520 SNOMED-CT LOW POTASSIUM active 59879086 SNOMED -CT GERD active 483906936 SNOMED-CT ALLERGIC RHINITIS active 50079581 SN OMED-CT DEPRESSION active 26781024 SNOMED-CT ANXIETY active 85418698 SNOMED-CT ASTHMA active 640007316 SNOMED-CT CHRONIC KIDNEY DISEASE STAGE 3 active 780209603 SNOMED-CT OBESITY active 939261066 SNOMED-CT ENDOMETRIOSIS active 669490912 SNOMED -CT SLEEP APNEA active 83352439 SNOMED-C 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 980219617305356 SNOMED-CT 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 13302658 S NOMED-CT HYPERCALCEMIA active 49123190 SNOMED -CT ENCOUNTER FOR FITTING AND ADJUSTMENT OF INSULIN PUMP active 119503217 S NOMED-CT ABNORMAL LEVELS OF OTHER SERUM ENZYMES active 008527056 SNOMED-CT HISTORY OF GASTRIC BYPASS 06/26/2022 05/30/2024 resolved 69 4252694 SNOMED-CT SINUSITIS 04/30/2022 resolved 85799146 SNOMED-CT DIABETES 2 01/19/2024 resolved 15187326 SNOMED-C T Allergies and Adverse Reactions Allergy Substance Reaction Severity Start Date Concern Status Co de Code System CEFUROXIME Rash (SNOMED-CT: 354300056) Mild Active 2194 RxNorm KETOROLAC Hives (SNOMED-CT: 218264207) Mild Active 88564 RxNorm BIAXIN Hives (SNOMED-CT: 295005501) Severe Active LANTUS Hives (SNOMED-CT: 369482385) Mild Active 406589 RxNorm TAMIFLU Rash (SNOMED-CT: 546950450) Active 363448 RxNorm SEPTRA Rash (SNOMED-CT: 869868395) Mild Active LEVEMIR Hives (SNOMED-CT: 221485927) Mild Active 484493 RxNorm Plan of Treatment MA Screening Bilateral [...] tem Type 2 diabetes mellitus without complication 06/16/19 23 [id number] [employer] Personal Care Team Section Performer Name Performer Role Active Date Inactive Da te Progress Notes [facility] 06/19/2022 14:55 Date of Service: 06/16/2022 Primary Care Physician: ASHLEE BECKER Chronic Care Management Visit Note Preventative Health Assessment (Mail Communication) May Monthly Update The Primary Care Management visit had a cumulative time of 00:20:02 involving: review of patient information, documentation, practice [...] and that cost-sharing applies. Heather Ashraf LPN, Drum Stenciler No immediate concerns for provider. The nurse [...] Preventive Health Services That May Be Due: Diabetes Self-Management Training - Due Hepatitis C Screening - Due Influenza Vaccine - Due - Last completed: 12/18/2020 Preventive Health Services Documented as Completed: Cardiovascular Disease Screenings - Up to date - Last completed: 05/12/2022 Cervical Cancer Screening with Breast Exam - Up to date - Scheduled: 08/18/2025 Colorectal Cancer Screening - Up to date - Last completed: 01/18/2018 Depression Screening - Up to date - Last completed: 03/20/2022 Preventive Health Services Documented as Declined: COVID Vaccination Status: Up to date Vaccine Type: Pfizer-BioNTech First Dose received: [id number] Second Dose received: [id number] First Booster received: [id number] Second Booster received: [id number] Remember to contact your provider's office to schedule your preventive health services, as appropriate. We tried to reach you by phone on 06/09/2022 and 06/12/2022. Upcoming Appointments: Your chart does not indicate that you have any upcoming appointments. I hope all is well! Heather Ashraf LPN [phone] ICD10 Description E11.9 Type 2 diabetes mellitus without complications
[2024-10-25] MEDS: LACTATED RINGERS 1,000 ML 30 ML IV CONT (09:00)
--- NOTE | 2024-10-25 10:37 | WPDANESEPPF ---
Anes - Initial Pre Proc Eval Procedure: Operation Date: 10/25/24 10:30 Proposed Procedures p Removal and Replacement Dorsal Column Stimulator Lead and Generator - Vish Smith MD Date/Time: 10/25/24 10:37 Surgeon: Vish Smith MD Pre Op Diagnosis: chronic back and leg pain Patient Data Age: 59 Gender: F Height: 1.68 m Weight: 78.5 kg Last Vital Signs Temp 36.4 C 10/25/24 08:25 Pulse 64 10/25/24 08:25 Resp 18 10/25/24 08:25 BP 104/67 10/25/24 08:25 Pulse Ox 98 10/25/24 08:25 O2 Del Method Room Air 10/25/24 08:25 Allergies Allergy/AdvReac Type Severity Reaction Status Date / Time cefuroxime Allergy Severe RASH Verified 10/25/24 08:34 clarithromycin Allergy Severe HIVES Verified 10/25/24 08:34 latex Allergy Severe RASH Verified 10/25/24 08:34 sulfamethoxazole Allergy Severe RASH Verified 10/25/24 08:34 trimethoprim Allergy Severe RASH Verified 10/25/24 08:34 insulin detemir (From Allergy RASH ON Verified 10/25/24 08:34 Levemir U-100 Insulin) FACE Home Medications ?Medication ?Instructions ?Recorded ?Confirmed ?Type baclofen 10 mg tablet 10 mg PO TID PRN MUSCLE SPASMS 08/23/24 10/13/24 History bupropion HCl 150 mg 24 hr tablet, 150 mg PO QAM 08/23/24 10/25/24 History extended release (Wellbutrin XL) buspirone 15 mg tablet 15 mg PO BID 08/23/24 10/25/24 History lisinopril 5 mg tablet 5 mg PO DAILY 08/23/24 10/25/24 History montelukast 10 mg tablet 10 mg PO DAILY 08/23/24 10/25/24 History paroxetine HCl 20 mg tablet 20 mg PO DAILY 08/23/24 10/25/24 History pregabalin 150 mg capsule 150 mg PO BID 08/23/24 10/25/24 History rosuvastatin 20 mg tablet 20 mg PO DAILY 08/23/24 10/25/24 History semaglutide 0.25 mg or 0.5 mg (2 0.5 mg subcut WEEKLY 08/23/24 10/25/24 History mg/1.5 mL) subcutaneous pen injector (Ozempic) biotin 2,500 mcg chewable tablet 6,000 mcg PO DAILY 10/13/24 10/25/24 History calcium 300 mg chewable tablet 650 mg PO DAILY 10/13/24 10/25/24 History famotidine 20 mg tablet (Acid 20 mg PO HS 10/13/24 10/25/24 History Controller) insulin aspart (B3)(U-100) 100 See Rx Instructions subcut .COMPLEX 10/13/24 10/25/24 History unit/mL (1.6 mL) subcut pump cartridge (Fiasp Pumpcart) lorazepam 0.5 mg tablet 0.5 mg PO Q8-12H PRN anxiety 10/13/24 10/13/24 History multivitamin (Daily Value tablet) 1 tablet PO BID 10/13/24 10/13/24 History zolpidem 5 mg tablet 5 mg PO HS PRN insomnia 10/13/24 10/25/24 History Laboratory Tests 10/25/24 08:56 POC Capillary Glucose 92 mg/dl (65-105) Patient hx anesthesia problems: none Family hx anesthesia problems: none Results Review: All pre-operative results and documents have been reviewed as part of the pre-operative evaluation. [facility] Past Medical History Medical History HTN (hypertension) Hyperlipemia GERD (gastroesophageal reflux disease) Diabetes Arthritis Asthma Allergies Surgical History Surgical History History of laminectomy History of lumbar fusion Social History Social History Smoking status: Never smoker Alcohol intake: never Substance use: current Do You Feel Safe in your Home?: Yes Lack of Transportation: No Lack of Food: Never True Current Housing: I Have Housing Concerned About Future Housing: No Difficulty Paying Gas/Electric Bills: No Difficulty Paying for Meds: No Currently Unemployed: No Education: High School Diploma/GED Difficulty w/ Childcare or Family Care: No Living arrangements: with family Additional living arrangements comments: BROTHER Spiritual care concerns: No Anes - Eval Final PreProcedure Day of Procedure 10/25/24 10:37 Patient weight: overweight Heart: regular rate and rhythm Lungs: clear to auscultation Airway: Mallampati scale class II Neurological: alert and oriented Last oral intake: >/= 8 hours ASA classification: IV Emergent: no Anesthetic plan: proceed Anesthesia type and monitoring: general ETT and standard monitoring Results Review: All pre-operative results and documents have been reviewed as part of the pre-operative evaluation. Informed Consent: The patient's anesthetic plan and its attendant risks and benefits were discussed with the patient/family/POA. Questions were solicited and answers provided to the satisfaction of the patient/family/POA.
--- NOTE | 2024-10-25 11:21 | P.HP_ITS ---
H&P: HPI History of Present Illness Date/Time: 10/25/24 11:21 Chief Complaint: Back and leg pain Narrative: Noa is a 59-year-old female with a long-time history of pain in her back and lower extremities that was treated with a fusion at the lowest functional level of her spine from an anterior approach and finally dorsal column stimulation after a successful trial. Her battery is at end of life and is no longer functioning. She also recently moving can not find her oil burner servicer and installer. Therefore, she is not getting efficacy from the device. The pain is in her back and radiates into lower extremities. She has numbness in the outside of the left calf. Her pain is with her at all times, worse with activity such as standing and walking. She was changed her position frequently. She has limited distracted by the discomfort daily which can be severe. It is not associated with specific muscle group weakness. The pain is severe. It has been going on for years. Review of Systems Review of Systems: All systems reviewed & are unremarkable except as noted in HPI and below Denies chills, Denies fever, Denies weight gain and Denies weight loss Eyes Denies change in vision and Denies diplopia ENT Denies disequilibrium Card Denies chest pain and Denies dyspnea Resp Denies cough and Denies dyspnea GI Denies abdominal pain, Denies change in bowel habits, Denies fecal incontinence and Denies vomiting Denies hematuria, Denies oliguria, Denies difficulty urinating, Denies dysuria, Denies urinary frequency, Denies urinary hesitancy, Denies urinary incontinence and Denies urinary urgency Musc Reports as per HPI Skin/ Breast Reports system reviewed and no additional complaints, except as documented Neuro Reports as per HPI Psych Reports no additional complaints, Denies depression and Denies hopelessness Endo Reports no additional complaints and Denies polyuria Meet/ Lymph Reports no additional complaints Aller/ Immun Reports no additional complaints PMFSH Past Medical History Medical History HTN (hypertension) Hyperlipemia GERD (gastroesophageal reflux disease) Diabetes Arthritis Asthma Allergies Surgical History Surgical History History of laminectomy History of lumbar fusion Social History Social History Smoking status: Never smoker Alcohol intake: never Substance use: current Do You Feel Safe in your Home?: Yes Lack of Transportation: No Lack of Food: Never True Current Housing: I Have Housing Concerned About Future Housing: No Difficulty Paying Gas/Electric Bills: No Difficulty Paying for Meds: No Currently Unemployed: No Education: High School Diploma/GED Difficulty w/ Childcare or Family Care: No Living arrangements: with family Additional living arrangements comments: BROTHER Spiritual care concerns: No Meds Home Medications and Allergies Home Medications ?Medication ?Instructions ?Recorded ?Confirmed ?Type baclofen 10 mg tablet 10 mg PO TID PRN MUSCLE SPASMS 08/23/24 10/13/24 History bupropion HCl 150 mg 24 hr tablet, 150 mg PO QAM 08/23/24 10/25/24 History extended release (Wellbutrin XL) buspirone 15 mg tablet 15 mg PO BID 08/23/24 10/25/24 History lisinopril 5 mg tablet 5 mg PO DAILY 08/23/24 10/25/24 History montelukast 10 mg tablet 10 mg PO DAILY 08/23/24 10/25/24 History paroxetine HCl 20 mg tablet 20 mg PO DAILY 08/23/24 10/25/24 History pregabalin 150 mg capsule 150 mg PO BID 08/23/24 10/25/24 History rosuvastatin 20 mg tablet 20 mg PO DAILY 08/23/24 10/25/24 History semaglutide 0.25 mg or 0.5 mg (2 0.5 mg subcut WEEKLY 08/23/24 10/25/24 History mg/1.5 mL) subcutaneous pen injector (Ozempic) biotin 2,500 mcg chewable tablet 6,000 mcg PO DAILY 10/13/24 10/25/24 History calcium 300 mg chewable tablet 650 mg PO DAILY 10/13/24 10/25/24 History famotidine 20 mg tablet (Acid 20 mg PO HS 10/13/24 10/25/24 History Controller) insulin aspart (B3)(U-100) 100 See Rx Instructions subcut .COMPLEX 10/13/24 10/25/24 History unit/mL (1.6 mL) subcut pump cartridge (Fiasp Pumpcart) lorazepam 0.5 mg tablet 0.5 mg PO Q8-12H PRN anxiety 10/13/24 10/13/24 History multivitamin (Daily Value tablet) 1 tablet PO BID 10/13/24 10/13/24 History zolpidem 5 mg tablet 5 mg PO HS PRN insomnia 10/13/24 10/25/24 History Allergies Allergy/AdvReac Type Severity Reaction Status Date / Time cefuroxime Allergy Severe RASH Verified 10/25/24 08:34 clarithromycin Allergy Severe HIVES Verified 10/25/24 08:34 latex Allergy Severe RASH Verified 10/25/24 08:34 sulfamethoxazole Allergy Severe RASH Verified 10/25/24 08:34 trimethoprim Allergy Severe RASH Verified 10/25/24 08:34 insulin detemir (From Allergy RASH ON Verified 10/25/24 08:34 Levemir U-100 Insulin) FACE Vital Signs Vital Signs - 24 hr 10/25/24 08:25 Temperature 97.6 F Pulse Rate 64 Respiratory Rate 18 Blood Pressure 104/67 Pulse Oximetry 98 Oxygen Delivery Room Air Exam Narrative: General: cooperative, no acute distress, well developed, alert and awake Orientation/Consciousness: oriented to person, oriented to place and oriented to time Constitutional Limitations: no limitations Other: The patient is a normally developed, normal appearing female sitting on the examination table in no acute distress. She is awake, alert, and oriented x3 with good fund of knowledge, recall of events, and fluent speech. HENOR Head: normocephalic and atraumatic Ears: external ears normal Face/Nose/Sinus: Normal external nose present Eyes Eyelids: eyelids normal Pupils: Yes Pupils normal by confrontation EOM: EOMs intact bilaterally Neck General: Yes no meningeal signs, Yes supple and Yes no JVD Resp Effort/Inspection: normal respiratory effort and able to speak in complete sentences Cardio Rate: Yes regular rate GI Inspection: No abdominal distension Musc Other: Examination of the back reveals no tenderness. Range of motion of the back is limited with pain in forward flexion, extension, and lateral rotation to both sides. Straight leg raise is negative bilaterally. Nnamdi?s test is negative bilaterally. Skin General: normal color Neuro General: Yes oriented to person, Yes oriented to place, Yes oriented to time, Yes normal cognition and Yes no meningeal signs Cranial Nerves: Yes CN's II-XII intact bilaterally Other: Motor: Strength is normal, 5/5, throughout all muscle groups of the bilateral lower extremities to direct confrontation. Sensory: Sensation is intact to light touch throughout the lower extremities bilaterally. Reflexes: Deep tendon reflexes are difficult to elicit the knees or ankles bilaterally. There is no clonus. Gait: Gait, station, and transfers are independent and steady for short periods of time and over short distances. Psych Appearance: grossly normal Mental status: Yes mental status grossly normal Mood: congruent mood Affect: Yes normal affect Speech/Movement: Normal speech and movement present Attitude: Yes cooperative Thought Content: Normal thought content present Assessment and Plan Assessment and plan (1) Chronic back pain: Code(s): M54.9 - Dorsalgia, unspecified; G89.29 - Other chronic pain Status: Acute (2) Chronic leg pain: Code(s): M79.606 - Pain in leg, unspecified; G89.29 - Other chronic pain Status: Acute Plan Noa is a 5-year-old female with back and leg pain that responded to dorsal column stimulation presents now to have her generator were revised as it is at end of life. I described to her that operation, its risks, potential benefits, the operative and postoperative course in detail and answered all her questions personally. She indicates understanding and elects to proceed with an operation. Once we have replaced the generator and then her neck can be evaluated by way of MRI and we can decide whether any intervention there could be helpful. Instructions:
[2024-10-25] MEDS: ceFAZolin 2 GM/D5W 50 ML 2 GM/50 ML BAG IVPB (11:35)
--- NOTE | 2024-10-25 11:46 | SUR.PREOP ---
1055 PT UPDATED ON SURGERY TIME DELAY
[2024-10-25] MEDS: VANCOMYCIN HCL 1,000 MG VIAL 500 MG TOPICAL (12:13)
[2024-10-25] MEDS: LIDO 1%/EPINEPHRINE 1:100,000 50 ML VIAL 10 ML INFILTRATE (12:14)
[2024-10-25] MEDS: SCOPOLAMINE 1 MG PATCH 1 PATCH TRANSDERM (12:31)
--- NOTE | 2024-10-25 12:32 | W.PM.PROC2 ---
Procedure Note - Detailed Date of Procedure 10/25/24 Pre-op Diagnosis chronic back and leg pain Post-op Diagnosis Same Procedure Performed Removal and replacement of dorsal column stimulator generator Surgeon Vish Smith MD Anesthesia General Description of Procedure The patient was brought to the operating room in the supine position, was sedated, intubated placed under general anesthesia in routine fashion. She was entered into the prone position on a Julián frame. The operation her back was examined, marked incision, prepped and draped in routine sterile fashion. Incision was marked over the previous incision transversely above the left buttock. This area was injected with 0.5% lidocaine with 1 to [id number] epinephrine. Intravenous antibiotics given prior to incision. Incision was made with a 10 blade scalpel down to the generator. Bovie cautery was used to loosen the scar so that the generator could be removed from the pocket. The small screwdriver was used to loosen the wires from the housing and the generator was removed. A new generator was brought up and the lead wires were placed in the same orientation in the C and D ports of the generator. These were secured position using the screwdriver for that purpose. Impedance testing was carried out confirm good connectivity which was confirmed. The wound was copiously irrigated with bacitracin irrigation all bleeding stopped with bipolar cautery. Generator was then replaced into the pocket with excess wire coiled up underneath it with vancomycin impregnated pellets around the device. The wound was then closed in layered fashion with 3-0 Vicryl interrupted sutures in the dermis and a running 4-0 Monocryl subcuticular stitch in the skin and was dressed with Dermabond. The patient was allowed to wake up in the operating room was taken to the recovery room in stable condition. There were no immediate complications of this operation. All counts reported correct at the end of the case. Blood loss was less than 1 cc. The patient was neurologically at her baseline postoperatively. Estimated Blood Loss 1 Complications None Condition Stable Disposition PACU [facility] Billing Surgery - Charge Forward: Surgery Billing
--- NOTE | 2024-11-01 10:10 | WPDHPUPDATE1 ---
History and Physical Update Update Date/Time: 10/26/24 10:10 History and Physical has been reviewed, including an updated exam of the patient. There are NO changes in the patient's condition. Risks, benefits, and alternatives have been discussed and questions answered. Patient agrees to proceed with procedure.
== END 2024-10-25 14:31 | disposition home or self-care (01) ==
PROVIDERS: Visit Provider Neurological Surgery
PROC: (CPT 63664; principal; 2024-10-25 10:30)
DX: Z45.42 Encounter for adjustment and management of neurostimulator (principal); M54.9 Dorsalgia, unspecified; M79.606 Pain in leg, unspecified; G89.29 Other chronic pain; I10 Essential (primary) hypertension; E78.5 Hyperlipidemia, unspecified; K21.9 Gastro-esophageal reflux disease without esophagitis; J45.909 Unspecified asthma, uncomplicated; E11.9 Type 2 diabetes mellitus without complications; M19.90 Unspecified osteoarthritis, unspecified site; Z98.1 Arthrodesis status; Z79.85 Long-term (current) use of injectable non-insulin antidiabetic drugs; Z79.4 Long term (current) use of insulin
CPT/HCPCS: 63664; 82948; A9270; J0690; J1100; J2003; J2004; J2250; J2405; J2704; J3010; J3373; J7120